=== PATIENT | female | born 1965 | race Caucasian/White ===

== ENCOUNTER 2024-10-02 16:44 | Inpatient (IN) | payer MEDICARE, OTHER, SELFPAY ==
[2024-10-02 12:52] VITALS: BP 179/106
[2024-10-02 13:29] VITALS: BMI 55.9
--- NOTE | 2024-10-02 14:20 | ED.SKININJ ---
HPI-Injury
General
Chief Complaint: Skin Problem
Source: patient and family (daughters at bedside)
Exam Limitations: none
Time Seen by Provider: 10/02/24 14:03
Nursing documentation reviewed up to this point in time: agreed with
History of Present Illness-Injury
Initial Injury comments:
59 yo female IDDM, HTN, HLD presents for swelling, redness, warmth, pain LLE, significantly worse in past 2-3 days. Pain 8/10 now. Taking Tylenol or Ibuprofen prn
Denies fever, has felt nauseous and vomited twice yesterday and once today. Denies CP, SOB.
Has not walked on the leg since the fall due to infections, complications.
Tripped 04/2023, trimalleolar fracture described, 07/2023 had surgery with hardware at [facility]. Dr. Goodwin [facility]. He last saw pt on 07/20/24 per daughter
06/2024 informed orthopedic doctor that she thought there was an infection and he did surgery to removed the hardware
Saw ortho multiple times, put on antibiotics and had MRI 2 weeks ago showing 'cellulitis' per family. Finished antibiotic with no improvement, but worsening
ID doctor went to her home 9 days ago and instructed on wound care for wound on mid instep, sole of foot
VN visited twice weekly for wound care. Last visit was yesterday.
Avulsed the toenail on left 4th toe 5 days ago, daughter cut off the hanging nail 3 days ago.
Past History
Past History
ED Past Medical History: Asthma, HTN, Hypercholesterolemia and IDDM
ED Past Surgical History: Gynecological and Orthopedic
Social History
Tobacco: Non-smoker
Alcohol: None
Drug: None
Personal:
Living: with family
Employment: Employed
Review of Systems
Review of Systems
Allergies reviewed?: Yes
All Other Systems: ROS reviewed and negative except as documented in HPI and ROS
Constitutional: Denies fever
Respiratory: Denies trouble breathing
Cardiac: Denies chest pain
ABD/GI: Reports nausea and vomiting; Denies abdominal pain, diarrhea or anorexia
Musculoskeletal: Reports edema (redness, swelling, pain LLE)
Skin: Reports other (chronic wound sole of left foot)
Neurological: Denies headache
Phy Exam
Physical Exam
Physical Exam:
GENERAL: No acute distress. A&Ox3. Morbidly obese
CONSTITUTIONAL: Afebrile.
EYES: clear, conjunctivae normal
ENMT: moist mucus membranes, Pharynx nl
RESPIRATORY: Regular respirations, nonlabored, lungs clear.
CARDIOVASCULAR: Regular rate and rhythm, no murmurs, no rubs.
GI: Soft, nontender, normal BS
MUSCULOSKELETAL: LLE from knee to tips of toes red, warm tender, significantly swollen. Well perfused. Doppler pulses easily audible left foot and ankl.
SKIN: Warm, dry, pink. Dry fissure 1 cm plantar surface mid left foot, no drainage or erythema. Surgical incisions anterior ankle and foor well healed. Entire LLE is swollen, tender to touch, red and warm.
PSYCH: Normal mood and affect. Well kept, interactive and appropriate
NEUROLOGIC: Awake, alert and oriented. No focal neurological deficits
Course
Orders/Labs/Results
Orders:
Orders
10/02/24 13:00
CR Ankle - Left Min 3 Views Urgent
Comment:
Reason For Exam: swelling, pain, prior surgery x2
CR Foot - Left Min 3 Views Urgent
Comment:
Reason For Exam: swelling, pain, open wound
10/02/24 14:05
Complete Blood Count/With Diff Urgent
Comprehensive Metabolic Panel Urgent
Lactic Acid Urgent
10/02/24 14:19
HYDROmorphone [Dilaudid] 1 mg IV NOW STA
Ondansetron Injectable [Zofran] 4 mg IV NOW STA
US Periph Venous LOWER Ext LT Urgent
Comment:
Reason For Exam: post op redness, swelling, pain
10/02/24 14:34
Piperacillin/Tazo 4.5 Gram [Zosyn] 4.5 gram in 100 ml IV NOW
10/02/24 14:36
0.9% Sodium Chloride 1000 ml [Nss] 1,000 ml IV BOLUS
10/02/24 14:39
Blood Culture Q30M
RITA Source: Blood/Venous
Specimen Description:
Blood Culture Q30M
RITA Source: Blood/Venous
Specimen Description:
10/02/24 14:47
Vancomycin [Vancocin] 2,000 mg 0.9% Sodium Chloride 500 ml [Nss] 500 ml IV NOW
10/02/24 Dinner
Cholesterol Lowering
At Your Request: Full Participation
Does patient need a safe tray?: No
Cholesterol Lowering: Sodium, 2 Gram
2200 boyd/18 CHO Diabetic
10/02/24 16:15
Admit/Transfer Patient As Directed
Co-Sign Provider:
Level of Care: Inpatient admission
Assign to:: Medical/Surgical
Physician / Group: [email or web address]
Diagnosis: Sepsis due to Non purulent recurrent cellulitis
Reason for Hospitalization: Sepsis ( HR > 90. WCC > 10, LA >2) due to LLEX cellulitis
Non purulent recurrent cellulitis of Lt. Cody
Expected length of stay greater than two midnights?: Yes
ELOS- Estimated Length of Stay in days: 6
I certify the patient meets the requirements for IP care: Yes
10/02/24 16:18
Code Status As Directed
Resuscitation Status: Full Code
10/02/24 17:43
Dextrose 50%-Water [Dextrose 50% Syringe] 12.5 grams IV [id number] PRN
Glucagon [GlucaGen] 1 mg IM PRN PRN
Insulin Aspart Corrective Mod [Novolog Flexpen-Moderate Resistance] See Protocol SC AC
10/02/24 17:43
Urinalysis Reflex To Culture Urgent
Activity As Directed
Activity Level: With Assistance
Bedside Glucose Monitoring As Directed
Frequency: AC&HS
Additional Instructions:: Change to q6h if pt on TPN, tube feeding or not eating
Intake/ Output As Directed
Frequency: Per unit guidelines
Vital Signs As Directed
Frequency: Per unit guidelines
DX Deep Vein Thrombosis Video Routine
10/02/24 18:00
Atorvastatin [Lipitor] 40 mg PO QPM
Enoxaparin Sodium [Lovenox] 40 mg SC QPM
10/02/24 19:35
Lactic Acid Q4H
Comment: repeat q4 hours x 4 or until less than 2 mmol/L
10/02/24 20:00
Duloxetine Delayed Release [Cymbalta Delayed Release] 60 mg PO BID
Furosemide [Lasix] 40 mg PO BID
Glipizide [Glucotrol] 10 mg PO BID
10/02/24 21:30
Piperacillin/Tazo 3.375 Gram [Zosyn] 3.375 gram in 50 ml IV Q6H
10/02/24 21:43
Lactic Acid Q4H
Comment: repeat q4 hours x 4 or until less than 2 mmol/L
10/02/24 22:00
Insulin Glargine Lantus [Lantus] 15 units Subcutaneous Insulin Syringe [Syringe-Insulin] 0 unit SC BID@0800,2200
Nortriptyline [Pamelor] 75 mg PO HS
Pregabalin [Lyrica] 200 mg PO HS
10/03/24 01:43
Lactic Acid Q4H
Comment: repeat q4 hours x 4 or until less than 2 mmol/L
10/03/24 05:43
Lactic Acid Q4H
Comment: repeat q4 hours x 4 or until less than 2 mmol/L
10/03/24 06:00
Complete Blood Count/No Diff IN AM
Comprehensive Metabolic Panel IN AM
Glycohemoglobin (HgbA1c) IN AM
10/03/24 08:00
Famotidine [Pepcid] 20 mg PO DAILY
Lisinopril [Zestril] 20 mg PO DAILY
Nebivolol HCl [Bystolic] 5 mg PO DAILY
Pantoprazole [Protonix] 40 mg PO DAILY
Pioglitazone HCl [Actos] 30 mg PO DAILY
Abnormal Lab Results
10/02/24
14:05
WBC 15.1 H 10^3/uL
(4.8-10.8)
Hgb 11.8 L g/dL
(12.0-16.0)
MCH 26.0 L pg
(27.0-31.0)
MCHC 31.4 L g/dL
(33.0-37.0)
RDW 16.0 H %
(11.5-14.5)
Abs Immat Gran (auto) 0.1 H 10^3/uL
(0-0.05)
Absolute Neuts (auto) 13.5 H 10^3/uL
(1.4-6.5)
Absolute Lymphs (auto) 0.9 L 10^3/uL
(1.2-3.4)
Immature Gran % 0.7 H %
(0-0.5)
Neutrophils % 89.5 H %
(42.2-75.2)
Lymphocytes % 6.0 L %
(20.5-51.1)
Chloride 94 L mmol/L
(98-107)
Carbon Dioxide 31 H mmol/L
(22-30)
BUN 21 H mg/dl
(7-17)
Glucose 288 H mg/dl
(70-99)
Lactic Acid 2.1 H mmol/L
(0.7-2.0)
Alkaline Phosphatase 132 H U/L
(38-126)
10/02/24 14:05
10/02/24 14:05
Vital Signs
Initial and Last Documented VS:
Initial Vital Signs
Temp Pulse Resp BP Pulse Ox
99.5 F 99 18 179/106 100
10/02/24 12:52 10/02/24 12:52 10/02/24 12:52 10/02/24 12:52 10/02/24 12:52
Last Documented Vital Signs
Temp Pulse Resp BP Pulse Ox
98.9 F 101 22 114/66 100
10/02/24 18:05 10/02/24 20:53 10/02/24 18:05 10/02/24 20:53 10/02/24 19:50
MDM/Problems Addressed
Differential Diagnosis Includes:
cellulitis, DVT, osteomyelitis
MDM/Problems Addressed:
59 yo female IDDM, HTN, HLD presents for swelling, redness, warmth, pain LLE, significantly worse in past 2-3 days. Pain 8/10 now. Taking Tylenol or Ibuprofen prn
Denies fever, has felt nauseous and vomited twice yesterday and once today. Denies CP, SOB.
Has not walked on the leg since the fall due to infections, complications.
Tripped 04/2023, trimalleolar fracture described, 07/2023 had surgery with hardware at [facility]. Dr. Goodwin, [facility]. He last saw pt on 07/20/24 per daughter
06/2024 informed orthopedic doctor that she thought there was an infection and he did surgery to removed the hardware
Saw ortho multiple times, put on antibiotics and had MRI 2 weeks ago showing 'cellulitis' per family. Finished antibiotic with no improvement, but worsening
ID doctor went to her home 9 days ago and instructed on wound care for wound on mid instep, sole of foot
VN visited twice weekly for wound care. Last visit was yesterday.
Avulsed the toenail on left 4th toe 5 days ago, daughter cut off the hanging nail 3 days ago.
Afebrile, NAD
3:30 p.m.
CBC: WBC 15.1
CMP: No clinically significant abnormality
Lactic 2.1
Blood cultures pending
Ultrasound left lower extremity radiology report read: No DVT, diffuse subcutaneous edema
Left foot x-ray: Radiology report read: IMPRESSION:
There are irregularities along the shaft of the proximal phalanx of the fourth metatarsal and base of the distal phalanx of the great toe which are favored to be subacute or chronic injuries.
There is no definite radiographic evidence of acute osteomyelitis.
Left ankle x-ray radiology report read: IMPRESSION:
There is extensive osseous remodeling and periosteal reaction along the distal tibia and fibula with findings of likely prior tibiotalar fusion with hardware removal.
There is no definite acute fracture. There is no definite findings of acute osteomyelitis although this would be difficult to exclude if there is clinical suspicion.
Plan: Admit: Cellulitis LLE
Hospitalist notified of admission
*Critical Care Note
Total Time (30-74mins, 75-104mins- exclusive of procedures): Not Applicable
ED Attending Note
-
Portions of this chart may have been created with voice recognition software.� Occasional wrong word or��sound alike� substitutions may have occurred due to the inherent limitations of voice recognition software.
Discharge Plan
Departure
Patient Disposition: Admit
Date of Disposition: 10/02/24
Time of Disposition: 15:41
Admit to: Med/Surg
Presentation/result/management discussed w/ accepting MD/DO: Hospitalist
Condition: Fair
Discharge Problem:
Cellulitis of left lower extremity, IDDM (insulin dependent diabetes mellitus)
Interventions
Interventions:
*Risk Screen - Suicide Last Done: 10/02/24 12:52
*General Assessment Last Done: 10/02/24 12:52
*Neglect/Abuse Screening Last Done: 10/02/24 13:29
*ED- Fall Risk Assessment Last Done: 10/02/24 17:35
*ED COVID-19 Vaccine History Last Done: 10/02/24 12:52
*Nursing Disposition Last Done: 10/02/24 17:35
ED-Skin Assessment Last Done: 10/02/24 17:35
Discharge Date and Time
Discharge Date/Time: 10/02/24 17:35
[2024-10-02 14:24] LABS: % Basophils 0.3 % (0-2); % Eosinophils 0.4 % (0-6); % Immature Granulocytes 0.7 % (0-0.5); % Monocytes 3.1 % (1.7-9.3); % Neutrophils 89.5 % (42.2-75.2); Absolute Basophils 0.1 10^3/uL (0-0.2); Absolute Eosinophils 0.1 10^3/uL (0-0.7); Absolute Immature Granulocytes 0.1 10^3/uL (0-0.05); Absolute Lymphocytes 0.9 10^3/uL (1.2-3.4); Absolute Monocytes 0.5 10^3/uL (0.1-0.6); Absolute Neutrophils 13.5 10^3/uL (1.4-6.5); Hematocrit 37.6 % (37.0-47.0); Hemoglobin 11.8 g/dL (12.0-16.0); Mean Corp Hgb Conc. 31.4 g/dL (33.0-37.0); Mean Corpuscular Volume 82.8 fL (81.0-99.0); Mean Platelet Volume 9.8 fL (7.4-10.4); Nucleated Red Blood Cells % 0 %; Platelet Count 282 10^3/uL (130-400); Red Blood Cell Count 4.54 10^6/uL (4.20-5.40); White Blood Cell Count 15.1 10^3/uL (4.8-10.8)
[2024-10-02] MEDS: DILAUDID 1 MG IV ×2 (14:27→18:13)
[2024-10-02] MEDS: ZOFRAN 4 MG IV (14:27)
[2024-10-02 14:35] LABS: Lactic Acid 2.1 mmol/L (0.7-2.0)
[2024-10-02 14:38] LABS: ALT (SGPT) 25 U/L (0-35); AST (SGOT) 28 U/L (14-36); Albumin 3.9 g/dl (3.5-5.0); Alkaline Phosphatase 132 U/L (38-126); Blood Urea Nitrogen 21 mg/dl (7-17); Calcium 9.1 mg/dl (8.4-10.2); Carbon Dioxide 31 mmol/L (22-30); Chloride 94 mmol/L (98-107); Estimated Creatinine Clearance 102 ml/min; Glucose 288 mg/dl (70-99); Potassium 4.3 mmol/L (3.5-5.1); Sodium 135 mmol/L (135-145); Total Protein 7.1 g/dl (6.3-8.2); eGFR > 60.00
[2024-10-02] MEDS: ZOSYN 100 IV (15:31)
[2024-10-02] MEDS: NSS 1000 IV (15:31)
--- NOTE | 2024-10-02 16:05 | HPS.HSE ---
Addendum entered and electronically signed by Joni Guevara MD 10/02/24 17:33:
Code status d/w patient in the presence of BORE MILL OPERATOR
Patient advise that DNR like prior admission - ordered
Original Note:
Family Physician
-
Family Physician: NOT KNOW UNKNOWN - PT DOES
Chief Complaint
-
Failed OP ABx to improve cellultis
History of Present Illness
HPI
59F HX IDDM, HTN, HLD seen at ER
- presents for swelling, redness, warmth, pain LLE, significantly worse in past 2-3 days.
- Avulsed the toenail on left 4th toe 5 days ago, daughter cut off the hanging nail 3 days ago.
- Taking Tylenol or Ibuprofen prn
- Denies fever, has felt nauseous and vomited twice yesterday and once today.
- Denies CP, SOB.
- Has not walked on the leg since the fall due to infections, complications.
- Tripped 04/2023, trimalleolar fracture described, 07/2023 had surgery with hardware at [facility].
( Dr. Goodwin, [facility]. He last saw pt on 07/20/24 per daughter)
- 06/2024 informed orthopedic doctor that she thought there was an infection and he did surgery to removed the hardware
Saw ortho multiple times, put on antibiotics and had MRI 2 weeks ago showing 'cellulitis' per family. Finished antibiotic with no improvement, but worsening
ID Dr El gerard : 9 days ago and instructed on wound care for wound on mid instep, sole of foot
Home visit : twice weekly for wound care. Last visit was yesterday.
Medical History
Past Medical History
Past Medical History: Reports Other
Additional Past Medical History:
Hypertension
DM-II with Peripheral Neuropathy
Restless Leg Syndrome
Obesity
TIA / CVA
Past Surgical History: Reports Other
Additional Past Surgical History:
Bladder Surgery (in childhood)
Right Elbow Surgery
Social History
Tobacco: Non-smoker
Alcohol: None
Drug: None
Family History
Family History: Other (Mother: HTN, DM, CAD Father: HTN, DM, CAD, Gastric Ulcers Brother: DM GM: Ovarian Cancer)
Allergies / Home Medications
Allergies reflects when Allergies were last updated in [employer].
Home Medications with original date entered in [employer]
Allergy/Medication List:
Allergies
Allergy/AdvReac Type Severity Reaction Status Date / Time
No Known Allergies Allergy Verified 04/25/23 03:02
Home Medications
dulaglutide 4.5 mg/0.5 mL subcutaneous pen injector (Trulicity) 4.5 mg SC QWEEK Diabetes 02/01/23
glipizide 10 mg tablet 10 mg PO BID Diabetes 02/01/23
lisinopril 20 mg-hydrochlorothiazide 25 mg tablet 1 tab PO DAILY Blood Pressure 02/01/23
nortriptyline 75 mg capsule 75 mg PO HS mental health 02/01/23
pioglitazone 30 mg tablet 30 mg PO DAILY Diabetes 02/01/23
atorvastatin 40 mg tablet (Lipitor) 40 mg PO HS High Cholesterol 02/02/23
cyanocobalamin (vitamin B-12) 1,000 mcg tablet 1,000 mcg PO DAILY Supplement #30 tabs 02/03/23
polyethylene glycol 3350 17 gram/dose oral powder (Miralax) 4 g PO DAILY Constipation #238 grams 02/03/23
pregabalin 150 mg capsule 150 mg PO DAILY Pain 02/03/23
pregabalin 150 mg capsule 300 mg PO HS Pain 02/03/23
Novolog U-100 Insulin aspart 04/25/23 (insulin pump)
Review of Systems
-
Constitutional: Reports No Symptoms
EENT: Reports No Symptoms
Respiratory: Reports No Symptoms
Cardiac: Reports No Symptoms
Abdomen/GI: Reports No Symptoms
: Reports No Symptoms
Musculoskeletal: Reports No Symptoms
Skin: Reports See HPI
Neurological: Reports No Symptoms
Endocrine: Reports No Symptoms
Hematologic/Lymphatic: Reports No Symptoms
Psych: Reports No Symptoms
Physical Exam
Vital Signs
Vital Signs
Temp Pulse Resp BP Pulse Ox
99.2 F 99 18 179/106 100
10/02/24 14:00 10/02/24 12:52 10/02/24 12:52 10/02/24 12:52 10/02/24 12:52
Physical Exam
General: Other (57y F in no acute distress.)
HEENT: Moist mucous membranes and Other (Thick neck.)
Respiratory: Clear; No Wheezes, Rales or Rhonchi
Cardiac: S1/S2 and Regular Rhythm; No Murmur
GI: Other (Obese, not tender, pos BS.)
Musculoskeletal: Other (LLE from knee to tips of toes red, warm tender, significantly swollen. )
Skin: Warm (Warm, dry, pink. Dry fissure 1 cm plantar surface mid left foot, no drainage or erythema. Surgical incisions anterior ankle and foor well healed. Entire LLE is swollen, tender to touch, red and warm. )
Neuro: AO x 3 and Other (Slow / sluggish [id number] - similar to prior admission.)
Psych: No Anxious or Depressed
Laboratory Results
-
10/02/24 14:05
10/02/24 14:05
Laboratory Results
Lactic Acid 2.1 mmol/L (0.7-2.0) H 10/02/24 14:05
Total Bilirubin 1.0 mg/dl (0.2-1.3) 10/02/24 14:05
AST 28 U/L (14-36) 10/02/24 14:05
ALT 25 U/L (0-35) 10/02/24 14:05
Alkaline Phosphatase 132 U/L (38-126) H 10/02/24 14:05
Data Reviewed
-
Diagnostic Radiology: Report Reviewed by me
Ultrasound: Report Reviewed by me
Lab Data: Labs Reviewed by me
Old Records: Reviewed
Impression/Plan
-
Vital Signs
Temp Pulse Resp BP Pulse Ox
99.2 F 101 20 109/65 95
10/02/24 14:00 10/02/24 16:06 10/02/24 16:06 10/02/24 16:06 10/02/24 16:06
04/26/23 10/02/24
06:06 14:05
WBC 15.1 H
Hgb 10.6 L 11.8 L
Plt Count 282
Chloride 94 L
Carbon Dioxide 31 H
BUN 21 H
Creatinine 0.9
Glucose 288 H
Lactic Acid 2.1 H
Alkaline Phosphatase 132 H
ASSESSMENT & PLAN
Sepsis ( HR > 90. WCC > 10, LA >2) due to LLEX celitis
Non purulent recurrent cellulitis of Lt. Cody
- HX Tripped 04/2023, trimalleolar fracture described
- 07/2023 had surgery [facility] hardware at [facility]. ( Dr. Goodwin, [facility]. He last saw pt on 07/20/24 per daughter)
- 06/2024 informed orthopedic doctor that she thought there was an infection and he did surgery to removed the hardware
- f/u with OP ortho multiple times, put on antibiotics and had MRI 2 weeks ago showing 'cellulitis' per family.
- Finished 7 days of PO Keflex with no improvement, but worsening
- HX hardware removal 07/2023. All done at [facility].
- Agree with IV vancomycin and Zosyn
- ID consult
Inadequate DM control due to current acute infection and not wearing pump
IDDM
Diabetic HX Peripheral Neuropathy
- she left Pump at home
- start Lantus 15U AM and HS
- c/w Pioglitazone, Glipizide
- Mod SI coverage
- Hold Trulicity for now.
- 2200 Taran diet
Benign Hypertension
- Stable.
- c/w lisinopril and Nebivolol
HX Restless Leg Syndrome
- on TOPSTITCHER LOCKSTITCH Amee and nortriptyline.
Morbid Obesity with BMI 55 due to excess calories and insulin resistance
Affects all aspects of care.
Encourage healthy diet and increased activity with goal of weight reduction.
DVT Px: LMWH
DNR ?
IP MS
[2024-10-02 16:06] VITALS: BP 109/65
[2024-10-02] MEDS: VANCOCIN 540 MG IV (16:06)
--- NOTE | 2024-10-02 16:09 | CM ---
CM met with pt and dtr/Chaz bedside
Pt resides with her other dtr and two grandsons 12 & 15 y/o in a 2SH with 2STE through back door
Full flight to 2nd floor where pt sleeps and showers
Pt is indep with ambulation with use of a SPC, has a WW for use as needed
Family available for support if needed but pt fairly indep at baseline
Has working nebulizer in home
Current with [facility] for wound care
PCP- China Pena
rx- Joan Hunt
Son/Jensen is emergency contact
Discharge Disposition- anticipate home, watch for needs
[2024-10-02 18:05] VITALS: BP 158/72
--- NOTE | 2024-10-02 18:09 | PTCARENOTE ---
received patient from ED. pt pulled over from stretcher to bed. pt unable to ambulate. weight obtained. pt AAOx3, reports pain in left leg with any touch/movement. left leg red and swollen up to knee. open blister on bottom of foot, dressing in
place. pt oriented to room and unit. daughters at bedside.
[2024-10-02] MEDS: LOVENOX 40 MG SC (18:15)
[2024-10-02] MEDS: LIPITOR 40 MG PO (18:15)
[2024-10-02 18:17] LABS: Glucose - Point of Care 213 mg/dl (70-99)
[2024-10-02 18:22] VITALS: BMI 56.7
--- NOTE | 2024-10-02 18:48 | PHA.VAN.IN ---
Assessment
- Assessment
Renal Function: Appears similar to baseline
Maximum Temperature: 99.5
Minimum Temperature: 98.9
Concomitant Antimicrobials: PIPERCILLIN/TAZOBACTAM
AUC Dosing Plan
- Dosing Variables
Dosing Weight (kg): 150
Dosing CrCl (ml/min): 101
Vd coefficient (L/kg): 0.4
- Empiric Dosing
Initial / Loading Dose: 2000mg 10/02 @1606
Maintenance Regimen: 1250mg Q12H to start at 0600 on 10/03
Estimated AUC (mcg*h/mL): 504
Estimated Peak (mcg*h/mL): 31.9
Estimated Trough (mcg/ml): 12.6
Estimated Half Life (H): 7.9
- Monitoring
No levels ordered at this time: Will consider levels in next coming few days
Pharmacokinetics Vancomycin I
- -
Patient Age: 59
Patient Sex: Female
Vancomycin Day #: 1
Indication: Skin And Soft Tissue
Requesting Provider: Dr. Guevara
Pertinent Antimicrobial Allergies:
NKDA
Height / Weight:
Height 5 ft 4 in
Actual Weight 149.685 kg
Pertinent Past Medical History: DM
- Vital Signs / Lab Results
Temp Pulse Resp BP Pulse Ox
98.9 F 100 22 158/72 93
10/02/24 18:05 10/02/24 18:05 10/02/24 18:05 10/02/24 18:05 10/02/24 18:05
Lab Results - Hematology
10/02/24
14:05
WBC 15.1 H
Lab Results - Chemistry
10/02/24
14:05
BUN 21 H
Creatinine 0.9
Estimated Creat Clear 102
Albumin 3.9
10/02/24
14:05
Lactic Acid 2.1 H
--- NOTE | 2024-10-02 19:25 | PTCARENOTE ---
noted prior documentation states history of donald auris, but patient denies history. pipelines supervisor notified- patient placed on enhanced precautions
[2024-10-02 20:40] LABS: Glucose - Point of Care 228 mg/dl (70-99)
[2024-10-02 20:52] VITALS: BP 114/66
[2024-10-02] MEDS: LASIX 40 MG PO (20:53)
[2024-10-02] MEDS: GLUCOTROL 10 MG PO (20:53)
[2024-10-02] MEDS: NOVOLOG FLEXPEN-MODERATE RESISTANCE 3 UNITS SC (20:53)
[2024-10-02] MEDS: CYMBALTA DELAYED RELEASE 60 MG PO (20:56)
[2024-10-02] MEDS: ZOSYN 50 IV (21:07)
[2024-10-02] MEDS: LYRICA 200 MG PO (22:10)
[2024-10-02] MEDS: DILAUDID 0.5 MG IV (22:11)
[2024-10-02] MEDS: PAMELOR 75 MG PO (22:11)
[2024-10-02 22:49] LABS: Glucose - Point of Care 219 mg/dl (70-99)
[2024-10-02] MEDS: LANTUS 0.15 UNITS SC (22:52)
[2024-10-02 23:30] VITALS: BP 100/60
[2024-10-03] MEDS: TYLENOL 650 MG PO (00:19)
[2024-10-03] MEDS: DILAUDID 0.5 MG IV (02:00)
[2024-10-03] MEDS: ZOSYN 50 IV ×4 (02:39→21:34)
[2024-10-03] MEDS: VANCOCIN 275 MG IV (05:36)
[2024-10-03 05:45] LABS: Urine Albumin 3+ (Neg - Trace); Urine Bilirubin Negative (Negative); Urine Character Clear (Clear); Urine Color Yellow; Urine Glucose 4+ (Negative); Urine Ketone Negative (Negative); Urine Leukocyte Negative (Negative); Urine Nitrite Negative (Negative); Urine Occult Blood 3+ (Negative); Urine Urobilinogen Negative (Neg - 1+)
[2024-10-03 05:54] LABS: Urine Amorphous Seen; Urine Bacteria Few (Negative)
[2024-10-03 06:45] LABS: Hematocrit 30.7 % (37.0-47.0); Hemoglobin 9.5 g/dL (12.0-16.0); Mean Corp Hgb Conc. 30.9 g/dL (33.0-37.0); Mean Corpuscular Hgb 25.9 pg (27.0-31.0); Mean Corpuscular Volume 83.7 fL (81.0-99.0); Mean Platelet Volume 10.5 fL (7.4-10.4); Platelet Count 248 10^3/uL (130-400); Red Blood Cell Count 3.67 10^6/uL (4.20-5.40)
[2024-10-03 07:00] VITALS: BP 96/55
[2024-10-03 07:15] LABS: ALT (SGPT) 126 U/L (0-35); AST (SGOT) 136 U/L (14-36); Alkaline Phosphatase 110 U/L (38-126); Blood Urea Nitrogen 30 mg/dl (7-17); Calcium 8.2 mg/dl (8.4-10.2); Carbon Dioxide 29 mmol/L (22-30); Chloride 97 mmol/L (98-107); Estimated Creatinine Clearance 53 ml/min; Glucose 229 mg/dl (70-99); Potassium 4.5 mmol/L (3.5-5.1); Sodium 134 mmol/L (135-145); Total Bilirubin 0.9 mg/dl (0.2-1.3); Total Protein 5.8 g/dl (6.3-8.2); eGFR 34.76
--- NOTE | 2024-10-03 08:06 | PTCARENOTE ---
Patient straight cath'd this morning at approx 0445 due to inability to urinate. She cannot recall the last time she urinated but reports that she normally has no problem at home. She had PO Lasix last evening with no urine output. Patient declined
to eat dinner and had small sips of water with medication. Patient denied feeling any bladder discomfort or abdominal pressure.
Bladder scan at 1930 was 130ml, 318ml around midnight and 1097ml at 0430. CROP NUTRITION SCIENTIST made aware via TT.
[2024-10-03 08:53] LABS: Glucose - Point of Care 212 mg/dl (70-99)
[2024-10-03 09:07] LABS: Glycohemoglobin (HgbA1c) 8.4 % (4.0-5.6)
--- NOTE | 2024-10-03 09:08 | PHA.VAN.FU ---
Vancomycin Assessment / Plan
- Assessment
Renal Function: SCR Increasing (0.9->1.7)
WBC's are: Trending Down (15.1->12.0)
In the past 24 hrs, patient has been: Febrile (101.9)
Concomitant Antimicrobials: Piperacillin/ Tazobactam
- Dosing Plan
Adjust Regimen to: Dose by level
Dosing by Level: Hold off on dosing today
Dosing Comments: Received 1250mg 10/03/24 0536
- Monitoring Plan
Random Level: 10/04/24 0600
- Follow Up
Pharmacy will continue to follow.
Vancomycin Follow UP
- -
Patient Age: 59
Patient Sex: Female
Vancomycin Day #: 2
Indication: Skin And Soft Tissue
Requesting Provider: Dr. Guevara
Pertinent Antimicrobial Allergies:
NKDA
Height / Weight:
Height 5 ft 4 in
Actual Weight 149.685 kg
Pertinent Past Medical History: DM
- Vital Signs / Lab Results
Temp Pulse Resp BP Pulse Ox
98.7 F 100 18 100/60 93
10/03/24 04:34 10/02/24 23:30 10/02/24 23:30 10/02/24 23:30 10/03/24 04:10
Lab Results - Hematology
10/02/24 10/03/24
14:05 06:25
WBC 15.1 H 12.0 H
Lab Results - Chemistry
10/02/24 10/03/24
14:05 06:25
BUN 21 H 30 H
Creatinine 0.9 1.7 H
Estimated Creat Clear 102 53
Albumin 3.9 3.0 L
10/02/24 10/02/24 10/02/24
14:05 19:35 21:43
Lactic Acid 2.1 H 1.0 Cancelled
10/03/24 10/03/24
01:43 05:43
Lactic Acid Cancelled Cancelled
Lab Results - Urine
10/03/24
05:14
Urine Nitrite (Reflex) Negative
Leukocyte Esterase Rfl Negative
Ur Squamous Epith Cells 3-5
[2024-10-03] MEDS: NOVOLOG FLEXPEN-MODERATE RESISTANCE 3 UNITS SC ×2 (09:30→12:46)
[2024-10-03] MEDS: LANTUS SC ×2 (10:30→21:32)
[2024-10-03] MEDS: LASIX PO (10:35)
[2024-10-03] MEDS: CYMBALTA DELAYED RELEASE 60 MG PO ×2 (10:39→21:32)
[2024-10-03] MEDS: ACTOS 30 MG PO (10:39)
[2024-10-03] MEDS: PEPCID 20 MG PO (10:39)
[2024-10-03] MEDS: PROTONIX 40 MG PO (10:40)
--- NOTE | 2024-10-03 10:43 | W.PN.HOSP.TC ---
Addendum entered and electronically signed by Rambo Buenorstro MD 10/03/24 21:12:
Attending Addendum-
I saw and evaluated the patient. I reviewed the resident�s note and agree with findings and plan as documented in the resident�s note. Sub: Seen with daughter present doing majority of talking and providing history. Patient falling asleep in bed
during interview. Denies pain. Was febrile overnight. Full 12 point ROS reviewed and negative except as documented Exam: Vitals reviewed in chart GEN-fatigued heart RRR lungs clear abd obese sof NT ND pos BS LE b/l venous stasis Left>right. pulses
intact LLE heel ulcer present red mildly warm blanching rash Neuro AAO x 3
Plan:
# Sepsis secondary to LLE cellulitis
- h/o left ankle fx s/p hardware removal at [facility] (? 2023)- will obtain records
- leukocytosis trending down
- recent wound culture as OP -will attempt to obtain
- Continue Vanc and Zosyn for now apparently failed OP abx
- Wound care and podiatry consult
- follow closely
# THAD
- post obstructive most likely
- check PVR's, SC for > 400mls
- repeat BMP in am
# Transaminitis
- unclear cause
- trend
# IDDM (type 2)
- w/ Peripheral Neuropathy
- Poorly controlled, HbA1c 8.4
- uses insulin pump at home
- Change Lantus to 18u HS,
- follow Accuchecks
- Mod SSI coverage, diabetic diet
- Hold Trulicity, glipizide, pioglitazone
# Benign Hypertension
- Stable monitor
- c/w Nebivilol and Lisinopril
# HX Restless Leg Syndrome
- cont lyrica and nortriptyline.
# Morbid Obesity with BMI 55 due to excess calories and insulin resistance
Affects all aspects of care.
Encourage healthy diet and increased activity with goal of weight reduction
DVT ppx: lovenox
Code status: DNR
Dispo - will likely need SNF on DC
Time spent coordinating care, review of plan of care with resident, personally reviewed records in EMR, med rec, consults, notes, labs, radiology, d/w nursing family� 55 mins
Original Note:
Today's Communication/Plan
-
Continue IV abx, podiatry consult
Assessment / Plan
Assessment / Plan
59 year old female with history of poorly controlled IDDM, HTN, HLD, mornid obesity, diabetic neuropathy, trimalleolar fracture s/p repair and revision, chronic ambulatory dysfunction who presents with LLE cellulitis.
Sepsis:
Tachycardia, tachypnea, leukocytosis, fever
Secondary to non-purulent LLE cellulitis, cannot rule out osteomyelitis yet
Chronic poorly healing fracture repair with [facility], history of IDDM, recent 7-day course of abx use with worsening symptoms (pt unsure of abx but thinks it is bactrim)
- Reports recent wound culture. Will get history from PCP and OP ortho
- CXR with no evidence of osteo. Will check EST and CRP. Consider MRI if positive
- Continue Vanc and Zosyn
- Wound care and podiatry consult
- PRN zofran for nausea. hold off IVF as tolerating PO
THAD:
Acute urinary retention
Pt reports infrequent urine. Bladder scan and straight cath with 1000ml yield
-Start wang
-Follow BMP and IandO
IDDM (type 2)
Peripheral Neuropathy
Poorly controlled, HbA1c 8.4
- Has insulin pump but she left Pump at home
- Change Lantus to 18u HS, follow Accuchecks
- Mod SSI coverage, diabetic diet
- Hold Trulicity, glipizide, pioglitazone
Benign Hypertension
- Stable.
- c/w Nebivilol and Lisinopril with holding parameters
HX Restless Leg Syndrome
- on RAD[employer] Amee and nortriptyline.
Morbid Obesity with BMI 55 due to excess calories and insulin resistance
Affects all aspects of care.
Encourage healthy diet and increased activity with goal of weight reduction
DVT ppx: lovenox
Code status: DNR
Anticipated Discharge: 24 - 48 hours
Subjective/Interval History
-
Date of Service: October 03, 2024
Febrile overnight, Tmax 101.9
Complains of nausea and poor appetite
Objective Data
-
Labs:
Laboratory Results
10/03/24
06:25
WBC 12.0 H
Hgb 9.5 L
Hct 30.7 L
Plt Count 248
Sodium 134 L
Potassium 4.5
Chloride 97 L
Carbon Dioxide 29
BUN 30 H
Creatinine 1.7 H
Glucose 229 H
Calcium 8.2 L
Total Bilirubin 0.9
AST 136 H
ALT 126 H
Alkaline Phosphatase 110
Vital Signs:
Vital Signs
Temp Pulse Resp BP Pulse Ox
99.5 F 93 19 96/55 90
10/03/24 07:00 10/03/24 07:00 10/03/24 07:00 10/03/24 07:00 10/03/24 07:00
I&O
10/02/24 10/03/24 10/04/24
06:59 06:59 06:59
Intake Total 720 / 720
Output Total 2165 / 2165
Balance -1445 / -1445
Review of Systems
-
History Source: Patient
Constitutional: Reports No Appetite; Denies Fever
Respiratory: Denies Trouble Breathing
Cardiac: Denies Chest Pain
Abdomen/GI: Reports Nausea; Denies Abdominal Pain, Vomiting, Diarrhea, Constipated or Bloody Stools
Genitourinary: Reports Other (infrequent urine)
Musculoskeletal: Reports Other (left lower extremity pain)
Skin: Reports Other (left lower extremity burning skin pain)
Physical Exam
-
General: Pain and Morbidly Obese
HEENT: Normocephalic, Atraumatic, Moist Mucous Membranes and Anicteric
Respiratory: Crackles (fine bibasilar) and Non Labored Respirations
Cardiac: Regular Rhythm, S1/S2, Murmur and Rub; Negative Calf Tenderness
GI: Soft, Nontender, Nondistended and Normal Bowel Sounds
Genito-urinary: No Costovertebral Tender
Musculoskeletal: No Clubbing, No Cyanosis and Edema, Left Lower Extrem
Skin: Ulcers (sole of left foot) and Other (splotchy erythema of left leg, warm to touch)
Neuro: Awake, Alert, Oriented, No Motor Deficits and Nonfocal/Grossly Intact
Psych: Calm
[2024-10-03] MEDS: GLUCOTROL 10 MG PO (11:21)
--- NOTE | 2024-10-03 11:33 | CM ---
condominium association manager reviewed patient's chart and met with patient and patient is current with [facility], and plan is to return to home with [facility] when stable.
Plan; Home with [facility] when stable.
Aryan AREVALO
[phone]
[2024-10-03 11:45] VITALS: BP 114/59
[2024-10-03 11:54] LABS: Glucose - Point of Care 209 mg/dl (70-99)
--- NOTE | 2024-10-03 14:40 | WOUNDNOTE ---
[facility] RN note: Patient admitted with cellulitis of L leg
See H&P for complete history. Lives with daughter has Aryan AREVALO.
PMH: 59 yo female IDDM, HTN, HLD presents for swelling, redness, warmth, pain LLE, significantly worse in past 2-3 days.
Has not walked on the leg since the fall due to infections, complications.
Tripped 04/2023, trimalleolar fracture described, 07/2023 had surgery with hardware at [facility]. Dr. Goodwin, [facility]. He last saw pt on 07/20/24 per daughter
06/2024 informed orthopedic doctor that she thought there was an infection and he did surgery to removed the hardware
Saw ortho multiple times, put on antibiotics and had MRI 2 weeks ago showing 'cellulitis' per family. Finished antibiotic with no improvement, but worsening
ID doctor went to her home 9 days ago and instructed on wound care for wound on mid instep, sole of foot
VN visited twice weekly for wound care. Last visit was yesterday.
Avulsed the toenail on left 4th toe 5 days ago, daughter cut off the hanging nail 3 days ago.
Wound Location and type/assessment: Patient admitted with: L plantar foot healing surgical ulcer, scant drainage, no odor. Residual dry blister surrounding, peeling skin. L leg with 3+ edema and mild cellulitis, painful to lift, patient able
to assist a little. L medial ankle surgical site is healed. Very dry flaky skin on L leg. Flaky scab on L heel, suspect abrasion rather than PI, patient said she wears crocks. + audible pulses with Doppler, unable to palpate. ultrasound negative for
DVT. R leg and heel intact. Patient able to turn self to side, sacrum and buttocks intact.
Appetite: Good.
Pressure redistribution devices in place: On Accumax, if patient not turning and need bariatric bed, call [phone] bed tech.
Plan: L plantar foot applied adaptic and silicone foam. Will order mineral oil for dry skin on leg and foot to start tomorrow. Sukhdeep wrap forefoot to below knee applied, patient states is comfortable.
Confirmed orders with Dr. Buenrostro and updated nurse Mariaa. Updated care plan and will follow as needed.
Note to case management of equipment requested for discharge: Resume VN
Recommend follow up with surgeon Dr. [place].
[2024-10-03 15:00] VITALS: BP 98/63
[2024-10-03 15:21] LABS: Erythrocyte Sed Rate 88 mm/hour (0-20)
[2024-10-03 16:15] LABS: C-Reactive Protein > 270.00 mg/L (0.0-10.00)
--- NOTE | 2024-10-03 16:57 | W.PN.UPDATE ---
Update Note
Progress Note Update
pt seen
consult dictated
ulcer small and stable
cont with local wound care and compression
fu as outpt
will sign off
[2024-10-03 17:39] LABS: Glucose - Point of Care 109 mg/dl (70-99)
[2024-10-03] MEDS: NOVOLOG FLEXPEN-MODERATE RESISTANCE SC (17:42)
[2024-10-03] MEDS: LASIX 40 MG PO (18:17)
[2024-10-03] MEDS: LOVENOX 40 MG SC (18:18)
[2024-10-03] MEDS: LIPITOR 40 MG PO (18:18)
[2024-10-03 21:25] LABS: Glucose - Point of Care 229 mg/dl (70-99)
[2024-10-03] MEDS: LYRICA 200 MG PO (21:32)
[2024-10-03] MEDS: PAMELOR 75 MG PO (21:32)
[2024-10-03] MEDS: LANTUS 0.18 UNITS SC (22:01)
[2024-10-03] MEDS: BACTROBAN 2% OINTMENT 1 APPLIC TOPICAL (23:33)
[2024-10-03 23:45] VITALS: BP 114/59
[2024-10-04] MEDS: VISBIOME 2 CAP PO (00:09)
[2024-10-04] MEDS: TYLENOL 650 MG PO (00:10)
[2024-10-04] MEDS: ProAIR HFA INHALER 1 PUFF INH (01:43)
[2024-10-04 02:51] LABS: Glucose - Point of Care 275 mg/dl (70-99)
[2024-10-04 03:00] VITALS: BP 114/43
[2024-10-04] MEDS: ZOSYN 50 IV ×2 (04:00→08:35)
--- NOTE | 2024-10-04 05:55 | PTCARENOTE ---
Patient stated that the last time she voided on her own was 10/03 at approx 10am. Patient reports not voiding since then. Several attempts by a couple nurses to bladder scan but unable to obtain reading. Had her sit on the toilet and commode with no
success. PULLER OVER notified via TT (10/04 013) Order for Koehler placed.
Patient briefly woke up and gave permission to place Koehler. Koehler placed at approx 0245. 100mls voided from Koehler. Patient slept through the Koehler placement. Patient was difficult to rouse a couple times but awaken a bit more. We asked if she's ok
and she nodded yes. We asked if she's a heavy sleeper and she said yes. Vitals were BP 114/43, T 98.5, HR 83, RR 20 and 95% on room air. Accucheck 275. PULLER OVER notified via TT.
[2024-10-04 07:00] VITALS: BP 95/57
[2024-10-04 08:03] LABS: Glucose - Point of Care 240 mg/dl (70-99)
[2024-10-04 08:13] LABS: Hematocrit 27.3 % (37.0-47.0); Hemoglobin 8.6 g/dL (12.0-16.0); Mean Corp Hgb Conc. 31.5 g/dL (33.0-37.0); Mean Corpuscular Hgb 26.3 pg (27.0-31.0); Mean Corpuscular Volume 83.5 fL (81.0-99.0); Platelet Count 258 10^3/uL (130-400); Red Blood Cell Count 3.27 10^6/uL (4.20-5.40)
[2024-10-04 08:21] LABS: Vancomycin Random 19.2 ug/ml
[2024-10-04 08:26] LABS: ALT (SGPT) 174 U/L (0-35); AST (SGOT) 132 U/L (14-36); Alkaline Phosphatase 175 U/L (38-126); Blood Urea Nitrogen 53 mg/dl (7-17); Calcium 7.9 mg/dl (8.4-10.2); Carbon Dioxide 25 mmol/L (22-30); Chloride 96 mmol/L (98-107); Estimated Creatinine Clearance 23 ml/min; Glucose 252 mg/dl (70-99); Potassium 4.1 mmol/L (3.5-5.1); Sodium 133 mmol/L (135-145); Total Bilirubin 0.9 mg/dl (0.2-1.3); Total Protein 5.7 g/dl (6.3-8.2); eGFR 12.83
[2024-10-04] MEDS: NOVOLOG FLEXPEN-MODERATE RESISTANCE 3 UNITS SC (08:35)
[2024-10-04] MEDS: PEPCID 20 MG PO (08:37)
[2024-10-04] MEDS: VISBIOME 1 CAP PO (08:37)
[2024-10-04] MEDS: PROTONIX 40 MG PO (08:37)
[2024-10-04] MEDS: LASIX 40 MG PO (08:38)
[2024-10-04] MEDS: HYDROPHOR 1 APPLIC TOPICAL (08:38)
[2024-10-04] MEDS: BACTROBAN 2% OINTMENT 1 APPLIC TOPICAL ×3 (08:47→21:35)
[2024-10-04] MEDS: CYMBALTA DELAYED RELEASE 60 MG PO (08:49)
--- NOTE | 2024-10-04 09:45 | PHA.VAN.FU ---
Vancomycin Assessment / Plan
- Assessment
Renal Function: SCR Increasing (1.7->3.9)
WBC's are: WNL (9)
In the past 24 hrs, patient has been: Febrile (101.9)
Concomitant Antimicrobials: Piperacillin/Tazobactam
- Assessment - Therapeutic Drug Monitoring
Random Level: 19.2 ~26hrs after 1250mg dose from 10/03/24
- Dosing Plan
Dosing by Level: Hold off on dosing today
- Monitoring Plan
Random Level: 10/05/24 0600
- Follow Up
Pharmacy will continue to follow.
Vancomycin Follow UP
- -
Patient Age: 59
Patient Sex: Female
Vancomycin Day #: 3
Indication: Skin And Soft Tissue
Requesting Provider: Dr. Guevara
Pertinent Antimicrobial Allergies:
NKDA
Height / Weight:
Height 5 ft 4 in
Actual Weight 149.685 kg
Pertinent Past Medical History: DM
- Vital Signs / Lab Results
Temp Pulse Resp BP Pulse Ox
98.5 F 83 20 95/57 95
10/04/24 03:00 10/04/24 03:00 10/04/24 03:00 10/04/24 08:38 10/04/24 03:00
Lab Results - Hematology
10/02/24 10/03/24 10/04/24
14:05 06:25 07:24
WBC 15.1 H 12.0 H 9.0
Lab Results - Chemistry
10/02/24 10/03/24 10/04/24
14:05 06:25 07:24
BUN 21 H 30 H 53 H
Creatinine 0.9 1.7 H 3.9 H
Estimated Creat Clear 102 53 23
Albumin 3.9 3.0 L 3.0 L
10/02/24 10/02/24 10/02/24
14:05 19:35 21:43
Lactic Acid 2.1 H 1.0 Cancelled
10/03/24 10/03/24
01:43 05:43
Lactic Acid Cancelled Cancelled
Microbiology Results
10/02/24 14:39 Blood Culture - Preliminary
Blood/Venous No Growth in 24 hours- Final report to follow
10/02/24 14:39 Blood Culture - Preliminary
Blood/Venous No Growth in 24 hours- Final report to follow
Therapeutic Drug Monitoring
Random Vancomycin 19.2 ug/ml 10/04/24 07:24
[2024-10-04 10:04] LABS: Iron 40 ug/dl (37-170)
[2024-10-04 10:13] LABS: Percent Saturation 14 % (20-50); Total Iron Binding Capacity 280 ug/dl (265-497)
[2024-10-04 10:14] LABS: Lactic Acid 1.5 mmol/L (0.7-2.0)
--- NOTE | 2024-10-04 11:00 | CM ---
Chart reviewed and patient plans on returning to home with [facility] when stable.
[facility]
[phone]
--- NOTE | 2024-10-04 12:11 | W.PN.HOSP.TC ---
Addendum entered and electronically signed by Rambo Buenrostro MD 10/04/24 22:36:
Attending Addendum-
I saw and evaluated the patient. I reviewed the resident�s note and agree with findings and plan as documented in the resident�s note. Sub: Febrile overnight. Patient falling asleep in bed during interview. Minimal urine output. Wang placed.
Complains of pain in LLE. 'I feel like crap' Full 12 point ROS reviewed and negative except as documented Exam: Vitals reviewed in chart GEN-fatigued heart RRR lungs clear abd obese soft TTP RUQ ND pos BS LE b/l venous stasis Left>right. pulses
intact LLE heel ulcer present red mildly warm blanching rash Neuro AAO x 3 - wang in place with minimal yellow urine
Plan:
# Sepsis secondary to LLE non purulent cellulitis
- h/o left ankle fx s/p hardware removal at [facility] (2023)- will obtain records
- apparently had recent LLE MRI at [facility]- will obtain
- leukocytosis trending down
- recent wound culture as OP -will attempt to obtain
- Continue Vanc and Zosyn for now apparently failed OP abx - will need to renally dose
- Wound care
- continues to be febrile
- c/s ID
# THAD
- oliguric
- worsening
- cont wang
- check urine studies
- hold lasix lisinopril renally dose meds
- c/s nephro
- amenable to HD if required
- repeat BMP in am
# Transaminitis
- unclear cause
- check RUQ U/S
- check acute viral hep panel
# IDDM (type 2)
- w/ Peripheral Neuropathy
- Poorly controlled, HbA1c 8.4
- uses insulin pump at home
- cont Lantus to 18u HS,
- follow Accuchecks
- Mod SSI coverage, diabetic diet
- Hold Trulicity, glipizide, pioglitazone
# Benign Hypertension
- Stable monitor
- c/w Nebivilol and hold Lisinopril
# HX Restless Leg Syndrome
- renally dose lyrica and cont nortriptyline.
# Morbid Obesity with BMI 55 due to excess calories and insulin resistance
Affects all aspects of care.
Encourage healthy diet and increased activity with goal of weight reduction
DVT ppx: lovenox
Code status: DNR
Dispo - will likely need SNF on DC
ACP
Patient consented to discuss, was alone, time spent explanation of advance directives, changes in health status, patient�s health care wishes if the patient becomes unable to make health decisions, goals of care, code status, and prognosis 'my
family would be upset if i didnt give it a shot' - 16 minutes
Time spent coordinating care, review of plan of care with resident, personally reviewed previous records in EMR, med rec, labs, radiology, d/w nursing, family total time documented is exclusive of any additional time listed that was spent in advance
care planning discussion -� 56 minutes
Original Note:
Today's Communication/Plan
-
Avoid nephrotoxic agents
Renally dose meds
Continue IV abx, ID consult
Continue wang, follow BMP and IandO, nephro consult
Assessment / Plan
Assessment / Plan
59 year old female with history of poorly controlled IDDM, HTN, HLD, mornid obesity, diabetic neuropathy, trimalleolar fracture s/p repair and revision, chronic ambulatory dysfunction who presents with LLE cellulitis.
Sepsis:
Tachycardia, tachypnea, leukocytosis, fever
Secondary to non-purulent LLE cellulitis, cannot rule out osteomyelitis yet
Chronic poorly healing fracture repair with [facility] in Apr 2024 with hardware removal in jul 2024, history of IDDM, recent 7-day course of abx use with worsening symptoms (pt unsure of abx but thinks it is bactrim)
- Leukocytosis resolved, but febrile overnight
- Reports recent wound culture. Will get history and recent cultures from PCP and OP ortho if able
- CXR with no evidence of osteo. ESR 88, CRP 270.
- Continue Vanc and Zosyn
- Appreciate wound care and podiatry
- Infectious disease consult
- PRN zofran for nausea. hold off IVF as tolerating PO
THAD:
Acute urinary retention with straight cath yield of 1000ml 10/03.
-Status wang. Now oliguric. Concern for intrarenal cause/ATN/AIN
-Nephro consult
-Renally adjust meds
-Check Urinalysis, urine micro, eos, urine cr and urine urea
-Follow BMP and IandO
IDDM (type 2):
Peripheral Neuropathy:
Poorly controlled, HbA1c 8.4
- Has insulin pump but she left Pump at home
- On lantus 18u HS, follow Accuchecks
- Mod SSI coverage, diabetic diet
- Hold Trulicity, glipizide, pioglitazone
Benign Hypertension
- Stable. Holding Lisinopril for THAD
- c/w Nebivilol with holding parameters
Chronic LE edema:
- Hold lasix 40mg BID
Anemia:
Likely anemia of chronic disease.
Hgb trending down with no reports of bleeding
-Check iron studies
HX Restless Leg Syndrome
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
Morbid Obesity with BMI 55 due to excess calories and insulin resistance
Affects all aspects of care.
Encourage healthy diet and increased activity with goal of weight reduction
DVT ppx: DC Lovenox. Switched to heparin
Code status: Full Code. Discussed code status with patient today. Patient states that she would like to have life-saving measures then if indicated including resuscitation/chest compressions, intubation, and hemodialysis.
Anticipated Discharge: > 48 hours
Subjective/Interval History
-
Date of Service: October 04, 2024
Reports nausea overnight.
Febrile overnight ti 101.9F.
Reduced urine output, wang inserted overnight
Objective Data
-
Labs:
Laboratory Results
10/04/24
07:24
WBC 9.0
Hgb 8.6 L
Hct 27.3 L
Plt Count 258
Sodium 133 L
Potassium 4.1
Chloride 96 L
Carbon Dioxide 25
BUN 53 H
Creatinine 3.9 H
Glucose 252 H
Calcium 7.9 L
Total Bilirubin 0.9
AST 132 H
ALT 174 H
Alkaline Phosphatase 175 H
Vital Signs:
Vital Signs
Temp Pulse Resp BP Pulse Ox
98.1 F 72 20 95/57 95
10/04/24 07:00 10/04/24 07:00 10/04/24 07:00 10/04/24 08:38 10/04/24 08:00
I&O
10/03/24 10/04/24 10/05/24
06:59 06:59 06:59
Intake Total 720 / 720 740 / 740
Output Total 2165 / 2165 100 / 100
Balance -1445 / -1445 640 / 640
Review of Systems
-
History Source: Patient
Constitutional: Denies Fever
EENT: Reports Other (moist mucous membranes)
Respiratory: Denies Trouble Breathing
Cardiac: Denies Chest Pain
Abdomen/GI: Reports Diarrhea (2 watery bowel movements overnight); Denies Nausea, Constipated or Bloody Stools
Genitourinary: Reports Difficulty Voiding and Other (reduced frequency of urine)
Musculoskeletal: Reports Edema (lower extremities) and Other (Left leg pain)
Skin: Reports Other
Physical Exam
-
General: Morbidly Obese and Other (appears uncomfortable)
HEENT: Normocephalic, Atraumatic and Anicteric
Respiratory: Clear to Auscultation, Non Labored Respirations and Decreased Breath Sounds (mildly decreased on LLL); Negative Wheezes, Rales, Rhonchi or Crackles
Cardiac: Regular Rhythm, S1/S2 and Other; Negative Murmur or Rub
GI: Soft, Nontender, Nondistended, Normal Bowel Sounds and Other (central obesity)
Genito-urinary: No Costovertebral Tender, Turbid Urine and Wang (minimal urine output in wang)
Musculoskeletal: No Clubbing, No Cyanosis, Edema, Right Lower Extrem and Edema, Left Lower Extrem
Skin: Ulcers (left plantar surface. Erythema and warmth of left leg. Significantly tender.)
Neuro: Awake, Alert and Oriented
Psych: Calm
[2024-10-04] MEDS: NOVOLOG FLEXPEN-MODERATE RESISTANCE 1 UNITS SC ×2 (13:06→16:57)
--- NOTE | 2024-10-04 14:22 | CON.ID ---
Consultation
-
Date/Time Consultation Requested: October 04, 2024 1216
Date/Time Consultation Performed: October 04, 2024 1420
Requesting Provider: Dr. Shiloh Najera
Performing Provider: Dr. Ava Youngblood
Reason for Consultation: Concern for osteomyelitis
Chief Complaint / Past History
Chief Complaint
Left foot swelling, redness and pain
History of Present Illness
59-year-old female with history of diabetes mellitus, peripheral neuropathy, left ankle fracture who presented to the hospital on October 02 due to recurrence of right leg/foot edema, erythema, and pain. She has history of left Tri malleolar fracture
status post ORIF at [facility] in July 2023. Patient was falling and found to have loosening of the ankle hardware. On June 2024, the ankle hardware were removed. She said that she saw the infectious disease nurse practitioner and
she had 7 days worth of antibiotic postop. Her foot and ankle improved after hardware removal. The ankle wound healed. The plantar wound was better and smaller. Approximately 3 weeks ago, she developed acute left foot pain. No trauma or new
shoes. The left foot became swollen and red extending up to her basurto. She saw her orthopedic doctor who prescribed a course of Cipro with improvement. 2 weeks ago she had MRI of the left leg below the knee without contrast-no abscess, no
osteomyelitis, positive soft tissue swelling consistent with cellulitis. Last week, her right leg became swollen, red, hot, and painful again. She then stubbed her left fourth toe and the nail partially came off which the daughter removed the
hanging toenail. She had chills. She came to the ER October 02. White count of 15.1. Maximum temperature one 101.9. She was started on vancomycin and Zosyn. X-ray of the ankle and foot generalized soft tissue swelling. Blood cultures x 2
negative to date. During hospital stay, she developed minimal urine output. She is currently in THAD. Patient does not think her leg is any better since being in the hospital. No known history of MRSA in the past.
Past History
Additional Past Medical History:
Diabetes mellitus
Peripheral neuropathy
Hypertension
TIA/CVA
Class III obesity BMI 57
Restless leg syndrome
Hx of left trimalleolar fracture status post ORIF July 2023 with subsequent hardware removal June 2024
Right elbow surgery
Childhood bladder surgery
Allergy History:
No Known Allergies Allergy (Verified 10/02/24 12:59)
Medications Reviewed: Yes
Current Antibiotics:
Vancomycin
Zosyn
Social History
Tobacco: Non-Smoker
Alcohol: None
Drug: None
Living: Other (1 dog )
Employment: Not Employed
Family History
Family History: Not Pertinent
Review of Systems
Review of Systems
General: Fever, Chills and Change in Appetite
HEENT: Negative Sinus Problems, Headache or Pharyngitis
Cardiovascular: Negative Chest Pain or Dyspnea
Respiratory: Negative Dyspnea, Cough or Sputum Production
Gasteroenterology: Negative Nausea, Vomiting or Diarrhea (Diarrhea last night, now resolved. )
Genital / Urological: Negative Dysuria or Flank Pain
Neurological: Negative Dizziness
All systems: All other systems were reviewed and were negative
Vital Signs
Temp Pulse Resp BP Pulse Ox
98.1 F 72 20 95/57 95
10/04/24 07:00 10/04/24 07:00 10/04/24 07:00 10/04/24 08:38 10/04/24 08:00
Selected Entries
10/03/24
23:45
Temp 101.9 F H
Physical Exam
Physical Exam
Constitutional: No Acute Distress and Non-toxic
Eyes: No Conjunctival Hemorrhage and Sclera Anicteric
Cardiovascular: Regular Rate and S1/S2
Pulmonary: Clear
Gastrointestinal: Soft, Non Tender, Non Distended and Normal Bowel Sounds
Genito-Urinary: Koehler; Negative CVA Tenderness
Extremities: Edema (LLE 3+ ) and Erythema (Patchy erythema from foot to knee, mild warmth, skin dry)
Wound: Other (left plantar mid arch: linear fissure, almost closed, no drainage, no surrounding erythema)
Neurological: AO x 3
Lab / Diagnostic Study Results
10/04/24 07:24
10/04/24 07:24
Abs Immat Gran (auto) 0.1 10^3/uL (0-0.05) H 10/02/24 14:05
Absolute Neuts (auto) 13.5 10^3/uL (1.4-6.5) H 10/02/24 14:05
Absolute Lymphs (auto) 0.9 10^3/uL (1.2-3.4) L 10/02/24 14:05
Absolute Monos (auto) 0.5 10^3/uL (0.1-0.6) 10/02/24 14:05
Absolute Basos (auto) 0.1 10^3/uL (0-0.2) 10/02/24 14:05
Immature Gran % 0.7 % (0-0.5) H 10/02/24 14:05
Neutrophils % 89.5 % (42.2-75.2) H 10/02/24 14:05
Lymphocytes % 6.0 % (20.5-51.1) L 10/02/24 14:05
Monocytes % 3.1 % (1.7-9.3) 10/02/24 14:05
Eosinophils % 0.4 % (0-6) 10/02/24 14:05
Basophils % 0.3 % (0-2) 10/02/24 14:05
ESR 88 mm/hour (0-20) H 10/03/24 06:25
Lactic Acid 1.5 mmol/L (0.7-2.0) 10/04/24 09:52
C-Reactive Protein > 270.00 mg/L (0.0-10.00) H 10/03/24 06:25
Ur Squamous Epith Cells 3-5 /LPF (Few) 10/03/24 05:14
Microbiology Results
Micro:
10/02/24 14:39 Blood Culture - Preliminary
Blood/Venous No Growth in 24 hours- Final report to follow
10/02/24 14:39 Blood Culture - Preliminary
Blood/Venous No Growth in 24 hours- Final report to follow
10/02/24 Left FOOT XRAY: There are irregularities along the shaft of the proximal phalanx of the fourth metatarsal and base of the distal phalanx of the great toe which are favored to be subacute or chronic injuries. There is no definite radiographic
evidence of acute osteomyelitis.
10/02/24 Left ankle xray: There is extensive osseous remodeling and periosteal reaction along the distal tibia and fibula with findings of likely prior tibiotalar fusion with hardware removal. There is no definite acute fracture. There is no
definite findings of acute osteomyelitis although this would be difficult to exclude if there is clinical suspicion.
Assessment / Plan
# Acute non-purulent RLE cellulitis
# Fever
# Leukocytosis resolved
# THAD
# DM- uncontrolled
# hx left ankle ORIF, hardware removed 06/2024 due to loosening
-Underlying osteo is unlikely as plantar wound superficial without probe to bone.
- Obtain recent MRI report from [facility]
- DC Vancomycin and Zosyn especially in setting of THAD
- Deescalate to cefazolin 1g IV q12, renally adjusted.
- Moisturize leg. skin crackes can serve as portal for bacterial entry.
- Elevate leg.
-ANNA compression.
- Follow temps.
- Tight glucose control
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
Diabetes mellitus
Peripheral neuropathy
Hypertension
TIA/CVA
Class III obesity BMI 57
Restless leg syndrome
Hx of left trimalleolar fracture status post ORIF July 2023 with subsequent hardware removal June 2024
Right elbow surgery
Childhood bladder surgery
[2024-10-04 15:00] VITALS: BP 123/51
--- NOTE | 2024-10-04 15:07 | W.CON.NEPH ---
Consultation
-
Date/Time Consultation Requested: October 04, 2024 at 12 PM
Date/Time Consultation Performed: October 04, 2024 at 3 PM
Requesting Provider: Dr. Guevara
Performing Provider: Dr. Gloria
Reason for Consultation: Acute kidney injury
Medical History
-
Chief Complaint: Acute kidney injury
History of Present Illness:
59 yo female IDDM, HTN, HLD presents for swelling, redness, warmth, pain LLE, significantly worse in past 2-3 days. Pain / now. Taking Tylenol or Ibuprofen prn
Tripped 04/2023, trimalleolar fracture described, 07/2023 had surgery with hardware at [facility]. Dr. Goodwin, [facility]. Status post hardware removal June 2024
Saw ortho multiple times, put on antibiotics and had MRI 2 weeks ago with cellulitis. Finished antibiotic with no improvement, but worsening
Avulsed the toenail on left 4th toe 5 days ago, daughter cut off the hanging nail 3 days ago.
Currently on antibiotics for left lower extremity cellulitis. She was febrile overnight she is low blood pressures and developed acute kidney injury status post Koehler catheter placed.
He was getting Lasix that has been held today
Patient developed acute kidney injury with creatinine 0.9 up to 3.9 in 48 hours
Past Medical History
Hypertension, diabetes, obesity, hyperlipidemia, diabetic neuropathy
Social History
Tobacco: Non-Smoker
Alcohol: None
Family History
Family History: Not Pertinent
Allergies / Home Medications
Allergy/AdvReac Type Severity Reaction Status Date / Time
No Known Allergies Allergy Verified 10/02/24 12:59
�Medication �Instructions �Recorded �Confirmed �Type
glipizide 10 mg tablet 10 mg PO BID Diabetes 02/01/23 10/02/24 History
nortriptyline 75 mg capsule 75 mg PO mental health 02/01/23 10/02/24 History
pioglitazone 30 mg tablet 30 mg PO DAILY Diabetes 02/01/23 10/02/24 History
atorvastatin 40 mg tablet (Lipitor) 40 mg PO QPM High Cholesterol 02/02/23 10/02/24 History
duloxetine 60 mg capsule,delayed 60 mg PO BID 10/02/24 10/02/24 History
release
famotidine 20 mg tablet 20 mg PO DAILY 10/02/24 10/02/24 History
furosemide 40 mg tablet 40 mg PO BID 10/02/24 10/02/24 History
insulin lispro 100 unit/mL 1 sliding scale dose SC DIRECTED 10/02/24 10/02/24 History
subcutaneous solution
lisinopril 20 mg tablet 20 mg PO DAILY 10/02/24 10/02/24 History
nebivolol 5 mg tablet 5 mg PO DAILY 10/02/24 10/02/24 History
omeprazole 40 mg capsule,delayed 40 mg PO DAILY 10/02/24 10/02/24 History
release
pregabalin 200 mg capsule 200 mg PO HS 10/02/24 10/02/24 History
Review of Systems
-
No chest pain no shortness of breath
All other systems: Negative unless noted
Physical Exam
Vital Signs
Vital Signs
Temp Pulse Resp BP Pulse Ox
98.1 F 72 20 95/57 95
10/04/24 07:00 10/04/24 07:00 10/04/24 07:00 10/04/24 08:38 10/04/24 08:00
Lab Results
WBC 9.0 10^3/uL (4.8-10.8) 10/04/24 07:24
RBC 3.27 10^6/uL (4.20-5.40) L 10/04/24 07:24
Hgb 8.6 g/dL (12.0-16.0) L 10/04/24 07:24
Hct 27.3 % (37.0-47.0) L 10/04/24 07:24
Plt Count 258 10^3/uL (130-400) 10/04/24 07:24
Sodium 133 mmol/L (135-145) L 10/04/24 07:24
Potassium 4.1 mmol/L (3.5-5.1) 10/04/24 07:24
Chloride 96 mmol/L (98-107) L 10/04/24 07:24
Carbon Dioxide 25 mmol/L (22-30) 10/04/24 07:24
BUN 53 mg/dl (7-17) H 10/04/24 07:24
Creatinine 3.9 mg/dL (0.6-1.0) H 10/04/24 07:24
eGFR 12.83 10/04/24 07:24
Glucose 252 mg/dl (70-99) H 10/04/24 07:24
Calcium 7.9 mg/dl (8.4-10.2) L 10/04/24 07:24
Albumin 3.0 g/dl (3.5-5.0) L 10/04/24 07:24
Physical Exam
General no acute distress
HEENT no cephalic atraumatic extraocular muscle intact no scleral icterus no JVD neck supple
lungs clear to auscultation bilateral
heart regular S1-S2 positive
abdomen soft nontender positive bowel sounds
extremities bilateral lower extremity edema
Neurologically nonfocal alert and oriented x 3
Psych normal affect no bizarre behavior
Data Reviewed
-
Labs: Labs Reviewed by me, Discussed with Physician and Discussed with Patient
Assessment/Plan
-
59 yo female IDDM, HTN, HLD presents for swelling, redness, warmth, pain LLE, significantly worse in past 2-3 days. Pain /10 now. Taking Tylenol or Ibuprofen prn
Denies fever, has felt nauseous and vomited twice yesterday and once today. Denies CP, SOB.
Has not walked on the leg since the fall due to infections, complications.
Tripped 04/2023, trimalleolar fracture described, 07/2023 had surgery with hardware at [facility]. Dr. Goodiwn, [facility]. He last saw pt on 07/20/24 per daughter
Status post hardware removal
Currently being treated for sepsis cellulitis
Acute kidney injury 0.9-3.9 in 48 hours
Impression.
Acute kidney injury likely secondary to hemodynamics and sepsis and fever with hypotension.
Cellulitis questionable osteo
Diabetes
Obesity
Plan.
Oliguric with Koehler catheter.
Continue to hold Lasix, lisinopril.
Urinalysis from 10/03 7-10 red blood cells, no white blood cells, 4+ glucose, 3+ albumin
Start IV fluids.
Quantify protein creatinine ratio.
Hemoglobin A1c 8.4
Renal dose all medications
Serologies
Total Time Spent with Patient (in minutes): 32
[2024-10-04 16:44] LABS: Glucose - Point of Care 167 mg/dl (70-99)
[2024-10-04] MEDS: NSS 1000 IV (16:57)
[2024-10-04] MEDS: LIPITOR 40 MG PO (16:58)
[2024-10-04] MEDS: ANCEF 5 IV (16:58)
[2024-10-04] MEDS: HEPARIN 5000 UNITS SC (19:36)
[2024-10-04] MEDS: CYMBALTA DELAYED RELEASE 30 MG PO (19:36)
[2024-10-04] MEDS: LAC HYDRIN, AM LACTIN LOTION 1 APPLIC TOPICAL (19:36)
[2024-10-04] MEDS: ZOFRAN 4 MG IV (19:58)
[2024-10-04 21:33] LABS: Urine Albumin 3+ (Neg - Trace); Urine Bilirubin Negative (Negative); Urine Character Cloudy (Clear); Urine Color Yellow; Urine Glucose Negative (Negative); Urine Ketone Negative (Negative); Urine Leukocyte 3+ (Negative); Urine Nitrite Negative (Negative); Urine Occult Blood 4+ (Negative); Urine Specific Gravity 1.015 (<1.030); Urine Urobilinogen Negative (Neg - 1+)
[2024-10-04] MEDS: LYRICA 75 MG PO (21:35)
[2024-10-04] MEDS: PAMELOR 75 MG PO (21:37)
[2024-10-04 21:41] LABS: Glucose - Point of Care 145 mg/dl (70-99)
[2024-10-04] MEDS: LANTUS 0.18 UNITS SC (21:41)
[2024-10-04 21:46] LABS: Urine Red Blood Cell 40-50 /HPF (0-2); Urine Squamous Cell 26-30 /LPF (Few); Urine White Cell 26-30 /HPF (0-5)
[2024-10-04 21:47] LABS: Urine Amorphous Seen; Urine Bacteria Many (Negative)
[2024-10-04 21:49] LABS: Urine Protein 182 mg/dl
[2024-10-04 22:33] LABS: Body Fluid for Eosinophils No Eosinophils seen
--- NOTE | 2024-10-04 23:00 | PTCARENOTE ---
Assessment done and charted. AAOX3 period of drowsiness, forgetful at times. Pt urine had sediments and cloudy. Sample send to lab. Shallow breathing, RA. Pt was given orange juice as her glucose was in the lower side. Pt appears comfortable in bed.
Call pop within reach.
[2024-10-04 23:45] VITALS: BP 120/70
[2024-10-05] MEDS: NSS 1000 IV ×4 (01:49→18:11)
[2024-10-05] MEDS: ANCEF 5 IV ×2 (05:36→17:47)
[2024-10-05 05:50] VITALS: BMI 58.0
[2024-10-05 06:41] LABS: Glucose - Point of Care 106 mg/dl (70-99)
--- NOTE | 2024-10-05 06:58 | W.PN.HOSP.TC ---
Addendum entered and electronically signed by Rambo Buenrostro MD 10/05/24 22:21:
Attending Addendum-
I saw and evaluated the patient. I reviewed the resident�s note and agree with findings and plan as documented in the resident�s note. Sub: Afebrile overnight. More alert today. Oliguric. Denies pain in LLE. 'my kidneys are done!' Full 12 point ROS
reviewed and negative except as documented Exam: Vitals reviewed in chart GEN-fatigued heart RRR lungs decreased BS @ bases abd obese soft TTP RUQ ND pos BS LE b/l venous stasis Left>right. pulses intact LLE heel ulcer present red mildly warm
blanching rash Neuro AAO x 3 - wang in place with 300mls clear yellow urine
Plan:
# Sepsis secondary to LLE non purulent cellulitis
- h/o left ankle fx s/p hardware removal at [facility] (06/2024)- obtain records
- apparently had recent LLE MRI at [facility]- obtain
- leukocytosis resolved
- recent wound culture as OP -obtain
- Vanc and Zosyn-> ancef # 2
- Wound care
- ID input appreciated
# THAD
- oliguric
- likely ATN- sepsis hypotension
- worsening further cr
- cont wang
- check urine studies- prot/cr @ 2g
- hold lasix lisinopril renally dose meds
- nephro input appreciated
- cont IVF
- amenable to HD if required
- repeat BMP in am
# HFpEF
- echo 01/2023- ef 60-65%
- daily weights strict I and O
- hold lasix
- cont IVF- monitor closely
# Transaminitis
- trending down with IVF
- check RUQ U/S
- acute viral hep panel -neg
# Hyperkalemia
- from THAD
- cont to trend
# Metabolic Acidosis
- from THAD
- cont to trend
# IDDM (type 2)
- w/ Peripheral Neuropathy
- Poorly controlled, HbA1c 8.4
- uses insulin pump at home
- cont Lantus to 18u HS
- add meal time insulin
- follow AccuCheck closely
- cont Mod SSI coverage, diabetic diet
- Hold Trulicity, glipizide, pioglitazone
# Benign Hypertension
- Stable monitor
- c/w Nebivilol and hold Lisinopril
# HX Restless Leg Syndrome
- renally dose lyrica and cont nortriptyline.
# Morbid Obesity with BMI 55 due to excess calories and insulin resistance
Affects all aspects of care.
Encourage healthy diet and increased activity with goal of weight reduction
DVT ppx: lovenox
Code status: DNR
Dispo - will likely need SNF on DC
Time spent coordinating care, review of plan of care with resident, personally reviewed records in EMR, med rec, consults, notes, labs, radiology, d/w nursing nephro � 54mins
Original Note:
Today's Communication/Plan
-
Renal and abd US
continue cefazolin
Continue wang
Monitor Iand O
Renally dose meds
Assessment / Plan
Assessment / Plan
59 year old female with history of poorly controlled IDDM, HTN, HLD, mornid obesity, diabetic neuropathy, trimalleolar fracture s/p repair and revision, chronic ambulatory dysfunction who presents with sepsis secondary to LLE cellulitis.
Sepsis:
Tachycardia, tachypnea, leukocytosis, fever
Secondary to non-purulent LLE cellulitis
Hx of fracture and repair with [facility] in Apr 2024 with hardware removal in jul 2024, history of IDDM, recent 7-day course of abx use with worsening symptoms (pt unsure of abx but thinks it is bactrim)
- Leukocytosis resolved, afebrile in past 24hr
- Reports recent wound culture. Requested records from [facility]
- CXR with no evidence of osteo. ESR 88, CRP 270.
- Vanc and zosyn narrowed to Cefazolin
- Appreciate wound care, podiatry and infectious dosease input
- PRN zofran for nausea. Loose stool, likely from abx resolved.
THAD:
Worsening. Wang inserted for initial retention. Remains oliguric. Pt agreeable to dialysis if indicated
- Continue Wang.
- Appreciate nephro input, on IVF
-Holding lisinopril and lasix. Renally dosing meds
-Urinalysis equivocal for infection, will await culture
-Protein/cr 2.0 negative for eosinophils
-Await immunology tests
-For renal US today
-Follow BMP and IandO
Transaminitis:
Unclear cause AST/ALT downtrending but Alk phos uptrend. Denies RUQ pain, haynes's sign negative on PE
-For abd US today
-Await acute viral hep panel
IDDM (type 2):
Peripheral Neuropathy:
Poorly controlled, HbA1c 8.4
- Has insulin pump but she left Pump at home
- Continue lantus 18u HS, follow Accuchecks
- Mod SSI coverage, diabetic diet
- Hold Trulicity, glipizide, pioglitazone
Benign Hypertension
- Stable. Holding Lisinopril for THAD
- c/w Nebivilol renally dosed with holding parameters
Chronic LE edema:
- Hold lasix 40mg BID for THAD
Anemia:
Likely chronic disease and iron deficiency
Wound:
-Left plantar midarch, present on arrival
-Wound care
HX Restless Leg Syndrome
- on CART DRIVER Lyrica (renal dosing) and nortriptyline.
Morbid Obesity with BMI 55 due to excess calories and insulin resistance
Affects all aspects of care.
Encourage healthy diet and increased activity with goal of weight reduction
DVT ppx: heparin
Code status: Full Code. Discussed code status with patient today. Patient states that she would like to have life-saving measures then if indicated including resuscitation/chest compressions, intubation, and hemodialysis.
Anticipated Discharge: > 48 hours
Subjective/Interval History
-
Date of Service: October 05, 2024
No acute events overnight
Objective Data
-
Labs:
Laboratory Results
10/05/24
06:00
WBC Pending
Hgb Pending
Hct Pending
Plt Count Pending
Sodium Pending
Potassium Pending
Chloride Pending
Carbon Dioxide Pending
BUN Pending
Creatinine Pending
Glucose Pending
Calcium Pending
Total Bilirubin Pending
AST Pending
ALT Pending
Alkaline Phosphatase Pending
Vital Signs:
Vital Signs
Temp Pulse Resp BP Pulse Ox
99.4 F 81 20 120/70 93
10/04/24 23:45 10/04/24 23:45 10/04/24 23:45 10/04/24 23:45 10/04/24 23:45
I&O
10/03/24 10/04/24 10/05/24
06:59 06:59 06:59
Intake Total 720 / 720 740 / 740 2700 / 2700
Output Total 2165 / 2165 100 / 100 300 / 300
Balance -1445 / -1445 640 / 640 2400 / 2400
Review of Systems
-
History Source: Patient
Constitutional: Reports No Appetite
Respiratory: Denies Trouble Breathing
Cardiac: Denies Chest Pain
Abdomen/GI: Reports Nausea; Denies Abdominal Pain, Diarrhea, Constipated or Bloody Stools
Musculoskeletal: Reports Other (L leg pain)
Physical Exam
-
General: No Apparent Distress and Comfortable
HEENT: Normocephalic, Atraumatic, Moist Mucous Membranes and Anicteric
Respiratory: Clear to Auscultation and Non Labored Respirations; Negative Wheezes, Rales, Rhonchi or Crackles
Cardiac: Regular Rhythm and S1/S2; Negative Murmur or Rub
GI: Soft, Nontender, Nondistended and Normal Bowel Sounds
Genito-urinary: Clear Urine and Wang
Musculoskeletal: No Clubbing, No Cyanosis, Edema, Right Lower Extrem (1+ pitting) and Edema, Left Lower Extrem
Skin: Warm and Dry
Neuro: Awake, Alert and Oriented
Psych: Calm
[2024-10-05] MEDS: NOVOLOG FLEXPEN-MODERATE RESISTANCE SC (07:28)
[2024-10-05 07:45] VITALS: BP 126/70
[2024-10-05 07:47] LABS: Glucose - Point of Care 198 mg/dl (70-99)
[2024-10-05 08:54] LABS: Hematocrit 28.7 % (37.0-47.0); Hemoglobin 8.9 g/dL (12.0-16.0); Mean Corpuscular Hgb 25.2 pg (27.0-31.0); Mean Corpuscular Volume 81.3 fL (81.0-99.0); Mean Platelet Volume 11.1 fL (7.4-10.4); Platelet Count 296 10^3/uL (130-400); Red Blood Cell Count 3.53 10^6/uL (4.20-5.40); Red Cell Dist. Width 15.9 % (11.5-14.5); White Blood Cell Count 8.7 10^3/uL (4.8-10.8)
[2024-10-05 08:56] LABS: ALT (SGPT) 147 U/L (0-35); AST (SGOT) 90 U/L (14-36); Alkaline Phosphatase 330 U/L (38-126); Blood Urea Nitrogen 65 mg/dl (7-17); Calcium 7.6 mg/dl (8.4-10.2); Carbon Dioxide 18 mmol/L (22-30); Chloride 101 mmol/L (98-107); Estimated Creatinine Clearance 18 ml/min; Glucose 103 mg/dl (70-99); Potassium 5.2 mmol/L (3.5-5.1); Sodium 132 mmol/L (135-145); Total Protein 6.1 g/dl (6.3-8.2)
[2024-10-05] MEDS: BYSTOLIC 2.5 MG PO (09:02)
[2024-10-05] MEDS: CYMBALTA DELAYED RELEASE 30 MG PO ×2 (09:02→21:24)
[2024-10-05] MEDS: HYDROPHOR 1 APPLIC TOPICAL (09:03)
[2024-10-05] MEDS: VISBIOME 1 CAP PO (09:03)
[2024-10-05] MEDS: PROTONIX 40 MG PO (09:03)
[2024-10-05] MEDS: DESENEX/MITRAZOL/ZEASORB 1 APPLIC TOPICAL ×2 (09:04→21:28)
[2024-10-05] MEDS: BACTROBAN 2% OINTMENT 1 APPLIC TOPICAL ×3 (09:05→21:40)
[2024-10-05] MEDS: LAC HYDRIN, AM LACTIN LOTION 1 APPLIC TOPICAL ×2 (09:05→21:28)
[2024-10-05] MEDS: HEPARIN 5000 UNITS SC ×2 (09:06→21:23)
--- NOTE | 2024-10-05 10:14 | CM ---
Chart reviewed and workup in progress, employment case manager will follow for any needs that may develop.
Plan; To follow with patient progress and assist with discharge planning.
--- NOTE | 2024-10-05 11:57 | W.PN.NEPH.PH ---
Today's Communication / Plan
-
Continue IV fluids
Maintain Koehler catheter
Assessment/Plan
-
59 yo female IDDM, HTN, HLD presents for swelling, redness, warmth, pain LLE, significantly worse in past 2-3 days. Pain 8/10 now. Taking Tylenol or Ibuprofen prn
Tripped 04/2023, trimalleolar fracture described, 07/2023 had surgery with hardware at [facility]. Dr. Goodwin, [facility]. He last saw pt on 07/20/24 per daughter
Status post hardware removal
Currently being treated for sepsis cellulitis
Acute kidney injury 0.9-3.9 in 48 hours
Impression.
Acute kidney injury likely secondary to hemodynamics and sepsis and fever with hypotension.
Cellulitis questionable osteo
Diabetes
Obesity
Plan.
Oliguric with Koehler catheter.
Continue to hold Lasix, lisinopril.
Urinalysis from 10/03 7-10 red blood cells, no white blood cells, 4+ glucose, 3+ albumin
Quantify protein creatinine ratio= protein creatinine ratio 2 g
Repeat urinalysis 40-50 red blood cells 26-30 white blood cells positive leuk esterases many bacteria.
Hemoglobin A1c 8.4
Renal dose all medications
Serologies ordered and pending
Urine cultures pending
Continue IV fluids. Urine output seems to be improving.
Creatinine is now increased to 5.2 with mild metabolic acidosis.
Discussed the possibility of dialysis. No acute need at this time
I do not feel there is indication for pulse steroids despite hematuria will await urine cultures
Total Time Spent with Patient (in minutes): 32
-
-
Date of Service: October 05, 2024
CC / HPI / ROS
-
Chief Complaint:
Lower extremity cellulitis
History of Present Illness:
Acute kidney injury status post fever and hypotension on antibiotics creatinine 0.9 on admission increasing currently 5.1
Review of Systems:
Currently nonoliguric
No chest pain or shortness of breath
Koehler catheter
Labs
-
Labs:
WBC 8.7 10^3/uL (4.8-10.8) 10/05/24 07:44
RBC 3.53 10^6/uL (4.20-5.40) L 10/05/24 07:44
Hgb 8.9 g/dL (12.0-16.0) L 10/05/24 07:44
Hct 28.7 % (37.0-47.0) L 10/05/24 07:44
Plt Count 296 10^3/uL (130-400) 10/05/24 07:44
Sodium 132 mmol/L (135-145) L 10/05/24 07:44
Potassium 5.2 mmol/L (3.5-5.1) H D 10/05/24 07:44
Chloride 101 mmol/L (98-107) 10/05/24 07:44
Carbon Dioxide 18 mmol/L (22-30) L 10/05/24 07:44
BUN 65 mg/dl (7-17) H 10/05/24 07:44
Creatinine 5.1 mg/dL (0.6-1.0) H* 10/05/24 07:44
eGFR 9.30 10/05/24 07:44
Glucose 103 mg/dl (70-99) H 10/05/24 07:44
Calcium 7.6 mg/dl (8.4-10.2) L 10/05/24 07:44
Albumin 3.0 g/dl (3.5-5.0) L 10/05/24 07:44
Physical Exam
-
Vital Signs:
Vital Signs
Temp Pulse Resp BP Pulse Ox
98.9 F 80 18 126/70 93
10/05/24 07:45 10/05/24 07:45 10/05/24 07:45 10/05/24 09:02 10/05/24 07:45
Respiratory:: Bilateral: CTA
Lung Excursion:: Normal
Abdomen:: Soft
Bowel Sounds:: Normal
Extremity Edema:: +1: Bilateral:
Koehler Catheter: Yes
[2024-10-05 13:01] LABS: Glucose - Point of Care 252 mg/dl (70-99)
[2024-10-05] MEDS: NOVOLOG FLEXPEN-MODERATE RESISTANCE 5 UNITS SC (13:15)
--- NOTE | 2024-10-05 13:37 | W.PN.ID1 ---
Date of Service
Date of Service: October 05, 2024
Today's Communication
Continue cefazolin.
Assessment / Plan
# Acute non-purulent RLE cellulitis
# Fever -resolved
# Leukocytosis resolved
# THAD
# DM- uncontrolled
# hx left ankle ORIF, hardware removed 06/2024 due to loosening
-Underlying osteo is unlikely as plantar wound superficial without probe to bone.
- Awaiting recent outside MRI report from [facility], reportedly no abscess/osteo.
- Continue cefazolin 1g IV q12 (d4 abx), renally adjusted.
- Continue moisturize leg. skin cracks can serve as portal for bacterial entry.
- Elevate leg.
-ANNA compression.
- Tight glucose control
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
Diabetes mellitus
Peripheral neuropathy
Hypertension
TIA/CVA
Class III obesity BMI 57
Restless leg syndrome
Hx of left trimalleolar fracture status post ORIF July 2023 with subsequent hardware removal June 2024
Right elbow surgery
Childhood bladder surgery
Chief Complaint
-: Cellulitis
Subjective / Review of Systems
Leg pain some improvement
Vital Signs / Physical Exam
Vital Signs
Vital Signs
Temp Pulse Resp BP Pulse Ox
98.9 F 80 18 126/70 93
10/05/24 07:45 10/05/24 07:45 10/05/24 07:45 10/05/24 09:02 10/05/24 07:45
Physical Exam
Constitutional: No Acute Distress and Comfortable
Eyes: Sclera Anicteric
Cardiovascular: Regular Rate and S1/S2
Gastrointestinal: Soft, Non Tender, Non Distended and Normal Bowel Sounds
Extremities: Edema (LLE ) and Erythema (LLE patchy erythema foot to above knee, minimal warmth)
Neurological: AO x 3
Objective Data
Lab Data
Lab Results
10/05/24 07:44
10/05/24 07:44
ESR 88 mm/hour (0-20) H 10/03/24 06:25
Estimated Creat Clear 18 ml/min 10/05/24 07:44
Lactic Acid 1.5 mmol/L (0.7-2.0) 10/04/24 09:52
Total Bilirubin 1.0 mg/dl (0.2-1.3) 10/05/24 07:44
AST 90 U/L (14-36) H 10/05/24 07:44
ALT 147 U/L (0-35) H 10/05/24 07:44
Alkaline Phosphatase 330 U/L (38-126) H 10/05/24 07:44
C-Reactive Protein > 270.00 mg/L (0.0-10.00) H 10/03/24 06:25
Most recent labs reviewed.
Micro Results:
10/04/24 21:15 Urine Culture - Pending
Urine
10/02/24 14:39 Blood Culture - Preliminary
Blood/Venous No Growth in 48 hours- Final report to follow
10/02/24 14:39 Blood Culture - Preliminary
Blood/Venous No Growth in 48 hours- Final report to follow
10/02/24 Left FOOT XRAY: There are irregularities along the shaft of the proximal phalanx of the fourth metatarsal and base of the distal phalanx of the great toe which are favored to be subacute or chronic injuries. There is no definite radiographic
evidence of acute osteomyelitis.
10/02/24 Left ankle xray: There is extensive osseous remodeling and periosteal reaction along the distal tibia and fibula with findings of likely prior tibiotalar fusion with hardware removal. There is no definite acute fracture. There is no
definite findings of acute osteomyelitis although this would be difficult to exclude if there is clinical suspicion.
Care Review
Plan reviewed with: Physician (Dr. Garcias)
[2024-10-05 15:46] VITALS: BP 148/105
[2024-10-05] MEDS: DILAUDID 0.5 MG IV ×2 (16:08→21:26)
[2024-10-05 17:02] LABS: Glucose - Point of Care 184 mg/dl (70-99)
[2024-10-05] MEDS: LIPITOR 40 MG PO (17:47)
[2024-10-05] MEDS: NOVOLOG FLEXPEN-MODERATE RESISTANCE 1 UNITS SC (17:48)
[2024-10-05 17:55] LABS: Hepatitis B Surface Antigen Negative (Negative)
[2024-10-05 18:13] LABS: Hepatitis C Antibody Negative (Negative)
[2024-10-05] MEDS: PAMELOR 75 MG PO (21:23)
[2024-10-05] MEDS: MUCINEX 600 MG PO (21:23)
[2024-10-05] MEDS: LANTUS 0.18 UNITS SC (21:24)
[2024-10-05] MEDS: LYRICA 75 MG PO (21:24)
[2024-10-05 21:32] LABS: Glucose - Point of Care 237 mg/dl (70-99)
[2024-10-05 21:53] LABS: Hepatitis A IgM Antibody Negative (Negative); Hepatitis B Core Ab, IgM Negative (Negative)
[2024-10-05 23:20] VITALS: BP 104/64
[2024-10-06] MEDS: ANCEF 5 IV ×3 (00:50→17:59)
--- NOTE | 2024-10-06 04:40 | PTCARENOTE ---
Per orders, patient to by NPO at midnight for abdominal ultrasound, today.
[2024-10-06 05:31] LABS: Complement C3 139 mg/dl (88-165)
[2024-10-06 06:00] VITALS: BMI 58.6
--- NOTE | 2024-10-06 06:38 | PTCARENOTE ---
AAO x 4. VSS. Patient complains of 8/10 LLE pain, PRN Dilaudid administered for pain management. NPO at midnight for anticipated abdominal ultrasound. IV fluids discontinued. Patient continues to increase in weight--11 lb total weight gain in 48
hours. Providers are aware. OOB x 1 assist to chair. Koehler care completed, draining clear, yellow urine. All patient needs met. Call pop and personal belongings within reach.
[2024-10-06 07:00] VITALS: BP 110/55
--- NOTE | 2024-10-06 07:30 | PTCARENOTE ---
Patient with own insulin pump and meter attached to abdomen. Currently no order for patient to use own insulin pump, and patient confirms that her insulin pump is in place but not on, is not being used and is not delivering insulin at this time.
[2024-10-06 07:49] LABS: Glucose - Point of Care 148 mg/dl (70-99)
[2024-10-06 07:58] LABS: Hematocrit 28.1 % (37.0-47.0); Hemoglobin 9.2 g/dL (12.0-16.0); Mean Corp Hgb Conc. 32.7 g/dL (33.0-37.0); Mean Corpuscular Hgb 26.8 pg (27.0-31.0); Mean Corpuscular Volume 81.9 fL (81.0-99.0); Mean Platelet Volume 10.2 fL (7.4-10.4); Platelet Count 294 10^3/uL (130-400); Red Blood Cell Count 3.43 10^6/uL (4.20-5.40); Red Cell Dist. Width 15.9 % (11.5-14.5); White Blood Cell Count 9.1 10^3/uL (4.8-10.8)
[2024-10-06 08:43] LABS: ALT (SGPT) 77 U/L (0-35); AST (SGOT) 47 U/L (14-36); Albumin 3.1 g/dl (3.5-5.0); Alkaline Phosphatase 401 U/L (38-126); Blood Urea Nitrogen 69 mg/dl (7-17); Calcium 7.4 mg/dl (8.4-10.2); Carbon Dioxide 19 mmol/L (22-30); Chloride 98 mmol/L (98-107); Estimated Creatinine Clearance 17 ml/min; Glucose 155 mg/dl (70-99); Potassium 4.7 mmol/L (3.5-5.1); Sodium 133 mmol/L (135-145); Total Bilirubin 0.6 mg/dl (0.2-1.3); eGFR 8.31
--- NOTE | 2024-10-06 10:30 | W.PN.NEPH.PH ---
Today's Communication / Plan
-
IV fluids
Assessment/Plan
-
59 yo female IDDM, HTN, HLD presents for swelling, redness, warmth, pain LLE, significantly worse in past 2-3 days. Pain /10 now. Taking Tylenol or Ibuprofen prn
Tripped 04/2023, trimalleolar fracture described, 07/2023 had surgery with hardware at [facility]. Dr. Goodwin, [facility]. He last saw pt on 07/20/24 per daughter
Status post hardware removal
Currently being treated for sepsis cellulitis
Acute kidney injury 0.9-3.9 in 48 hours
Impression.
Acute kidney injury likely secondary to hemodynamics and sepsis and fever with hypotension.
Cellulitis questionable osteo
Diabetes
Obesity
Plan.
Oliguric with Koehler catheter.
Continue to hold Lasix, lisinopril.
Urinalysis from 10/03 7-10 red blood cells, no white blood cells, 4+ glucose, 3+ albumin
Quantify protein creatinine ratio= protein creatinine ratio 2 g
Repeat urinalysis 40-50 red blood cells 26-30 white blood cells positive leuk esterases many bacteria.
Hemoglobin A1c 8.4
Renal dose all medications
Serologies ordered and pending
Urine cultures pending
Creatinine is now increased to 5.6with mild metabolic acidosis.
Discussed the possibility of dialysis. No acute need at this time
I do not feel there is indication for pulse steroids despite hematuria will await urine cultures
Urine output has picked of significant. Suspect she will start to plateau.
Continue IV fluids
-
-
Date of Service: October 06, 2024
CC / HPI / ROS
-
Chief Complaint:
Lower extremity cellulitis
History of Present Illness:
Acute kidney injury status post fever and hypotension on antibiotics creatinine 0.9 on admission increasing currently 5.1
Review of Systems:
Currently nonoliguric
No chest pain or shortness of breath
Koehler catheter
Labs
-
Labs:
WBC 9.1 10^3/uL (4.8-10.8) 10/06/24 07:25
RBC 3.43 10^6/uL (4.20-5.40) L 10/06/24 07:25
Hgb 9.2 g/dL (12.0-16.0) L 10/06/24 07:25
Hct 28.1 % (37.0-47.0) L 10/06/24 07:25
Plt Count 294 10^3/uL (130-400) 10/06/24 07:25
Sodium 133 mmol/L (135-145) L 10/06/24 07:25
Potassium 4.7 mmol/L (3.5-5.1) 10/06/24 07:25
Chloride 98 mmol/L (98-107) 10/06/24 07:25
Carbon Dioxide 19 mmol/L (22-30) L 10/06/24 07:25
BUN 69 mg/dl (7-17) H 10/06/24 07:25
Creatinine 5.6 mg/dL (0.6-1.0) H* 10/06/24 07:25
eGFR 8.31 10/06/24 07:25
Glucose 155 mg/dl (70-99) H 10/06/24 07:25
Calcium 7.4 mg/dl (8.4-10.2) L 10/06/24 07:25
Albumin 3.1 g/dl (3.5-5.0) L 10/06/24 07:25
Physical Exam
-
Vital Signs:
Vital Signs
Temp Pulse Resp BP Pulse Ox
98.2 F 76 20 110/55 94
10/06/24 07:00 10/06/24 07:00 10/06/24 07:00 10/06/24 07:10/06/24 07:00
Respiratory:: Bilateral: CTA
Lung Excursion:: Normal
Abdomen:: Soft
Bowel Sounds:: Normal
Extremity Edema:: +1: Bilateral:
Koehler Catheter: Yes
[2024-10-06] MEDS: NOVOLOG FLEXPEN-MODERATE RESISTANCE SC ×2 (10:47→18:01)
[2024-10-06] MEDS: FLUSH (NSS) 1 FLUSH IV ×2 (10:50→10:58)
[2024-10-06] MEDS: PROTONIX 40 MG PO (10:55)
[2024-10-06] MEDS: PEPCID 20 MG PO (10:55)
[2024-10-06] MEDS: VISBIOME 1 CAP PO (10:58)
[2024-10-06] MEDS: CYMBALTA DELAYED RELEASE 30 MG PO ×2 (10:58→20:45)
[2024-10-06] MEDS: HEPARIN 5000 UNITS SC (10:59)
[2024-10-06] MEDS: MUCINEX 600 MG PO ×2 (10:59→20:46)
[2024-10-06] MEDS: BACTROBAN 2% OINTMENT 1 APPLIC TOPICAL ×3 (11:01→20:46)
[2024-10-06] MEDS: HYDROPHOR 1 APPLIC TOPICAL (11:02)
[2024-10-06] MEDS: LAC HYDRIN, AM LACTIN LOTION 1 APPLIC TOPICAL ×2 (11:10→21:19)
[2024-10-06] MEDS: DESENEX/MITRAZOL/ZEASORB 1 APPLIC TOPICAL ×2 (11:11→21:19)
[2024-10-06] MEDS: BYSTOLIC 2.5 MG PO (11:12)
--- NOTE | 2024-10-06 11:12 | CM ---
Chart reviewed and patient to return to home with [facility] visiting nurses at discharge.
Plan; Home with Aryan AREVALO.
Aryan AREVALO
[phone]
[2024-10-06] MEDS: NOVOLOG FLEXPEN 5 UNITS SC ×3 (11:22→18:01)
[2024-10-06 11:33] LABS: Glucose - Point of Care 244 mg/dl (70-99)
--- NOTE | 2024-10-06 11:47 | W.PN.ID1 ---
Date of Service
Date of Service: October 06, 2024
Today's Communication
Continue cefazolin.
Assessment / Plan
# Acute non-purulent RLE cellulitis: improving
# hx left ankle ORIF, hardware removed 06/2024 due to loosening
# Fever -resolved
# Leukocytosis resolved
-Underlying osteo is unlikely as plantar wound superficial without probe to bone.
- Continue cefazolin 1g IV q8 (d5 abx), renally adjusted.
- Continue moisturize leg, ANNA compression, leg elevation.
# THAD: worse.
-Complements nl
- Anti-ASO, Anti-Dnase, ANNA, PR3, MPO pending
# DM- uncontrolled
- Recommend tight glucose control
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
Diabetes mellitus
Peripheral neuropathy
Hypertension
TIA/CVA
Class III obesity BMI 57
Restless leg syndrome
Hx of left trimalleolar fracture status post ORIF July 2023 with subsequent hardware removal June 2024
Right elbow surgery
Childhood bladder surgery
Chief Complaint
-: Cellulitis
Subjective / Review of Systems
Retaining fluid.
Vital Signs / Physical Exam
Vital Signs
Vital Signs
Temp Pulse Resp BP Pulse Ox
98.2 F 83 20 129/75 94
10/06/24 07:00 10/06/24 11:12 10/06/24 07:00 10/06/24 11:12 10/06/24 07:00
Physical Exam
Constitutional: No Acute Distress and Comfortable
Eyes: Sclera Anicteric
Cardiovascular: Regular Rate and S1/S2
Gastrointestinal: Soft, Non Tender, Non Distended and Normal Bowel Sounds
Genito-Urinary: Koehler and Clear Urine
Extremities: Edema (BLE) and Erythema (LLE erythema receding, decreasing)
Neurological: AO x 3
Objective Data
Lab Data
Lab Results
10/06/24 07:25
10/06/24 07:25
ESR 88 mm/hour (0-20) H 10/03/24 06:25
Estimated Creat Clear 17 ml/min 10/06/24 07:25
Lactic Acid 1.5 mmol/L (0.7-2.0) 10/04/24 09:52
Total Bilirubin 0.6 mg/dl (0.2-1.3) 10/06/24 07:25
AST 47 U/L (14-36) H 10/06/24 07:25
ALT 77 U/L (0-35) H 10/06/24 07:25
Alkaline Phosphatase 401 U/L (38-126) H 10/06/24 07:25
C-Reactive Protein > 270.00 mg/L (0.0-10.00) H 10/03/24 06:25
Most recent labs reviewed.
Micro Results:
10/02/24 14:39 Blood Culture - Preliminary
Blood/Venous No Growth in 72 hours- Final report to follow
10/02/24 14:39 Blood Culture - Preliminary
Blood/Venous No Growth in 72 hours- Final report to follow
10/04/24 21:15 Urine Culture - Pending
Urine
10/02/24 Left FOOT XRAY: There are irregularities along the shaft of the proximal phalanx of the fourth metatarsal and base of the distal phalanx of the great toe which are favored to be subacute or chronic injuries. There is no definite radiographic
evidence of acute osteomyelitis.
10/02/24 Left ankle xray: There is extensive osseous remodeling and periosteal reaction along the distal tibia and fibula with findings of likely prior tibiotalar fusion with hardware removal. There is no definite acute fracture. There is no
definite findings of acute osteomyelitis although this would be difficult to exclude if there is clinical suspicion.
--- NOTE | 2024-10-06 11:54 | W.PN.HOSP.TC ---
Addendum entered and electronically signed by Rambo Buenrostro MD 10/06/24 21:57:
Attending Addendum-
I saw and evaluated the patient. I reviewed the resident�s note and agree with findings and plan as documented in the resident�s note. Sub: Afebrile overnight. More energetic today. making good urine! mild pain in LLE. Full 12 point ROS reviewed
and negative except as documented Exam: Vitals reviewed in chart GEN-fatigued heart RRR lungs decreased BS @ bases abd obese soft mildly TTP RUQ ND pos BS LE b/l venous stasis Left>right. pulses intact LLE heel ulcer present red mildly warm
blanching rash Neuro AAO x 3 - wang in place with clear yellow urine
Plan:
# Sepsis secondary to LLE non purulent cellulitis
- h/o left ankle fx s/p hardware removal at [facility] (06/2024)- obtain records
- apparently had recent LLE MRI at [facility]- obtain
- leukocytosis resolved
- recent wound culture as OP -obtain
- Vanc and Zosyn DC'd --> ancef # 3
- Wound care
- ID input appreciated
# THAD
- now nonoliguric
- bladder US- WNL no hydro
- POS ANTI ASO - cont ancef
- likely ATN vs strep GN vs vanco associated nephrotoxicity
- DC'd vanco
- worsening further cr- likely plateaued
- cont wang
- hold lasix lisinopril- renally dose meds
- nephro input appreciated
- DC IVF
- amenable to HD if required- no acute need at this moment
- repeat BMP in am
# HFpEF
- echo 01/2023- ef 60-65%
- daily weights strict I and O
- hold lasix for now
- weights increasing will likely restart lasix soon
- cont IVF- monitor closely
# Transaminitis
- trending down
- possible passed stone?
- RUQ U/S 10/06-The wall of the gallbladder is thickened and edematous suggesting cholecystitis although no gallstones are identified and there is no biliary distention.
- check HIDA in am (no CCK)
- NPO pMN
- c/s surgery
- acute viral hep panel -neg
# Hyperkalemia
- resolved
- from THAD
- cont to trend
# Metabolic Acidosis
- from THAD
- cont to trend
# IDDM (type 2)
- w/ Peripheral Neuropathy
- better controlled
- HbA1c 8.4
- uses insulin pump at home
- cont Lantus 18u HS (1/2 dose if NPO)
- cont new meal time insulin
- follow AccuCheck closely
- cont Mod SSI coverage, diabetic diet
- Hold Trulicity, glipizide, pioglitazone
# Benign Hypertension
- Stable monitor
- c/w Nebivilol and hold Lisinopril
# HX Restless Leg Syndrome
- renally dose lyrica and cont nortriptyline.
# Morbid Obesity with BMI 55 due to excess calories and insulin resistance
Affects all aspects of care.
Encourage healthy diet and increased activity with goal of weight reduction
DVT ppx: lovenox
Code status: DNR
Dispo - will likely need SNF on DC
Time spent coordinating care, review of plan of care with resident, personally reviewed records in EMR, med rec, consults, notes, labs, radiology, d/w nursing nephro surgery rads � 55 mins
Original Note:
Today's Communication/Plan
-
Continue to hold lasix, follow I and O,
Surgery consult for cholecystitis, NPO, hold heparin
Continue abx
Assessment / Plan
Assessment / Plan
59 year old female with history of poorly controlled IDDM, HTN, HLD, mornid obesity, diabetic neuropathy, trimalleolar fracture s/p repair and revision, chronic ambulatory dysfunction who presents with sepsis secondary to LLE cellulitis.
Sepsis:
Tachycardia, tachypnea, leukocytosis, fever
Secondary to non-purulent LLE cellulitis
Hx of fracture and repair with [facility] in Apr 2024 with hardware removal in jul 2024, history of IDDM, recent 7-day course of abx use with worsening symptoms (pt unsure of abx but thinks it is bactrim)
- Leukocytosis resolved, afebrile in past 24hr
- Reports recent wound culture. Requested records from [facility]
- CXR with no evidence of osteo. ESR 88, CRP 270.
- Continue cefazolin, abx day 5
- Appreciate wound care, podiatry and infectious disease input
THAD:
Urine output now significantly improved. Cr elevated further to 5.6 today
Likely overall picture is improving
Abd US: No signs of hydronephrosis, mass or calculi are seen in either kidney
- Continue Wang.
- Appreciate nephro input,
-Holding lisinopril and lasix. Renally dosing meds
-Urine cx no growth, Protein/cr 2.0, urine negative for eosinophils
-Compliment normal. Anti-ASO, Anti-Dnase, ANNA, PR3, MPO pending
-renal US pending
-Follow BMP and IandO
Electrolyte abnormality:
Hyponatremia and hyperkalemia.
Secondary to THAD, improving.
-Follow BMP
Transaminitis:
AST/ALT downtrending but Alk phos uptrend. Denies RUQ pain, haynes's sign negative on PE
-Abdominal ultrasound with gallbladder is thickened and edematous suggesting cholecystitis although no gallstones are identified and there is no biliary distention.
-Acute viral hep panel negative
-NPO, surgery consult, hold heparin
IDDM (type 2):
Peripheral Neuropathy:
Poorly controlled, HbA1c 8.4
- Has insulin pump but she left Pump at home
- Continue lantus 18u HS, novolog 5u AC. follow Accuchecks
- Mod SSI coverage, diabetic diet
- Hold Trulicity, glipizide, pioglitazone
Benign Hypertension
- Stable. Holding Lisinopril for THAD
- c/w Nebivolol renally dosed with holding parameters
Chronic LE edema:
- Hold lasix 40mg BID for THAD
Anemia:
Likely chronic disease and iron deficiency
Wound:
-Left plantar midarch, present on arrival
-Wound care
HX Restless Leg Syndrome
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
Morbid Obesity with BMI 55 due to excess calories and insulin resistance
Affects all aspects of care.
Encourage healthy diet and increased activity with goal of weight reduction
DVT ppx: heparin
Code status: Full Code. Discussed code status with patient today. Patient states that she would like to have life-saving measures then if indicated including resuscitation/chest compressions, intubation, and hemodialysis.
Anticipated Discharge: 24 - 48 hours
Subjective/Interval History
-
Date of Service: October 06, 2024
Reports some improvement in left leg pain. No acute overnight events
Objective Data
-
Labs:
Laboratory Results
10/06/24
07:25
WBC 9.1
Hgb 9.2 L
Hct 28.1 L
Plt Count 294
Sodium 133 L
Potassium 4.7
Chloride 98
Carbon Dioxide 19 L
BUN 69 H
Creatinine 5.6 H*
Glucose 155 H
Calcium 7.4 L
Total Bilirubin 0.6
AST 47 H
ALT 77 H
Alkaline Phosphatase 401 H
Vital Signs:
Vital Signs
Temp Pulse Resp BP Pulse Ox
98.2 F 83 20 129/75 94
10/06/24 07:00 10/06/24 11:12 10/06/24 07:00 10/06/24 11:12 10/06/24 07:00
I&O
10/05/24 10/06/24 10/07/24
06:59 06:59 06:59
Intake Total 2700 / 2700 720 / 720
Output Total 300 / 300 1650 / 1650
Balance 2400 / 2400 -930 / -930
Review of Systems
-
History Source: Patient
Constitutional: Reports Fatigue; Denies No Appetite
Respiratory: Denies Trouble Breathing or Wheezing
Cardiac: Denies Chest Pain or Palpitations
Abdomen/GI: Denies Abdominal Pain, Nausea, Vomiting, Diarrhea, Constipated or Bloody Stools
Musculoskeletal: Reports Other (Lower back pain)
Skin: Reports Other (Pain in left leg)
Physical Exam
-
General: No Apparent Distress and Comfortable; Negative Respiratory Distress
HEENT: Normocephalic, Atraumatic, Moist Mucous Membranes and Anicteric
Respiratory: Clear to Auscultation and Non Labored Respirations; Negative Wheezes, Rales, Rhonchi or Crackles
Cardiac: Regular Rhythm and S1/S2; Negative Murmur, Rub or Calf Tenderness
GI: Soft, Nontender, Nondistended and Normal Bowel Sounds
Genito-urinary: No Costovertebral Tender, Turbid Urine (mildly) and Wang
Musculoskeletal: No Clubbing and No Cyanosis
Skin: Warm, Dry and Other
Neuro: Awake, Alert and Oriented
Psych: Calm
[2024-10-06 12:02] LABS: ASO Quantitative 800 IU/ml (<200); Anti Streptolysin Positive (Negative)
[2024-10-06] MEDS: NOVOLOG FLEXPEN-MODERATE RESISTANCE 3 UNITS SC (14:21)
[2024-10-06] MEDS: LIDOCAINE 4% PATCH 1 PATCH TOPICAL (14:32)
[2024-10-06 15:00] VITALS: BP 136/73
[2024-10-06 16:41] LABS: Glucose - Point of Care 131 mg/dl (70-99)
--- NOTE | 2024-10-06 16:59 | CON.GS ---
Consultation
-
Reason for Consultation: Elevated LFTs, abnormal imaging of the gallbladder
Medical History
-
Chief Complaint: Patient offers no complaints
History of Present Illness:
59-year-old female initially admitted 10/02/2024 by hospitalist service secondary to left lower extremity pain, swelling and redness which was been progressive. Transaminitis and elevated alkaline phosphatase were noted by the hospitalist service
prompting an ultrasound of the abdomen today identifying gallbladder wall edema and thickening but no stones prompting surgical consultation.
Patient denies abdominal pain. She states that she had anorexia and nausea initially on admission but she was attributing this to her acute illness. She has not felt any abdominal bloating distention or fullness. No previous history suggestive of
biliary colic. She is requesting dinner this evening. She offers no additional specific concerns or questions.
Past Medical History
Past Medical History: Other (Admission with sepsis secondary to left lower extremity cellulitis, THAD, type 2 diabetes with peripheral neuropathy, hypertension, chronic lower extremity edema, chronic iron deficiency anemia, restless leg, morbid
obesity with BMI 55)
Past Surgical History: Gynecological (Laparoscopic tubal) and Other
Family History
Family History: Reviewed & Noncontributory
Allergies / Home Medications
Allergy/AdvReac Type Severity Reaction Status Date / Time
No Known Allergies Allergy Verified 10/02/24 12:59
�Medication �Instructions �Recorded �Confirmed �Type
glipizide 10 mg tablet 10 mg PO BID Diabetes 02/01/23 10/02/24 History
nortriptyline 75 mg capsule 75 mg PO [facility] 02/01/23 10/02/24 History
pioglitazone 30 mg tablet 30 mg PO DAILY Diabetes 02/01/23 10/02/24 History
atorvastatin 40 mg tablet (Lipitor) 40 mg PO QPM High Cholesterol 02/02/23 10/02/24 History
duloxetine 60 mg capsule,delayed 60 mg PO BID 10/02/24 10/02/24 History
release
famotidine 20 mg tablet 20 mg PO DAILY 10/02/24 10/02/24 History
furosemide 40 mg tablet 40 mg PO BID 10/02/24 10/02/24 History
insulin lispro 100 unit/mL 1 sliding scale dose SC DIRECTED 10/02/24 10/02/24 History
subcutaneous solution
lisinopril 20 mg tablet 20 mg PO DAILY 10/02/24 10/02/24 History
nebivolol 5 mg tablet 5 mg PO DAILY 10/02/24 10/02/24 History
omeprazole 40 mg capsule,delayed 40 mg PO DAILY 10/02/24 10/02/24 History
release
pregabalin 200 mg capsule 200 mg PO HS 10/02/24 10/02/24 History
Review of Systems
-
A 10 point review of systems was completed, and was negative except as per HPI.
Physical Exam
Vital Signs
Temp Pulse Resp BP Pulse Ox
98.4 F 77 20 136/73 98
10/06/24 15:00 10/06/24 15:00 10/06/24 15:00 10/06/24 15:00 10/06/24 15:00
10/05/24 10/06/24 10/07/24
06:59 06:59 06:59
Actual Weight 153.133 kg 154.703 kg
Body Mass Index (BMI) 58.6
Lab Results
10/06/24 07:25
10/06/24 07:25
WBC 9.1 10^3/uL (4.8-10.8) 10/06/24 07:25
Hgb 9.2 g/dL (12.0-16.0) L 10/06/24 07:25
Hct 28.1 % (37.0-47.0) L 10/06/24 07:25
Plt Count 294 10^3/uL (130-400) 10/06/24 07:25
Abs Immat Gran (auto) 0.1 10^3/uL (0-0.05) H 10/02/24 14:05
Neutrophils % 89.5 % (42.2-75.2) H 10/02/24 14:05
Physical Exam
General: Well Developed, Well Nourished, No Apparent Distress and Comfortable
HEENT: Moist Mucous Membranes
Respiratory: Non Labored Respirations
GI: Soft, Non Tender (Difficult to assess tenderness in the setting of obesity with BMI of 58. There is no rebound rigidity or guarding.), Non Distended and Obese
Neuro: AO x 3
Psych: Calm
Assessment / Plan
-
59-year-old female initially admitted with sepsis, THAD and left lower extremity cellulitis. Abnormal imaging of the gallbladder with pericholecystic edema wall thickening but no stones. Elevated AST ALT and alkaline phosphatase with normal
bilirubin.
There are no strong clinical signs of acalculous cholecystitis however in the setting of patient's obesity with a BMI of 58 abdominal examination is not necessarily reliable alone. Ultrasound imaging was likely a bit challenging.
In this setting discussed with patient indications for consideration of a HIDA scan to evaluate for patency of the cystic duct/biliary tree.
If HIDA scan normal then can successfully rule out any need for intervention on the gallbladder
Okay to continue with dietary intake through this evening
N.p.o. tomorrow for HIDA scan
Further surgical recommendations pending imaging results.
[2024-10-06] MEDS: FLUSH (NSS) 2 FLUSH IV (18:00)
[2024-10-06] MEDS: LIPITOR 40 MG PO (18:02)
[2024-10-06] MEDS: TYLENOL 650 MG PO (18:17)
[2024-10-06] MEDS: LYRICA 75 MG PO (20:46)
[2024-10-06] MEDS: PAMELOR 75 MG PO (20:46)
[2024-10-06] MEDS: LANTUS 0.18 UNITS SC (20:46)
[2024-10-06] MEDS: DILAUDID 0.5 MG IV (21:18)
[2024-10-06 23:01] LABS: Glucose - Point of Care 132 mg/dl (70-99)
[2024-10-06 23:30] VITALS: BP 146/74
[2024-10-07 00:18] LABS: Myeloperoxidase Antibody 0 AU/mL (0-19); Serine Protease-3, IgG 0 AU/mL (0-19)
[2024-10-07] MEDS: IMODIUM 2 MG PO ×2 (00:27→20:38)
[2024-10-07] MEDS: ANCEF 5 IV ×3 (01:13→18:45)
[2024-10-07 02:07] LABS: ANA, IgG Reflex to HEp-2 None Detected (None Detected)
--- NOTE | 2024-10-07 03:43 | PTCARENOTE ---
patient NPO at midnight for HIDA scan
[2024-10-07 05:23] VITALS: BMI 59.0
[2024-10-07 06:24] LABS: Glucose - Point of Care 154 mg/dl (70-99)
[2024-10-07 07:00] VITALS: BP 141/67
[2024-10-07 07:17] LABS: Hematocrit 31.4 % (37.0-47.0); Hemoglobin 10.1 g/dL (12.0-16.0); Mean Corp Hgb Conc. 32.2 g/dL (33.0-37.0); Mean Corpuscular Hgb 26.2 pg (27.0-31.0); Mean Corpuscular Volume 81.6 fL (81.0-99.0); Mean Platelet Volume 10.1 fL (7.4-10.4); Platelet Count 336 10^3/uL (130-400); Red Blood Cell Count 3.85 10^6/uL (4.20-5.40); White Blood Cell Count 8.1 10^3/uL (4.8-10.8)
[2024-10-07 07:38] LABS: ALT (SGPT) 28 U/L (0-35); AST (SGOT) 40 U/L (14-36); Alkaline Phosphatase 402 U/L (38-126); Blood Urea Nitrogen 73 mg/dl (7-17); Calcium 7.9 mg/dl (8.4-10.2); Carbon Dioxide 21 mmol/L (22-30); Chloride 100 mmol/L (98-107); Estimated Creatinine Clearance 16 ml/min; GGTP 142 U/L (12-43); Glucose 150 mg/dl (70-99); Magnesium 2.4 mg/dl (1.6-2.3); Sodium 135 mmol/L (135-145); Total Bilirubin 0.7 mg/dl (0.2-1.3); eGFR 7.81
[2024-10-07] MEDS: LAC HYDRIN, AM LACTIN LOTION 1 APPLIC TOPICAL ×2 (08:00→20:39)
[2024-10-07] MEDS: BACTROBAN 2% OINTMENT 1 APPLIC TOPICAL ×3 (08:00→21:00)
--- NOTE | 2024-10-07 08:53 | W.PN.HOSP.TC ---
Addendum entered and electronically signed by Rambo Buenrostro MD 10/07/24 19:34:
Attending Addendum-
I saw and evaluated the patient. I reviewed the resident�s note and agree with findings and plan as documented in the resident�s note. Sub: Feels weak and complains of pain in LLE and worsening swelling. denies abd pain fevers chills. Full 12
point ROS reviewed and negative except as documented Exam: Vitals reviewed in chart GEN-NAD, heart RRR, lungs decreased BS @ bases, abd obese soft mildly TTP RUQ ND pos BS, LE b/l +2 pitting edema Left>right. pulses intact, LLE heel ulcer present
red mildly warm Neuro AAO x 3 - wang in place with clear yellow urine
Plan:
# Sepsis secondary to LLE non purulent cellulitis
- h/o left ankle fx s/p hardware removal at [facility] (06/2024)
- leukocytosis resolved
- Vanc and Zosyn --> ancef # 4
- Wound care
- ID input appreciated
# THAD
- oliguric -> polyuric
- bladder US- WNL no hydro
- pos ANTI ASO with neg ds DNA
- likely septic ATN vs vanco associated nephrotoxicity
- worsening further cr- hopefully plateaued
- cont wang
- hold lasix lisinopril- renally dose meds
- nephro input appreciated
- amenable to HD if required- no acute need at this moment
- repeat BMP in am
# HFpEF
- echo 01/2023- ef 60-65%
- daily weights strict I and O
- hold lasix for now
- cont IVF- monitor closely
# Transaminitis
- trending down
- possible passed stone?
- RUQ U/S- 10/06-The wall of the gallbladder is thickened and edematous suggesting cholecystitis although no gallstones are identified and there is no biliary distention.
- HIDA-4/18-normal
- advance diet
- acute viral hep panel -neg
# Hyperkalemia
- resolved
- from THAD
- cont to trend
# Left heel ulcer
- POA
- wound care
# Metabolic Acidosis
- from THAD
- cont to trend
# IDDM (type 2)
- w/ Peripheral Neuropathy
- better controlled
- HbA1c 8.4
- uses insulin pump at home
- cont Lantus 20u HS (1/2 dose if NPO)
- cont new meal time insulin
- follow AccuCheck closely
- cont Mod SSI coverage, diabetic diet
- Hold Trulicity, glipizide, pioglitazone
# Benign Hypertension
- Stable monitor
- c/w Nebivilol and hold Lisinopril
# HX Restless Leg Syndrome
- renally dose lyrica and cont nortriptyline.
# Morbid Obesity with BMI 55 due to excess calories and insulin resistance
Affects all aspects of care.
Encourage healthy diet and increased activity with goal of weight reduction
DVT ppx: lovenox
Code status: DNR
Dispo - will likely need SNF on DC
Time spent coordinating care, review of plan of care with resident, personally reviewed records in EMR, med rec, consults, notes, labs, radiology, d/w nursing nephro and daughter � 53 mins
Original Note:
Today's Communication/Plan
-
For HIDA
NPO
Surgical eval for cholecystitis
Continue IV abx
Assessment / Plan
Assessment / Plan
59 year old female with history of poorly controlled IDDM, HTN, HLD, mornid obesity, diabetic neuropathy, trimalleolar fracture s/p repair and revision, chronic ambulatory dysfunction who presents with sepsis secondary to LLE cellulitis.
Sepsis:
Tachycardia, tachypnea, leukocytosis, fever
Secondary to non-purulent LLE cellulitis
Hx of fracture and repair with [facility] in Apr 2024 with hardware removal in jul 2024, history of IDDM, recent 7-day course of abx use with worsening symptoms (pt unsure of abx but thinks it is bactrim)
- Leukocytosis resolved, afebrile in past 24hr
- Reports recent wound culture. Requested records from [facility]
- CXR with no evidence of osteo.
- Continue cefazolin, abx day 6
- Appreciate wound care, podiatry and infectious disease input
THAD:
Urine output improving. But Cr elevated further to 5.9 today, weight gain noted
Abd US: No signs of hydronephrosis, mass or calculi are seen in either kidney
- Continue Wang.
- Appreciate nephro input,
- Holding lisinopril and lasix. Adjust per nephro.
- Renally dosing meds
-Urine cx no growth, Protein/cr 2.0, urine negative for eosinophils
-Compliment normal. ASO positive, anti DNase B pending. other autoimmune panel negative
-Follow BMP and IandO
Transaminitis:
AST/ALT downtrending but Alk phos uptrend. Ggt elevated. Denies RUQ pain, RUQ tenderness on PE today
-Abdominal ultrasound galbladder thickened and edematous suggesting cholecystitis although no gallstones are identified and there is no biliary distention.
-Acute viral hep panel negative
-NPO. For HIDA today. hold heparin
Electrolyte abnormality:
Hyponatremia and hyperkalemia. Resolved
Mild anion metabolic acidosis
Secondary to THAD. improving
-Follow BMP
IDDM (type 2):
Peripheral Neuropathy:
Poorly controlled, HbA1c 8.4
- Has insulin pump but she left Pump at home
- Lantus 20u HS, novolog 6u AC: Lantus halved, gail AC novolog held while NPO.
- Mod SSI coverage, diabetic diet when not NPO, follow accuchecks
- Hold Trulicity, glipizide, pioglitazone
Benign Hypertension
- Stable. Holding Lisinopril for THAD
- c/w Nebivolol renally dosed with holding parameters
Chronic LE edema:
- Hold lasix 40mg BID for THAD. Restart/adjust by nephro
Anemia:
Likely chronic disease
-Hgb stable
Wound:
-Left plantar midarch, present on arrival
-Wound care
HX Restless Leg Syndrome
- on YARN WEIGHT AND STRENGTH TESTER Lyrica (renal dosing) and nortriptyline.
Morbid Obesity with BMI 55 due to excess calories and insulin resistance
Affects all aspects of care.
Encourage healthy diet and increased activity with goal of weight reduction
DVT ppx: heparin on hold
Code status: Full Code.
Anticipated Discharge: > 48 hours
Subjective/Interval History
-
Date of Service: October 07, 2024
Reports watery bowel movements overnight.
Patient feels worse today due to swelling in lower extremities this morning L>R
Objective Data
-
Labs:
Laboratory Results
10/07/24
06:42
WBC 8.1
Hgb 10.1 L
Hct 31.4 L
Plt Count 336
Sodium 135
Potassium 5.0
Chloride 100
Carbon Dioxide 21 L
BUN 73 H
Creatinine 5.9 H*
Glucose 150 H
Calcium 7.9 L
Total Bilirubin 0.7
AST 40 H
ALT 28
Alkaline Phosphatase 402 H
Vital Signs:
Vital Signs
Temp Pulse Resp BP Pulse Ox
98.5 F 70 20 146/74 96
10/06/24 23:30 10/06/24 23:30 10/06/24 23:30 10/06/24 23:30 10/06/24 23:30
I&O
10/06/24 10/07/24 10/08/24
06:59 06:59 06:59
Intake Total 720 / 720 360 / 360
Output Total 1650 / 1650 3100 / 3100
Balance -930 / -930 -2740 / -2740
Review of Systems
-
History Source: Patient
Constitutional: Reports Other (general discomfort); Denies Fever
Respiratory: Denies Trouble Breathing
Cardiac: Denies Chest Pain
Abdomen/GI: Reports Diarrhea; Denies Abdominal Pain, Nausea, Vomiting, Constipated or Bloody Stools
Musculoskeletal: Reports Edema (worsened lower extremity edema L>R)
Skin: Reports Other (Redness of left toes)
Physical Exam
-
General: Morbidly Obese and Other (Appears uncomfortable); Negative Respiratory Distress
HEENT: Normocephalic, Atraumatic and Moist Mucous Membranes
Respiratory: Crackles (minor bilateral LL crackles) and Non Labored Respirations; Negative Wheezes, Rales or Rhonchi
Cardiac: Regular Rhythm and S1/S2; Negative Murmur or Rub
GI: Soft, Nondistended and Tender (RUQ)
Genito-urinary: No Costovertebral Tender, Clear Urine and Wang; Negative Bloody Urine
Musculoskeletal: No Clubbing, No Cyanosis, Edema, Right Lower Extrem and Edema, Left Lower Extrem
Skin: Warm, Dry and Other (Left leg and foot with dressing and Sukhdeep wrap intact. Erythema noted in left toes, Mild erythema of skin of left leg. No calor)
Neuro: Awake, Alert and Oriented
Psych: Calm
--- NOTE | 2024-10-07 10:15 | CM ---
Chart reviewed and patient's plan is to home with [facility] when stable.
Aryan AREVALO
[phone]
--- NOTE | 2024-10-07 12:58 | W.PN.ID1 ---
Date of Service
Date of Service: October 07, 2024
Today's Communication
Continue cefazolin.
Assessment / Plan
# Acute non-purulent RLE cellulitis: improving
# hx left ankle ORIF, hardware removed 06/2024 due to loosening
# Fever -resolved
# Leukocytosis resolved
-Underlying osteo is unlikely as plantar wound superficial without probe to bone.
- Recent outside MRI wo contrast: reportedly no osteo, no abscess. Still awaiting requested record. Pt will try to obtain from portal.
- Continue cefazolin 1g IV q8 (d6 abx), renally adjusted.
- Continue moisturize leg, ANNA compression, leg elevation.
# THAD: worse.
-Complements, ANNA, PR3, MPO negative
- Anti-ASO Ab titer 800 ? post-strep glomerulonephritis
- Anti-Dnase Ab pending
- Nephrology following
# Elevated AST/ALT
- HIDA normal
# DM- uncontrolled
- Recommend tight glucose control
# Conditions MANAGER LIFE
Diabetes mellitus
Peripheral neuropathy
Hypertension
TIA/CVA
Class III obesity BMI 57
Restless leg syndrome
Hx of left trimalleolar fracture status post ORIF July 2023 with subsequent hardware removal June 2024
Right elbow surgery
Childhood bladder surgery
Chief Complaint
-: Cellulitis
Subjective / Review of Systems
No abd pain.
Left leg pain today.
Vital Signs / Physical Exam
Vital Signs
Vital Signs
Temp Pulse Resp BP Pulse Ox
97.8 F 70 18 141/67 100
10/07/24 07:00 10/07/24 07:00 10/07/24 07:00 10/07/24 07:00 10/07/24 07:00
Physical Exam
Constitutional: No Acute Distress and Comfortable
Eyes: Sclera Anicteric
Cardiovascular: Regular Rate and S1/S2
Pulmonary: Clear
Gastrointestinal: Soft, Non Tender, Non Distended and Normal Bowel Sounds
Genito-Urinary: Negative CVA Tenderness
Extremities: Edema (LLE>RLW) and Erythema (LLE erythema foot to knee now mild; + dependent erythema left foot which improves with leg elevation. )
Neurological: AO x 3
Objective Data
Lab Data
Lab Results
10/07/24 06:42
10/07/24 06:42
ESR 88 mm/hour (0-20) H 10/03/24 06:25
Estimated Creat Clear 16 ml/min 10/07/24 06:42
Lactic Acid 1.5 mmol/L (0.7-2.0) 10/04/24 09:52
Total Bilirubin 0.7 mg/dl (0.2-1.3) 10/07/24 06:42
GGT 142 U/L (12-43) H 10/07/24 06:42
AST 40 U/L (14-36) H 10/07/24 06:42
ALT 28 U/L (0-35) 10/07/24 06:42
Alkaline Phosphatase 402 U/L (38-126) H 10/07/24 06:42
C-Reactive Protein > 270.00 mg/L (0.0-10.00) H 10/03/24 06:25
Most recent labs reviewed.
Micro Results:
10/02/24 14:39 Blood Culture - Preliminary
Blood/Venous No Growth in 4 days- Final report to follow
10/02/24 14:39 Blood Culture - Preliminary
Blood/Venous No Growth in 4 days- Final report to follow
10/04/24 21:15 Urine Culture - Final
Urine NO GROWTH
10/02/24 Left FOOT XRAY: There are irregularities along the shaft of the proximal phalanx of the fourth metatarsal and base of the distal phalanx of the great toe which are favored to be subacute or chronic injuries. There is no definite radiographic
evidence of acute osteomyelitis.
10/02/24 Left ankle xray: There is extensive osseous remodeling and periosteal reaction along the distal tibia and fibula with findings of likely prior tibiotalar fusion with hardware removal. There is no definite acute fracture. There is no
definite findings of acute osteomyelitis although this would be difficult to exclude if there is clinical suspicion.
10/07/24 HIDA: Normal HIDA scan, without evidence of acute cholecystitis or complete common bile duct obstruction.
[2024-10-07] MEDS: FLUSH (NSS) 1 FLUSH IV ×2 (13:15→13:45)
[2024-10-07] MEDS: VISBIOME 1 CAP PO (13:18)
[2024-10-07] MEDS: CYMBALTA DELAYED RELEASE 30 MG PO ×2 (13:19→20:37)
[2024-10-07] MEDS: MUCINEX 600 MG PO ×2 (13:19→20:37)
[2024-10-07] MEDS: PROTONIX 40 MG PO (13:19)
[2024-10-07] MEDS: LIDOCAINE 4% PATCH 1 PATCH TOPICAL (13:20)
[2024-10-07] MEDS: NOVOLOG FLEXPEN-MODERATE RESISTANCE SC ×2 (13:21→13:48)
[2024-10-07] MEDS: HYDROPHOR 1 APPLIC TOPICAL (13:30)
[2024-10-07] MEDS: DESENEX/MITRAZOL/ZEASORB 1 APPLIC TOPICAL ×2 (13:31→20:39)
[2024-10-07] MEDS: BYSTOLIC 2.5 MG PO (13:31)
[2024-10-07] MEDS: DILAUDID 0.5 MG IV ×2 (13:45→20:41)
[2024-10-07] MEDS: NOVOLOG FLEXPEN-MODERATE RESISTANCE 1 UNITS SC ×2 (13:46→18:54)
[2024-10-07 13:47] LABS: Glucose - Point of Care 198 mg/dl (70-99)
[2024-10-07] MEDS: NOVOLOG FLEXPEN SC (13:47)
[2024-10-07 15:00] VITALS: BP 138/63
[2024-10-07 15:37] LABS: DNase-B Antibody <86 U/mL (<=259)
--- NOTE | 2024-10-07 15:55 | W.PN.NEPH.PH ---
Today's Communication / Plan
-
follow labs
check Fena-if low resume IVF
Assessment/Plan
-
59 yo female IDDM, HTN, HLD presents for swelling, redness, warmth, pain LLE, significantly worse in past 2-3 days. Pain 8/10 now. Taking Tylenol or Ibuprofen prn
Tripped 04/2023, trimalleolar fracture described, 07/2023 had surgery with hardware at [facility]. Dr. Goodwin, [facility]. He last saw pt on 07/20/24 per daughter
Status post hardware removal
Currently being treated for sepsis cellulitis
Acute kidney injury 0.9-3.9 in 48 hours
Impression.
Acute kidney injury likely secondary to hemodynamics and sepsis and fever with hypotension.
Cellulitis questionable osteo
Diabetes
Obesity
Plan.
THAD-cr on admit 0.9, progressive increase cr to 5.9 now -may have reached peak
UOP improving and polyuric now with wang , no hydro on US
UA mild micro hematuria, U PCR 2gm/gm of cr, serologies neg, ASO is high in setting of cellulitis,anti Dnase neg
ICGN is in differential but complements are normal hence likely septic ATN
wt is up, stable on RA
cont to hold Lasix, lisinopril.
no emergent need of PIPE CONNECTOR, however if renal function worsens may need HD in few days
Renal dose all medications
HIDA neg today
d/w pt in detail
-
-
Date of Service: October 07, 2024
CC / HPI / ROS
-
Chief Complaint:
Lower extremity cellulitis
History of Present Illness:
Acute kidney injury status post fever and hypotension on antibiotics creatinine 0.9 on admission increasing currently 5.9
close to polyuric with wang
Bp stable now
wt is up
Review of Systems:
No chest pain or shortness of breath
Wang catheter
Labs
-
Labs:
WBC 8.1 10^3/uL (4.8-10.8) 10/07/24 06:42
RBC 3.85 10^6/uL (4.20-5.40) L 10/07/24 06:42
Hgb 10.1 g/dL (12.0-16.0) L 10/07/24 06:42
Hct 31.4 % (37.0-47.0) L 10/07/24 06:42
Plt Count 336 10^3/uL (130-400) 10/07/24 06:42
Sodium 135 mmol/L (135-145) 10/07/24 06:42
Potassium 5.0 mmol/L (3.5-5.1) 10/07/24 06:42
Chloride 100 mmol/L (98-107) 10/07/24 06:42
Carbon Dioxide 21 mmol/L (22-30) L 10/07/24 06:42
BUN 73 mg/dl (7-17) H 10/07/24 06:42
Creatinine 5.9 mg/dL (0.6-1.0) H* 10/07/24 06:42
eGFR 7.81 10/07/24 06:42
Glucose 150 mg/dl (70-99) H 10/07/24 06:42
Calcium 7.9 mg/dl (8.4-10.2) L 10/07/24 06:42
Albumin 3.0 g/dl (3.5-5.0) L 10/07/24 06:42
Physical Exam
-
Vital Signs:
Vital Signs
Temp Pulse Resp BP Pulse Ox
97.8 F 79 18 131/71 100
10/07/24 07:00 10/07/24 13:31 10/07/24 07:00 10/07/24 13:31 10/07/24 07:00
Cardiovascular:: Regular rate and rhythm
Respiratory:: Bilateral: CTA
Lung Excursion:: Normal
Abdomen:: Nontender and Soft
Bowel Sounds:: Normal
Extremity Edema:: +1: Right: and +3: Left:
Wang Catheter: Yes
--- NOTE | 2024-10-07 16:52 | W.PN.SURGUPD ---
Surgical Update
Surgical Update
59 yo female admitted with left lower extremity cellulitis. Elevated AST ALT and alkaline phosphatase with normal bilirubin. With US done to further evaluate with pericholecystic edema, wall thickening but no stones. No RUQ pain.
HIDA done in follow up today which was normal with patent cystic duct.
Discussed results with patient at bedside. Diet has been advanced and she had pizza for dinner without abd pain/discomfort.
No indication for surgery at this time. Surgery service to follow peripherally, please call with questions/concerns.
[2024-10-07] MEDS: LIPITOR 40 MG PO ×2 (18:46→20:38)
[2024-10-07 18:53] LABS: Glucose - Point of Care 189 mg/dl (70-99)
[2024-10-07 19:16] LABS: Urine Sodium 41 mmol/L (30-90)
--- NOTE | 2024-10-07 20:05 | PTCARENOTE ---
Patient with loose, liquid stools x 2. Provider notified, Imodium ordered. Stool sample collected--results pending. Prior to loose bowel movements, patient had ingested 2 slices of pizza. This RN did educate patient on the importance of adhering to
a low fat diet, especially with an inflamed gallbladder. Per patient, she recalls ingesting fatty foods, the night prior, and having loose stools then. Patient verbalized understanding in regard to consuming a low fat diet. Koehler care provided, by
this RN, post bowel movement; in addition, LLE wound care completed by this RN.
[2024-10-07] MEDS: PAMELOR 75 MG PO (20:37)
[2024-10-07] MEDS: PEPCID 20 MG PO (20:38)
[2024-10-07] MEDS: LYRICA 75 MG PO (20:38)
[2024-10-07] MEDS: HEPARIN 5000 UNITS SC (20:38)
[2024-10-07] MEDS: LANTUS 0.2 UNITS SC (20:38)
[2024-10-07 22:38] LABS: Glucose - Point of Care 385 mg/dl (70-99)
[2024-10-07 23:24] VITALS: BP 138/69
[2024-10-08] MEDS: ANCEF 5 IV ×3 (00:30→17:43)
[2024-10-08 06:00] VITALS: BMI 57.7
[2024-10-08 07:17] LABS: Hematocrit 28.6 % (37.0-47.0); Hemoglobin 9.1 g/dL (12.0-16.0); Mean Corp Hgb Conc. 31.8 g/dL (33.0-37.0); Mean Corpuscular Hgb 26.1 pg (27.0-31.0); Mean Corpuscular Volume 82.2 fL (81.0-99.0); Mean Platelet Volume 9.7 fL (7.4-10.4); Platelet Count 338 10^3/uL (130-400); Red Blood Cell Count 3.48 10^6/uL (4.20-5.40); Red Cell Dist. Width 16.2 % (11.5-14.5); White Blood Cell Count 7.6 10^3/uL (4.8-10.8)
[2024-10-08 07:45] LABS: ALT (SGPT) 11 U/L (0-35); AST (SGOT) 21 U/L (14-36); Albumin 2.7 g/dl (3.5-5.0); Alkaline Phosphatase 333 U/L (38-126); Blood Urea Nitrogen 71 mg/dl (7-17); Calcium 7.8 mg/dl (8.4-10.2); Carbon Dioxide 22 mmol/L (22-30); Chloride 103 mmol/L (98-107); Estimated Creatinine Clearance 16 ml/min; Glucose 267 mg/dl (70-99); Potassium 5.1 mmol/L (3.5-5.1); Sodium 137 mmol/L (135-145); Total Bilirubin 0.4 mg/dl (0.2-1.3); Total Protein 5.6 g/dl (6.3-8.2); eGFR 8.14
[2024-10-08 07:50] VITALS: BP 139/76
[2024-10-08 08:03] LABS: Glucose - Point of Care 254 mg/dl (70-99)
[2024-10-08] MEDS: NOVOLOG FLEXPEN 6 UNITS SC (09:42)
[2024-10-08] MEDS: NOVOLOG FLEXPEN-MODERATE RESISTANCE 5 UNITS SC (09:42)
[2024-10-08] MEDS: HEPARIN 5000 UNITS SC ×2 (09:44→20:14)
[2024-10-08] MEDS: DESENEX/MITRAZOL/ZEASORB 1 APPLIC TOPICAL ×2 (09:45→20:19)
[2024-10-08] MEDS: LIDOCAINE 4% PATCH TOPICAL ×2 (09:46→10:01)
[2024-10-08] MEDS: VISBIOME 1 CAP PO (09:48)
[2024-10-08] MEDS: CYMBALTA DELAYED RELEASE 30 MG PO ×2 (09:48→20:14)
[2024-10-08] MEDS: PROTONIX 40 MG PO (09:48)
[2024-10-08] MEDS: MUCINEX 600 MG PO ×2 (09:48→20:13)
[2024-10-08] MEDS: BYSTOLIC 2.5 MG PO (09:48)
[2024-10-08 12:06] LABS: Glucose - Point of Care 151 mg/dl (70-99)
[2024-10-08] MEDS: NOVOLOG FLEXPEN SC ×2 (12:32→20:11)
[2024-10-08] MEDS: BACTROBAN 2% OINTMENT 1 APPLIC TOPICAL ×3 (12:34→22:01)
[2024-10-08] MEDS: HYDROPHOR 1 APPLIC TOPICAL (12:34)
[2024-10-08] MEDS: LAC HYDRIN, AM LACTIN LOTION 1 APPLIC TOPICAL ×2 (12:35→20:23)
[2024-10-08] MEDS: NOVOLOG FLEXPEN-MODERATE RESISTANCE 1 UNITS SC ×2 (12:35→20:20)
--- NOTE | 2024-10-08 15:37 | W.PN.HOSP.TC ---
Today's Communication/Plan
-
see plan above
Assessment / Plan
Assessment / Plan
59 year old female with history of poorly controlled IDDM, HTN, HLD, mornid obesity, diabetic neuropathy, trimalleolar fracture s/p repair and revision, chronic ambulatory dysfunction who presents with sepsis secondary to LLE cellulitis.
Sepsis:
Tachycardia, tachypnea, leukocytosis, fever
Secondary to non-purulent LLE cellulitis
Hx of fracture and repair with [facility] in Apr 2024 with hardware removal in jul 2024, history of IDDM, recent 7-day course of abx use with worsening symptoms (pt unsure of abx but thinks it is bactrim)
- Leukocytosis resolved,afebrile now
- Reports recent wound culture. Requested records from [facility]
- CXR with no evidence of osteo.
- Continue cefazolin, abx day 7
- Appreciate wound care, podiatry and infectious disease input
THAD:
Urine output much improving. Cr down to 5.7 today
Abd US: No signs of hydronephrosis, mass or calculi are seen in either kidney
- Continue Koehler.
- Appreciate nephro input,
- Holding lisinopril and lasix. Adjust per nephro.
- Renally dosing meds
-Urine cx no growth, Protein/cr 2.0, urine negative for eosinophils
- Compliment normal. ASO positive, anti DNase B pending. other autoimmune panel negative
- Follow BMP and IandO
Transaminitis:
AST/ALT downtrending but Alk phos uptrend. Ggt elevated. Denies RUQ pain, RUQ tenderness on PE today
-Abdominal ultrasound galbladder thickened and edematous suggesting cholecystitis although no gallstones are identified and there is no biliary distention.
-Acute viral hep panel negative
- HIDA neg . Gen surgery started on diet
- No abdo pain
Electrolyte abnormality:
Hyponatremia and hyperkalemia. Resolved
Mild anion metabolic acidosis
Secondary to THAD. improving
-Follow BMP
IDDM (type 2):
Peripheral Neuropathy:
Poorly controlled, HbA1c 8.4
- Has insulin pump but she left Pump at home
- cw Lantus 20u HS, novolog 6u AC
- Mod SSI coverage, diabetic diet , follow accuchecks
- Hold Trulicity, glipizide, pioglitazone
Benign Hypertension
- Stable. Holding Lisinopril for THAD
- c/w Nebivolol renally dosed with holding parameters
Chronic LE edema:
- Hold lasix 40mg BID for THAD. Restart/adjust by nephro
Anemia:
Likely chronic disease
-Hgb stable
Wound:
-Left plantar midarch, present on arrival
-Wound care
HX Restless Leg Syndrome
- on STAIN WIPER Lyrica (renal dosing) and nortriptyline.
Morbid Obesity with BMI 55 due to excess calories and insulin resistance
Affects all aspects of care.
Encourage healthy diet and increased activity with goal of weight reduction
DVT ppx: heparin on hold
Code status: Full Code.
Anticipated Discharge: > 48 hours
Subjective/Interval History
-
Date of Service: October 08, 2024
Not much pain from the left leg
Loose stools last night ? 5 but none today since she got imodium.
No N/V
No fever or chills
Objective Data
-
Labs:
Laboratory Results
10/08/24
06:49
WBC 7.6
Hgb 9.1 L
Hct 28.6 L
Plt Count 338
Sodium 137
Potassium 5.1
Chloride 103
Carbon Dioxide 22
BUN 71 H
Creatinine 5.7 H*
Glucose 267 H
Calcium 7.8 L
Total Bilirubin 0.4
AST 21
ALT 11
Alkaline Phosphatase 333 H
Vital Signs:
Vital Signs
Temp Pulse Resp BP Pulse Ox
98.2 F 76 16 139/76 94
10/08/24 07:50 10/08/24 07:50 10/08/24 07:50 10/08/24 07:50 10/08/24 07:50
I&O
10/07/24 10/08/24 10/09/24
06:59 06:59 06:59
Intake Total 360 / 360 1680 / 1680
Output Total 3100 / 3100 3200 / 3200
Balance -2740 / -2740 -1520 / -1520
Review of Systems
-
Respiratory: Denies Trouble Breathing
Cardiac: Denies Chest Pain
Abdomen/GI: Denies Abdominal Pain
Neuro: Denies Dizzy
Physical Exam
-
General: No Apparent Distress
HEENT: Moist Mucous Membranes
Respiratory: Clear to Auscultation
Cardiac: Regular Rhythm and S1/S2
GI: Soft and Nontender
Musculoskeletal: Other (left leg in dressing)
Neuro: AO x 3
Psych: Calm
Data Reviewed
-
Labs: Labs Reviewed by me
[2024-10-08 15:40] VITALS: BP 154/78
[2024-10-08 16:11] LABS: Glucose - Point of Care 188 mg/dl (70-99)
--- NOTE | 2024-10-08 16:49 | W.PN.NEPH.PH ---
Today's Communication / Plan
-
follow lab s
prn IVF for post ATN diuresis
Assessment/Plan
-
59 yo female IDDM, HTN, HLD presents for swelling, redness, warmth, pain LLE, significantly worse in past 2-3 days. Pain 8/10 now. Taking Tylenol or Ibuprofen prn
Tripped 04/2023, trimalleolar fracture described, 07/2023 had surgery with hardware at [facility]. Dr. Godowin, [facility]. He last saw pt on 07/20/24 per daughter
Status post hardware removal
Currently being treated for sepsis cellulitis
Acute kidney injury 0.9-3.9 in 48 hours
Impression.
Acute kidney injury likely secondary to hemodynamics and sepsis and fever with hypotension.
Cellulitis questionable osteo
Diabetes
Obesity
Plan.
THAD-cr on admit 0.9, progressive increase peak cr at 5.9 now slightly improving to 5.7
polyuric now with wang-possible post ATN diuresis , no hydro on US
UA mild micro hematuria, U PCR 2gm/gm of cr, serologies neg, ASO is high in setting of cellulitis,anti Dnase neg
ICGN is in differential but complements are normal hence likely septic ATN
wt is decreasing, stable on RA
cont to hold Lasix, lisinopril.
no emergent need of COMMERCIAL DIRECTOR, expect to escape
Renal dose all medications
d/w pt in detail
-
-
Date of Service: October 08, 2024
CC / HPI / ROS
-
Chief Complaint:
Lower extremity cellulitis
History of Present Illness:
Acute kidney injury status post fever and hypotension on antibiotics creatinine 0.9 on admission increasing currently 5.7
close to polyuric with wang
Bp stable now
wt is down
Review of Systems:
No chest pain or shortness of breath
Wang catheter
Labs
-
Labs:
WBC 7.6 10^3/uL (4.8-10.8) 10/08/24 06:49
RBC 3.48 10^6/uL (4.20-5.40) L 10/08/24 06:49
Hgb 9.1 g/dL (12.0-16.0) L 10/08/24 06:49
Hct 28.6 % (37.0-47.0) L 10/08/24 06:49
Plt Count 338 10^3/uL (130-400) 10/08/24 06:49
Sodium 137 mmol/L (135-145) 10/08/24 06:49
Potassium 5.1 mmol/L (3.5-5.1) 10/08/24 06:49
Chloride 103 mmol/L (98-107) 10/08/24 06:49
Carbon Dioxide 22 mmol/L (22-30) 10/08/24 06:49
BUN 71 mg/dl (7-17) H 10/08/24 06:49
Creatinine 5.7 mg/dL (0.6-1.0) H* 10/08/24 06:49
eGFR 8.14 10/08/24 06:49
Glucose 267 mg/dl (70-99) H 10/08/24 06:49
Calcium 7.8 mg/dl (8.4-10.2) L 10/08/24 06:49
Albumin 2.7 g/dl (3.5-5.0) L 10/08/24 06:49
Physical Exam
-
Vital Signs:
Vital Signs
Temp Pulse Resp BP Pulse Ox
98.2 F 76 16 139/76 94
10/08/24 07:50 10/08/24 07:50 10/08/24 07:50 10/08/24 07:50 10/08/24 07:50
Cardiovascular:: Regular rate and rhythm
Respiratory:: Bilateral: CTA
Lung Excursion:: Normal
Abdomen:: Nontender and Soft
Bowel Sounds:: Normal
Extremity Edema:: +1: Right: and +2: Left:
Wang Catheter: Yes
[2024-10-08] MEDS: DILAUDID 0.5 MG IV (20:37)
[2024-10-08] MEDS: PAMELOR 75 MG PO (22:00)
[2024-10-08] MEDS: LYRICA 75 MG PO (22:01)
[2024-10-08] MEDS: LANTUS 0.2 UNITS SC (22:02)
[2024-10-08 22:07] LABS: Glucose - Point of Care 172 mg/dl (70-99)
[2024-10-08 23:30] VITALS: BP 117/71
[2024-10-09] MEDS: ANCEF 5 IV ×3 (01:32→17:27)
[2024-10-09 05:19] LABS: Hematocrit 29.5 % (37.0-47.0); Hemoglobin 9.4 g/dL (12.0-16.0); Mean Corp Hgb Conc. 31.9 g/dL (33.0-37.0); Mean Corpuscular Hgb 26.1 pg (27.0-31.0); Mean Corpuscular Volume 81.9 fL (81.0-99.0); Mean Platelet Volume 9.8 fL (7.4-10.4); Platelet Count 393 10^3/uL (130-400); Red Cell Dist. Width 16.1 % (11.5-14.5); White Blood Cell Count 7.3 10^3/uL (4.8-10.8)
[2024-10-09 05:54] LABS: Blood Urea Nitrogen 68 mg/dl (7-17); Calcium 8.2 mg/dl (8.4-10.2); Carbon Dioxide 21 mmol/L (22-30); Chloride 107 mmol/L (98-107); Estimated Creatinine Clearance 17 ml/min; Glucose 178 mg/dl (70-99); Potassium 5.3 mmol/L (3.5-5.1); Sodium 140 mmol/L (135-145); eGFR 8.88
[2024-10-09 06:00] VITALS: BMI 57.3
[2024-10-09 07:26] LABS: Glucose - Point of Care 212 mg/dl (70-99)
[2024-10-09 07:40] VITALS: BP 143/71
[2024-10-09] MEDS: CYMBALTA DELAYED RELEASE 30 MG PO ×2 (09:45→21:00)
[2024-10-09] MEDS: MUCINEX 600 MG PO ×2 (09:45→21:00)
[2024-10-09] MEDS: PROTONIX 40 MG PO (09:45)
[2024-10-09] MEDS: DESENEX/MITRAZOL/ZEASORB 1 APPLIC TOPICAL ×2 (09:46→21:48)
[2024-10-09] MEDS: HEPARIN 5000 UNITS SC ×2 (09:46→21:00)
[2024-10-09] MEDS: BYSTOLIC 2.5 MG PO (09:46)
[2024-10-09] MEDS: HYDROPHOR 1 APPLIC TOPICAL (09:47)
[2024-10-09] MEDS: LIDOCAINE 4% PATCH TOPICAL (09:47)
[2024-10-09] MEDS: LAC HYDRIN, AM LACTIN LOTION 1 APPLIC TOPICAL ×2 (09:47→21:48)
[2024-10-09] MEDS: VISBIOME 1 CAP PO (09:47)
[2024-10-09] MEDS: BACTROBAN 2% OINTMENT 1 APPLIC TOPICAL ×2 (09:47→21:47)
[2024-10-09] MEDS: NOVOLOG FLEXPEN SC ×2 (11:20→15:39)
[2024-10-09] MEDS: NOVOLOG FLEXPEN-MODERATE RESISTANCE SC (11:20)
[2024-10-09 13:00] LABS: Glucose - Point of Care 267 mg/dl (70-99)
--- NOTE | 2024-10-09 14:38 | W.PN.HOSP.TC ---
Today's Communication/Plan
-
Follow Cr
CW IV abx
Assessment / Plan
Assessment / Plan
59 year old female with history of poorly controlled IDDM, HTN, HLD, mornid obesity, diabetic neuropathy, trimalleolar fracture s/p repair and revision, chronic ambulatory dysfunction who presents with sepsis secondary to LLE cellulitis.
Sepsis:
Tachycardia, tachypnea, leukocytosis, fever
Secondary to non-purulent LLE cellulitis
Hx of fracture and repair with [facility] in Apr 2024 with hardware removal in jul 2024, history of IDDM, recent 7-day course of abx use with worsening symptoms (pt unsure of abx but thinks it is bactrim)
- Leukocytosis resolved,afebrile now
- Reports recent wound culture. Requested records from [facility]
- CXR with no evidence of osteo.
- Continue cefazolin, abx day 8
- Appreciate wound care, podiatry and infectious disease input
THAD:
Urine output much improving. Cr down to 5.3 today
Abd US: No signs of hydronephrosis, mass or calculi are seen in either kidney
- Continue Koehler.
- Appreciate nephro input,
- Holding lisinopril and lasix. Adjust per nephro.
- Renally dosing meds
-Urine cx no growth, Protein/cr 2.0, urine negative for eosinophils
- Compliment normal. ASO positive, anti DNase B pending. other autoimmune panel negative
- Follow BMP and IandO
Transaminitis:
AST/ALT downtrending but Alk phos uptrend. Ggt elevated. Denies RUQ pain, RUQ tenderness on PE today
-Abdominal ultrasound galbladder thickened and edematous suggesting cholecystitis although no gallstones are identified and there is no biliary distention.
-Acute viral hep panel negative
- HIDA neg . Gen surgery started on diet -tolerating
- No abdo pain
Electrolyte abnormality:
Hyponatremia and hyperkalemia. Resolved
Mild anion metabolic acidosis
Secondary to THAD. improving
-Follow BMP
IDDM (type 2):
Peripheral Neuropathy:
Poorly controlled, HbA1c 8.4
- Has insulin pump but she left Pump at home
- cw Lantus 20u HS, novolog 6u AC
- Mod SSI coverage, diabetic diet , follow accuchecks
- Hold Trulicity, glipizide, pioglitazone
Benign Hypertension
- Stable. Holding Lisinopril for THAD
- c/w Nebivolol renally dosed with holding parameters
Chronic LE edema:
- Hold lasix 40mg BID for THAD. Restart/adjust by nephro
Anemia:
Likely chronic disease
-Hgb stable
Wound:
-Left plantar midarch, present on arrival
-Wound care
HX Restless Leg Syndrome
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
Morbid Obesity with BMI 55 due to excess calories and insulin resistance
Affects all aspects of care.
Encourage healthy diet and increased activity with goal of weight reduction
DVT ppx: heparin on hold
Code status: Full Code.
Anticipated Discharge: > 48 hours
Subjective/Interval History
-
Date of Service: October 09, 2024
Voicing no specific complaints.
Improved left foot pain .
No fevers.
No N/V or abdo pain
Objective Data
-
Labs:
Laboratory Results
10/09/24
04:53
WBC 7.3
Hgb 9.4 L
Hct 29.5 L
Plt Count 393
Sodium 140
Potassium 5.3 H
Chloride 107
Carbon Dioxide 21 L
BUN 68 H
Creatinine 5.3 H*
Glucose 178 H
Calcium 8.2 L
Vital Signs:
Vital Signs
Temp Pulse Resp BP Pulse Ox
98.2 F 74 14 143/71 93
10/09/24 07:40 10/09/24 07:40 10/09/24 07:40 10/09/24 07:40 10/09/24 07:40
I&O
10/08/24 10/09/24 10/10/24
06:59 06:59 06:59
Intake Total 1680 / 1680 120 / 120
Output Total 3200 / 3200 3525 / 3525
Balance -1520 / -1520 -3405 / -3405
Review of Systems
-
Respiratory: Denies Trouble Breathing
Cardiac: Denies Chest Pain
Neuro: Denies Dizzy
Physical Exam
-
General: No Apparent Distress
Respiratory: Non Labored Respirations; Negative Accessory Resp Muscle Use
Cardiac: Regular Rhythm and S1/S2
GI: Soft
Musculoskeletal: Edema, Left Lower Extrem (in dressing) and Other
Neuro: AO x 3
Data Reviewed
-
Labs: Labs Reviewed by me
[2024-10-09] MEDS: NOVOLOG FLEXPEN-MODERATE RESISTANCE 5 UNITS SC (15:35)
[2024-10-09 15:40] VITALS: BP 166/90
--- NOTE | 2024-10-09 16:23 | W.PN.NEPH.PH ---
Today's Communication / Plan
-
follow labs
Assessment/Plan
-
59 yo female IDDM, HTN, HLD presents for swelling, redness, warmth, pain LLE, significantly worse in past 2-3 days. Pain 01/29 now. Taking Tylenol or Ibuprofen prn
Tripped 04/2023, trimalleolar fracture described, 07/2023 had surgery with hardware at [facility]. Dr. Goodwin, [facility]. He last saw pt on 07/20/24 per daughter
Status post hardware removal
Currently being treated for sepsis cellulitis
Acute kidney injury 0.9-3.9 in 48 hours
Impression.
Acute kidney injury likely secondary to hemodynamics and sepsis and fever with hypotension.
Cellulitis questionable osteo
Diabetes
Obesity
Plan.
THAD-cr on admit 0.9, progressive increase peak cr at 5.9 now slightly improving to 5.3
possible post ATN diuresis , no hydro on US
UA mild micro hematuria, U PCR 2gm/gm of cr, serologies neg, ASO is high in setting of cellulitis,anti Dnase neg
ICGN is in differential but complements are normal hence likely septic ATN
wt is decreasing, stable on RA
cont to hold Lasix, lisinopril.
no emergent need of DRIVER STARTING GATE, expect to escape
Renal dose all medications
d/w pt in detail
-
-
Date of Service: October 09, 2024
CC / HPI / ROS
-
Chief Complaint:
Lower extremity cellulitis
History of Present Illness:
Acute kidney injury status post fever and hypotension on antibiotics creatinine 0.9 on admission increasing currently 5.3
close to polyuric with wang
Bp stable
wt is down
Review of Systems:
No chest pain or shortness of breath
Wang catheter
Labs
-
Labs:
WBC 7.3 10^3/uL (4.8-10.8) 10/09/24 04:53
RBC 3.60 10^6/uL (4.20-5.40) L 10/09/24 04:53
Hgb 9.4 g/dL (12.0-16.0) L 10/09/24 04:53
Hct 29.5 % (37.0-47.0) L 10/09/24 04:53
Plt Count 393 10^3/uL (130-400) 10/09/24 04:53
Sodium 140 mmol/L (135-145) 10/09/24 04:53
Potassium 5.3 mmol/L (3.5-5.1) H 10/09/24 04:53
Chloride 107 mmol/L (98-107) 10/09/24 04:53
Carbon Dioxide 21 mmol/L (22-30) L 10/09/24 04:53
BUN 68 mg/dl (7-17) H 10/09/24 04:53
Creatinine 5.3 mg/dL (0.6-1.0) H* 10/09/24 04:53
eGFR 8.88 10/09/24 04:53
Glucose 178 mg/dl (70-99) H 10/09/24 04:53
Calcium 8.2 mg/dl (8.4-10.2) L 10/09/24 04:53
Albumin 2.7 g/dl (3.5-5.0) L 10/08/24 06:49
Physical Exam
-
Vital Signs:
Vital Signs
Temp Pulse Resp BP Pulse Ox
98 F 84 16 166/90 97
10/09/24 15:40 10/09/24 15:40 10/09/24 15:40 10/09/24 15:40 10/09/24 15:40
Cardiovascular:: Regular rate and rhythm
Respiratory:: Bilateral: CTA
Lung Excursion:: Normal
Abdomen:: Nontender and Soft
Bowel Sounds:: Normal
Extremity Edema:: +1: Right: and +2: Left:
Wang Catheter: Yes
[2024-10-09 17:14] LABS: Glucose - Point of Care 382 mg/dl (70-99)
[2024-10-09] MEDS: NOVOLOG FLEXPEN 6 UNITS SC (17:25)
[2024-10-09] MEDS: NOVOLOG FLEXPEN-MODERATE RESISTANCE 9 UNITS SC (17:26)
[2024-10-09] MEDS: BACTROBAN 2% OINTMENT TOPICAL (17:27)
[2024-10-09] MEDS: DILAUDID 0.5 MG IV (17:27)
[2024-10-09] MEDS: LIPITOR 40 MG PO (17:27)
[2024-10-09 21:01] LABS: Glucose - Point of Care 248 mg/dl (70-99)
[2024-10-09] MEDS: LYRICA 75 MG PO (21:43)
[2024-10-09] MEDS: LANTUS 0.2 UNITS SC (21:43)
[2024-10-09] MEDS: PAMELOR 75 MG PO (21:43)
[2024-10-09 23:30] VITALS: BP 155/70
[2024-10-10] MEDS: ANCEF 5 IV ×2 (01:06→09:53)
[2024-10-10 06:00] VITALS: BMI 57.5
--- NOTE | 2024-10-10 06:07 | PTCARENOTE ---
Patient's wang DCed at 0600 per order. This nurse explained to patient that she would be due to void by 1200. Will f/u with AM nurse. Patient is resting comfortably at this time. Plan of care continues.
[2024-10-10 07:50] LABS: Glucose - Point of Care 176 mg/dl (70-99)
[2024-10-10 07:51] VITALS: BP 185/93
[2024-10-10] MEDS: NOVOLOG FLEXPEN-MODERATE RESISTANCE 1 UNITS SC (07:55)
[2024-10-10] MEDS: NOVOLOG FLEXPEN 6 UNITS SC ×2 (07:56→11:56)
[2024-10-10] MEDS: CYMBALTA DELAYED RELEASE 30 MG PO ×2 (07:56→21:00)
[2024-10-10] MEDS: VISBIOME 1 CAP PO (07:57)
[2024-10-10] MEDS: BYSTOLIC 2.5 MG PO (07:57)
[2024-10-10] MEDS: PROTONIX 40 MG PO (07:57)
[2024-10-10] MEDS: MUCINEX 600 MG PO ×2 (07:57→21:00)
[2024-10-10] MEDS: PEPCID 20 MG PO (07:57)
[2024-10-10] MEDS: BACTROBAN 2% OINTMENT 1 APPLIC TOPICAL (07:58)
[2024-10-10] MEDS: DESENEX/MITRAZOL/ZEASORB 1 APPLIC TOPICAL ×2 (07:59→21:03)
[2024-10-10] MEDS: HEPARIN 5000 UNITS SC ×2 (07:59→21:00)
[2024-10-10] MEDS: LAC HYDRIN, AM LACTIN LOTION 1 APPLIC TOPICAL ×2 (08:00→21:03)
[2024-10-10] MEDS: HYDROPHOR 1 APPLIC TOPICAL (08:00)
[2024-10-10] MEDS: LIDOCAINE 4% PATCH TOPICAL (08:02)
[2024-10-10 09:38] LABS: Blood Urea Nitrogen 57 mg/dl (7-17); Calcium 8.7 mg/dl (8.4-10.2); Carbon Dioxide 25 mmol/L (22-30); Chloride 102 mmol/L (98-107); Estimated Creatinine Clearance 20 ml/min; Glucose 178 mg/dl (70-99); Potassium 5.4 mmol/L (3.5-5.1); Sodium 137 mmol/L (135-145); eGFR 10.81
--- NOTE | 2024-10-10 11:11 | W.PN.ID1 ---
Date of Service
Date of Service: October 10, 2024
Today's Communication
-Transition cefazolin (d9 abx) to cephalexin 500mg po q8h.
Assessment / Plan
# Acute non-purulent RLE cellulitis: resolving
# hx left ankle ORIF, hardware removed 06/2024 due to loosening
# Fever -resolved
# Leukocytosis resolved
-Underlying osteo is unlikely as plantar wound superficial without probe to bone.
- Recent outside MRI wo contrast: reportedly no osteo, no abscess.
- Transition cefazolin (d9 abx) to cephalexin 500mg po q8h.
- Continue moisturize leg, ANNA compression, leg elevation.
# THAD: improving
-Complements, ANNA, PR3, MPO negative
- Anti-ASO Ab titer 800, but Anti-Dnase Ab negative
- Nephrology following
# Elevated AST/ALT
- HIDA normal
# DM- uncontrolled
- Recommend tight glucose control
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
Diabetes mellitus
Peripheral neuropathy
Hypertension
TIA/CVA
Class III obesity BMI 57
Restless leg syndrome
Hx of left trimalleolar fracture status post ORIF July 2023 with subsequent hardware removal June 2024
Right elbow surgery
Childhood bladder surgery
Chief Complaint
-: Cellulitis
Subjective / Review of Systems
Voiding OK.
Vital Signs / Physical Exam
Vital Signs
Vital Signs
Temp Pulse Resp BP Pulse Ox
98.9 F 80 18 185/93 97
10/10/24 07:51 10/10/24 07:51 10/10/24 07:51 10/10/24 07:51 10/10/24 07:51
Physical Exam
Constitutional: No Acute Distress
Eyes: Sclera Anicteric
Cardiovascular: Regular Rate and S1/S2
Pulmonary: Clear
Gastrointestinal: Soft, Non Tender, Non Distended and Normal Bowel Sounds
Genito-Urinary: Negative CVA Tenderness
Extremities: Edema (LLE>RLW) and Erythema (LLE erythema foot to knee eythema, now mild)
Neurological: AO x 3
Objective Data
Lab Data
Lab Results
10/09/24 04:53
10/10/24 08:17
ESR 88 mm/hour (0-20) H 10/03/24 06:25
Estimated Creat Clear 20 ml/min 10/10/24 08:17
Lactic Acid 1.5 mmol/L (0.7-2.0) 10/04/24 09:52
Total Bilirubin 0.4 mg/dl (0.2-1.3) 10/08/24 06:49
GGT 142 U/L (12-43) H 10/07/24 06:42
AST 21 U/L (14-36) 10/08/24 06:49
ALT 11 U/L (0-35) 10/08/24 06:49
Alkaline Phosphatase 333 U/L (38-126) H 10/08/24 06:49
C-Reactive Protein > 270.00 mg/L (0.0-10.00) H 10/03/24 06:25
Most recent labs reviewed.
Micro Results:
10/02/24 14:39 Blood Culture - Final
Blood/Venous No Growth - Final Report
10/02/24 14:39 Blood Culture - Final
Blood/Venous No Growth - Final Report
10/04/24 21:15 Urine Culture - Final
Urine NO GROWTH
10/02/24 Left FOOT XRAY: There are irregularities along the shaft of the proximal phalanx of the fourth metatarsal and base of the distal phalanx of the great toe which are favored to be subacute or chronic injuries. There is no definite radiographic
evidence of acute osteomyelitis.
10/02/24 Left ankle xray: There is extensive osseous remodeling and periosteal reaction along the distal tibia and fibula with findings of likely prior tibiotalar fusion with hardware removal. There is no definite acute fracture. There is no
definite findings of acute osteomyelitis although this would be difficult to exclude if there is clinical suspicion.
10/07/24 HIDA: Normal HIDA scan, without evidence of acute cholecystitis or complete common bile duct obstruction.
[2024-10-10 11:19] LABS: Glucose - Point of Care 213 mg/dl (70-99)
[2024-10-10] MEDS: NOVOLOG FLEXPEN-MODERATE RESISTANCE 3 UNITS SC ×2 (11:55→17:12)
[2024-10-10 12:10] VITALS: BP 181/100; PULSE 80; O2SAT 97
[2024-10-10] MEDS: KEFLEX 500 MG PO ×2 (13:35→21:00)
[2024-10-10] MEDS: PROCARDIA XL (EXTENDED RELEASE) 30 MG PO ×2 (13:46→21:00)
--- NOTE | 2024-10-10 13:53 | W.PN.HOSP.TC ---
Addendum entered and electronically signed by Manish Meyer MD 10/11/24 15:48:
I seen and examined on 10/10
Read, reviewed, and agree. See same day progress note for additional details. Time spent reviewing records in EMR, med rec, consults, notes, d/w consultants, nursing, family, and CM mins
Original Note:
Today's Communication/Plan
-
Continue p.o. antibiotics
follow Iand O, weights, bmp.
Assessment / Plan
Assessment / Plan
59 year old female with history of poorly controlled IDDM, HTN, HLD, mornid obesity, diabetic neuropathy, trimalleolar fracture s/p repair and revision, chronic ambulatory dysfunction who presents with sepsis secondary to LLE cellulitis.
Sepsis:
Tachycardia, tachypnea, leukocytosis, fever
Secondary to non-purulent LLE cellulitis
Hx of fracture and repair with [facility] in Apr 2024 with hardware removal in jul 2024, history of IDDM, recent 7-day course of abx use with worsening symptoms (pt unsure of abx but thinks it is bactrim)
- Leukocytosis resolved,afebrile
- CXR with no evidence of osteo.
- Cefazolin switched to cephalexin today, abx day
- Appreciate wound care, podiatry and infectious disease input.
- PT/OT
THAD:
Secondary to sepsis/hypotensive state
Improving. Cr down to 4.5 today
Abd US: No signs of hydronephrosis, mass or calculi are seen in either kidney
Urine cx no growth, Protein/cr 2.0, urine negative for eosinophils. Compliment normal. ASO positive, anti DNase B pending. other autoimmune panel negative
- wang removed this morning, normal spontaneous voiding
- Appreciate nephro input
- Holding lisinopril and lasix. Adjust per nephro.
- Renally dosing meds
- Follow BMP and IandO
Transaminitis:
AST/ALT downtrending but Alk phos uptrend. Ggt elevated.
-Abdominal ultrasound galbladder thickened and edematous suggesting cholecystitis although no gallstones are identified and there is no biliary distention.
-Acute viral hep panel negative
-HIDA neg. Tolerating diet. No further workup for cholecystitis
Electrolyte abnormality:
Hyponatremia and hyperkalemia. Resolved
Mild anion metabolic acidosis
Secondary to THAD. Resolved
-Follow BMP
IDDM (type 2):
Peripheral Neuropathy:
Poorly controlled, HbA1c 8.4
- Has insulin pump but she left Pump at home
- cw Lantus 20u HS, novolog 6u AC
- Mod SSI coverage, diabetic diet, follow accuchecks
- Appreciate diabetes nurse practitioner
- Hold Trulicity, glipizide, pioglitazone
- Strongly recommend Endocrinology outpatient follow-up
Benign Hypertension
- Stable. Holding Lisinopril for THAD
- c/w Nebivolol renally dosed with holding parameters
- Elevated today. Add nifedipine 30 mg twice daily
Chronic LE edema:
- Hold lasix 40mg BID for THAD. Restart/adjust by nephro
Anemia:
Likely chronic disease
-Hgb stable
Wound:
-Left plantar midarch, present on arrival
-Wound care
HX Restless Leg Syndrome
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
Morbid Obesity with BMI 55 due to excess calories and insulin resistance
Affects all aspects of care.
Spoke to patient and encouraged healthy diet and increased activity with goal of weight reduction. Strongly recommend PCP follow-up and consideration for dietitian.
DVT ppx: heparin
Code status: Full Code.
Anticipated Discharge: Within 24 hours
Subjective/Interval History
-
Date of Service: October 10, 2024
No acute overnight events. Rodo removed this a.m.
Objective Data
-
Labs:
Laboratory Results
10/10/24
08:17
Sodium 137
Potassium 5.4 H
Chloride 102
Carbon Dioxide 25
BUN 57 H
Creatinine 4.5 H*
Glucose 178 H
Calcium 8.7
Vital Signs:
Vital Signs
Temp Pulse Resp BP Pulse Ox
98.9 F 80 18 185/93 97
10/10/24 07:51 10/10/24 07:51 10/10/24 07:51 10/10/24 07:51 10/10/24 07:51
I&O
10/09/24 10/10/24 10/11/24
06:59 06:59 06:59
Intake Total 120 / 120 1200 / 1200
Output Total 3525 / 3525 3650 / 3650
Balance -3405 / -3405 -2450 / -2450
Review of Systems
-
History Source: Patient
Respiratory: Denies Trouble Breathing
Cardiac: Denies Chest Pain
Abdomen/GI: Denies Abdominal Pain, Nausea, Vomiting, Diarrhea or Constipated
Genitourinary: Denies Dysuria or Difficulty Voiding
Musculoskeletal: Reports Edema (Bilateral LE)
Skin: Reports Other (Pain, redness left leg)
Physical Exam
-
General: Well Developed, Well Nourished, Comfortable and Morbidly Obese
HEENT: Normocephalic, Atraumatic, Moist Mucous Membranes and Anicteric
Respiratory: Clear to Auscultation and Non Labored Respirations; Negative Wheezes, Rales, Rhonchi or Crackles
Cardiac: Regular Rhythm and S1/S2; Negative Murmur, Rub or Calf Tenderness
GI: Soft, Nontender, Nondistended and Normal Bowel Sounds
Genito-urinary: Negative Wang
Musculoskeletal: No Clubbing, No Cyanosis, Edema, Right Lower Extrem and Edema, Left Lower Extrem
Skin: Warm and Dry
Neuro: Awake, Alert and Oriented
Psych: Calm
--- NOTE | 2024-10-10 14:00 | PN.DE.MGMTRT ---
Insulin Management
- -
10/10/2024: Diabetes Management Consult
59 year old female who was admitted on 10/02 with sepsis secondary to LLE cellulitis.
PMH: HTN, HLD, morbid obesity, Diabetic Neuropathy, Uncontrolled IDDM, trimalleolar fracture s/p repair and revision, chronic ambulatory dysfunction.
Pt awake, alert, oriented, sitting up in chair, offers no complaints.
States she uses insulin pump- Omnipod with Humalog and Dexcom CGM at but was asked to take it off on admission and that she would be managed with insulin injections. She states that her 24hr daily insulin requirement was 66 units via pump. Current
A1C is 8.4%, Cr 4.5, eGFR 10.81
Current diabetes regimen includes: Lantus 20 units and AC NovoLog 6 units.
Glucose has remained elevated, 10/09 premeal range was, 212 to 382, requiring 1-9 units of additional corrective insulin, FBG 178 V this AM.
Will increase AC NovoLog to 9 units and Lantus to 24 units @ HS. CONT TO HOLD all oral agents due to THAD with a Cr of 4.2
Instructed pt to have family bring in a New Pod, insulin and all supplies and we will assist her to switch back to her insulin pump.
Will cont to follow.
Diabetes History
- -
Type of Diabetes: 2 requiring insulin
Pre-Admission Diabetes Regimen
10/10/24
08:17
Creatinine 4.5 H*
Lab Results
Hemoglobin A1c 8.4 % (4.0-5.6) H 10/03/24 06:25
Insulin Pump Settings
IP Diabetes Regimen
10/09/24 10/09/24 10/10/24
17:12 21:00 07:48
Glucose
POC Glucose 382 H 248 H 176 H
10/10/24 10/10/24
08:17 11:18
Glucose 178 H
POC Glucose 213 H
Patient Education
--- NOTE | 2024-10-10 15:01 | W.PN.NEPH.PH ---
Today's Communication / Plan
-
lowk diet and lokelma
Assessment/Plan
-
59 yo female IDDM, HTN, HLD presents for swelling, redness, warmth, pain LLE, significantly worse in past 2-3 days. Pain /10 now. Taking Tylenol or Ibuprofen prn
Tripped 04/2023, trimalleolar fracture described, 07/2023 had surgery with hardware at [facility]. Dr. Goodwin, [facility]. He last saw pt on 07/20/24 per daughter
Status post hardware removal
Currently being treated for sepsis cellulitis
Acute kidney injury 0.9-3.9 in 48 hours
Impression.
Acute kidney injury likely secondary to hemodynamics and sepsis and fever with hypotension.
Cellulitis questionable osteo
Diabetes
Obesity
Plan.
THAD-cr on admit 0.9, progressive increase peak cr at 5.9 now slightly improving to 4.5
possible post ATN diuresis , no hydro on US
UA mild micro hematuria, U PCR 2gm/gm of cr, serologies neg, ASO is high in setting of cellulitis,anti Dnase neg
ICGN is in differential but complements are normal hence likely septic ATN
wt no change
cont to hold Lasix, lisinopril.
mild hyperkalemia-dose Lokelma
Renal dose all medications
d/w pt in detail
-
-
Date of Service: October 10, 2024
CC / HPI / ROS
-
Chief Complaint:
Lower extremity cellulitis
History of Present Illness:
Acute kidney injury status post fever and hypotension on antibiotics creatinine 0.9 on admission increasing currently 4.5
close to polyuric with wang
Bp stable
wt no change
Review of Systems:
No chest pain or shortness of breath
Wang catheter
Labs
-
Labs:
WBC 7.3 10^3/uL (4.8-10.8) 10/09/24 04:53
RBC 3.60 10^6/uL (4.20-5.40) L 10/09/24 04:53
Hgb 9.4 g/dL (12.0-16.0) L 10/09/24 04:53
Hct 29.5 % (37.0-47.0) L 10/09/24 04:53
Plt Count 393 10^3/uL (130-400) 10/09/24 04:53
Sodium 137 mmol/L (135-145) 10/10/24 08:17
Potassium 5.4 mmol/L (3.5-5.1) H 10/10/24 08:17
Chloride 102 mmol/L (98-107) 10/10/24 08:17
Carbon Dioxide 25 mmol/L (22-30) 10/10/24 08:17
BUN 57 mg/dl (7-17) H 10/10/24 08:17
Creatinine 4.5 mg/dL (0.6-1.0) H* 10/10/24 08:17
eGFR 10.81 10/10/24 08:17
Glucose 178 mg/dl (70-99) H 10/10/24 08:17
Calcium 8.7 mg/dl (8.4-10.2) 10/10/24 08:17
Albumin 2.7 g/dl (3.5-5.0) L 10/08/24 06:49
Physical Exam
-
Vital Signs:
Vital Signs
Temp Pulse Resp BP Pulse Ox
98.9 F 80 18 185/93 97
10/10/24 07:51 10/10/24 07:51 10/10/24 07:51 10/10/24 07:51 10/10/24 07:51
Cardiovascular:: Regular rate and rhythm
Respiratory:: Bilateral: CTA
Lung Excursion:: Normal
Abdomen:: Nontender and Soft
Bowel Sounds:: Normal
Extremity Edema:: +1: Right: and +2: Left:
Wang Catheter: Yes
[2024-10-10 15:12] VITALS: BP 176/98
[2024-10-10] MEDS: LOKELMA 5 GRAM PO (15:23)
[2024-10-10 15:53] LABS: Glucose - Point of Care 245 mg/dl (70-99)
[2024-10-10] MEDS: BACTROBAN 2% OINTMENT TOPICAL ×2 (16:09→21:04)
[2024-10-10] MEDS: LIPITOR 40 MG PO (17:12)
[2024-10-10] MEDS: NOVOLOG FLEXPEN 9 UNITS SC (17:12)
[2024-10-10] MEDS: ZOFRAN 4 MG IV (17:17)
[2024-10-10] MEDS: APRESOLINE 5 MG IV (18:33)
[2024-10-10] MEDS: PAMELOR 75 MG PO (21:00)
[2024-10-10] MEDS: LYRICA 75 MG PO (21:00)
[2024-10-10 21:15] LABS: Glucose - Point of Care 184 mg/dl (70-99)
[2024-10-10] MEDS: LANTUS 0.24 UNITS SC (21:16)
[2024-10-10 23:23] VITALS: BP 134/64
[2024-10-11] MEDS: KEFLEX 500 MG PO ×3 (06:03→21:40)
[2024-10-11 07:36] VITALS: BP 113/62
[2024-10-11 07:47] LABS: Glucose - Point of Care 122 mg/dl (70-99)
[2024-10-11 08:05] LABS: Hematocrit 28.6 % (37.0-47.0); Hemoglobin 9.1 g/dL (12.0-16.0); Mean Corp Hgb Conc. 31.8 g/dL (33.0-37.0); Mean Corpuscular Volume 81.7 fL (81.0-99.0); Mean Platelet Volume 9.3 fL (7.4-10.4); Platelet Count 383 10^3/uL (130-400); Red Cell Dist. Width 16.1 % (11.5-14.5); White Blood Cell Count 9.7 10^3/uL (4.8-10.8)
--- NOTE | 2024-10-11 08:05 | PN.DE.MGMTRT ---
Insulin Management
- -
10/11/2024: Diabetes Management Consult Follow up
59 year old female who was admitted on 10/02 with sepsis secondary to LLE cellulitis.
PMH: HTN, HLD, morbid obesity, Diabetic Neuropathy, Uncontrolled IDDM, trimalleolar fracture s/p repair and revision, chronic ambulatory dysfunction. Prior to admission was using the OmniPod insulin pump with DexCom G6 CGM with Humalog insulin.
Patient states she requires up to 66 units of insulin per day. Current A1C is 8.4%, Cr 4.5, eGFR 10.81
Pt awake, alert, oriented, sitting up in chair, offers no complaints.
10/10 Glucose range 176 to 245, insulin increased to Lantus 24 units and AC NovoLog 9 units with moderate corrective.
10/11 Family brought POD and supplies last evening. Patient applied POD and resumed her basal insulin last evening.She also received 24 units lantus @ HS. Fasting glucose 122. Patient also took 10 unit bolus this AM for breakfast. Discussed with
patient that because she had the lantus last evening would need to start a temporary basal @ .55 until 5pm. She will remain in manual mode until 5pm. She will bolus for each meal and at 5PM resume her basal rate at 1.1 units per hour. At 5pm whe
will also change her pump to Automatic mode. She verbalized understanding.
Pump settings as follows:
Basal rate 1.1 24 hours
I:CHO ratio 1: 6
Sensitivity 1:34
Active insulin 4 hours.
Discussed with nurse, and students nursing home physician. Pump worksheet to be explained to patient and placed at bedside.
Will cont to follow
Diabetes History
- -
Type of Diabetes: 2 requiring insulin
Pre-Admission Diabetes Regimen
10/10/24
08:17
Creatinine 4.5 H*
Lab Results
Hemoglobin A1c 8.4 % (4.0-5.6) H 10/03/24 06:25
Insulin Pump Settings
IP Diabetes Regimen
10/10/24 10/10/24 10/10/24
08:17 11:18 15:52
Glucose 178 H
POC Glucose 213 H 245 H
10/10/24 10/11/24
21:15 07:46
Glucose
POC Glucose 184 H 122 H
Patient Education
[2024-10-11] MEDS: NOVOLOG FLEXPEN-MODERATE RESISTANCE SC (08:47)
[2024-10-11 08:48] LABS: Blood Urea Nitrogen 57 mg/dl (7-17); Calcium 8.6 mg/dl (8.4-10.2); Carbon Dioxide 24 mmol/L (22-30); Chloride 105 mmol/L (98-107); Estimated Creatinine Clearance 25 ml/min; Glucose 118 mg/dl (70-99); Potassium 5.7 mmol/L (3.5-5.1); Sodium 139 mmol/L (135-145); eGFR 13.67
[2024-10-11] MEDS: PROTONIX 40 MG PO (08:48)
[2024-10-11] MEDS: BYSTOLIC 2.5 MG PO (08:49)
[2024-10-11] MEDS: VISBIOME 1 CAP PO (08:49)
[2024-10-11] MEDS: CYMBALTA DELAYED RELEASE 30 MG PO ×2 (08:49→21:41)
[2024-10-11] MEDS: PROCARDIA XL (EXTENDED RELEASE) 30 MG PO ×2 (08:50→21:41)
[2024-10-11] MEDS: MUCINEX 600 MG PO ×2 (08:51→21:41)
[2024-10-11] MEDS: HEPARIN 5000 UNITS SC ×2 (08:51→21:42)
[2024-10-11] MEDS: DESENEX/MITRAZOL/ZEASORB 1 APPLIC TOPICAL ×2 (08:52→21:43)
[2024-10-11] MEDS: LAC HYDRIN, AM LACTIN LOTION 1 APPLIC TOPICAL ×2 (08:53→21:44)
[2024-10-11] MEDS: HYDROPHOR 1 APPLIC TOPICAL (08:53)
[2024-10-11] MEDS: BACTROBAN 2% OINTMENT 1 APPLIC TOPICAL (08:54)
[2024-10-11] MEDS: LIDOCAINE 4% PATCH TOPICAL (08:54)
[2024-10-11] MEDS: NOVOLOG FLEXPEN SC (09:13)
[2024-10-11] MEDS: LOKELMA 10 GRAM PO ×3 (09:32→17:28)
[2024-10-11] MEDS: PT'S OWN INSULIN PUMP - HumaLOG SC ×3 (10:01→21:53)
--- NOTE | 2024-10-11 10:56 | CM ---
CM reviewed chart, patient seen in chair, reports no needs to CM at this time. Plan remains home with [facility] when stable. CM will continue to follow for all discharge planning needs.
Plan; home with [facility]
[2024-10-11 11:24] LABS: Glucose - Point of Care 198 mg/dl (70-99)
--- NOTE | 2024-10-11 12:22 | W.PN.HOSP.TC ---
Addendum entered and electronically signed by Manish Meyer MD 10/11/24 15:49:
Start Lokelma 3 times daily
Renal function improving
Continue antibiotics per infectious disease recommendations
Original Note:
Today's Communication/Plan
-
Lokelma, monitor Iand O, repeat BMP,
Assessment / Plan
Assessment / Plan
59 year old female with history of poorly controlled IDDM, HTN, HLD, mornid obesity, diabetic neuropathy, trimalleolar fracture s/p repair and revision, chronic ambulatory dysfunction who presents with sepsis secondary to LLE cellulitis.
Sepsis:
Tachycardia, tachypnea, leukocytosis, fever
Secondary to non-purulent LLE cellulitis
Hx of fracture and repair with [facility] in Apr 2024 with hardware removal in jul 2024, history of IDDM, recent 7-day course of abx use with worsening symptoms (pt unsure of abx but thinks it is bactrim)
- Leukocytosis resolved,afebrile
- CXR with no evidence of osteo.
- Continue cephalexin. Total Abx day 10
- Appreciate wound care, podiatry and infectious disease input.
- PT/OT. Will need home PT
- Encourage leg elevation, shahida wraps
- Strongly recommend ortho outpatient follow up.
THAD:
Secondary to sepsis/hypotensive state
Improving. Cr down to 4.5 today
Abd US: No signs of hydronephrosis, mass or calculi are seen in either kidney
Urine cx no growth, Protein/cr 2.0, urine negative for eosinophils. Compliment normal. ASO positive, anti DNase B negative.
- spontaneous voiding s/p wang removal
- Appreciate nephro input
- Holding lisinopril and lasix. Adjust per nephro.
- Renally dosing meds
- Follow BMP and IandO
Transaminitis:
AST/ALT downtrending but Alk phos uptrend. Ggt elevated.
-Abdominal ultrasound galbladder thickened and edematous suggesting cholecystitis although no gallstones are identified and there is no biliary distention.
-Acute viral hep panel negative
-HIDA neg. Tolerating diet. No further workup for cholecystitis
Electrolyte abnormality:
Secondary to THAD. Resolved
- Hyponatremia resolved.
- Hyperkalemia 5.7 today s/p lokelma once yesterday. TID lokelma today. EKG stable. Repeat BMP later this pm
- Mild anion metabolic acidosis, resolved
- Telemetry
IDDM (type 2):
Peripheral Neuropathy:
Poorly controlled, HbA1c 8.4
- Has insulin pump but she left Pump at home
- cw Lantus 20u HS, novolog 6u AC
- Mod SSI coverage, diabetic diet, follow accuchecks
- Appreciate diabetes nurse practitioner
- Hold Trulicity, glipizide, pioglitazone
- Strongly recommend Endocrinology outpatient follow-up
Benign Hypertension
- Stable. Holding Lisinopril for THAD
- c/w Nebivolol renally dosed with holding parameters
- Good response to Nifedipine 30mg BID, continue
Chronic LE edema:
- Hold lasix 40mg BID for THAD. Restart/adjust by nephro
Anemia:
Likely chronic disease
-Hgb stable
Wound:
-Left plantar midarch, present on arrival
-Anterior left leg, not present on arrival, serous discharge, secondary to LE edema
-Wound care
HX Restless Leg Syndrome
- on PRODUCTION CONTROL SPECIALIST Lyrica (renal dosing) and nortriptyline.
Morbid Obesity with BMI 55 due to excess calories and insulin resistance
Affects all aspects of care.
Spoke to patient and encouraged healthy diet and increased activity with goal of weight reduction. Strongly recommend PCP follow-up and consideration for dietitian.
DVT ppx: heparin
Code status: Full Code.
Anticipated Discharge: 24 - 48 hours
Subjective/Interval History
-
Date of Service: October 11, 2024
Reports ongoing LLE pain, otherwise feels well.
Objective Data
-
Labs:
Laboratory Results
10/11/24
07:23
WBC 9.7
Hgb 9.1 L
Hct 28.6 L
Plt Count 383
Sodium 139
Potassium 5.7 H
Chloride 105
Carbon Dioxide 24
BUN 57 H
Creatinine 3.7 H
Glucose 118 H
Calcium 8.6
Vital Signs:
Vital Signs
Temp Pulse Resp BP Pulse Ox
98.3 F 77 20 113/62 99
10/11/24 07:36 10/11/24 08:49 10/11/24 07:36 10/11/24 08:49 10/11/24 07:36
I&O
10/10/24 10/11/24 10/12/24
06:59 06:59 06:59
Intake Total 1200 / 1200 1680 / 1680
Output Total 3650 / 3650
Balance -2450 / -2450 1680 / 1680
Review of Systems
-
History Source: Patient
Constitutional: Denies No Appetite
Respiratory: Denies Cough or Trouble Breathing
Cardiac: Denies Chest Pain
Abdomen/GI: Denies Abdominal Pain, Nausea, Vomiting, Diarrhea or Constipated
Genitourinary: Denies Dysuria or Difficulty Voiding
Musculoskeletal: Reports Other (Left foot pain)
Skin: Reports Other (Left leg pain, redness, swelling )
Physical Exam
-
General: Well Developed, Well Nourished and No Apparent Distress
HEENT: Normocephalic, Atraumatic, Moist Mucous Membranes and Anicteric
Respiratory: Clear to Auscultation and Non Labored Respirations; Negative Wheezes, Rales, Rhonchi or Crackles
Cardiac: Regular Rhythm and S1/S2; Negative Murmur or Rub
GI: Soft, Nontender and Nondistended
Genito-urinary: No Costovertebral Tender
Musculoskeletal: No Clubbing, No Cyanosis, Edema, Left Upper Extrem and Edema, Right Lower Extrem
Skin: Warm, Dry and Other (mild erythema of left foot)
Neuro: Awake, Alert and Oriented
Psych: Calm
--- NOTE | 2024-10-11 12:59 | W.PN.ID1 ---
Date of Service
Date of Service: October 11, 2024
Today's Communication
Continue cephalexin 500mg po q8h through 10/16.
Assessment / Plan
# Acute non-purulent RLE cellulitis: resolving
# hx left ankle ORIF, hardware removed 06/2024 due to loosening
# Fever -resolved
# Leukocytosis resolved
-Underlying osteo is unlikely as plantar wound superficial without probe to bone.
- Recent outside MRI wo contrast: reportedly no osteo, no abscess.
- s/p cefazolin x 8d
- Continue cephalexin 500mg po q8h through 10/16.
- Continue moisturize leg, ANNA compression, leg elevation.
# THAD: improving
-Complements, ANNA, PR3, MPO negative
- Anti-ASO Ab titer 800, but Anti-Dnase Ab negative
- Nephrology following
# Elevated AST/ALT
- HIDA normal
# DM- uncontrolled
- Recommend tight glucose control
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
Diabetes mellitus
Peripheral neuropathy
Hypertension
TIA/CVA
Class III obesity BMI 57
Restless leg syndrome
Hx of left trimalleolar fracture status post ORIF July 2023 with subsequent hardware removal June 2024
Right elbow surgery
Childhood bladder surgery
Chief Complaint
-: Cellulitis
Subjective / Review of Systems
No new issues today.
Vital Signs / Physical Exam
Vital Signs
Vital Signs
Temp Pulse Resp BP Pulse Ox
98.3 F 77 20 113/62 99
10/11/24 07:36 10/11/24 08:49 10/11/24 07:36 10/11/24 08:49 10/11/24 07:36
Physical Exam
Constitutional: No Acute Distress
Eyes: Sclera Anicteric
Cardiovascular: Regular Rate and S1/S2
Pulmonary: Clear
Gastrointestinal: Soft, Non Tender, Non Distended and Normal Bowel Sounds
Genito-Urinary: Negative CVA Tenderness
Extremities: Edema (LLE>RLE decreasing) and Erythema (LLE erythema foot to knee erythema, now mild, receding)
Neurological: AO x 3
Objective Data
Lab Data
Lab Results
10/11/24 07:23
ESR 88 mm/hour (0-20) H 10/03/24 06:25
Estimated Creat Clear 25 ml/min 10/11/24 07:23
Lactic Acid 1.5 mmol/L (0.7-2.0) 10/04/24 09:52
Total Bilirubin 0.4 mg/dl (0.2-1.3) 10/08/24 06:49
GGT 142 U/L (12-43) H 10/07/24 06:42
AST 21 U/L (14-36) 10/08/24 06:49
ALT 11 U/L (0-35) 10/08/24 06:49
Alkaline Phosphatase 333 U/L (38-126) H 10/08/24 06:49
C-Reactive Protein > 270.00 mg/L (0.0-10.00) H 10/03/24 06:25
Most recent labs reviewed.
Micro Results:
10/02/24 14:39 Blood Culture - Final
Blood/Venous No Growth - Final Report
10/02/24 14:39 Blood Culture - Final
Blood/Venous No Growth - Final Report
10/04/24 21:15 Urine Culture - Final
Urine NO GROWTH
10/02/24 Left FOOT XRAY: There are irregularities along the shaft of the proximal phalanx of the fourth metatarsal and base of the distal phalanx of the great toe which are favored to be subacute or chronic injuries. There is no definite radiographic
evidence of acute osteomyelitis.
10/02/24 Left ankle xray: There is extensive osseous remodeling and periosteal reaction along the distal tibia and fibula with findings of likely prior tibiotalar fusion with hardware removal. There is no definite acute fracture. There is no
definite findings of acute osteomyelitis although this would be difficult to exclude if there is clinical suspicion.
10/07/24 HIDA: Normal HIDA scan, without evidence of acute cholecystitis or complete common bile duct obstruction.
[2024-10-11 13:05] VITALS: BP 133/66
[2024-10-11] MEDS: BACTROBAN 2% OINTMENT TOPICAL ×2 (15:26→21:45)
[2024-10-11 15:57] VITALS: BP 119/64
[2024-10-11 16:08] LABS: Glucose - Point of Care 245 mg/dl (70-99)
[2024-10-11] MEDS: PT'S OWN INSULIN PUMP - HumaLOG 7.15 UNIT SC (16:11)
--- NOTE | 2024-10-11 16:53 | W.PN.NEPH.PH ---
Today's Communication / Plan
-
Follow BMP
Lokelma for hyperkalemia
Assessment/Plan
-
59 yo female IDDM, HTN, HLD presents for swelling, redness, warmth, pain LLE, significantly worse in past 2-3 days. Pain 8/10 now. Taking Tylenol or Ibuprofen prn
Tripped 04/2023, trimalleolar fracture described, 07/2023 had surgery with hardware at [facility]. Dr. Goodwin, [facility]. He last saw pt on 07/20/24 per daughter
Status post hardware removal
Currently being treated for sepsis cellulitis
Acute kidney injury 0.9-3.9 in 48 hours
Impression.
Acute kidney injury likely secondary to hemodynamics and sepsis and fever with hypotension.
Cellulitis questionable osteo
Diabetes
Obesity
Plan.
THAD-cr on admit 0.9, progressive increase peak cr at 5.9 now slightly improving to 3.7
possible post ATN diuresis , no hydro on US,uop not recorded
UA mild micro hematuria, U PCR 2gm/gm of cr, serologies neg, ASO is high in setting of cellulitis,anti Dnase neg
ICGN is in differential but complements are normal hence likely septic ATN
continue to hold Lasix, lisinopril. bp stable: on procardia and betablocker
Hyperkalemia persist-dosed Lokelma but as per usual very little immediate efficacy: will utilize kayexolate if K approaches 6
Renal dose all medications
d/w pt in detail
-
-
Date of Service: October 11, 2024
CC / HPI / ROS
-
Chief Complaint:
Lower extremity cellulitis
History of Present Illness:
Acute kidney injury status post fever and hypotension on antibiotics creatinine 0.9 on admission increasing currently 3.7
Bp stable
wt no change
Hyperkalemia persist
Review of Systems:
No chest pain or shortness of breath
Urine output not even record
Labs
-
Labs:
WBC 9.7 10^3/uL (4.8-10.8) 10/11/24 07:23
RBC 3.50 10^6/uL (4.20-5.40) L 10/11/24 07:23
Hgb 9.1 g/dL (12.0-16.0) L 10/11/24 07:23
Hct 28.6 % (37.0-47.0) L 10/11/24 07:23
Plt Count 383 10^3/uL (130-400) 10/11/24 07:23
eGFR 13.67 10/11/24 07:23
Albumin 2.7 g/dl (3.5-5.0) L 10/08/24 06:49
Physical Exam
-
Vital Signs:
Vital Signs
Temp Pulse Resp BP Pulse Ox
98.0 F 72 16 119/64 97
10/11/24 15:57 10/11/24 15:57 10/11/24 15:57 10/11/24 15:57 10/11/24 15:57
Cardiovascular:: Regular rate and rhythm
Respiratory:: Bilateral: CTA
Lung Excursion:: Normal
Abdomen:: Nontender and Soft
Bowel Sounds:: Normal
Extremity Edema:: +1: Right: and +2: Left:
Koehler Catheter: Yes
[2024-10-11] MEDS: LIPITOR 40 MG PO (17:28)
[2024-10-11 17:44] LABS: Blood Urea Nitrogen 56 mg/dl (7-17); Calcium 8.9 mg/dl (8.4-10.2); Carbon Dioxide 23 mmol/L (22-30); Estimated Creatinine Clearance 25 ml/min; Glucose 177 mg/dl (70-99); eGFR 14.13
[2024-10-11 18:02] LABS: Chloride 104 mmol/L (98-107); Potassium 5.2 mmol/L (3.5-5.1); Sodium 139 mmol/L (135-145)
[2024-10-11] MEDS: LYRICA 75 MG PO (21:41)
[2024-10-11] MEDS: PAMELOR 75 MG PO (21:41)
[2024-10-11 21:50] LABS: Glucose - Point of Care 174 mg/dl (70-99)
[2024-10-11 23:55] VITALS: BP 131/70
[2024-10-12] VITALS (7 sets, daily range): BP systolic 121–176; BP diastolic 56–83; PULSE 81; BMI 57.1
[2024-10-12] MEDS: LOKELMA 10 GRAM PO ×3 (05:33→17:38)
[2024-10-12] MEDS: KEFLEX 500 MG PO ×3 (05:33→21:22)
--- NOTE | 2024-10-12 07:24 | W.PN.HOSP.TC ---
Addendum entered and electronically signed by Manish Meyer MD 10/12/24 16:13:
Nonpurulent left lower extremity cellulitis. Continue cephalexin until 10/16
Hyperkalemia improving on Lokelma. Will discharge home with Lokelma as this was cleared by nephrology as they have stated reasonable for discharge. Repeat BMP in 1 to 3 days. Prescription has been provided to follow-up with PCP. Recommend low
potassium diet. Recommend continuation of Lokelma.
Original Note:
Today's Communication/Plan
-
c/w abx
trend bmp
IOs
c/w Lokelma
Assessment / Plan
Assessment / Plan
59 year old female with history of poorly controlled IDDM, HTN, HLD, mornid obesity, diabetic neuropathy, trimalleolar fracture s/p repair and revision, chronic ambulatory dysfunction who presents with sepsis secondary to LLE cellulitis.
#Sepsis
#Non-purulent LLE cellulitis
Hx of fracture and repair with [facility] in Apr 2024 with hardware removal in jul 2024, history of IDDM, recent 7-day course of abx use with worsening symptoms (pt unsure of abx but thinks it is bactrim)
- Tachycardia, tachypnea, leukocytosis, fever
- Leukocytosis resolved,afebrile
- CXR with no evidence of osteo.
- Continue cephalexin. Total Abx day 10
- Appreciate wound care, podiatry and infectious disease input.
- PT/OT. Will need home PT
- Encourage leg elevation, shahida wraps
- Strongly recommend ortho outpatient follow up.
- c/w Cephalexin 500mg q8 through 10/16
#ATN, likely econdary to sepsis/hypotensive state
- Abd US: No signs of hydronephrosis, mass or calculi are seen in either kidney
- Urine cx no growth, Protein/cr 2.0, urine negative for eosinophils. Compliment normal. ASO positive, anti DNase B negative.
- spontaneous voiding s/p wang removal
- Holding lisinopril and lasix. Adjust per nephro. Renally dosing meds
- Follow BMP and I&O
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
#Transaminitis
-Abd US -- gallbladder thickened and edematous suggesting cholecystitis, although no gallstones are identified and there is no biliary distention.
- Acute viral hep panel negative
- HIDA neg. Tolerating diet. No further workup for cholecystitis
- AST/ALT/ALP downtrending
#Hyponatremia (resolved)
#Hyperkalemia
#Anion Gap Metabolic Acidosis (resolved)
- All likely secondary to THAD
- Hyperkalemia 5.7, s/p Lokelma once yesterday. TID Lokelma today. EKG stable. c/w Telemetry
- K today 5.3
#IDDM (type 2):
#Peripheral Neuropathy:
#Poorly controlled, HbA1c 8.4
- Has insulin pump but she left Pump at home
- cw Lantus 20u HS, novolog 6u AC
- Mod SSI coverage, diabetic diet, follow accuchecks
- Appreciate diabetes nurse practitioner
- Hold Trulicity, glipizide, pioglitazone
- Strongly recommend Endocrinology outpatient follow-up
#Benign Hypertension
- Stable. Holding Lisinopril for THAD
- c/w Nebivolol renally dosed with holding parameters
- Good response to Nifedipine 30mg BID, continue
#Chronic LE edema:
- Hold lasix 40mg BID for THAD. Restart/adjust by nephro
#Anemia:
Likely chronic disease
-Hgb stable
#Wound:
-Left plantar midarch, present on arrival
-Anterior left leg, not present on arrival, serous discharge, secondary to LE edema
-Wound care
#HX Restless Leg Syndrome
- on SENIOR TALENT ACQUISITION SPECIALIST Lyrica (renal dosing) and nortriptyline.
#Morbid Obesity with BMI 55 due to excess calories and insulin resistance
Affects all aspects of care.
Spoke to patient and encouraged healthy diet and increased activity with goal of weight reduction. Strongly recommend PCP follow-up and consideration for dietitian.
DVT ppx: heparin
Code status: Full Code.
Anticipated Discharge: 24 - 48 hours
Subjective/Interval History
-
Date of Service: October 12, 2024
Feeling well, no acute complaints. She is making urine.
Objective Data
-
Labs:
Laboratory Results
10/12/24
06:00
WBC Pending
Hgb Pending
Hct Pending
Plt Count Pending
Sodium Pending
Potassium Pending
Chloride Pending
Carbon Dioxide Pending
BUN Pending
Creatinine Pending
Glucose Pending
Calcium Pending
Total Bilirubin Pending
AST Pending
ALT Pending
Alkaline Phosphatase Pending
Vital Signs:
Vital Signs
Temp Pulse Resp BP Pulse Ox
98.3 F 85 18 121/56 94
10/12/24 03:18 10/12/24 03:18 10/12/24 03:18 10/12/24 03:18 10/12/24 03:18
I&O
10/11/24 10/12/24 10/13/24
06:59 06:59 06:59
Intake Total 1680 / 1680 960 / 960
Output Total 1050 / 1050
Balance 1680 / 1680 -90 / -90
Review of Systems
-
History Source: Patient
Constitutional: Reports No Symptoms
EENT: Reports No Symptoms Reported
Respiratory: Reports No Symptoms
Cardiac: Reports No Symptoms
Abdomen/GI: Reports No Symptoms
Genitourinary: Reports No Symptoms
Musculoskeletal: Reports No Symptoms
Skin: Reports Other (pain, redness, swelling LLE)
Neuro: Reports No Symptoms
Endocrine: Reports No Symptoms
Physical Exam
-
General: Well Developed, Well Nourished, No Apparent Distress, Comfortable, Conversant and Obese
HEENT: Normocephalic, Atraumatic, Moist Mucous Membranes, Anicteric, [place] Conjunctivae, PERRLA and Nose Appears Normal
Respiratory: Clear to Auscultation; Negative Wheezes, Rales or Rhonchi
Cardiac: Regular Rhythm and S1/S2; Negative Murmur or Rub
GI: Soft, Nontender, Nondistended and Normal Bowel Sounds
Genito-urinary: No Costovertebral Tender
Musculoskeletal: No Clubbing, No Cyanosis and Edema, Left Lower Extrem (Tenderness, erythema in the LLE, improved from prior)
Skin: Warm, Dry and IV Access / Catheter Site
Neuro: Awake, Alert and Oriented
[2024-10-12 07:31] LABS: Glucose - Point of Care 178 mg/dl (70-99)
--- NOTE | 2024-10-12 07:34 | PN.DE.MGMTRT ---
Insulin Management
- -
10/12/2024: Diabetes Management Consult Follow up
59 year old female who was admitted on 10/02 with sepsis secondary to LLE cellulitis.
PMH: HTN, HLD, morbid obesity, Diabetic Neuropathy, Uncontrolled IDDM, trimalleolar fracture s/p repair and revision, chronic ambulatory dysfunction. Prior to admission was using the OmniPod insulin pump with DexCom G6 CGM with Humalog insulin.
Patient states she requires up to 66 units of insulin per day. Current A1C is 8.4%, Cr 4.5, eGFR 10.81
Pt awake, alert, oriented, sitting up in chair, offers no complaints. Patient states she has had diabetes 30+ years and sees Pamela Diego at [facility] for the past 2 years. She states she does not count carbs. She was told by her endo to enter 50
grams of carb for each meal and whatever the blood sugar is. Offered to go over CHO counting with patient, she states not necessary I just do what the endo doctor said.
10/11 Family brought POD and supplies last evening. Patient applied POD and resumed her basal insulin last evening.She also received 24 units lantus @ HS. Fasting glucose 122. Patient also took 10 unit bolus this AM for breakfast. Discussed with
patient that because she had the lantus last evening would need to start a temporary basal @ .55 until 5pm. She will remain in manual mode until 5pm. She will bolus for each meal and at 5PM resume her basal rate at 1.1 units per hour. At 5pm she
will also change her pump to Automatic mode. She verbalized understanding. Patient took no insulin for lunch, glucose 198, pre dinner glucose 245, took 7.15 units of insulin.
10/12 HS glucose 174, Fasting this AM 178. Pump in auto mode. Discussed patient glucose of 198 pre lunch by fingerstick but patient CGM read 138. Patient did not take insulin to correct. Pre dinner glucose 245. Explained to patient the
difference betwee fingerstick and sensor result and that while in the hospital it is best she utilize the fingerstick result for corrections.
Pump settings as follows:
Basal rate 1.1 24 hours
I:CHO ratio 1: 6
Sensitivity 1:34
Active insulin 4 hours.
Discussed with nurse. Pump worksheet to be explained to patient and placed at bedside.
Will cont to follow
Diabetes History
- -
Type of Diabetes: 2 requiring insulin
Pre-Admission Diabetes Regimen
10/11/24 10/11/24
07:23 17:12
Creatinine 3.7 H 3.6 H
Lab Results
Hemoglobin A1c 8.4 % (4.0-5.6) H 10/03/24 06:25
Insulin Pump Settings
IP Diabetes Regimen
10/11/24 10/11/24 10/11/24
07:23 07:46 11:22
Glucose 118 H
POC Glucose 122 H 198 H
10/11/24 10/11/24 10/11/24
16:06 17:12 21:45
Glucose 177 H
POC Glucose 245 H 174 H
10/12/24
07:30
Glucose
POC Glucose 178 H
Patient Education
[2024-10-12 08:27] LABS: % Basophils 0.7 % (0-2); % Eosinophils 2.1 % (0-6); % Immature Granulocytes 3.3 % (0-0.5); % Lymphocytes 12.6 % (20.5-51.1); % Monocytes 5.6 % (1.7-9.3); % Neutrophils 75.7 % (42.2-75.2); Absolute Basophils 0.1 10^3/uL (0-0.2); Absolute Eosinophils 0.2 10^3/uL (0-0.7); Absolute Immature Granulocytes 0.3 10^3/uL (0-0.05); Absolute Lymphocytes 1.1 10^3/uL (1.2-3.4); Absolute Monocytes 0.5 10^3/uL (0.1-0.6); Absolute Neutrophils 6.8 10^3/uL (1.4-6.5); Hematocrit 29.1 % (37.0-47.0); Hemoglobin 9.4 g/dL (12.0-16.0); Mean Corp Hgb Conc. 32.3 g/dL (33.0-37.0); Mean Corpuscular Hgb 25.8 pg (27.0-31.0); Mean Corpuscular Volume 79.9 fL (81.0-99.0); Nucleated Red Blood Cells % 0 %; Red Blood Cell Count 3.64 10^6/uL (4.20-5.40); Red Cell Dist. Width 16.1 % (11.5-14.5); White Blood Cell Count 8.9 10^3/uL (4.8-10.8)
[2024-10-12] MEDS: BYSTOLIC 2.5 MG PO (08:46)
[2024-10-12] MEDS: CYMBALTA DELAYED RELEASE 30 MG PO ×2 (08:46→19:43)
[2024-10-12] MEDS: PROCARDIA XL (EXTENDED RELEASE) 30 MG PO ×2 (08:47→19:45)
[2024-10-12] MEDS: PROTONIX 40 MG PO (08:47)
[2024-10-12] MEDS: VISBIOME 1 CAP PO (08:47)
[2024-10-12] MEDS: PEPCID 20 MG PO (08:47)
[2024-10-12] MEDS: DESENEX/MITRAZOL/ZEASORB 1 APPLIC TOPICAL ×2 (08:48→19:48)
[2024-10-12] MEDS: BACTROBAN 2% OINTMENT 1 APPLIC TOPICAL (08:48)
[2024-10-12] MEDS: HEPARIN 5000 UNITS SC ×2 (08:48→19:43)
[2024-10-12] MEDS: HYDROPHOR 1 APPLIC TOPICAL (08:49)
[2024-10-12] MEDS: LAC HYDRIN, AM LACTIN LOTION 1 APPLIC TOPICAL ×2 (08:49→19:49)
[2024-10-12] MEDS: MUCINEX 600 MG PO ×2 (08:50→19:46)
[2024-10-12] MEDS: LIDOCAINE 4% PATCH TOPICAL (08:50)
[2024-10-12] MEDS: PT'S OWN INSULIN PUMP - HumaLOG 8.3 UNIT SC ×2 (09:03→18:09)
[2024-10-12 11:00] LABS: Glucose - Point of Care 155 mg/dl (70-99)
[2024-10-12 11:05] LABS: ALT (SGPT) < 10 U/L (0-35); AST (SGOT) 17 U/L (14-36); Albumin 2.9 g/dl (3.5-5.0); Alkaline Phosphatase 191 U/L (38-126); Blood Urea Nitrogen 54 mg/dl (7-17); Calcium 8.8 mg/dl (8.4-10.2); Carbon Dioxide 28 mmol/L (22-30); Chloride 104 mmol/L (98-107); Estimated Creatinine Clearance 27 ml/min; Glucose 133 mg/dl (70-99); Potassium 5.3 mmol/L (3.5-5.1); Sodium 142 mmol/L (135-145); Total Bilirubin 0.4 mg/dl (0.2-1.3); eGFR 15.13
--- NOTE | 2024-10-12 11:33 | CM ---
Chart reviewed and patient's plan is to return to home when stable, patinet has been set up with [facility].
[facility]
[phone]

Plan; Home with [facility] care.
--- NOTE | 2024-10-12 13:24 | W.PN.ID1 ---
Date of Service
Date of Service: October 12, 2024
Today's Communication
- Continue cephalexin 500mg po q8h through 10/16.
- ID will sign off.
Assessment / Plan
# Acute non-purulent RLE cellulitis: resolving
# hx left ankle ORIF, hardware removed 06/2024 due to loosening
# Fever -resolved
# Leukocytosis resolved
-Underlying osteo is unlikely as plantar wound superficial without probe to bone.
- Recent outside MRI wo contrast: reportedly no osteo, no abscess.
- s/p cefazolin x 8d
- Continue cephalexin 500mg po q8h through 10/16.
- Continue moisturize leg, ANNA compression, leg elevation.
# THAD: improving
-Complements, ANNA, PR3, MPO negative
- Anti-ASO Ab titer 800, but Anti-Dnase Ab negative
- Nephrology following
# Elevated AST/ALT, resolving
- HIDA normal
# DM- uncontrolled
- Recommend tight glucose control
ID will sign off.
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
Diabetes mellitus
Peripheral neuropathy
Hypertension
TIA/CVA
Class III obesity BMI 57
Restless leg syndrome
Hx of left trimalleolar fracture status post ORIF July 2023 with subsequent hardware removal June 2024
Right elbow surgery
Childhood bladder surgery
Chief Complaint
-: Cellulitis
Subjective / Review of Systems
No complaints.
Vital Signs / Physical Exam
Vital Signs
Vital Signs
Temp Pulse Resp BP Pulse Ox
98.1 F 84 18 153/77 98
10/12/24 11:06 10/12/24 11:06 10/12/24 11:06 10/12/24 11:06 10/12/24 11:06
Physical Exam
Constitutional: No Acute Distress
Eyes: Sclera Anicteric
Cardiovascular: Regular Rate and S1/S2
Pulmonary: Clear
Gastrointestinal: Soft, Non Tender, Non Distended and Normal Bowel Sounds
Genito-Urinary: Negative CVA Tenderness
Extremities: Edema (LLE>RLE decreasing) and Erythema (LLE erythema foot to knee erythema, mild, receding)
Neurological: AO x 3
Objective Data
Lab Data
Lab Results
10/12/24 07:47
10/12/24 09:46
ESR 88 mm/hour (0-20) H 10/03/24 06:25
Estimated Creat Clear 27 ml/min 10/12/24 09:46
Lactic Acid 1.5 mmol/L (0.7-2.0) 10/04/24 09:52
Total Bilirubin 0.4 mg/dl (0.2-1.3) 10/12/24 09:46
GGT 142 U/L (12-43) H 10/07/24 06:42
AST 17 U/L (14-36) 10/12/24 09:46
ALT < 10 U/L (0-35) 10/12/24 09:46
Alkaline Phosphatase 191 U/L (38-126) H 10/12/24 09:46
C-Reactive Protein > 270.00 mg/L (0.0-10.00) H 10/03/24 06:25
Most recent labs reviewed.
Micro Results:
10/02/24 14:39 Blood Culture - Final
Blood/Venous No Growth - Final Report
10/02/24 14:39 Blood Culture - Final
Blood/Venous No Growth - Final Report
10/04/24 21:15 Urine Culture - Final
Urine NO GROWTH
10/02/24 Left FOOT XRAY: There are irregularities along the shaft of the proximal phalanx of the fourth metatarsal and base of the distal phalanx of the great toe which are favored to be subacute or chronic injuries. There is no definite radiographic
evidence of acute osteomyelitis.
10/02/24 Left ankle xray: There is extensive osseous remodeling and periosteal reaction along the distal tibia and fibula with findings of likely prior tibiotalar fusion with hardware removal. There is no definite acute fracture. There is no
definite findings of acute osteomyelitis although this would be difficult to exclude if there is clinical suspicion.
10/07/24 HIDA: Normal HIDA scan, without evidence of acute cholecystitis or complete common bile duct obstruction.
[2024-10-12] MEDS: LOKELMA PO (14:07)
[2024-10-12] MEDS: PT'S OWN INSULIN PUMP - HumaLOG SC ×2 (14:42→21:35)
--- NOTE | 2024-10-12 15:31 | W.PN.NEPH.PH ---
Today's Communication / Plan
-
Continue Lokelma
Reasonable for discharge from renal standpoint with follow-up outpatient
Assessment/Plan
-
59 yo female IDDM, HTN, HLD presents for swelling, redness, warmth, pain LLE, significantly worse in past 2-3 days. Pain 8/10 now. Taking Tylenol or Ibuprofen prn
Tripped 04/2023, trimalleolar fracture described, 07/2023 had surgery with hardware at [facility]. Dr. Goodwin, [facility]. He last saw pt on 07/20/24 per daughter
Status post hardware removal
Currently being treated for sepsis cellulitis
Acute kidney injury 0.9-3.9 in 48 hours
Impression.
Acute kidney injury likely secondary to hemodynamics and sepsis and fever with hypotension.
Cellulitis questionable osteo
Diabetes
Obesity
Plan.
THAD-cr on admit 0.9, progressive increase peak cr at 5.9 now slightly improving to 3.7>3.4
possible post ATN diuresis , no hydro on US,uop not recorded
UA mild micro hematuria, U PCR 2gm/gm of cr, serologies neg, ASO is high in setting of cellulitis,anti Dnase neg
ICGN is in differential but complements are normal hence likely septic ATN
continue to hold Lasix, lisinopril. bp stable: on procardia and betablocker
Hyperkalemia persist-dosed Lokelma but as per usual very little immediate efficacy: will utilize kayexolate if K approaches 6
Renal dose all medications
Renal function remained stable with some improvement
It is reasonable to discharge from a renal standpoint with close follow-up
d/w pt in detail
-
-
Date of Service: October 12, 2024
CC / HPI / ROS
-
Chief Complaint:
Lower extremity cellulitis
History of Present Illness:
Acute kidney injury status post fever and hypotension on antibiotics creatinine 0.9 on admission increasing currently 3.7
Bp stable
wt no change
Hyperkalemia persist
Review of Systems:
No chest pain or shortness of breath
Urine output not even record
Labs
-
Labs:
WBC 8.9 10^3/uL (4.8-10.8) 10/12/24 07:47
RBC 3.64 10^6/uL (4.20-5.40) L 10/12/24 07:47
Hgb 9.4 g/dL (12.0-16.0) L 10/12/24 07:47
Hct 29.1 % (37.0-47.0) L 10/12/24 07:47
Plt Count 10^3/uL (130-400) 10/12/24 07:47
Sodium 142 mmol/L (135-145) 10/12/24 09:46
Potassium 5.3 mmol/L (3.5-5.1) H 10/12/24 09:46
Chloride 104 mmol/L (98-107) 10/12/24 09:46
Carbon Dioxide 28 mmol/L (22-30) 10/12/24 09:46
BUN 54 mg/dl (7-17) H 10/12/24 09:46
Creatinine 3.4 mg/dL (0.6-1.0) H 10/12/24 09:46
eGFR 15.13 10/12/24 09:46
Glucose 133 mg/dl (70-99) H 10/12/24 09:46
Calcium 8.8 mg/dl (8.4-10.2) 10/12/24 09:46
Albumin 2.9 g/dl (3.5-5.0) L 10/12/24 09:46
Physical Exam
-
Vital Signs:
Vital Signs
Temp Pulse Resp BP Pulse Ox
98.3 F 77 18 132/58 99
10/12/24 14:58 10/12/24 14:58 10/12/24 14:58 10/12/24 14:58 10/12/24 14:58
Cardiovascular:: Regular rate and rhythm
Respiratory:: Bilateral: CTA
Lung Excursion:: Normal
Abdomen:: Nontender and Soft
Bowel Sounds:: Normal
Extremity Edema:: +1: Right: and +2: Left:
Koehler Catheter: Yes
[2024-10-12 16:44] LABS: Glucose - Point of Care 188 mg/dl (70-99)
[2024-10-12] MEDS: BACTROBAN 2% OINTMENT TOPICAL (17:06)
[2024-10-12] MEDS: LIPITOR 40 MG PO (17:38)
[2024-10-12] MEDS: FLUSH (NSS) 1 FLUSH IV (19:46)
[2024-10-12] MEDS: LYRICA 75 MG PO (21:22)
[2024-10-12] MEDS: PAMELOR 75 MG PO (21:22)
[2024-10-12 21:24] LABS: Glucose - Point of Care 137 mg/dl (70-99)
[2024-10-13] MEDS: BACTROBAN 2% OINTMENT TOPICAL ×2 (00:23→09:37)
--- NOTE | 2024-10-13 00:49 | PTCARENOTE ---
At initial shift patient tele monitor off. Staff in to replace. Patient states 'I'm through being nice. I'm not wearing this.' Reviewed dx and elevated K and need to monitor heart rhythm. Patient speaking over this technical report writer during Education.
Patient wanted to shower. Wound care and tele monitoring reinforced. Bathing clothes and other cleansing methods offered. TT to DE, covering floor, to request order for shower. Order declined with need for monitoring emphasized. Reviewed
with patient. She continued to refuse Tele monitoring. She stated that her daughter had helped her wash up for bed. 'I'm still not putting that thing on.' DE, covering house informed.
--- NOTE | 2024-10-13 03:24 | DOWNTIME ---
There was a [employer] Downtime on 10/13/2024 from 0200 to 10/14/2023 at 0318 . Downtime documentation of patient's care, including medication administrations, has been reconciled in the electronic record per guidelines. Refer to the
patient's paper chart under the miscellaneous tab to see printed paper medication records and downtime forms.
[2024-10-13 05:00] VITALS: BP 155/82
[2024-10-13] MEDS: KEFLEX 500 MG PO (05:36)
[2024-10-13 05:39] VITALS: BMI 57.3
[2024-10-13 07:22] VITALS: BP 146/78
--- NOTE | 2024-10-13 07:24 | PN.DE.MGMTRT ---
Insulin Management
- -
10/13/2024: Diabetes Management Consult Follow up
59 year old female who was admitted on 10/02 with sepsis secondary to LLE cellulitis.
PMH: HTN, HLD, morbid obesity, Diabetic Neuropathy, Uncontrolled IDDM, trimalleolar fracture s/p repair and revision, chronic ambulatory dysfunction. Prior to admission was using the OmniPod insulin pump with DexCom G6 CGM with Humalog insulin.
Patient states she requires up to 66 units of insulin per day. Current A1C is 8.4%, Cr 4.5, eGFR 10.81
Pt awake, alert, oriented, sitting up in chair, offers no complaints. Patient states she has had diabetes 30+ years and sees Pamela Diego, endocrinology, at [facility] for the past 2 years. She states she does not count carbs. She was told by her endo
to enter 50 grams of carb for each meal and whatever the blood sugar is. Offered to go over CHO counting with patient, she states not necessary I just do what the endo doctor said.
10/13 Fasting this AM 171. Will make no changes to pump settings. Patient for discharge today.
10/12 HS glucose 137. Pump in auto mode. Pre dinner glucose 188, 8.3 units taken for meal. HS glucose 137.
Pump settings as follows:
Basal rate 1.1 24 hours
I:CHO ratio 1: 6
Sensitivity 1:34
Active insulin 4 hours.
Discussed with nurse. Pump worksheet to be explained to patient and placed at bedside.
Diabetes History
- -
Type of Diabetes: 2 requiring insulin
Pre-Admission Diabetes Regimen
10/12/24 10/12/24
07:47 09:46
Creatinine Cancelled 3.4 H
Lab Results
Hemoglobin A1c 8.4 % (4.0-5.6) H 10/03/24 06:25
Insulin Pump Settings
IP Diabetes Regimen
10/12/24 10/12/24 10/12/24
07:30 07:47 09:46
Glucose Cancelled 133 H
POC Glucose 178 H
10/12/24 10/12/24 10/12/24
10:59 16:43 21:22
Glucose
POC Glucose 155 H 188 H 137 H
Patient Education
[2024-10-13 08:01] LABS: Glucose - Point of Care 171 mg/dl (70-99)
--- NOTE | 2024-10-13 08:52 | W.PN.HOSP.TC ---
Today's Communication/Plan
-
c/w abx on discharge through to 10/16
pending labs may d/c on lokelma
follow up with PCP for repeat cmp
follow up with endo op
Assessment / Plan
Assessment / Plan
59 year old female with history of poorly controlled IDDM, HTN, HLD, mornid obesity, diabetic neuropathy, trimalleolar fracture s/p repair and revision, chronic ambulatory dysfunction who presents with sepsis secondary to LLE cellulitis.
#Sepsis
#Non-purulent LLE cellulitis
Hx of fracture and repair with [facility] in Apr 2024 with hardware removal in jul 2024, history of IDDM, recent 7-day course of abx use with worsening symptoms (pt unsure of abx but thinks it is bactrim)
- Tachycardia, tachypnea, leukocytosis, fever
- Leukocytosis resolved,afebrile
- CXR with no evidence of osteo.
- Continue cephalexin. Total Abx day 10
- Appreciate wound care, podiatry and infectious disease input.
- PT/OT. Will need home PT
- Encourage leg elevation, shahida wraps
- Strongly recommend ortho outpatient follow up.
- c/w Cephalexin 500mg q8 through 10/16
#ATN, likely econdary to sepsis/hypotensive state
- Abd US: No signs of hydronephrosis, mass or calculi are seen in either kidney
- Urine cx no growth, Protein/cr 2.0, urine negative for eosinophils. Compliment normal. ASO positive, anti DNase B negative.
- spontaneous voiding s/p wang removal
- Holding lisinopril and lasix. Adjust per nephro. Renally dosing meds
- Follow BMP and I&O
- Pending creatinine and potassium. If stable or improving, will d/c w/ Lokelma and repeat CMP with OP doc. Explained to patient; she understands.
#Transaminitis
-Abd US -- gallbladder thickened and edematous suggesting cholecystitis, although no gallstones are identified and there is no biliary distention.
- Acute viral hep panel negative
- HIDA neg. Tolerating diet. No further workup for cholecystitis
- AST/ALT/ALP downtrending
#Hyponatremia (resolved)
#Hyperkalemia
#Anion Gap Metabolic Acidosis (resolved)
- All likely secondary to THAD
- Hyperkalemia 5.7, s/p Lokelma once yesterday. TID Lokelma today. EKG stable. c/w Telemetry
#IDDM (type 2):
#Peripheral Neuropathy:
#Poorly controlled, HbA1c 8.4
- Has insulin pump but she left Pump at home
- cw Lantus 20u HS, novolog 6u AC
- Mod SSI coverage, diabetic diet, follow accuchecks
- Appreciate diabetes nurse practitioner
- Hold Trulicity, glipizide, pioglitazone
- Strongly recommend Endocrinology outpatient follow-up for initiation of Ozempic; she is aware and understands
#Benign Hypertension
- Stable. Holding Lisinopril for THAD
- c/w Nebivolol renally dosed with holding parameters
- Good response to Nifedipine 30mg BID, continue as OP
#Chronic LE edema
- Hold lasix 40mg BID for THAD. Restart/adjust by nephro
#Anemia
Likely chronic disease
-Hgb stable
#Wound
-Left plantar midarch, present on arrival
-Anterior left leg, not present on arrival, serous discharge, secondary to LE edema
-Wound care
#HX Restless Leg Syndrome
- on CLINICAL LEADER Lyrica (renal dosing) and nortriptyline.
#Morbid Obesity with BMI 55 due to excess calories and insulin resistance
Affects all aspects of care.
Spoke to patient and encouraged healthy diet and increased activity with goal of weight reduction. Strongly recommend PCP follow-up and consideration for dietitian.
DVT ppx: heparin
Code status: Full Code.
Anticipated Discharge: Within 24 hours
Subjective/Interval History
-
Date of Service: October 13, 2024
Feeling well, no acute overnight events. No urinary symptoms.
Objective Data
-
Labs:
Laboratory Results
10/13/24
08:03
WBC Pending
Hgb Pending
Hct Pending
Plt Count Pending
Sodium Pending
Potassium Pending
Chloride Pending
Carbon Dioxide Pending
BUN Pending
Creatinine Pending
Glucose Pending
Calcium Pending
Total Bilirubin Pending
AST Pending
ALT Pending
Alkaline Phosphatase Pending
Vital Signs:
Vital Signs
Temp Pulse Resp BP Pulse Ox
98.4 F 89 20 146/78 93
10/13/24 07:22 10/13/24 07:22 10/13/24 07:22 10/13/24 07:22 10/13/24 07:22
I&O
10/12/24 10/13/24 10/14/24
06:59 06:59 06:59
Intake Total 960 / 960 2039
Output Total 1050 / 1050
Balance -90 / -90 2039
Review of Systems
-
History Source: Patient
Constitutional: Reports No Symptoms
EENT: Reports No Symptoms Reported
Respiratory: Reports No Symptoms
Cardiac: Reports No Symptoms
Abdomen/GI: Reports No Symptoms
Genitourinary: Reports No Symptoms
Musculoskeletal: Reports No Symptoms
Skin: Reports Other (swelling pain in the LLE, improving from prior)
Neuro: Reports No Symptoms
Physical Exam
-
General: Well Developed, Well Nourished, No Apparent Distress, Comfortable, Conversant and Morbidly Obese
HEENT: Normocephalic, Atraumatic, Moist Mucous Membranes, Anicteric, [place] Conjunctivae, Nose Appears Normal and Ears Appear Normal
Respiratory: Clear to Auscultation; Negative Wheezes, Rales or Rhonchi
Cardiac: Regular Rhythm and S1/S2; Negative Murmur or Rub
GI: Soft, Nontender, Nondistended and Normal Bowel Sounds
Genito-urinary: No Costovertebral Tender
Musculoskeletal: No Clubbing, No Cyanosis and No Edema
Skin: Warm, Dry and Other (LLE erythema and swelling. Mildly tender to palpation. Overall improved from prior. )
Neuro: Awake, Alert and Oriented
Psych: Calm
[2024-10-13 09:08] LABS: % Basophils 0.6 % (0-2); % Eosinophils 1.8 % (0-6); % Immature Granulocytes 2.2 % (0-0.5); % Lymphocytes 13.6 % (20.5-51.1); % Monocytes 5.8 % (1.7-9.3); Absolute Basophils 0.1 10^3/uL (0-0.2); Absolute Eosinophils 0.2 10^3/uL (0-0.7); Absolute Immature Granulocytes 0.2 10^3/uL (0-0.05); Absolute Lymphocytes 1.2 10^3/uL (1.2-3.4); Absolute Monocytes 0.5 10^3/uL (0.1-0.6); Absolute Neutrophils 6.7 10^3/uL (1.4-6.5); Hematocrit 29.6 % (37.0-47.0); Hemoglobin 9.3 g/dL (12.0-16.0); Mean Corp Hgb Conc. 31.4 g/dL (33.0-37.0); Mean Corpuscular Hgb 26.1 pg (27.0-31.0); Mean Corpuscular Volume 83.1 fL (81.0-99.0); Mean Platelet Volume 9.2 fL (7.4-10.4); Nucleated Red Blood Cells % 0 %; Platelet Count 363 10^3/uL (130-400); Red Blood Cell Count 3.56 10^6/uL (4.20-5.40); Red Cell Dist. Width 16.1 % (11.5-14.5); White Blood Cell Count 8.8 10^3/uL (4.8-10.8)
[2024-10-13] MEDS: PT'S OWN INSULIN PUMP - HumaLOG SC ×2 (09:22→12:44)
[2024-10-13] MEDS: BYSTOLIC 2.5 MG PO (09:24)
[2024-10-13] MEDS: PROCARDIA XL (EXTENDED RELEASE) 30 MG PO (09:24)
[2024-10-13] MEDS: MUCINEX 600 MG PO (09:24)
[2024-10-13] MEDS: CYMBALTA DELAYED RELEASE 30 MG PO (09:24)
[2024-10-13] MEDS: HEPARIN 5000 UNITS SC (09:25)
[2024-10-13] MEDS: PROTONIX 40 MG PO (09:25)
[2024-10-13] MEDS: VISBIOME 1 CAP PO (09:28)
[2024-10-13] MEDS: HYDROPHOR TOPICAL (09:37)
[2024-10-13] MEDS: LAC HYDRIN, AM LACTIN LOTION TOPICAL (09:37)
[2024-10-13] MEDS: DESENEX/MITRAZOL/ZEASORB TOPICAL (09:37)
[2024-10-13] MEDS: LIDOCAINE 4% PATCH TOPICAL (09:38)
[2024-10-13 10:26] LABS: ALT (SGPT) 12 U/L (0-35); AST (SGOT) 21 U/L (14-36); Albumin 3.2 g/dl (3.5-5.0); Alkaline Phosphatase 200 U/L (38-126); Blood Urea Nitrogen 56 mg/dl (7-17); Calcium 8.5 mg/dl (8.4-10.2); Carbon Dioxide 22 mmol/L (22-30); Chloride 107 mmol/L (98-107); Estimated Creatinine Clearance 32 ml/min; Glucose 177 mg/dl (70-99); Potassium 5.4 mmol/L (3.5-5.1); Sodium 142 mmol/L (135-145); Total Bilirubin 0.5 mg/dl (0.2-1.3); Total Protein 6.4 g/dl (6.3-8.2); eGFR 18.31
[2024-10-13 11:30] VITALS: BP 155/90
--- NOTE | 2024-10-13 12:17 | CM ---
CM reviewed chart, patient seen bedside, for discharge today. Patient reports her daughter will provide transportation home. IMM reviewed, signed, placed in chart. Update to [facility] for discharge. CM will continue to follow for all discharge
planning needs.
Plan; Home with [facility].
--- NOTE | 2024-10-13 16:34 | W.DCSUMMARY ---
Documented by User: Shiloh Melendez MD, Resident 10/13/24 18:05
Discharge Summary
Discharge Data
Date of Admission: 10/02/24
Date of Discharge: 10/13/24
-
Pending Results: No
Hospital Course
Discharging Physician : Andre Macias MD., Manish Meyer MD.
Disposition : Home with visiting nurse
Principal Discharge diagnosis : Sepsis, nonpurulent left lower extremity cellulitis, acute kidney injury, transaminitis, hyponatremia, hyperkalemia, anion gap metabolic acidosis, insulin-dependent diabetes mellitus,
Chronic Discharge diagnosis : Morbid obesity, restless leg syndrome, left plantar mid arch wound, anemia of chronic disease, chronic bilateral lower extremity edema, benign hypertension, insulin-dependent diabetes mellitus, left ankle trimaleolar
fracture s/p ORIF and hardware removal.
Hospital Course :
59-year-old female with above past medical history who presented with sepsis secondary to left lower extremity cellulitis. During the course of her stay, she also developed elevated transaminases and alk phos with concern for cholelithiasis, and an
acute kidney injury.
Sepsis secondary to non-purulent LLE cellulitis
- Treated with Zosyn/vancomycin which was narrowed down to cefazolin. Converted to p.o. cephalexin 500 mg every 8 hours, to be continued outpatient through 10/16/2024
- Leukocytosis resolved, patient remained afebrile, and symptoms markedly improved
- Leg elevation, Sukhdeep wraps, and wound care encouraged outpatient. Follow-up with podiatry. Will benefit from home physical therapy.
Acute kidney injury:
likely secondary to sepsis/hypotensive state
-Home lisinopril and Lasix were held. Home medications were then renally adjusted including duloxetine and pregabalin
-Creatinine peaked at 5.9, improved to 2.9 upon discharge
-Hyponatremia resolved with improvement of THAD.
-Hyperkalemia persisted. Treated with Lokelma. Patient to continue Lokelma once daily upon discharge
-Anion Gap Metabolic Acidosis, resolved with improved kidney function
-Close follow-up with PCP/nephrology recommended. Repeat BMP within 1 week
Transaminitis:
Abd US with suspicion for cholecystitis. Acute viral hep panel negative. General surgery evaluation. HIDA negative. Patient continued to tolerate diet
AST/ALT/ALP improved through discharge.
IDDM (type 2):
Peripheral Neuropathy:
-Poorly controlled, HbA1c 8.4.
- Home oral antiglycemic's were held while admitted. At first, blood glucose was controlled with basal-bolus insulin with insulin sliding scale as patient left insulin pump at home. Insulin pump restarted when pump was brought in.
- Oral antiglycemic continued upon discharge.
- Close follow-up with endocrinology strongly recommended.
Benign Hypertension:
- Poorly controlled. Nifedipine was started. Lisinopril was held for THAD.
- Good control with nifedipine 30 mg twice daily and Nebivolol 5 mg daily.
- Recommend PCP follow-up
Chronic LE edema:
- Home Lasix held for THAD. Restart/adjust by nephro/PCP
Morbid obesity:
- Affects all aspects of care. Patient counseled on weight management, exercise and lifestyle measures.
- Follow-up with PCP recommended, encouraged to seek dietitian care as needed
Recommend follow-up with orthopedic surgery for chronic ankle/foot pain with chronic ambulatory dysfunction from history of left trimalleolar fracture s/p ORIF with hardware removal. Other chronic medications continued as appropriate. Wound care
maintained throughout stay. Patient was deemed stable for discharge to home with visiting nurse.
Important imaging findings :
Abdomen ultrasound 10/06/2024:
The wall of the gallbladder is thickened measuring 5 mm, and appears edematous. There are no gallstones. No sonographic Phillips's sign was elicited with examination. The common duct is normal, measuring 4 mm.
The liver is normal in size, measuring 12.5 cm cm on the right, with a smooth capsular contour. There is a coarse echotexture with poor through transmission of sound. There is no focal hepatic lesion or intrahepatic biliary dilation. The pancreas is
normal in size and echogenicity and shows no focal mass or calcification. The spleen is normal in size and shows no focal abnormality. No signs of hydronephrosis, mass or calculi are seen in either kidney. The right kidney measured 13.9 cm cm in
greatest length; the left kidney measured 13.9 cm cm in greatest length. No free fluid is seen in the abdomen. Visualization of the aorta and IVC is limited.
HIDA scan 10/07/2024:
Normal HIDA scan, without evidence of acute cholecystitis or complete common bile duct obstruction
Bladder ultrasound 10/06/24:
Limited evaluation of the bladder is unremarkable
Peripheral vascular ultrasound 10/02/2024:
No sonographic evidence for LEFT lower extremity deep venous thrombosis to the level of the popliteal vein. The distal lower extremity veins are not well visualized.
Diffuse subcutaneous edema.
Foot x-ray 10/02/2024:
There are irregularities along the shaft of the proximal phalanx of the fourth metatarsal and base of the distal phalanx of the great toe which are favored to be subacute or chronic injuries.
There is no definite radiographic evidence of acute osteomyelitis.
Ankle x-ray 10/02/2024:
There is extensive osseous remodeling and periosteal reaction along the distal tibia and fibula with findings of likely prior tibiotalar fusion with hardware removal.
There is no definite acute fracture. There is no definite findings of acute osteomyelitis although this would be difficult to exclude if there is clinical suspicion
Consult services:
- Infectious disease
- Nephrology
- General Surgery
-Diabetes management by nurse practitioner
Discharge Plan
-
Patient Disposition: Home with Home Care
Discharge Diagnosis/Procedures: Sepsis, left lower extremity cellulitis, acute kidney injury, transaminitis, insulin-dependent diabetes mellitus
Condition: Good
Diet: Low Sodium and Diabetic, Carb Controlled
Additional Diets: Low Potassium Diet
Activity: As tolerated
Driving Restrictions: As prior to admission
Bathing Restrictions: None
Others Tests: Repeat BMP in one week, results to be sent to PCP
Other Services: VN and PT
Activity Restrictions/Additional Instructions:
Wound Care Instructions
L plantar foot: clean with soap and water, dry dressing change q day and prn drainage.
Sukhdeep wrap knee high daily, can remove at bedtime when in bed
When sitting elevate legs
Offloading of L foot per surgeon
Follow up with surgeon Dr. [place]
Instructions: Cellulitis (Skin Infection), Adult (DC), Low-potassium diet
Referrals:
Miguel Vizcarra MD [Active] - in two to three weeks (For new retail account specialist )
Stanely Brar DPM [Specified Professional Personl] - in two weeks
UNKNOWN - PT DOES,NOT KNOW [Family Provider] - in less than 1 week
Ching Bello MD [Active] - in two to three weeks
Additional Discharge Medication Instructions: Outpatient podiatry follow up as soon as you can.
Your diabetes is not well controlled. Current HbA1c is 8.4. continue using your insulin pump correctly at home. You should follow up with your utility operator yarn as soon as possible to make appropriate changes to your medications.
You need to do a blood test called Basic Metabolic Panel in one week from discharge to check for renal function.
Duloxetine and pregabalin medications have been REDUCED due to kidney function. We have provided new prescriptions with reduced doses so they are safe. Follow up with PCP after repeat blood test to increase meds as kidney function improves.
Furosemide has been HELD due to kidney function. Please follow up with your PCP to restart treatment after kidney function improves.
Prescriptions:
New
duloxetine 30 mg Capsule,Delayed Release(Dr/Ec)
30 mg PO BID 30 Days Qty: 60 0RF
nifedipine 30 mg Tablet Extended Release
30 mg PO BID 30 Days Qty: 60 4RF
pregabalin 75 mg Capsule
75 mg PO HS 30 Days Qty: 30 0RF
cephalexin 500 mg capsule
500 mg PO Q8H Qty: 12 0RF
Rx Instructions:
take 1 cap every 8 hours
Lokelma 10 gram powder in packet
10 g PO DAILY Qty: 11 0RF
pregabalin 75 mg capsule
75 mg PO DAILY Qty: 30 0RF
Continued
glipizide 10 mg Tablet
10 mg PO BID
nortriptyline 75 mg Capsule
75 mg PO HS
pioglitazone 30 mg Tablet
30 mg PO DAILY
atorvastatin [Lipitor] 40 mg Tablet
40 mg PO QPM
omeprazole 40 mg Capsule,Delayed Release(Dr/Ec)
40 mg PO DAILY
famotidine 20 mg Tablet
20 mg PO DAILY
insulin lispro 100 unit/mL Solution
1 sliding scale dose SC DIRECTED
Patient Comments:
10/02/24: Patient normally uses her own insulin pump, but does not have it on at this time
nebivolol 5 mg Tablet
5 mg PO DAILY
Held
furosemide 40 mg Tablet
40 mg PO BID
Hold Instructions: Until seen by PCP and renal function improved
duloxetine 60 mg capsule,delayed release(DR/EC)
60 mg PO BID
Hold Instructions: Until seen by PCP with improved renal function
pregabalin 200 mg Capsule
200 mg PO HS
Hold Instructions: Hold until seen by PCP and renal function improved
Discontinued
lisinopril 20 mg Tablet
20 mg PO DAILY
Discharge Orders:
Discharge Patient (As Directed); Ordered 10/13/24
Ordered By: Andre Macias
Discharge Date and Time
Discharge Date/Time: 10/13/24 12:51
Print Language: ANGUILLAN

Documented by User: Andre Maicas MD, Resident 10/13/24 18:05
Discharge Summary
Discharge Data
Date of Admission: 10/02/24
Date of Discharge: 10/13/24
Discharge Plan
-
Patient Disposition: Home with Home Care
Discharge Diagnosis/Procedures: Sepsis, left lower extremity cellulitis, acute kidney injury, transaminitis, insulin-dependent diabetes mellitus
Condition: Good
Diet: Low Sodium and Diabetic, Carb Controlled
Additional Diets: Low Potassium Diet
Activity: As tolerated
Driving Restrictions: As prior to admission
Bathing Restrictions: None
Others Tests: Repeat BMP in one week, results to be sent to PCP
Other Services: VN and PT
Activity Restrictions/Additional Instructions:
Wound Care Instructions
L plantar foot: clean with soap and water, dry dressing change q day and prn drainage.
Sukhdeep wrap knee high daily, can remove at bedtime when in bed
When sitting elevate legs
Offloading of L foot per surgeon
Follow up with surgeon Dr. [place]
Instructions: Cellulitis (Skin Infection), Adult (DC), Low-potassium diet
Referrals:
Miguel Vizcarra MD [Active] - in two to three weeks (For new retail account specialist )
Stanley Brar DPM [Specified Professional Personl] - in two weeks
UNKNOWN - PT DOES,NOT KNOW [Family Provider] - in less than 1 week
Ching Bello MD [Active] - in two to three weeks
Additional Discharge Medication Instructions: Outpatient podiatry follow up as soon as you can.
Your diabetes is not well controlled. Current HbA1c is 8.4. continue using your insulin pump correctly at home. You should follow up with your utility operator yarn as soon as possible to make appropriate changes to your medications.
You need to do a blood test called Basic Metabolic Panel in one week from discharge to check for renal function.
Duloxetine and pregabalin medications have been REDUCED due to kidney function. We have provided new prescriptions with reduced doses so they are safe. Follow up with PCP after repeat blood test to increase meds as kidney function improves.
Furosemide has been HELD due to kidney function. Please follow up with your PCP to restart treatment after kidney function improves.
Prescriptions:
New
duloxetine 30 mg Capsule,Delayed Release(Dr/Ec)
30 mg PO BID 30 Days Qty: 60 0RF
nifedipine 30 mg Tablet Extended Release
30 mg PO BID 30 Days Qty: 60 4RF
pregabalin 75 mg Capsule
75 mg PO HS 30 Days Qty: 30 0RF
cephalexin 500 mg capsule
500 mg PO Q8H Qty: 12 0RF
Rx Instructions:
take 1 cap every 8 hours
Lokelma 10 gram powder in packet
10 g PO DAILY Qty: 11 0RF
pregabalin 75 mg capsule
75 mg PO DAILY Qty: 30 0RF
Continued
glipizide 10 mg Tablet
10 mg PO BID
nortriptyline 75 mg Capsule
75 mg PO HS
pioglitazone 30 mg Tablet
30 mg PO DAILY
atorvastatin [Lipitor] 40 mg Tablet
40 mg PO QPM
omeprazole 40 mg Capsule,Delayed Release(Dr/Ec)
40 mg PO DAILY
famotidine 20 mg Tablet
20 mg PO DAILY
insulin lispro 100 unit/mL Solution
1 sliding scale dose SC DIRECTED
Patient Comments:
10/02/24: Patient normally uses her own insulin pump, but does not have it on at this time
nebivolol 5 mg Tablet
5 mg PO DAILY
Held
furosemide 40 mg Tablet
40 mg PO BID
Hold Instructions: Until seen by PCP and renal function improved
duloxetine 60 mg capsule,delayed release(DR/EC)
60 mg PO BID
Hold Instructions: Until seen by PCP with improved renal function
pregabalin 200 mg Capsule
200 mg PO HS
Hold Instructions: Hold until seen by PCP and renal function improved
Discontinued
lisinopril 20 mg Tablet
20 mg PO DAILY
Discharge Orders:
Discharge Patient (As Directed); Ordered 10/13/24
Ordered By: Andre Macias
Discharge Date and Time
Discharge Date/Time: 10/13/24 12:51
Print Language: ANGUILLAN
--- NOTE | 2024-10-13 18:05 | W.DCSUMMARY ---
Discharge Summary
Discharge Data
Date of Admission: 10/02/24
Date of Discharge: 10/13/24
Total time spent discharging patient (in min): >30m
-
Pending Results: No
Hospital Course
Discharging Physician : Andre Macias MD., Manish Meyer MD.
Disposition : Home with visiting nurse
Principal Discharge diagnosis : Sepsis, nonpurulent left lower extremity cellulitis, acute kidney injury, transaminitis, hyponatremia, hyperkalemia, anion gap metabolic acidosis, insulin-dependent diabetes mellitus,
Chronic Discharge diagnosis : Morbid obesity, restless leg syndrome, left plantar mid arch wound, anemia of chronic disease, chronic bilateral lower extremity edema, benign hypertension, insulin-dependent diabetes mellitus, left ankle trimaleolar
fracture s/p ORIF and hardware removal.
Hospital Course :
59-year-old female with above past medical history who presented with sepsis secondary to left lower extremity cellulitis. During the course of her stay, she also developed elevated transaminases and alk phos with concern for cholelithiasis, and an
acute kidney injury.
Sepsis secondary to non-purulent LLE cellulitis
- Treated with Zosyn/vancomycin which was narrowed down to cefazolin. Converted to p.o. cephalexin 500 mg every 8 hours, to be continued outpatient through 10/16/2024
- Leukocytosis resolved, patient remained afebrile, and symptoms markedly improved
- Leg elevation, Sukhdeep wraps, and wound care encouraged outpatient. Follow-up with podiatry. Will benefit from home physical therapy.
Acute kidney injury:
likely secondary to sepsis/hypotensive state
-Home lisinopril and Lasix were held. Home medications were then renally adjusted including duloxetine and pregabalin
-Creatinine peaked at 5.9, improved to 2.9 upon discharge
-Hyponatremia resolved with improvement of THAD.
-Hyperkalemia persisted. Treated with Lokelma. Patient to continue Lokelma once daily upon discharge
-Anion Gap Metabolic Acidosis, resolved with improved kidney function
-Close follow-up with PCP/nephrology recommended. Repeat BMP within 1 week
Transaminitis:
Abd US with suspicion for cholecystitis. Acute viral hep panel negative. General surgery evaluation. HIDA negative. Patient continued to tolerate diet
AST/ALT/ALP improved through discharge.
IDDM (type 2):
Peripheral Neuropathy:
-Poorly controlled, HbA1c 8.4.
- Home oral antiglycemic's were held while admitted. At first, blood glucose was controlled with basal-bolus insulin with insulin sliding scale as patient left insulin pump at home. Insulin pump restarted when pump was brought in.
- Oral antiglycemic continued upon discharge.
- Close follow-up with endocrinology strongly recommended.
Benign Hypertension:
- Poorly controlled. Nifedipine was started. Lisinopril was held for THAD.
- Good control with nifedipine 30 mg twice daily and Nebivolol 5 mg daily.
- Recommend PCP follow-up
Chronic LE edema:
- Home Lasix held for THAD. Restart/adjust by nephro/PCP
Morbid obesity:
- Affects all aspects of care. Patient counseled on weight management, exercise and lifestyle measures.
- Follow-up with PCP recommended, encouraged to seek dietitian care as needed
Recommend follow-up with orthopedic surgery for chronic ankle/foot pain with chronic ambulatory dysfunction from history of left trimalleolar fracture s/p ORIF with hardware removal. Other chronic medications continued as appropriate. Wound care
maintained throughout stay. Patient was deemed stable for discharge to home with visiting nurse.
Important imaging findings :
Abdomen ultrasound 10/06/2024:
The wall of the gallbladder is thickened measuring 5 mm, and appears edematous. There are no gallstones. No sonographic Phillips's sign was elicited with examination. The common duct is normal, measuring 4 mm.
The liver is normal in size, measuring 12.5 cm cm on the right, with a smooth capsular contour. There is a coarse echotexture with poor through transmission of sound. There is no focal hepatic lesion or intrahepatic biliary dilation. The pancreas is
normal in size and echogenicity and shows no focal mass or calcification. The spleen is normal in size and shows no focal abnormality. No signs of hydronephrosis, mass or calculi are seen in either kidney. The right kidney measured 13.9 cm cm in
greatest length; the left kidney measured 13.9 cm cm in greatest length. No free fluid is seen in the abdomen. Visualization of the aorta and IVC is limited.
HIDA scan 10/07/2024:
Normal HIDA scan, without evidence of acute cholecystitis or complete common bile duct obstruction
Bladder ultrasound 10/06/24:
Limited evaluation of the bladder is unremarkable
Peripheral vascular ultrasound 10/02/2024:
No sonographic evidence for LEFT lower extremity deep venous thrombosis to the level of the popliteal vein. The distal lower extremity veins are not well visualized.
Diffuse subcutaneous edema.
Foot x-ray 10/02/2024:
There are irregularities along the shaft of the proximal phalanx of the fourth metatarsal and base of the distal phalanx of the great toe which are favored to be subacute or chronic injuries.
There is no definite radiographic evidence of acute osteomyelitis.
Ankle x-ray 10/02/2024:
There is extensive osseous remodeling and periosteal reaction along the distal tibia and fibula with findings of likely prior tibiotalar fusion with hardware removal.
There is no definite acute fracture. There is no definite findings of acute osteomyelitis although this would be difficult to exclude if there is clinical suspicion
Consult services:
- Infectious disease
- Nephrology
- General Surgery
-Diabetes management by nurse practitioner
Discharge Plan
-
Patient Disposition: Home with Home Care
Discharge Diagnosis/Procedures: Sepsis, left lower extremity cellulitis, acute kidney injury, transaminitis, insulin-dependent diabetes mellitus
Condition: Good
Diet: Low Sodium and Diabetic, Carb Controlled
Additional Diets: Low Potassium Diet
Activity: As tolerated
Driving Restrictions: As prior to admission
Bathing Restrictions: None
Others Tests: Repeat BMP in one week, results to be sent to PCP
Other Services: VN and PT
Activity Restrictions/Additional Instructions:
Wound Care Instructions
L plantar foot: clean with soap and water, dry dressing change q day and prn drainage.
Sukhdeep wrap knee high daily, can remove at bedtime when in bed
When sitting elevate legs
Offloading of L foot per surgeon
Follow up with surgeon Dr. [place]
Instructions: Cellulitis (Skin Infection), Adult (DC), Low-potassium diet
Referrals:
Miguel Vizcarra MD [Active] - in two to three weeks (For new endoscopy support specialist )
Stanley Brar DPM [Specified Professional Personl] - in two weeks
UNKNOWN - PT DOES,NOT KNOW [Family Provider] - in less than 1 week
Ching Bello MD [Active] - in two to three weeks
Additional Discharge Medication Instructions: Outpatient podiatry follow up as soon as you can.
Your diabetes is not well controlled. Current HbA1c is 8.4. continue using your insulin pump correctly at home. You should follow up with your floor worker well service as soon as possible to make appropriate changes to your medications.
You need to do a blood test called Basic Metabolic Panel in one week from discharge to check for renal function.
Duloxetine and pregabalin medications have been REDUCED due to kidney function. We have provided new prescriptions with reduced doses so they are safe. Follow up with PCP after repeat blood test to increase meds as kidney function improves.
Furosemide has been HELD due to kidney function. Please follow up with your PCP to restart treatment after kidney function improves.
Prescriptions:
New
duloxetine 30 mg Capsule,Delayed Release(Dr/Ec)
30 mg PO BID 30 Days Qty: 60 0RF
nifedipine 30 mg Tablet Extended Release
30 mg PO BID 30 Days Qty: 60 4RF
pregabalin 75 mg Capsule
75 mg PO HS 30 Days Qty: 30 0RF
cephalexin 500 mg capsule
500 mg PO Q8H Qty: 12 0RF
Rx Instructions:
take 1 cap every 8 hours
Lokelma 10 gram powder in packet
10 g PO DAILY Qty: 11 0RF
pregabalin 75 mg capsule
75 mg PO DAILY Qty: 30 0RF
Continued
glipizide 10 mg Tablet
10 mg PO BID
nortriptyline 75 mg Capsule
75 mg PO HS
pioglitazone 30 mg Tablet
30 mg PO DAILY
atorvastatin [Lipitor] 40 mg Tablet
40 mg PO QPM
omeprazole 40 mg Capsule,Delayed Release(Dr/Ec)
40 mg PO DAILY
famotidine 20 mg Tablet
20 mg PO DAILY
insulin lispro 100 unit/mL Solution
1 sliding scale dose SC DIRECTED
Patient Comments:
10/02/24: Patient normally uses her own insulin pump, but does not have it on at this time
nebivolol 5 mg Tablet
5 mg PO DAILY
Held
furosemide 40 mg Tablet
40 mg PO BID
Hold Instructions: Until seen by PCP and renal function improved
duloxetine 60 mg capsule,delayed release(DR/EC)
60 mg PO BID
Hold Instructions: Until seen by PCP with improved renal function
pregabalin 200 mg Capsule
200 mg PO HS
Hold Instructions: Hold until seen by PCP and renal function improved
Discontinued
lisinopril 20 mg Tablet
20 mg PO DAILY
Discharge Orders:
Discharge Patient (As Directed); Ordered 10/13/24
Ordered By: Andre Macias
Discharge Date and Time
Discharge Date/Time: 10/13/24 12:51
Print Language: ESTONIAN
== END 2024-10-13 12:51 | disposition home health service (06) | DRG 871 ==
LOC: 4 WEST ACU 16:44
PROVIDERS: Emergency Medicine; Family Medicine; Internal Medicine; Student in an Organized Health Care Education/Training Program; ADMITTING PHYSICIAN Internal Medicine; ATTENDING PHYSICIAN Hospitalist; CONSULT PHYSICIAN Internal Medicine Infectious Disease; CONSULT PHYSICIAN Internal Medicine Nephrology; CONSULT PHYSICIAN Podiatrist Foot Surgery; CONSULT PHYSICIAN Surgery; EMERGENCY PHYSICIAN Emergency Medicine
DX: A41.9 Sepsis, unspecified organism (principal); N17.0 Acute kidney failure with tubular necrosis; L03.116 Cellulitis of left lower limb; E87.1 Hypo-osmolality and hyponatremia; E87.20 Acidosis, unspecified; Z68.43 Body mass index [BMI] 50.0-59.9, adult; I50.32 Chronic diastolic (congestive) heart failure; E87.5 Hyperkalemia; E11.42 Type 2 diabetes mellitus with diabetic polyneuropathy; E66.01 Morbid (severe) obesity due to excess calories; G25.81 Restless legs syndrome; I11.0 Hypertensive heart disease with heart failure; Z82.49 Family history of ischemic heart disease and other diseases of the circulatory system; Z79.4 Long term (current) use of insulin; Z66 Do not resuscitate; Z86.73 Personal history of transient ischemic attack (TIA), and cerebral infarction without residual deficits; L97.529 Non-pressure chronic ulcer of other part of left foot with unspecified severity; E11.621 Type 2 diabetes mellitus with foot ulcer; D63.8 Anemia in other chronic diseases classified elsewhere; E78.00 Pure hypercholesterolemia, unspecified; E88.819 Insulin resistance, unspecified; J45.909 Unspecified asthma, uncomplicated; Z79.84 Long term (current) use of oral hypoglycemic drugs; Z79.899 Other long term (current) drug therapy; Z83.3 Family history of diabetes mellitus; K81.9 Cholecystitis, unspecified
CPT/HCPCS: 73610; 73630; 76700; 76857; 78226; 80048; 80053; 80202; 81003; 81015; 81099; 82570; 82728; 82962; 82977; 83036; 83516; 83540; 83550; 83605; 83735; 84156; 84300; 85025; 85027; 85652; 86038; 86060; 86063; 86140; 86160; 86215; 86705; 86709; 86803; 87040; 87045; 87046; 87086; 87340; 87427; 93005; 93971; 94640; 96361; 96374; 96375; 97116; 97167; 97530; 99285; A9537

== ENCOUNTER 2024-10-20 00:04 | Inpatient (IN) | payer MEDICARE, OTHER, SELFPAY ==
[2024-10-19 19:25] VITALS: BP 174/108
[2024-10-19 20:22] VITALS: BMI 55.5
[2024-10-19 21:24] LABS: Lactic Acid 2.1 mmol/L (0.7-2.0)
[2024-10-19 21:26] LABS: ALT (SGPT) 29 U/L (0-35); AST (SGOT) 26 U/L (14-36); Albumin 3.6 g/dl (3.5-5.0); Alkaline Phosphatase 310 U/L (38-126); Blood Urea Nitrogen 15 mg/dl (7-17); Calcium 8.4 mg/dl (8.4-10.2); Carbon Dioxide 33 mmol/L (22-30); Chloride 102 mmol/L (98-107); Estimated Creatinine Clearance 91 ml/min; Glucose 263 mg/dl (70-99); Potassium 3.4 mmol/L (3.5-5.1); Sodium 146 mmol/L (135-145); Total Bilirubin 0.7 mg/dl (0.2-1.3); Total Protein 7.3 g/dl (6.3-8.2); eGFR > 60.00
--- NOTE | 2024-10-19 22:10 | ED.GENMED ---
History of Present Illness
General
Chief Complaint: Skin Problem
Time Seen by Provider: 10/19/24 20:05
History of Present Illness
History of Present Illness:
59-year-old female with history of diabetes, morbid obesity, hyperlipidemia, history of cellulitis presenting to the emergency department for worsening lower extremity swelling and redness. Patient reports recent complicated hospital admission.
Patient was admitted from 10/02 to 10/13 for sepsis due to cellulitis of left lower extremity. Patient had acute kidney injury during this admission, was treated with vancomycin, Zosyn, which was narrowed to cefazolin. Patient had ultimately been
discharged on cephalexin. Patient reports when she got home, she became ill with a gastrointestinal bug, and was unable to tolerate her antibiotics, so she has not been taking them. In the past few days, noticed increasing redness to her lower
extremity with swelling. She also reports a wound on the basurto that has been leaking yellow drainage. Denies abdominal pain, chest pain, difficulty breathing, fever. Patient had a virtual doctor's appointment today, advised to come to the hospital
for IV antibiotics. Denies additional medical complaint
Past History
Past History
ED Past Medical History: Asthma, HTN, Hypercholesterolemia and IDDM
ED Past Surgical History: Gynecological and Orthopedic
Social History
Tobacco: Non-smoker
Alcohol: None
Drug: None
Personal:
Living: with family
Employment: Employed
Phy Exam
Physical Exam
Physical Exam:
General: Well-appearing, no clinical signs of dehydration, morbidly obese
HEENT: protecting airway
Neck: appears supple
CV: Normal heart rate, regular rhythm
Resp: No accessory muscle use, no increased work of breathing
Abd: No distention
Extremities: No deformities, 3+ pitting edema to the left lower extremity with circumferential erythema. Small wound to the medial basurto with active purulent drainage. Distal sensation and pulses intact. Additional wound on the plantar aspect of
the foot which appears to be healing.
Neuro: alert, no focal neurologic deficit
: deferred
Rectal: deferred
Psych: Normal affect
Skin: Intact
Course
Orders/Labs/Results
Orders:
Orders
10/19/24 19:31
EKG [Electrocardiogram (*1)] Stat
Reason for Study: Chest Pain
EKG- Treatment ONCE
10/19/24 20:54
Comprehensive Metabolic Panel Urgent
Lactic Acid Urgent
10/19/24 21:14
Complete Blood Count/With Diff Routine
10/19/24 22:04
Blood Culture Urgent
RITA Source: Blood/Venous
Specimen Description:
Abnormal Lab Results
10/19/24
20:54
Sodium 146 H mmol/L
(135-145)
Potassium 3.4 L mmol/L
(3.5-5.1)
Carbon Dioxide 33 H mmol/L
(22-30)
Glucose 263 H mg/dl
(70-99)
Lactic Acid 2.1 H mmol/L
(0.7-2.0)
Alkaline Phosphatase 310 H U/L
(38-126)
10/19/24 20:54
Vital Signs
Initial and Last Documented VS:
Initial Vital Signs
Temp Pulse Resp BP Pulse Ox
98.6 F 98 20 174/108 100
10/19/24 19:25 10/19/24 19:25 10/19/24 19:25 10/19/24 19:25 10/19/24 19:25
Last Documented Vital Signs
Temp Pulse Resp BP Pulse Ox
98.6 F 98 20 174/108 100
10/19/24 19:25 10/19/24 19:25 10/19/24 19:25 10/19/24 19:25 10/19/24 19:25
MDM/Problems Addressed
MDM/Problems Addressed:
59-year-old female with history of diabetes, morbid obesity, hyperlipidemia, history of cellulitis presenting for worsening swelling and redness to the left lower extremity status post recent hospital admission for cellulitis. Vital signs on
arrival significant for high blood pressure.
On exam patient is resting comfortably, no acute distress, nontoxic. However does have evidence of cellulitis and wound to the anterior basurto. Patient with recent complicated hospital admission from sepsis suspected from cellulitis. Patient has
been noncompliant with her outpatient antibiotics because she reports that she was recently ill, however has improved. She presently is nontoxic, however concern regarding reemergence of her cellulitis. Plan for laboratory analysis and readmission
for IV antibiotics.
22:25 - Labs show elevated lactic acid, however blood pressure remained stable and kidney function within normal limits, improved from recent admission. Without any concern for severe sepsis or septic shock. Issue with CBC, hemolyzed x 2. Will
send another sample. Will also send blood cultures and start broad-spectrum antibiotics
*EKG
Interpreted by ED Provider?: Yes
EKG Intrepretation Date: 10/19/24
EKG Intrepretation Time: 22:19
Interpretation: normal
Comparison EKG: no changes (10/11/24)
Heart Rate: 103
Rate: tachycardiac
Rhythm: sinus
Petroleum: normal axis
Interval: normal interval
QRS Pattern: normal QRS
Ischemia: no ischemia
*Critical Care Note
Total Time (30-74mins, 75-104mins- exclusive of procedures): Not Applicable
ED Attending Note
-
Portions of this chart may have been created with voice recognition software.� Occasional wrong word or��sound alike� substitutions may have occurred due to the inherent limitations of voice recognition software.
Discharge Plan
Departure
Prescriptions:
No Action
glipizide 10 mg Tablet
10 mg PO BID
nortriptyline 75 mg Capsule
75 mg PO HS
pioglitazone 30 mg Tablet
30 mg PO DAILY
atorvastatin [Lipitor] 40 mg Tablet
40 mg PO QPM
furosemide 40 mg Tablet
40 mg PO BID
omeprazole 40 mg Capsule,Delayed Release(Dr/Ec)
40 mg PO DAILY
famotidine 20 mg Tablet
20 mg PO DAILY
insulin lispro 100 unit/mL Solution
1 sliding scale dose SC DIRECTED
Patient Comments:
10/02/24: Patient normally uses her own insulin pump, but does not have it on at this time
duloxetine 60 mg capsule,delayed release(DR/EC)
60 mg PO BID
pregabalin 200 mg Capsule
200 mg PO HS
nebivolol 5 mg Tablet
5 mg PO DAILY
duloxetine 30 mg Capsule,Delayed Release(Dr/Ec)
30 mg PO BID 30 Days Qty: 60 0RF
nifedipine 30 mg Tablet Extended Release
30 mg PO BID 30 Days Qty: 60 4RF
pregabalin 75 mg Capsule
75 mg PO HS 30 Days Qty: 30 0RF
cephalexin 500 mg capsule
500 mg PO Q8H Qty: 12 0RF
Rx Instructions:
take 1 cap every 8 hours
Lokelma 10 gram powder in packet
10 g PO DAILY Qty: 11 0RF
pregabalin 75 mg capsule
75 mg PO DAILY Qty: 30 0RF
Referrals:
UNKNOWN - PT DOES,NOT KNOW [Family Provider] -
Interventions
Interventions:
*Risk Screen - Suicide Last Done: 10/19/24 19:25
*General Assessment Last Done: 10/19/24 20:22
*Neglect/Abuse Screening Last Done: 10/19/24 19:25
*ED- Fall Risk Assessment Last Done: 10/19/24 20:22
*ED COVID-19 Vaccine History Last Done: 10/19/24 20:22
Discharge Date and Time
Print Language: SERBIAN
[2024-10-19 22:12] VITALS: BP 171/84
--- NOTE | 2024-10-19 22:42 | W.PN.UPDATE ---
Update Note
Progress Note Update
This is an addendum to H&P written by CASSIUS Sharma
I saw and examined the patient.
The SPRINKLER HELPER's note was reviewed and I agree with the note.
Comment:
Ms. Giselle Sevilla is a 59 yo woman with hx obesity, DM, HLD, recent admission 10/02-10/13/24 for LLE cellulitis (s/p Vanc/Zosyn narrowed to Cefazolin and discharged on Keflex) presents to the ER with return of redness and swelling LLE. Patient states
she did not take Keflex at home 2/2 GI illness.
Triage VS: T 98.6, P 98, RR 20, BP 174/108, SpO2 100%
On exam patient is awake, alert, in no distress. LLE with significant swelling, anterior wound with small amount of pustular drainage
LABS: Na 146, K+ 3.4, Cr 1.0, Glucose 263, Lactate 2.1, T. Bili 0.7, AST 26, ALT 29, Alk Phos 310
MAR: Vanc/Cefepime
Recurrent LLE Cellulitis
-admit to med/surg
-continue IV Vanc/Cefepime
-F/U cultures, including swab of draining wound
-ID consult
-LLE elevation
-LE US
Lymphedema/LE swelling - resume Lasix
ARF last admission now resolved
-stop Lokelma
IDDM
-EXECUTIVE COACH insulin pump
Essential HTN
-EXECUTIVE COACH Nifedipine, Nebivolol, Lisinopril
Obesity
Hx left trimalleolar fracture s/p ORIF 08/15 with subsequent hardware removal 07/16
Restless leg syndrome
Remainder of plan per PA note
[2024-10-19 23:05] LABS: % Basophils 1.1 % (0-2); % Immature Granulocytes 0.8 % (0-0.5); % Lymphocytes 23.2 % (20.5-51.1); % Neutrophils 64.9 % (42.2-75.2); Absolute Basophils 0.1 10^3/uL (0-0.2); Absolute Eosinophils 0.1 10^3/uL (0-0.7); Absolute Immature Granulocytes 0.1 10^3/uL (0-0.05); Absolute Lymphocytes 1.5 10^3/uL (1.2-3.4); Absolute Monocytes 0.5 10^3/uL (0.1-0.6); Absolute Neutrophils 4.3 10^3/uL (1.4-6.5); Hemoglobin 10.3 g/dL (12.0-16.0); Mean Corp Hgb Conc. 31.2 g/dL (33.0-37.0); Mean Corpuscular Hgb 25.8 pg (27.0-31.0); Mean Corpuscular Volume 82.7 fL (81.0-99.0); Mean Platelet Volume 8.9 fL (7.4-10.4); Nucleated Red Blood Cells % 0.3 %; Platelet Count 354 10^3/uL (130-400); Red Blood Cell Count 3.99 10^6/uL (4.20-5.40); Red Cell Dist. Width 15.9 % (11.5-14.5); White Blood Cell Count 6.7 10^3/uL (4.8-10.8)
--- NOTE | 2024-10-19 23:13 | HPS.HSE ---
Family Physician
-
Family Physician: NOT KNOW UNKNOWN - PT DOES
Chief Complaint
-
LLE Cellulitis
History of Present Illness
Patient is a 59 y/o female past medical history of chronic lower extremity, morbid obesity, hypertension, diabetes and recent hospitalization for left lower extremity cellulitis and acute kidney injury who presents with worsen redness of left lower
extremity. Patient reports she was discharged on October 13, but states she was unable to tolerate her oral antibiotics due to vomiting. She reports over the past few days her left lower leg has started looking worse again and yesterday started
draining yellow material. Patient reports increased lower extremely edema as her diuretics have been hold following her episode of acute kidney injury. She denies recorded fevers.
Medical History
Past Medical History
Past Medical History: Reports Other
Additional Past Medical History:
Essential Hypertension
Diabetes Mellitus, Type II
Diabetic Neuropathy
Chronic Lower Extremity Edema
Restless Leg Syndrome
Morbid Obesity due to Excess Calories
Past Surgical History: Reports Other
Additional Past Surgical History:
Bladder Surgery
Right Elbow Surgey
Left Ankle ORIF with Subsequent Hardware Removal
Social History
Tobacco: Non-smoker
Alcohol: None
Drug: None
Family History
Family History: Other (Mother: HTN, DM, CAD Father: HTN, DM, CAD, Gastric Ulcers Brother: DM GM: Ovarian Cancer)
Allergies / Home Medications
Allergies reflects when Allergies were last updated in [employer].
Home Medications with original date entered in [employer]
Allergy/Medication List:
Allergies
Allergy/AdvReac Type Severity Reaction Status Date / Time
No Known Allergies Allergy Verified 10/19/24 19:25
Home Medications
glipizide 10 mg tablet 10 mg PO BID Diabetes 02/01/23
nortriptyline 75 mg capsule 75 mg PO mental health 02/01/23
pioglitazone 30 mg tablet 30 mg PO DAILY Diabetes 02/01/23
atorvastatin 40 mg tablet (Lipitor) 40 mg PO QPM High Cholesterol 02/02/23
duloxetine 60 mg capsule,delayed release 60 mg PO BID 10/02/24
famotidine 20 mg tablet 20 mg PO DAILY 10/02/24
furosemide 40 mg tablet 40 mg PO BID 10/02/24
insulin lispro 100 unit/mL subcutaneous solution 1 sliding scale dose SC DIRECTED 10/02/24
nebivolol 5 mg tablet 5 mg PO DAILY 10/02/24
omeprazole 40 mg capsule,delayed release 40 mg PO DAILY 10/02/24
nifedipine 30 mg tablet,extended release 30 mg PO BID hypertension 30 days #60 tabs 10/13/24
pregabalin 75 mg capsule 75 mg PO DAILY #30 caps 10/13/24
sodium zirconium cyclosilicate 10 gram oral powder packet (Lokelma) 10 g PO DAILY Hyperkalemia #11 ea 10/13/24
lisinopril 20 mg tablet 20 mg PO DAILY 10/19/24
ondansetron 4 mg disintegrating tablet 4 mg PO Q8H PRN nausea 10/19/24
Review of Systems
-
A 12 point ROS was completed and negative except as noted: Yes
Constitutional: Denies Fever
Respiratory: Denies Cough or Trouble Breathing
Cardiac: Denies Chest Pain or Palpitations
Skin: Reports See HPI
Physical Exam
Vital Signs
Vital Signs
Temp Pulse Resp BP Pulse Ox
98.0 F 96 18 171/84 97
10/19/24 22:12 10/19/24 22:12 10/19/24 22:12 10/19/24 22:12 10/19/24 22:12
Physical Exam
General: Comfortable, Conversant and Morbidly Obese
HEENT: Anicteric and Moist mucous membranes
Respiratory: Clear and Non Labored Respirations
Cardiac: S1/S2 and Regular Rhythm
GI: Soft and Other (Protuberant)
Rectal: Deferred by Provider
Musculoskeletal: Other (+3 pitting edema bilateral lower extremities, left greater than right)
Skin: Warm, Dry and Other (Mild erythema left lower extremity with slightlyincreased warmth to touch; Left basurto with small open area draining dark yellow slightly purulent material)
Neuro: Awake, Alert, Oriented and Nonfocal/grossly intact
Psych: Calm
Laboratory Results
-
10/19/24 22:59
10/19/24 20:54
Laboratory Results
Lactic Acid 2.1 mmol/L (0.7-2.0) H 10/19/24 20:54
Total Bilirubin 0.7 mg/dl (0.2-1.3) 10/19/24 20:54
AST 26 U/L (14-36) 10/19/24 20:54
ALT 29 U/L (0-35) 10/19/24 20:54
Alkaline Phosphatase 310 U/L (38-126) H 10/19/24 20:54
Data Reviewed
-
Lab Data: Labs Reviewed by me
Old Records: Reviewed
Impression/Plan
-
Recurrent Left Lower Extremity Cellulitis, now with open area left basurto with purulent drainage
-Consult Infectious Disease
-Check wound culture given purulent nature of drainage
-Continue vancomycin and cefepime
-Check peripheral vascular ultrasound
Recent Acute Kidney Injury with Hyperkalemia
-Creatinine and potassium level have normalized
-Resume furosemide
-Stop Lokelma
-Continue to follow levels
Essential Hypertension
-Continue lisinopril, nebivolol and nifedipine
Diabetes Mellitus, Type II
-Continue patient's own insulin pump
-Hold glipizide and pioglitazone
-Monitor sugars
Diabetic Neuropathy
-Continue duloxetine, pregabalin and nortriptyline
Hyperlipidemia
-Continue atorvastatin
Chronic Lower Extremity Edema
-Continue Lasix
Morbid Obesity due to Excess Calories
-Affects all aspects of care
DVT proph: Lovenox
Code Status: DNR confirmed with patient at time of admission
[2024-10-19] MEDS: NSS 1000 IV (23:17)
[2024-10-19] MEDS: MAXIPIME 2000 MG IV (23:18)
[2024-10-19] MEDS: VANCOCIN 540 MG IV (23:32)
[2024-10-19] MEDS: KCL 40 MEQ PO (23:32)
[2024-10-19] MEDS: LYRICA 200 MG PO (23:47)
[2024-10-20] VITALS (7 sets, daily range): BP systolic 110–187; BP diastolic 75–100; BMI 55.3
[2024-10-20] MEDS: STERILE WATER FOR INJECTION 10 ML IV (04:58)
[2024-10-20] MEDS: MAXIPIME 1000 MG IV (04:59)
[2024-10-20] MEDS: NOVOLOG FLEXPEN-MODERATE RESISTANCE SC ×3 (07:50→16:16)
[2024-10-20] MEDS: BYSTOLIC 5 MG PO (08:15)
[2024-10-20] MEDS: CYMBALTA DELAYED RELEASE 60 MG PO ×2 (08:18→21:32)
[2024-10-20] MEDS: LYRICA 200 MG PO ×3 (08:18→21:34)
--- NOTE | 2024-10-20 08:18 | EDRN ---
Pt reports that she does not want to have insulin administered from the hospital. Pt reports that her daughter will be bringing in the insulin to fill her insulin pump this morning. SEE LABS for accucheck.
[2024-10-20] MEDS: PEPCID 20 MG PO (08:19)
[2024-10-20] MEDS: PROCARDIA XL (EXTENDED RELEASE) 30 MG PO ×2 (08:19→21:33)
[2024-10-20] MEDS: ZESTRIL 20 MG PO (08:20)
[2024-10-20] MEDS: LASIX 40 MG PO ×2 (08:20→21:32)
[2024-10-20 08:24] LABS: Glucose - Point of Care 237 mg/dl (70-99)
[2024-10-20] MEDS: PROTONIX 40 MG PO (08:24)
--- NOTE | 2024-10-20 08:26 | W.PN.UPDATE ---
Update Note
Progress Note Update
I saw and evaluated the patient. I reviewed the resident�s note and agree with findings and plan as documented in the resident�s note.
No new complaints.
Gen: NAD, AAOx3.
Eyes: EOMI, PERRLA, no scleral icterus.
Neck: supple.
CV: RRR, +S1/S2, no m/r/g.
Resp: CTAB, no rales, wheezes, or rhonchi.
Abd: +BS, soft, NT, ND
Skin: B/L LE 4+ lymphedema. LLE cellulitis with wound with serous drainage
Neuro: CN 2-12 intact, non-focal.
Psych: Normal mood and affect.
B/L LE U/S: No findings to confirm deep venous thrombosis of the lower extremities bilaterally.
Recurrent LLE Cellulitis
-continue IV Vanco
-follow BCxs/WCx
-c/s ID
-LLE elevation and compression
Other problems:
B/L LE swelling due to lymphedema: cont Lasix
DM2: cont insulin pump
Essential HTN: cont Nifedipine, Nebivolol, Lisinopril
Morbid obesity due to excess calories
h/o L trimalleolar fracture s/p ORIF 08/15 with subsequent hardware removal 07/16
Restless leg syndrome
DNR/Lovenox
--- NOTE | 2024-10-20 08:31 | W.PN.HOSP.TC ---
Today's Communication/Plan
-
- Follow WBC and temperature curve
- Continue vancomycin for now
- Follow blood and wound cultures
Assessment / Plan
Assessment / Plan
#Recurrent Left Lower Extremity Cellulitis, now with open area left basurto with purulent drainage
-Infectious Disease was consulted
-Wound culture and blood culture pending
-Continue IV vancomycin
-Peripheral vascular ultrasound: No findings to confirm deep venous thrombosis of the lower extremities bilaterally
- LLE elevation and compression
#Chronic bilateral lower Extremity Edema
-Resume furosemide for bilateral lower extremity edema while watching creatinine levels and BMP
#Recent Acute Kidney Injury with Hyperkalemia
-Cr 1.0 WNL
-Follow Creatinine and potassium and sodium
-Stop Lokelma due Low K level at 3.4
#Essential Hypertension
-Continue lisinopril, nebivolol and nifedipine
#Diabetes Mellitus, Type II
-Continue patient's own insulin pump
-Hold glipizide and pioglitazone
-ISS
Diabetic Neuropathy
-Continue duloxetine, pregabalin and nortriptyline
Hyperlipidemia
-Continue atorvastatin
Morbid Obesity due to Excess Calories
-Affects all aspects of care
DVT proph: Lovenox
Code Status: DNR confirmed with patient at time of admission
Anticipated Discharge: 24 - 48 hours
Subjective/Interval History
-
Date of Service: October 20, 2024
Patient reports she does not take her Keflex after her discharge due to GI issues. She reports she had pus coming from her wound on Thursday. Her last visit with her surgeon was on July 2024.
Objective Data
-
Labs:
Laboratory Results
10/19/24 10/19/24 10/19/24
20:54 22:08 22:59
WBC Cancelled Cancelled 6.7
Hgb Cancelled Cancelled 10.3 L
Hct Cancelled Cancelled 33.0 L
Plt Count Cancelled Cancelled 354
Sodium 146 H
Potassium 3.4 L
Chloride 102
Carbon Dioxide 33 H
BUN 15
Creatinine 1.0
Glucose 263 H
Calcium 8.4
Total Bilirubin 0.7
AST 26
ALT 29
Alkaline Phosphatase 310 H
Vital Signs:
Vital Signs
Temp Pulse Resp BP Pulse Ox
98.7 F 98 18 151/100 95
10/20/24 02:27 10/20/24 08:20 10/20/24 02:27 10/20/24 08:20 10/20/24 02:27
Review of Systems
-
History Source: Patient
EENT: Reports No Symptoms Reported
Respiratory: Reports No Symptoms
Cardiac: Reports No Symptoms
Abdomen/GI: Reports No Symptoms
Genitourinary: Reports No Symptoms
Musculoskeletal: Reports Joint Pain, Joint Swelling, Edema and Muscle Weakness (Left foot)
Skin: Reports Other (See HPI)
Neuro: Reports No Symptoms
Physical Exam
-
General: Well Developed, Well Nourished and Morbidly Obese
HEENT: Normocephalic and Atraumatic
Respiratory: Clear to Auscultation
Cardiac: Regular Rhythm and S1/S2
GI: Soft, Nontender and Nondistended
Musculoskeletal: Other (Bilateral lower leg edema. Left lower extremity with cellulitis and a wound with serous drainage)
Skin: Warm
Neuro: Awake, Alert, Oriented, AO x 3 and Other
Psych: Calm
--- NOTE | 2024-10-20 08:55 | PHA.VAN.IN ---
Assessment
- Assessment
Renal Function: Appears similar to baseline
Concomitant Antimicrobials: cefepime
AUC Dosing Plan
- Dosing Variables
Dosing Weight (kg): 149
Dosing CrCl (ml/min): 91
Vd coefficient (L/kg): 0.4
- Empiric Dosing
Initial / Loading Dose: 2000mg - 10/19 23:32 PLUS 1g Q8 x2 doses (1400 & 2200)
Maintenance Regimen: Vanc 1250mg Q12H starting 10/21 06
Estimated AUC (mcg*h/mL): 556
Estimated Peak (mcg*h/mL): 34
Estimated Trough (mcg/ml): 14.7
Estimated Half Life (H): 8.7
Given weight / BMI, patient likely will be slower to reach steady state
Will give divided load to help achieve therapeutic levels quicker with 1g Q8H x2 doses then start maintenance dosing
- Monitoring
No levels ordered at this time: consider levels in next few days
Pharmacokinetics Vancomycin I
- -
Patient Age: 59
Patient Sex: Female
Vancomycin Day #: 1
Indication: Skin And Soft Tissue
Requesting Provider: Junito Sharma
Pertinent Antimicrobial Allergies:
NKDA
Height / Weight:
Height 5 ft 4.5 in
Actual Weight 149 kg
Pertinent Past Medical History: BMI ~55, DM II
- Vital Signs / Lab Results
Temp Pulse Resp BP Pulse Ox
98.7 F 98 18 151/100 95
10/20/24 02:27 10/20/24 08:20 10/20/24 02:27 10/20/24 08:20 10/20/24 02:27
Lab Results - Hematology
10/19/24 10/19/24 10/19/24
20:54 22:08 22:59
WBC Cancelled Cancelled 6.7
Lab Results - Chemistry
10/19/24
20:54
BUN 15
Creatinine 1.0
Estimated Creat Clear 91
Albumin 3.6
10/19/24
20:54
Lactic Acid 2.1 H
[2024-10-20] MEDS: PT'S OWN INSULIN PUMP - HumaLOG 1 UNIT SC (10:07)
--- NOTE | 2024-10-20 11:21 | CON.ID ---
Consultation
-
Date/Time Consultation Requested: October 20, 2024 0018
Date/Time Consultation Performed: October 20, 2024 0830
Requesting Provider: Christiane Sharma PA-C
Performing Provider: Dr. Ava Youngblood
Reason for Consultation: Left lower leg cellulitis
Chief Complaint / Past History
Chief Complaint
Recurrence of left leg swelling and redness
History of Present Illness
59-year-old female BMI 57, history of diabetes mellitus, peripheral neuropathy, left ankle fracture ORIF , hardware removed 06/2024 who presented to the hospital 10/20 due to recurrence of worsening left leg redness and new drainage. She is
well-known to me from recent hospitalization October 02 to October 13 admitted with recurrent left lower extremity cellulitis which responded well to cefazolin and SUKHDEEP compression. During hospital stay she developed THAD and anasarca. Eventually renal
function improved. On October 13 she was discharged home on cephalexin 500 mg tid through October 16. However the day after discharge, she developed nausea and vomiting through the weekend and unable to tolerate p.o. intake including the cephalexin.
She did not take the abx after n/v resolved. In addition, she normally takes furosemide which was discontinued during hospital stay and was not resumed after discharge. Her leg then became more swollen. The erythema recurred. There was some
yellow drainage from the leg wound. No fevers or chills this time. She came to the ED last night. She was started on vancomycin and cefepime.
Past History
Additional Past Medical History:
Diabetes mellitus
Peripheral neuropathy
Hypertension
TIA/CVA
Class III obesity BMI 57
Restless leg syndrome
Hx of left trimalleolar fracture status post ORIF July 2023 with subsequent hardware removal June 2024
Right elbow surgery
Childhood bladder surgery
Allergy History:
No Known Allergies Allergy (Verified 10/19/24 19:25)
Medications Reviewed: Yes
Current Antibiotics:
Vancomycin
Cefepime
Social History
Tobacco: Non-Smoker
Alcohol: None
Drug: None
Living: Other (1 dog )
Employment: Not Employed
Family History
Family History: Not Pertinent
Review of Systems
Review of Systems
General: Negative Fever or Chills
HEENT: Negative Sinus Problems or Headache
Respiratory: Negative Dyspnea or Cough
Gasteroenterology: Negative Nausea, Vomiting or Diarrhea
Genital / Urological: Negative Dysuria or Flank Pain
Endocrine: Negative Weakness
Neurological: Negative Dizziness
All systems: All other systems were reviewed and were negative
Vital Signs
Temp Pulse Resp BP Pulse Ox
98.7 F 98 18 151/100 92
10/20/24 02:27 10/20/24 08:20 10/20/24 08:18 10/20/24 08:20 10/20/24 08:18
Physical Exam
Physical Exam
Constitutional: No Acute Distress, Comfortable and Obese
Eyes: No Conjunctival Hemorrhage and Sclera Anicteric
Cardiovascular: Regular Rate and S1/S2
Pulmonary: Clear
Gastrointestinal: Soft, Non Tender, Non Distended and Normal Bowel Sounds
Genito-Urinary: Negative CVA Tenderness
Extremities: Edema (LLE>RLE) and Other (LLE: anterior basurto + erythema, small wound located over previous proximal incision site with serous drainage. Previous erythema on foot, calf to thigh resolved. Plantar wound with scab, peeling dry skin)
Skin: Dry (left foot - dry peeling skin)
Neurological: AO x 3
Lab / Diagnostic Study Results
10/19/24 22:59
10/19/24 20:54
Abs Immat Gran (auto) 0.1 10^3/uL (0-0.05) H 10/19/24 22:59
Absolute Neuts (auto) 4.3 10^3/uL (1.4-6.5) 10/19/24 22:59
Absolute Lymphs (auto) 1.5 10^3/uL (1.2-3.4) 10/19/24 22:59
Absolute Monos (auto) 0.5 10^3/uL (0.1-0.6) 10/19/24 22:59
Absolute Basos (auto) 0.1 10^3/uL (0-0.2) 10/19/24 22:59
Immature Gran % 0.8 % (0-0.5) H 10/19/24 22:59
Neutrophils % 64.9 % (42.2-75.2) 10/19/24 22:59
Lymphocytes % 23.2 % (20.5-51.1) 10/19/24 22:59
Monocytes % 8.0 % (1.7-9.3) 10/19/24 22:59
Eosinophils % 2.0 % (0-6) 10/19/24 22:59
Basophils % 1.1 % (0-2) 10/19/24 22:59
Lactic Acid 2.1 mmol/L (0.7-2.0) H 10/19/24 20:54
Microbiology Results
Micro:
10/19/24 23:43 Wound Culture - Pending
Leg - Left Gram Stain - Preliminary
10/19/24 22:37 Blood Culture - Pending
Blood/Venous
10/19/24 22:08 Blood Culture - Pending
Blood/Venous
10/20/24 Peripheral vasc US: no DVT
Assessment / Plan
# Possible relapse of LLE cellulitis
# lymphedema
# hx left ankle ORIF 07/2023, hardware removed 06/2024 due to loosening (at [facility])
- Pt did not complete cephalexin after discharge
- Lymphedema exacerbation with serous drainage.
- Continue Vancomycin for now.
- DC cefepime.
- Sukhdeep-wrap compression.
- Elevate leg above heart level.
# DM- uncontrolled
- Recommend tight glucose control
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
Diabetes mellitus
Peripheral neuropathy
Hypertension
TIA/CVA
Class III obesity BMI 57
Restless leg syndrome
Hx of left trimalleolar fracture status post ORIF July 2023 with subsequent hardware removal June 2024
Right elbow surgery
Childhood bladder surgery
[2024-10-20] MEDS: PT'S OWN INSULIN PUMP - HumaLOG SC ×3 (11:52→23:46)
[2024-10-20] MEDS: STERILE WATER FOR INJECTION IV ×2 (12:06→16:34)
[2024-10-20] MEDS: LAC HYDRIN, AM LACTIN LOTION TOPICAL (13:56)
[2024-10-20] MEDS: VANCOCIN 200 IV ×2 (14:09→23:11)
--- NOTE | 2024-10-20 14:47 | PTCARENOTE ---
10/20/2024 DIABETES EDUCATION
I met with Giselle to review diabetes management.
Giselle wears an Omnipod insulin pump, states when admitted she ran out of [employer] and her children brought to her while inpatient. She is currently wearing the pump, uses Dexcom CGM.
Has been using an insulin pump and CGM for a few years, states her last HbA1c was 7.2% and was informed that her last A1c of 8.4% is related to her cellulitis in LLE.
She is familiar with using an insulin pen, since she used in the past. I educated on proper insulin injection technique, timing, and storage; she provided a successful repeat demonstration, in the past was not priming the pen prior to injection.
Written material provided on DSME outpatient class and insulin pump support group.
Discussed with RN who there is not change to using her Omnipod insulin pump at this time.
--- NOTE | 2024-10-20 16:00 | PTCARENOTE ---
Pt transported from ED to around 1500. She was able to walk from stretcher to bed without help. Vital signs within normal limits. No pain reported. Pt assessed. Wound care completed. All needs met at this time. Plan of care ongoing.
[2024-10-20 16:51] LABS: Glucose - Point of Care 137 mg/dl (70-99)
[2024-10-20] MEDS: LIPITOR 40 MG PO (18:07)
[2024-10-20 21:16] LABS: Glucose - Point of Care 124 mg/dl (70-99)
[2024-10-20] MEDS: PAMELOR 75 MG PO (21:34)
[2024-10-20] MEDS: LOVENOX 60 MG SC (21:36)
[2024-10-20] MEDS: LAC HYDRIN, AM LACTIN LOTION 1 APPLIC TOPICAL (23:27)
[2024-10-21] MEDS: PT'S OWN INSULIN PUMP - HumaLOG 9.6 UNIT SC (00:45)
[2024-10-21 03:44] LABS: Glucose - Point of Care 56 mg/dl (70-99)
[2024-10-21 04:00] LABS: Glucose - Point of Care 69 mg/dl (70-99)
[2024-10-21 04:18] LABS: Glucose - Point of Care 72 mg/dl (70-99)
[2024-10-21] MEDS: VANCOCIN 275 MG IV ×2 (05:35→18:01)
[2024-10-21 06:00] VITALS: BMI 55.6
[2024-10-21 06:11] LABS: % Basophils 1.3 % (0-2); % Eosinophils 3.9 % (0-6); % Immature Granulocytes 0.6 % (0-0.5); % Monocytes 7.2 % (1.7-9.3); Absolute Basophils 0.1 10^3/uL (0-0.2); Absolute Eosinophils 0.2 10^3/uL (0-0.7); Absolute Lymphocytes 1.5 10^3/uL (1.2-3.4); Absolute Monocytes 0.4 10^3/uL (0.1-0.6); Absolute Neutrophils 3.2 10^3/uL (1.4-6.5); Hematocrit 33.4 % (37.0-47.0); Mean Corp Hgb Conc. 29.9 g/dL (33.0-37.0); Mean Corpuscular Hgb 25.8 pg (27.0-31.0); Mean Corpuscular Volume 86.3 fL (81.0-99.0); Mean Platelet Volume 9.3 fL (7.4-10.4); Nucleated Red Blood Cells % 0 %; Platelet Count 333 10^3/uL (130-400); Red Blood Cell Count 3.87 10^6/uL (4.20-5.40); Red Cell Dist. Width 16.3 % (11.5-14.5); White Blood Cell Count 5.4 10^3/uL (4.8-10.8)
[2024-10-21 06:21] LABS: Glucose - Point of Care 207 mg/dl (70-99)
[2024-10-21 06:43] LABS: ALT (SGPT) 21 U/L (0-35); AST (SGOT) 19 U/L (14-36); Albumin 3.3 g/dl (3.5-5.0); Alkaline Phosphatase 209 U/L (38-126); Blood Urea Nitrogen 18 mg/dl (7-17); Calcium 8.3 mg/dl (8.4-10.2); Carbon Dioxide 34 mmol/L (22-30); Chloride 100 mmol/L (98-107); Estimated Creatinine Clearance 82 ml/min; Glucose 121 mg/dl (70-99); Magnesium 1.6 mg/dl (1.6-2.3); Potassium 3.6 mmol/L (3.5-5.1); Sodium 144 mmol/L (135-145); Total Bilirubin 0.5 mg/dl (0.2-1.3); Total Protein 6.8 g/dl (6.3-8.2); eGFR 58.61
--- NOTE | 2024-10-21 07:35 | W.PN.HOSP.TC ---
Today's Communication/Plan
-
-Follow blood/wound culture result
-Continue IV vancomycin
-Follow CBC and temperature curve
Assessment / Plan
Assessment / Plan
#Recurrent Left Lower Extremity Cellulitis
-Infectious Disease on board
-No leukocytosis, no fever spike
-Wound culture and blood culture pending
-Continue IV vancomycin
-Peripheral vascular ultrasound: No findings to confirm deep venous thrombosis of the lower extremities bilaterally
-LLE elevation and Sukhdeep-wrap compression
-Elevate leg above heart level
#Chronic bilateral lower Extremity Edema
-Resume furosemide for bilateral lower extremity edema while watching creatinine levels and BMP
#Recent Acute Kidney Injury with Hyperkalemia
-Cr 1.1
-Follow Creatinine and potassium and sodium
-Stop Lokelma due Low K level at 3.4 at admission
-K 3.6 WNL on 10/21
#Essential Hypertension
-Continue lisinopril, nebivolol and nifedipine
#Diabetes Mellitus, Type II
-Continue patient's own insulin pump
-Hold glipizide and pioglitazone
-ISS
#Diabetic Neuropathy
-Continue duloxetine, pregabalin and nortriptyline
#Hyperlipidemia
-Continue atorvastatin
#Hx of left trimalleolar fracture status post ORIF July 2023 with subsequent hardware removal June 2024
#Right elbow surgery
#Morbid Obesity due to Excess Calories
-Affects all aspects of care
DVT proph: Lovenox
Code Status: DNR confirmed with patient at time of admission
Anticipated Discharge: 24 - 48 hours
Subjective/Interval History
-
Date of Service: October 21, 2024
The patient denies any fever or chills. Discussed keeping her legs elevated to help decrease the edema.
Objective Data
-
Labs:
Laboratory Results
10/21/24
05:50
WBC 5.4
Hgb 10.0 L
Hct 33.4 L
Plt Count 333
Sodium 144
Potassium 3.6
Chloride 100
Carbon Dioxide 34 H
BUN 18 H
Creatinine 1.1 H
Glucose 121 H
Calcium 8.3 L
Total Bilirubin 0.5
AST 19
ALT 21
Alkaline Phosphatase 209 H
Vital Signs:
Vital Signs
Temp Pulse Resp BP Pulse Ox
98.2 F 71 16 141/75 96
10/20/24 23:00 10/20/24 23:00 10/20/24 23:00 10/20/24 23:00 10/20/24 23:00
I&O
10/20/24 10/21/24 10/22/24
06:59 06:59 06:59
Intake Total 960 / 960
Balance 960 / 960
Review of Systems
-
History Source: Patient
EENT: Reports No Symptoms Reported
Respiratory: Reports No Symptoms
Cardiac: Reports No Symptoms
Abdomen/GI: Reports No Symptoms
Genitourinary: Reports No Symptoms
Musculoskeletal: Reports Edema
Skin: Reports Other (See HPI )
Neuro: Reports No Symptoms
Physical Exam
-
General: Well Developed, Well Nourished and Morbidly Obese
HEENT: Normocephalic and Atraumatic
Respiratory: Clear to Auscultation
Cardiac: Regular Rhythm and S1/S2
GI: Soft, Nontender and Nondistended
Musculoskeletal: No Clubbing, No Cyanosis and Other (Bilateral lower leg edema. Left lower extremity with cellulitis and a wound-seen wrapped )
Skin: Warm
Neuro: Awake, Alert, Oriented and AO x 3
[2024-10-21 08:00] VITALS: BP 132/68
[2024-10-21 09:02] LABS: Glucose - Point of Care 216 mg/dl (70-99)
--- NOTE | 2024-10-21 09:19 | PHA.VAN.FU ---
Vancomycin Assessment / Plan
- Assessment
Renal Function: SCR Increasing (slightly increased)
WBC's are: WNL
In the past 24 hrs, patient has been: Afebrile
- Dosing Plan
Adjust Regimen to: dosing by level after 1800 dose of 1250mg tonight
SCR increased by 0.1 - may be normal fluctuation but will adjust to dosing by level after 1800 dose tonight to assess prior to further dosing
- Monitoring Plan
Random Level: 10/22 06
- Follow Up
Pharmacy will continue to follow.
Vancomycin Follow UP
- -
Patient Age: 59
Patient Sex: Female
Vancomycin Day #: 2
Indication: Skin And Soft Tissue
Requesting Provider: Junito Sharma / Dr. Youngblood
Pertinent Antimicrobial Allergies:
NKDA
Height / Weight:
Height 5 ft 4 in
Actual Weight 146.737 kg
Pertinent Past Medical History: BMI ~55, DM II
- Vital Signs / Lab Results
Temp Pulse Resp BP Pulse Ox
97.3 F 76 18 132/68 96
10/21/24 08:00 10/21/24 08:00 10/21/24 08:00 10/21/24 08:00 10/21/24 08:00
Lab Results - Hematology
10/19/24 10/19/24 10/19/24
20:54 22:08 22:59
WBC Cancelled Cancelled 6.7
10/21/24
05:50
WBC 5.4
Lab Results - Chemistry
10/19/24 10/21/24
20:54 05:50
BUN 15 18 H
Creatinine 1.0 1.1 H
Estimated Creat Clear 91 82
Albumin 3.6 3.3 L
10/19/24
20:54
Lactic Acid 2.1 H
Microbiology Results
10/19/24 22:37 Blood Culture - Preliminary
Blood/Venous No Growth in 24 hours- Final report to follow
10/19/24 22:08 Blood Culture - Preliminary
Blood/Venous No Growth in 24 hours- Final report to follow
10/19/24 23:43 Gram Stain - Preliminary
Leg - Left
[2024-10-21] MEDS: NOVOLOG FLEXPEN-MODERATE RESISTANCE SC ×3 (09:28→17:44)
[2024-10-21] MEDS: PT'S OWN INSULIN PUMP - HumaLOG 8.95 UNIT SC (09:29)
[2024-10-21] MEDS: BYSTOLIC 5 MG PO (09:31)
[2024-10-21] MEDS: PROCARDIA XL (EXTENDED RELEASE) 30 MG PO ×2 (09:32→21:31)
[2024-10-21] MEDS: LASIX 40 MG PO ×2 (09:32→21:30)
[2024-10-21] MEDS: ZESTRIL 20 MG PO (09:32)
[2024-10-21] MEDS: CYMBALTA DELAYED RELEASE 60 MG PO ×2 (09:32→21:29)
[2024-10-21] MEDS: PEPCID 20 MG PO (09:32)
[2024-10-21] MEDS: PROTONIX 40 MG PO (09:33)
[2024-10-21] MEDS: LYRICA 200 MG PO ×3 (09:33→21:31)
[2024-10-21] MEDS: LOVENOX 60 MG SC ×2 (09:33→21:31)
[2024-10-21] MEDS: LAC HYDRIN, AM LACTIN LOTION 1 APPLIC TOPICAL ×2 (09:36→21:29)
--- NOTE | 2024-10-21 10:37 | W.PN.UPDATE ---
Addendum entered and electronically signed by Jac Dacosta MD 10/21/24 13:41:
Recurrent LLE cellulitis is related to/associated with Type 2 diabetes
Original Note:
Update Note
Progress Note Update
I saw and evaluated the patient. I reviewed the resident�s note and agree with findings and plan as documented in the resident�s note.
No new complaints.
Gen: NAD, AAOx3.
Eyes: EOMI, PERRLA, no scleral icterus.
Neck: supple.
CV: remains RRR, +S1/S2, no m/r/g.
Resp: remains CTAB, no rales, wheezes, or rhonchi.
Abd: +BS, soft, NT, ND
Skin: LLE with ANNA wrap
Neuro: CN 2-12 intact, non-focal.
Psych: Normal mood and affect.
10/19/24 22:37 Blood/Venous Blood Culture - Preliminary
No Growth in 24 hours- Final report to follow
10/19/24 22:08 Blood/Venous Blood Culture - Preliminary
No Growth in 24 hours- Final report to follow
10/19/24 23:43 Leg - Left Gram Stain - Preliminary
B/L LE U/S: No findings to confirm deep venous thrombosis of the lower extremities bilaterally.
Recurrent LLE Cellulitis
-continue IV Vanco as per ID
-follow BCxs/WCx
-LLE elevation and compression
Other problems:
B/L LE swelling due to lymphedema: cont Lasix
DM2: cont insulin pump
Essential HTN: cont Nifedipine, Nebivolol, Lisinopril
Morbid obesity due to excess calories
h/o L trimalleolar fracture s/p ORIF 08/15 with subsequent hardware removal 07/16
Restless leg syndrome
DNR/Lovenox
[2024-10-21 12:22] LABS: Glucose - Point of Care 116 mg/dl (70-99)
--- NOTE | 2024-10-21 12:51 | PN.CDI ---
CDI
- -
CDI:
Physician Documentation Request
Admit Date: 10/20/24 00:04
Dear Doctor Demetri,
Patient admitted with left lower extremity cellulitis.
10/21 PN, 'Recurrent Left Lower Extremity Cellulitis....Diabetes Mellitus, Type II-Continue patient's own insulin pump.'
10/19 glucose 263
10/21 glucose 121
Please clarify the likely relationship between these conditions:
Yes, recurrent LLE cellulitis is related to/associated with Type 2 diabetes
No, recurrent LLE cellulitis is not related to/associated with Type 2 diabetes but it is due to ___. (Please specify)
Unable to determine
Use of terms such as suspected, likely, concern for, or probable (associated with a specific diagnosis that is being evaluated, monitored, or treated as if it exists) are acceptable and can be coded in the inpatient setting, when documented at the
time of discharge.
Thank you,
Kalie HOPPER,RN,CCDS
CDI Specialist
Available via [place] text
Please use your independent medical judgment in providing your response.
--- NOTE | 2024-10-21 14:18 | CM ---
Addendum entered by Lenora Gilman 10/21/24 14:38:
Plan: Home with [facility] care

Original Note:
CM met with pt to complete IA.
Pt resides with her daughter and two teenage grandsons in a 2SH with 2STE through back door.
Full flight of stairs to 2nd floor where pt sleeps and showers
Pt is (I) ambulation with [facility]PC, also has a WW.
Family available for support if needed but pt reports being (I) at baseline
Current with [facility] for wound care; Referral in [facility] for resumption of care.
PCP- China Pena
Pharm - Joan Hunt
Plan; Home with [facility]
[2024-10-21 16:00] VITALS: BP 147/82
[2024-10-21 17:29] LABS: Glucose - Point of Care 105 mg/dl (70-99)
[2024-10-21] MEDS: PT'S OWN INSULIN PUMP - HumaLOG SC ×2 (17:44→17:45)
[2024-10-21] MEDS: LIPITOR 40 MG PO (17:47)
--- NOTE | 2024-10-21 18:44 | W.PN.ID1 ---
Date of Service
Date of Service: October 21, 2024
Today's Communication
suspect fisutula development over prior surgical site
MRI with IV contrast
continue vancomycin, note that cefepime was stopped yesterday
Assessment / Plan
# Possible osteomyelitis
# Possible relapse of LLE cellulitis
# lymphedema
# hx left ankle ORIF 07/2023, hardware removed 06/2024 due to loosening (at [facility])
- possible fistula over surgical site
- MRI with IV contrast; Xray with extensive remodeling
- Continue Vancomycin for now
- cefepime was d/c'd 10/20
- Sukhdeep-wrap compression.
- Elevate leg above heart level.
# DM- uncontrolled
- Recommend tight glucose control
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
Diabetes mellitus
Peripheral neuropathy
Hypertension
TIA/CVA
Class III obesity BMI 57
Restless leg syndrome
Hx of left trimalleolar fracture status post ORIF July 2023 with subsequent hardware removal June 2024
Right elbow surgery
Childhood bladder surgery
Chief Complaint
-: Cellulitis
Subjective / Review of Systems
afebrile
bp stable
possible fistula over the previous surgical site
complains of pain in the lower extremity
Vital Signs / Physical Exam
Vital Signs
Vital Signs
Temp Pulse Resp BP Pulse Ox
98.2 F 68 16 147/82 96
10/21/24 16:00 10/21/24 16:00 10/21/24 16:00 10/21/24 16:00 10/21/24 16:00
Physical Exam
Constitutional: No Acute Distress
Cardiovascular: Regular Rate and S1/S2; Negative Murmur or Rub
Pulmonary: Clear and Symmetric; Negative Wheezes or Rales
Gastrointestinal: Soft, Non Tender, Non Distended and Normal Bowel Sounds
Skin: Warm and Dry; Negative Rash or Jaundice
Wound: Other (fistula with serous drainage)
Objective Data
Lab Data
Lab Results
10/21/24 05:50
10/21/24 05:50
Estimated Creat Clear 82 ml/min 10/21/24 05:50
Lactic Acid 2.1 mmol/L (0.7-2.0) H 10/19/24 20:54
Total Bilirubin 0.5 mg/dl (0.2-1.3) 10/21/24 05:50
AST 19 U/L (14-36) 10/21/24 05:50
ALT 21 U/L (0-35) 10/21/24 05:50
Alkaline Phosphatase 209 U/L (38-126) H 10/21/24 05:50
Most recent labs reviewed.
Micro Results:
10/19/24 23:43 Wound Culture - Preliminary
Leg - Left No growth
Gram Stain - Preliminary
10/19/24 22:37 Blood Culture - Preliminary
Blood/Venous No Growth in 24 hours- Final report to follow
10/19/24 22:08 Blood Culture - Preliminary
Blood/Venous No Growth in 24 hours- Final report to follow
10/20/24 Peripheral vasc US: no DVT
[2024-10-21 21:25] LABS: Glucose - Point of Care 129 mg/dl (70-99)
[2024-10-21] MEDS: PAMELOR 75 MG PO (21:31)
[2024-10-21] MEDS: PT'S OWN INSULIN PUMP - HumaLOG 8.5 UNIT SC (21:36)
[2024-10-21 23:00] VITALS: BP 115/64
[2024-10-22 06:00] VITALS: BMI 56.3
[2024-10-22 06:32] LABS: Hematocrit 29.8 % (37.0-47.0); Hemoglobin 9.3 g/dL (12.0-16.0); Mean Corp Hgb Conc. 31.2 g/dL (33.0-37.0); Mean Corpuscular Hgb 26.5 pg (27.0-31.0); Mean Corpuscular Volume 84.9 fL (81.0-99.0); Mean Platelet Volume 9.8 fL (7.4-10.4); Platelet Count 308 10^3/uL (130-400); Red Blood Cell Count 3.51 10^6/uL (4.20-5.40); Red Cell Dist. Width 16.6 % (11.5-14.5); White Blood Cell Count 6.5 10^3/uL (4.8-10.8)
[2024-10-22 07:00] VITALS: BP 115/71
[2024-10-22 07:12] LABS: ALT (SGPT) 18 U/L (0-35); AST (SGOT) 18 U/L (14-36); Albumin 3.3 g/dl (3.5-5.0); Alkaline Phosphatase 216 U/L (38-126); Blood Urea Nitrogen 27 mg/dl (7-17); Carbon Dioxide 32 mmol/L (22-30); Chloride 101 mmol/L (98-107); Estimated Creatinine Clearance 50 ml/min; Glucose 224 mg/dl (70-99); Potassium 3.8 mmol/L (3.5-5.1); Sodium 142 mmol/L (135-145); Total Bilirubin 0.5 mg/dl (0.2-1.3); Total Protein 6.3 g/dl (6.3-8.2); eGFR 32.46
[2024-10-22 07:17] LABS: Vancomycin Random 31.8 ug/ml
[2024-10-22] MEDS: PROTONIX 40 MG PO (08:02)
[2024-10-22] MEDS: BYSTOLIC 5 MG PO (08:02)
[2024-10-22] MEDS: LOVENOX 60 MG SC ×2 (08:02→19:44)
[2024-10-22] MEDS: LYRICA 200 MG PO ×3 (08:02→21:39)
[2024-10-22] MEDS: CYMBALTA DELAYED RELEASE 60 MG PO ×2 (08:02→19:43)
[2024-10-22] MEDS: PROCARDIA XL (EXTENDED RELEASE) PO (08:02)
[2024-10-22] MEDS: ZESTRIL 20 MG PO (08:02)
[2024-10-22] MEDS: PEPCID 20 MG PO (08:02)
[2024-10-22] MEDS: LASIX 40 MG PO (08:03)
--- NOTE | 2024-10-22 08:04 | W.PN.HOSP.TC ---
Today's Communication/Plan
-
see bold
Assessment / Plan
Assessment / Plan
Gen: NAD, AAOx3.
Eyes: EOMI, PERRLA, no scleral icterus.
Neck: supple.
CV: continues to remain RRR, +S1/S2, no m/r/g.
Resp: continues to remain CTAB, no rales, wheezes, or rhonchi.
Abd: +BS, soft, NT, ND
Skin: remains LLE with ANNA wrap
Neuro: CN 2-12 intact, non-focal.
Psych: Normal mood and affect.
10/19/24 22:37 Blood/Venous Blood Culture - Preliminary
No Growth in 48 hours- Final report to follow
10/19/24 22:08 Blood/Venous Blood Culture - Preliminary
No Growth in 48 hours- Final report to follow
10/19/24 23:43 Leg - Left Wound Culture - Preliminary
No growth
10/19/24 23:43 Leg - Left Gram Stain - Preliminary
Recurrent LLE Cellulitis:
-recurrent LLE cellulitis is related to/associated with DM2
-continue IV Vanco as per ID
-follow BCxs/WCx
-LLE elevation and compression
THAD:
-likely prerenal
-stop lasix
-gentle IVFs
-Considering the lability in the pt's renal fxn, will c/s renal
Other problems:
B/L LE swelling due to lymphedema: stop Lasix as above
DM2: cont insulin pump
Essential HTN: cont Nifedipine, Nebivolol, Lisinopril
Morbid obesity due to excess calories
h/o L trimalleolar fracture s/p ORIF 08/15 with subsequent hardware removal 07/16
Restless leg syndrome
DNR/Lovenox
Anticipated Discharge: 24 - 48 hours
Subjective/Interval History
-
Date of Service: October 22, 2024
No new complaints.
Objective Data
-
Labs:
Laboratory Results
10/22/24
05:55
WBC 6.5
Hgb 9.3 L
Hct 29.8 L
Plt Count 308
Sodium 142
Potassium 3.8
Chloride 101
Carbon Dioxide 32 H
BUN 27 H
Creatinine 1.8 H
Glucose 224 H
Calcium 8.0 L
Total Bilirubin 0.5
AST 18
ALT 18
Alkaline Phosphatase 216 H
Vital Signs:
Vital Signs
Temp Pulse Resp BP Pulse Ox
98.0 F 78 14 115/64 95
10/21/24 23:00 10/21/24 23:00 10/21/24 23:00 10/21/24 23:00 10/21/24 23:00
I&O
10/21/24 10/22/24 10/23/24
06:59 06:59 06:59
Intake Total 960 / 960 840 / 840
Balance 960 / 960 840 / 840
[2024-10-22] MEDS: NOVOLOG FLEXPEN-MODERATE RESISTANCE SC ×3 (08:09→17:14)
--- NOTE | 2024-10-22 08:13 | PHA.VAN.FU ---
Vancomycin Assessment / Plan
- Assessment
Renal Function: SCR Increasing (1.0->1.1->1.8)
WBC's are: WNL
In the past 24 hrs, patient has been: Afebrile
MRI with IV contrast
- Assessment - Therapeutic Drug Monitoring
Random Level: 31.8 - Last vanc dose was 1250 mg 10/21 180
pt received 1 gm q8h x 2; then 1250 mg q12h x 2
- Dosing Plan
Continue: dose by random level
Dosing by Level: Hold off on dosing today
- Monitoring Plan
Random Level: repeat random level AM 10/23/24
- Follow Up
Pharmacy will continue to follow.
Vancomycin Follow UP
- -
Patient Age: 59
Patient Sex: Female
Vancomycin Day #: 3
Indication: Skin And Soft Tissue
Requesting Provider: Junito Sharma / Dr. Youngblood
Pertinent Antimicrobial Allergies:
NKDA
Height / Weight:
Height 5 ft 4 in
Actual Weight 148.552 kg
Pertinent Past Medical History: BMI ~55, DM II
- Vital Signs / Lab Results
Temp Pulse Resp BP Pulse Ox
98.6 F 77 16 115/71 94
10/22/24 07:00 10/22/24 07:00 10/22/24 07:00 10/22/24 07:00 10/22/24 07:00
Lab Results - Hematology
10/19/24 10/19/24 10/19/24
20:54 22:08 22:59
WBC Cancelled Cancelled 6.7
10/21/24 10/22/24
05:50 05:55
WBC 5.4 6.5
Lab Results - Chemistry
10/19/24 10/21/24 10/22/24
20:54 05:50 05:55
BUN 15 18 H 27 H
Creatinine 1.0 1.1 H 1.8 H
Estimated Creat Clear 91 82 50
Albumin 3.6 3.3 L 3.3 L
10/19/24
20:54
Lactic Acid 2.1 H
Microbiology Results
10/19/24 22:37 Blood Culture - Preliminary
Blood/Venous No Growth in 48 hours- Final report to follow
10/19/24 22:08 Blood Culture - Preliminary
Blood/Venous No Growth in 48 hours- Final report to follow
10/19/24 23:43 Wound Culture - Preliminary
Leg - Left No growth
Gram Stain - Preliminary
Therapeutic Drug Monitoring
Random Vancomycin 31.8 ug/ml 10/22/24 05:55
[2024-10-22] MEDS: LAC HYDRIN, AM LACTIN LOTION 1 APPLIC TOPICAL ×2 (08:17→19:44)
[2024-10-22 08:24] LABS: Glucose - Point of Care 237 mg/dl (70-99)
[2024-10-22] MEDS: NSS 1000 IV (08:39)
[2024-10-22] MEDS: PT'S OWN INSULIN PUMP - HumaLOG SC ×3 (10:13→21:56)
--- NOTE | 2024-10-22 10:20 | W.PN.ID1 ---
Date of Service
Date of Service: October 22, 2024
Today's Communication
Continue abx; see below
Assessment / Plan
# Possible osteomyelitis
# Possible relapse of LLE cellulitis
# lymphedema
# hx left ankle ORIF 07/2023, hardware removed 06/2024 due to loosening (at [facility])
- possible fistula over surgical site
- await MRI with IV contrast; Xray with extensive remodeling
# THAD
- discontinue Vancomycin
- begin cefazolin
- Continue Sukhdeep-wrap compression.
- Elevate leg above heart level at least 1 hour out of 6.
# DM- uncontrolled
- Recommend tight glucose control
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
Diabetes mellitus
Peripheral neuropathy
Hypertension
TIA/CVA
Class III obesity BMI 57
Restless leg syndrome
Hx of left trimalleolar fracture status post ORIF July 2023 with subsequent hardware removal June 2024
Right elbow surgery
Childhood bladder surgery
Chief Complaint
-: Cellulitis
Subjective / Review of Systems
Patient seen and examined. Reports some improvement in lower extremity erythema. Tissues still feel tender.
Review of Systems: No Fever and No Chills
Vital Signs / Physical Exam
Vital Signs
Vital Signs
Temp Pulse Resp BP Pulse Ox
98.6 F 77 16 115/71 94
10/22/24 07:00 10/22/24 08:02 10/22/24 07:00 10/22/24 08:02 10/22/24 08:00
Physical Exam
Constitutional: No Acute Distress
Cardiovascular: Regular Rate
Pulmonary: Clear and Non Labored
Gastrointestinal: Soft, Non Tender, Non Distended and Normal Bowel Sounds
Skin: Warm and Dry; Negative Rash or Jaundice
Wound: Other (Left anterior tibial wound with serous drainage.)
Neurological: Awake and Alert
Psychological: Calm
Objective Data
Lab Data
Lab Results
10/22/24 05:55
10/22/24 05:55
Estimated Creat Clear 50 ml/min 10/22/24 05:55
Lactic Acid 2.1 mmol/L (0.7-2.0) H 10/19/24 20:54
Total Bilirubin 0.5 mg/dl (0.2-1.3) 10/22/24 05:55
AST 18 U/L (14-36) 10/22/24 05:55
ALT 18 U/L (0-35) 10/22/24 05:55
Alkaline Phosphatase 216 U/L (38-126) H 10/22/24 05:55
Most recent labs reviewed.
Micro Results:
10/19/24 22:37 Blood Culture - Preliminary
Blood/Venous No Growth in 48 hours- Final report to follow
10/19/24 22:08 Blood Culture - Preliminary
Blood/Venous No Growth in 48 hours- Final report to follow
10/19/24 23:43 Wound Culture - Preliminary
Leg - Left No growth
Gram Stain - Preliminary
10/20/24 Peripheral vasc US: no DVT
[2024-10-22 11:41] LABS: Glucose - Point of Care 172 mg/dl (70-99)
[2024-10-22] MEDS: ANCEF 10 IV ×2 (12:00→19:44)
--- NOTE | 2024-10-22 13:38 | W.CON.NEPH ---
Consultation
-
Date/Time Consultation Requested: October 22, 2024 at 7 AM
Date/Time Consultation Performed: October 22, 2024 at 1 PM
Requesting Provider: Dr. Dacosta
Performing Provider: Dr. Gloria
Reason for Consultation: Acute kidney injury
Medical History
-
Chief Complaint: Acute kidney injury
History of Present Illness:
59 y/o female past medical history of chronic lower extremity, morbid obesity, hypertension, diabetes and recent hospitalization for left lower extremity cellulitis and acute kidney injury who presents with worsen redness of left lower extremity.
Patient reports she was discharged on October 13, but states she was unable to tolerate her oral antibiotics due to vomiting
The patient was recently admitted for similar presentation with lower extremity cellulitis that she developed acute kidney injury multifactorial and was discharged with a creatinine of 2.9.
She presented to the hospital with a creatinine of 1 and has gone up to 1.7 in 48 hours.
Renal consult for acute kidney injury
Past Medical History
Hypertension, diabetes, obesity, hyperlipidemia, diabetic neuropathy
Social History
Tobacco: Non-Smoker
Alcohol: None
Family History
Family History: Not Pertinent
Allergies / Home Medications
Allergy/AdvReac Type Severity Reaction Status Date / Time
No Known Allergies Allergy Verified 10/19/24 19:25
�Medication �Instructions �Recorded �Confirmed �Type
glipizide 10 mg tablet 10 mg PO BID Diabetes 02/01/23 10/20/24 History
nortriptyline 75 mg capsule 75 mg PO HS depression/sleep 02/01/23 10/20/24 History
pioglitazone 30 mg tablet 30 mg PO DAILY Diabetes 02/01/23 10/20/24 History
atorvastatin 40 mg tablet (Lipitor) 40 mg PO QPM High Cholesterol 02/02/23 10/20/24 History
famotidine 20 mg tablet 20 mg PO DAILY Gastrointestinal 10/02/24 10/20/24 History
Issue
nebivolol 5 mg tablet 5 mg PO DAILY Blood Pressure 10/02/24 10/20/24 History
omeprazole 40 mg capsule,delayed 40 mg PO DAILY Gastrointestinal 10/02/24 10/20/24 History
release Issue
nifedipine 30 mg tablet,extended 30 mg PO BID hypertension 30 days 10/13/24 10/20/24 Rx
release #60 tabs
sodium zirconium cyclosilicate 10 10 g PO DAILY Hyperkalemia #11 ea 10/13/24 10/20/24 Rx
gram oral powder packet (Lokelma)
lisinopril 20 mg tablet 20 mg PO DAILY Blood Pressure 10/19/24 10/20/24 History
ondansetron 4 mg disintegrating 4 mg PO Q8HPRN PRN nausea 10/19/24 10/20/24 History
tablet
pregabalin 200 mg capsule 200 mg PO TID Pain 10/19/24 10/20/24 History
Patient Own Insulin Pump 1 unit SC .INSULIN LISPRO Diabetes 10/20/24 10/20/24 History
dapagliflozin propanediol 10 mg 10 mg PO DAILY Diabetes 10/20/24 10/20/24 History
tablet (Farxiga)
duloxetine 60 mg capsule,delayed 60 mg PO BID 10/20/24 10/20/24 History
release (Cymbalta) depression/anxiety/pain
furosemide 40 mg tablet (Lasix) 40 mg PO BID Fluid 10/20/24 10/20/24 History
Retention/Swelling
semaglutide 0.25 mg or 0.5 mg (2 0.5 mg SC SA Diabetes 10/20/24 10/20/24 History
mg/3 mL) subcutaneous pen injector
(Ozempic)
Review of Systems
-
Lower extremity edema and erythema
All other systems: Negative unless noted
Physical Exam
Vital Signs
Vital Signs
Temp Pulse Resp BP Pulse Ox
98.6 F 77 16 115/71 94
10/22/24 07:00 10/22/24 08:02 10/22/24 07:00 10/22/24 08:02 10/22/24 08:00
Lab Results
WBC 6.5 10^3/uL (4.8-10.8) 10/22/24 05:55
RBC 3.51 10^6/uL (4.20-5.40) L 10/22/24 05:55
Hgb 9.3 g/dL (12.0-16.0) L 10/22/24 05:55
Hct 29.8 % (37.0-47.0) L 10/22/24 05:55
Plt Count 308 10^3/uL (130-400) 10/22/24 05:55
Sodium 142 mmol/L (135-145) 10/22/24 05:55
Potassium 3.8 mmol/L (3.5-5.1) 10/22/24 05:55
Chloride 101 mmol/L (98-107) 10/22/24 05:55
Carbon Dioxide 32 mmol/L (22-30) H 10/22/24 05:55
BUN 27 mg/dl (7-17) H 10/22/24 05:55
Creatinine 1.8 mg/dL (0.6-1.0) H 10/22/24 05:55
eGFR 32.46 10/22/24 05:55
Glucose 224 mg/dl (70-99) H 10/22/24 05:55
Calcium 8.0 mg/dl (8.4-10.2) L 10/22/24 05:55
Albumin 3.3 g/dl (3.5-5.0) L 10/22/24 05:55
Physical Exam
General no acute distress
HEENT no cephalic atraumatic extraocular muscle intact no scleral icterus no JVD neck supple
lungs clear to auscultation bilateral
heart regular S1-S2 positive
abdomen soft nontender positive bowel sounds
extremities bilateral lower extremity edema
Neurologically nonfocal alert and oriented x 3
Psych normal affect no bizarre behavior
Data Reviewed
-
Ultrasound: Image Personally Visualized and interpreted
Labs: Labs Reviewed by me and Discussed with Patient
Assessment/Plan
-
59 y/o female past medical history of chronic lower extremity, morbid obesity, hypertension, diabetes and recent hospitalization for left lower extremity cellulitis and acute kidney injury who presents with worsen redness of left lower extremity.
Patient reports she was discharged on October 13, but states she was unable to tolerate her oral antibiotics due to vomiting
The patient was recently admitted for similar presentation with lower extremity cellulitis that she developed acute kidney injury multifactorial and was discharged with a creatinine of 2.9.
She presented to the hospital with a creatinine of 1 and has gone up to 1.7 in 48 hours.
Renal consult for acute kidney injury
Impression.
Acute kidney injury appears to be secondary to Lasix which should be given twice a day for lower extremity edema for the last 48 hours while on lisinopril and soft blood pressures.
Cellulitis/osteo = continue antibiotics
Chronic lymphedema
Diabetes
Obesity
Plan.
Hold diuretics
Discontinue lisinopril
Continue antibiotics renally dosed
Maintenance IV fluids running
Bladder scan as indicated if renal function continues to worsen
ordered urine indices
[2024-10-22 15:00] VITALS: BP 156/82
[2024-10-22 15:50] LABS: Urine Albumin 2+ (Neg - Trace); Urine Bilirubin Negative (Negative); Urine Character Slightly Cloudy (Clear); Urine Color Yellow; Urine Glucose Negative (Negative); Urine Ketone Negative (Negative); Urine Leukocyte 1+ (Negative); Urine Nitrite Negative (Negative); Urine Occult Blood Negative (Negative); Urine Urobilinogen Negative (Neg - 1+)
[2024-10-22 16:21] LABS: Urine Sodium 37 mmol/L (30-90)
[2024-10-22 16:28] LABS: Urine Bacteria Few (Negative); Urine Red Blood Cell 0-2 /HPF (0-2); Urine Squamous Cell >30 /LPF (Few)
[2024-10-22] MEDS: PT'S OWN INSULIN PUMP - HumaLOG 6.65 UNIT SC (17:13)
[2024-10-22] MEDS: LIPITOR 40 MG PO (17:14)
[2024-10-22 17:18] LABS: Glucose - Point of Care 204 mg/dl (70-99)
[2024-10-22] MEDS: PROCARDIA XL (EXTENDED RELEASE) 30 MG PO (19:43)
[2024-10-22] MEDS: PAMELOR 75 MG PO (21:38)
[2024-10-22 21:54] LABS: Glucose - Point of Care 178 mg/dl (70-99)
[2024-10-22 23:00] VITALS: BP 123/83
[2024-10-23] MEDS: NSS 1000 IV ×2 (03:22→19:54)
[2024-10-23] MEDS: ANCEF 10 IV ×3 (03:23→19:50)
[2024-10-23 06:00] VITALS: BMI 56.8
[2024-10-23 07:00] VITALS: BP 122/54
[2024-10-23] MEDS: NOVOLOG FLEXPEN-MODERATE RESISTANCE SC ×3 (07:47→16:35)
[2024-10-23] MEDS: CYMBALTA DELAYED RELEASE 60 MG PO ×2 (07:53→19:50)
[2024-10-23] MEDS: PEPCID 20 MG PO (07:53)
[2024-10-23] MEDS: PROTONIX 40 MG PO (07:53)
[2024-10-23] MEDS: LYRICA 200 MG PO ×3 (07:53→22:32)
[2024-10-23] MEDS: LOVENOX 60 MG SC ×2 (07:54→19:50)
[2024-10-23] MEDS: LAC HYDRIN, AM LACTIN LOTION 1 APPLIC TOPICAL ×2 (07:54→22:34)
[2024-10-23] MEDS: BYSTOLIC 5 MG PO (07:55)
[2024-10-23] MEDS: PROCARDIA XL (EXTENDED RELEASE) 30 MG PO ×2 (07:55→22:33)
[2024-10-23 08:03] LABS: Glucose - Point of Care 154 mg/dl (70-99)
[2024-10-23] MEDS: PT'S OWN INSULIN PUMP - HumaLOG SC ×4 (08:10→22:33)
[2024-10-23 08:46] LABS: Blood Urea Nitrogen 39 mg/dl (7-17); Calcium 8.3 mg/dl (8.4-10.2); Carbon Dioxide 30 mmol/L (22-30); Chloride 103 mmol/L (98-107); Estimated Creatinine Clearance 28 ml/min; Glucose 152 mg/dl (70-99); Potassium 3.9 mmol/L (3.5-5.1); Sodium 143 mmol/L (135-145); eGFR 15.68
[2024-10-23] MEDS: PT'S OWN INSULIN PUMP - HumaLOG 9.75 UNIT SC (08:48)
--- NOTE | 2024-10-23 09:30 | W.PN.HOSP.TC ---
Today's Communication/Plan
-
see plan
Assessment / Plan
Assessment / Plan
Gen: NAD, AAOx3.
Eyes: EOMI, PERRLA, no scleral icterus.
Neck: supple.
CV: RRR, +S1/S2, no m/r/g.
Resp: CTAB, no rales, wheezes, or rhonchi.
Abd: remains +BS, soft, NT, ND
Skin: continues to remain LLE with ANNA wrap
Neuro: CN 2-12 intact, non-focal.
Psych: Normal mood and affect.
10/19/24 22:37 Blood/Venous Blood Culture - Preliminary
No Growth in 72 hours- Final report to follow
10/19/24 22:08 Blood/Venous Blood Culture - Preliminary
No Growth in 72 hours- Final report to follow
10/19/24 23:43 Leg - Left Wound Culture - Final
No growth
10/19/24 23:43 Leg - Left Gram Stain - Final
Recurrent LLE Cellulitis:
-recurrent LLE cellulitis is related to/associated with DM2
-continue IV Ancef as per ID
-follow BCxs/WCx
-LLE elevation and compression
-MRI LLE pending
THAD:
-likely prerenal as well as due to ACEi and possibly Vanco
-Lasix and ACEi have been stopped
-cont IVFs
-bladder scan
-renal following, will d/w renal
Other problems:
B/L LE swelling due to lymphedema: stop Lasix as above
DM2: cont insulin pump
Essential HTN: cont Nifedipine, Nebivolol
Morbid obesity due to excess calories
h/o L trimalleolar fracture s/p ORIF 08/15 with subsequent hardware removal 07/16
Restless leg syndrome
DNR/Lovenox
Anticipated Discharge: 24 - 48 hours
Subjective/Interval History
-
Date of Service: October 23, 2024
No new complaints.
Objective Data
-
Labs:
Laboratory Results
10/23/24
08:25
Sodium 143
Potassium 3.9
Chloride 103
Carbon Dioxide 30
BUN 39 H
Creatinine 3.3 H
Glucose 152 H
Calcium 8.3 L
Vital Signs:
Vital Signs
Temp Pulse Resp BP Pulse Ox
98.7 F 79 20 122/54 92
10/23/24 07:00 10/23/24 07:00 10/23/24 07:00 10/23/24 07:00 10/23/24 08:00
I&O
10/22/24 10/23/24 10/24/24
06:59 06:59 06:59
Intake Total 840 / 840 4580 / 4580
Balance 840 / 840 4580 / 4580
[2024-10-23 12:09] LABS: Glucose - Point of Care 218 mg/dl (70-99)
--- NOTE | 2024-10-23 13:20 | PTCARENOTE ---
Patient ordered bladder scan, this RN bladder scanned her for 931 before patient voided. RN encouraged patient to void in the bathroom, which resulted of 450ml of urine. Patient bladder scanned again for 480. MD Dacosta made aware that patient was
clear she did not want to be Straight cathed and did not want an indwelling catheter either.
--- NOTE | 2024-10-23 13:31 | W.PN.NEPH.PH ---
Today's Communication / Plan
-
Bladder scan and potential Koehler catheter
Assessment/Plan
-
59 y/o female past medical history of chronic lower extremity, morbid obesity, hypertension, diabetes and recent hospitalization for left lower extremity cellulitis and acute kidney injury who presents with worsen redness of left lower extremity.
Patient reports she was discharged on October 13, but states she was unable to tolerate her oral antibiotics due to vomiting
The patient was recently admitted for similar presentation with lower extremity cellulitis that she developed acute kidney injury multifactorial and was discharged with a creatinine of 2.9.
She presented to the hospital with a creatinine of 1 and has gone up to 1.7 in 48 hours.
Renal consult for acute kidney injury
Impression.
Acute kidney injury appears to be secondary to Lasix which should be given twice a day for lower extremity edema for the last 48 hours while on lisinopril and soft blood pressures.
Cellulitis/osteo = continue antibiotics
Chronic lymphedema
Diabetes
Obesity
Plan.
Hold diuretics
Discontinue lisinopril
Continue antibiotics renally dosed
Maintenance IV fluids running
Bladder scan greater than 900
Asked her to void and if continues to have residual will need a Koehler catheter as her creatinine continues to climb currently at 3
-
-
Date of Service: October 23, 2024
CC / HPI / ROS
-
Chief Complaint:
Lower extremity swelling
History of Present Illness:
Presents with lower extremity swelling recurrent cellulitis possible osteo and acute kidney injury
Review of Systems:
No chest pain or shortness of breath
Labs
-
Labs:
WBC 6.5 10^3/uL (4.8-10.8) 10/22/24 05:55
RBC 3.51 10^6/uL (4.20-5.40) L 10/22/24 05:55
Hgb 9.3 g/dL (12.0-16.0) L 10/22/24 05:55
Hct 29.8 % (37.0-47.0) L 10/22/24 05:55
Plt Count 308 10^3/uL (130-400) 10/22/24 05:55
Sodium 143 mmol/L (135-145) 10/23/24 08:25
Potassium 3.9 mmol/L (3.5-5.1) 10/23/24 08:25
Chloride 103 mmol/L (98-107) 10/23/24 08:25
Carbon Dioxide 30 mmol/L (22-30) 10/23/24 08:25
BUN 39 mg/dl (7-17) H 10/23/24 08:25
Creatinine 3.3 mg/dL (0.6-1.0) H 10/23/24 08:25
eGFR 15.68 10/23/24 08:25
Glucose 152 mg/dl (70-99) H 10/23/24 08:25
Calcium 8.3 mg/dl (8.4-10.2) L 10/23/24 08:25
Albumin 3.3 g/dl (3.5-5.0) L 10/22/24 05:55
Physical Exam
-
Vital Signs:
Vital Signs
Temp Pulse Resp BP Pulse Ox
98.7 F 79 20 122/54 92
10/23/24 07:00 10/23/24 07:00 10/23/24 07:00 10/23/24 07:00 10/23/24 08:00
Cardiovascular:: Regular rate and rhythm
Respiratory:: Bilateral: CTA
Lung Excursion:: Normal
Abdomen:: Nontender and Soft
Bowel Sounds:: Normal
Extremity Edema:: +2: Right: and +3: Left:
Koehler Catheter: No
[2024-10-23 15:00] VITALS: BP 140/75
[2024-10-23 16:46] LABS: Glucose - Point of Care 128 mg/dl (70-99)
[2024-10-23] MEDS: LIPITOR 40 MG PO (17:11)
[2024-10-23 21:37] LABS: Glucose - Point of Care 168 mg/dl (70-99)
--- NOTE | 2024-10-23 22:27 | W.PN.UPDATE ---
Update Note
Progress Note Update
Asked to evaluate patient for period of lethargy. Per RN, she had to sternal rub patient to get response. On my evaluation, patient awoke to verbal stimuli, oriented x 3, alert. Patient states that this happens to her where she gets periods of being
very sleepy and is hard to wake up but then these periods resolve. Checked to make sure patient has not taken any additional mediations, patient states her home medications were sent home, daughters at bedside confirmed. RN to continue to monitor
overnight and advise if any further events.
[2024-10-23] MEDS: PAMELOR 75 MG PO (22:32)
[2024-10-23 23:10] VITALS: BP 143/73
--- NOTE | 2024-10-23 23:33 | PTCARENOTE ---
At start of shift, patient conversant, eating dinner tray, took medicine without issue. Pt. urinated 250 mL. At around 21:30, this RN entered room to administer HS medications. Patient lethargic, not arousing to verbal stimuli. Pt. sternal rubbed by
this RN to attempt to arouse. Patient woke up but would immediately close her eyes and go back to sleep. Patients daughters at bedside and informed this RN that patient does this at home sometimes and that she calls them her 'groggy days.' Patients
daughters also report that her overall mentation has been worse for the last month or so. DE Mosley notified and came to room to assess patient. Patient more awake and alert while ETHNOARCHAEOLOGY PROFESSOR in room to assess. Patient able to answer all
questions appropriately and able to safely take medications. VSS. BG 168. Pt. reports feeling 'fine, just a groggy day.' Plan of care ongoing. Will continue to monitor.
[2024-10-24] MEDS: ANCEF 10 IV ×3 (03:49→20:23)
[2024-10-24 06:00] VITALS: BMI 57.4
[2024-10-24 07:43] VITALS: BP 122/72
[2024-10-24] MEDS: CYMBALTA DELAYED RELEASE 60 MG PO ×2 (07:49→20:23)
[2024-10-24] MEDS: PEPCID 20 MG PO (07:49)
[2024-10-24] MEDS: LOVENOX 60 MG SC ×2 (07:49→20:24)
[2024-10-24] MEDS: LYRICA 200 MG PO ×3 (07:49→21:42)
[2024-10-24] MEDS: PROCARDIA XL (EXTENDED RELEASE) 30 MG PO ×2 (07:49→20:24)
[2024-10-24] MEDS: PROTONIX 40 MG PO (07:49)
[2024-10-24] MEDS: BYSTOLIC 5 MG PO (07:49)
[2024-10-24] MEDS: NOVOLOG FLEXPEN-MODERATE RESISTANCE SC ×3 (07:49→16:27)
[2024-10-24] MEDS: LAC HYDRIN, AM LACTIN LOTION 1 APPLIC TOPICAL ×2 (07:52→20:29)
[2024-10-24 07:55] LABS: Glucose - Point of Care 234 mg/dl (70-99)
[2024-10-24] MEDS: PT'S OWN INSULIN PUMP - HumaLOG 8.55 UNIT SC (07:57)
--- NOTE | 2024-10-24 08:17 | W.PN.HOSP.TC ---
Today's Communication/Plan
-
see bold
Assessment / Plan
Assessment / Plan
Gen: NAD, AAOx3.
Eyes: EOMI, PERRLA, no scleral icterus.
Neck: supple.
CV: Remains RRR, +S1/S2, no m/r/g.
Resp: CTAB, no rales, wheezes, or rhonchi.
Abd: Continues to remain +BS, soft, NT, ND
Skin: LLE with ANNA wrap
Neuro: CN 2-12 intact, non-focal.
Psych: Normal mood and affect.
10/19/24 22:37 Blood/Venous Blood Culture - Preliminary
No Growth in 4 days- Final report to follow
10/19/24 22:08 Blood/Venous Blood Culture - Preliminary
No Growth in 4 days- Final report to follow
10/19/24 23:43 Leg - Left Wound Culture - Final
No growth
10/19/24 23:43 Leg - Left Gram Stain - Final
Recurrent LLE Cellulitis:
-recurrent LLE cellulitis is related to/associated with DM2
-continue IV Ancef as per ID
-follow BCxs/WCx
-LLE elevation and compression
-MRI LLE pending (ordered 10/22/24)
THAD:
-likely due to ACEi and Vanco as well as post-renal
-Lasix/ACEi/Vanco have been stopped
-cont IVFs
-10/23/24 bladder scan for 931cc pre-void, 480cc post-void. Pt refused straight cath and/or wang.
-Cr worsening. I explained to the pt that her renal function could continue to worsen if she does not allow us to straight cath and/or place wang.
-renal following
Other problems:
B/L LE swelling due to lymphedema: Lasix stopped as above
DM2: cont insulin pump
Essential HTN: cont Nifedipine, Nebivolol
Morbid obesity due to excess calories
h/o L trimalleolar fracture s/p ORIF 08/15 with subsequent hardware removal 07/16
Restless leg syndrome
DNR/Lovenox
Anticipated Discharge: 24 - 48 hours
Subjective/Interval History
-
Date of Service: October 24, 2024
No new complaints.
Objective Data
-
Vital Signs:
Vital Signs
Temp Pulse Resp BP Pulse Ox
98.1 F 71 16 122/72 95
10/24/24 07:43 10/24/24 07:43 10/24/24 07:43 10/24/24 07:43 10/24/24 07:43
I&O
10/23/24 10/24/24 10/25/24
06:59 06:59 06:59
Intake Total 4580 / 4580 1380 / 1860 480 / 480
Output Total 600 / 1550 950 / 950
Balance 4580 / 4580 780 / 310 -470 / -470
[2024-10-24 08:58] LABS: Blood Urea Nitrogen 44 mg/dl (7-17); Calcium 8.1 mg/dl (8.4-10.2); Carbon Dioxide 30 mmol/L (22-30); Chloride 103 mmol/L (98-107); Estimated Creatinine Clearance 23 ml/min; Glucose 184 mg/dl (70-99); Potassium 4.3 mmol/L (3.5-5.1); Sodium 144 mmol/L (135-145); eGFR 12.83
[2024-10-24 11:27] LABS: Glucose - Point of Care 175 mg/dl (70-99)
--- NOTE | 2024-10-24 12:14 | W.PN.NEPH.PH ---
Today's Communication / Plan
-
follow BMP
Assessment/Plan
-
59 y/o female past medical history of chronic lower extremity, morbid obesity, hypertension, diabetes and recent hospitalization for left lower extremity cellulitis and acute kidney injury who presents with worsen redness of left lower extremity.
Patient reports she was discharged on October 13, but states she was unable to tolerate her oral antibiotics due to vomiting
The patient was recently admitted for similar presentation with lower extremity cellulitis that she developed acute kidney injury multifactorial and was discharged with a creatinine of 2.9.
She presented to the hospital with a creatinine of 1 and has gone up to 1.7 in 48 hours.
Renal consult for acute kidney injury
Impression.
Acute kidney injury appears to be secondary to Lasix which should be given twice a day for lower extremity edema for the last 48 hours while on lisinopril and soft blood pressures.
Cellulitis/osteo = continue antibiotics
Chronic lymphedema
Diabetes
Obesity
Plan.
Hold diuretics
hold lisinopril
Continue antibiotics renally dosed
flomax
d/w pt felipe, she says she will talk to her daughter. We discussed possible need for dialysis if her renal function continues to worsen
no emergent HD needs currently
-
-
Date of Service: October 24, 2024
CC / HPI / ROS
-
Chief Complaint:
Lower extremity swelling
History of Present Illness:
THAD/Cr worse to 3.9
on abx for cellulitis
BP stable
refusing Koehler
Review of Systems:
No chest pain or shortness of breath
Labs
-
Labs:
WBC 6.5 10^3/uL (4.8-10.8) 10/22/24 05:55
RBC 3.51 10^6/uL (4.20-5.40) L 10/22/24 05:55
Hgb 9.3 g/dL (12.0-16.0) L 10/22/24 05:55
Hct 29.8 % (37.0-47.0) L 10/22/24 05:55
Plt Count 308 10^3/uL (130-400) 10/22/24 05:55
Sodium 144 mmol/L (135-145) 10/24/24 08:29
Potassium 4.3 mmol/L (3.5-5.1) 10/24/24 08:29
Chloride 103 mmol/L (98-107) 10/24/24 08:29
Carbon Dioxide 30 mmol/L (22-30) 10/24/24 08:29
BUN 44 mg/dl (7-17) H 10/24/24 08:29
Creatinine 3.9 mg/dL (0.6-1.0) H 10/24/24 08:29
eGFR 12.83 10/24/24 08:29
Glucose 184 mg/dl (70-99) H 10/24/24 08:29
Calcium 8.1 mg/dl (8.4-10.2) L 10/24/24 08:29
Albumin 3.3 g/dl (3.5-5.0) L 10/22/24 05:55
Physical Exam
-
Vital Signs:
Vital Signs
Temp Pulse Resp BP Pulse Ox
98.1 F 71 16 122/72 95
10/24/24 07:43 10/24/24 07:43 10/24/24 07:43 10/24/24 07:43 10/24/24 08:15
Cardiovascular:: Regular rate and rhythm
Respiratory:: Bilateral: Coarse
Lung Excursion:: Normal
Abdomen:: Nontender and Soft
Bowel Sounds:: Normal
Extremity Edema:: +3: Bilateral:
[2024-10-24] MEDS: PT'S OWN INSULIN PUMP - HumaLOG SC ×3 (12:42→22:26)
[2024-10-24] MEDS: NSS 1000 IV (12:56)
[2024-10-24] MEDS: FLOMAX 0.4 MG PO (12:58)
[2024-10-24 15:34] VITALS: BP 131/72
[2024-10-24 16:25] LABS: Glucose - Point of Care 179 mg/dl (70-99)
--- NOTE | 2024-10-24 16:36 | PTCARENOTE ---
patient ordered indwelling wang catheter in AM. Nurse informed patient of this order and patient refused indwelling catheter. Patient education was given.Patient still refused and MD Dacosta notified. Will continue to bladder scan patient
[2024-10-24] MEDS: LIPITOR 40 MG PO (17:24)
[2024-10-24 21:40] LABS: Glucose - Point of Care 206 mg/dl (70-99)
[2024-10-24] MEDS: PAMELOR 75 MG PO (21:43)
[2024-10-24 23:53] VITALS: BP 132/73
[2024-10-25] MEDS: ANCEF 10 IV ×3 (04:42→21:46)
[2024-10-25 06:00] VITALS: BMI 57.7
[2024-10-25 07:30] VITALS: BP 114/63
[2024-10-25 08:12] LABS: Glucose - Point of Care 204 mg/dl (70-99)
[2024-10-25] MEDS: CYMBALTA DELAYED RELEASE 60 MG PO ×2 (08:40→20:10)
[2024-10-25] MEDS: PROTONIX 40 MG PO (08:40)
[2024-10-25] MEDS: BYSTOLIC 5 MG PO (08:40)
[2024-10-25] MEDS: FLOMAX 0.4 MG PO (08:41)
[2024-10-25] MEDS: LOVENOX 60 MG SC (08:41)
[2024-10-25] MEDS: PEPCID 20 MG PO (08:41)
[2024-10-25] MEDS: PROCARDIA XL (EXTENDED RELEASE) PO (08:41)
[2024-10-25] MEDS: LYRICA 200 MG PO ×3 (08:41→21:45)
[2024-10-25] MEDS: LAC HYDRIN, AM LACTIN LOTION 1 APPLIC TOPICAL ×2 (08:42→20:17)
[2024-10-25] MEDS: NSS 1000 IV (08:43)
--- NOTE | 2024-10-25 08:58 | W.PN.HOSP.TC ---
Today's Communication/Plan
-
Koehler Catheter
Stop Lovenox
change to SQ heparin
Assessment / Plan
Assessment / Plan
Physical exam:
Gen: NAD, obese.
Eyes: EOMI, PERRLA, no scleral icterus.
Neck: supple.
CV: Remains RRR, +S1/S2, no m/r/g.
Resp: CTAB, no rales, wheezes, or rhonchi.
Abd: Continues to remain +BS, soft, NT, ND
Skin: LLE with ANNA wrap
Neuro: AAOX3, she follows commands, non-focal.
Psych: Normal mood and affect.
A/P :
Recurrent LLE Cellulitis:
-recurrent LLE cellulitis is related to/associated with DM2
-continue IV Ancef as per ID
-follow BCxs/WCx
-LLE elevation and compression
--Peripheral vascular ultrasound: No findings to confirm deep venous thrombosis of the lower extremities bilaterally
-MRI LLE pending (ordered 10/22/24)
THAD:
-likely due to combination of urinary retention, ANNA.
-Lasix/ACEi/Vanco have been stopped
-c/w IVF
- Started on Flomax
- d/w pharmacist, renally adjusted medications.
-Cr worsening. She refused Koehler but agreed today
# DM2: cont insulin pump
# Essential HTN: cont Nifedipine, Nebivolol
# Morbid obesity due to excess calories
# h/o L trimalleolar fracture s/p ORIF 08/15 with subsequent hardware removal 07/16
# Restless leg syndrome
DNR/Lovenox
Total time spent to see the patient, examine the patient, review data and lab result, discuss treatment plan with patient, nursing staff around 55 minutes
Anticipated Discharge: > 48 hours
Subjective/Interval History
-
Date of Service: October 25, 2024
No chest pain
No sob
Objective Data
-
Labs:
Laboratory Results
10/25/24
08:15
Sodium Pending
Potassium Pending
Chloride Pending
Carbon Dioxide Pending
BUN Pending
Creatinine Pending
Glucose Pending
Calcium Pending
Vital Signs:
Vital Signs
Temp Pulse Resp BP Pulse Ox
98.1 F 76 18 114/63 94
10/25/24 07:30 10/25/24 08:41 10/25/24 07:30 10/25/24 08:41 10/24/24 23:53
I&O
10/24/24 10/25/24 10/26/24
06:59 06:59 06:59
Intake Total 1380 / 1860 480 / 480
Output Total 600 / 1550 950 / 950
Balance 780 / 310 -470 / -470
[2024-10-25 09:16] LABS: Blood Urea Nitrogen 43 mg/dl (7-17); Carbon Dioxide 29 mmol/L (22-30); Chloride 102 mmol/L (98-107); Estimated Creatinine Clearance 22 ml/min; Glucose 200 mg/dl (70-99); Potassium 4.8 mmol/L (3.5-5.1); Sodium 141 mmol/L (135-145); eGFR 12.09
[2024-10-25] MEDS: PT'S OWN INSULIN PUMP - HumaLOG SC ×4 (10:11→23:05)
[2024-10-25] MEDS: NOVOLOG FLEXPEN-MODERATE RESISTANCE 3 UNITS SC ×3 (10:30→17:30)
--- NOTE | 2024-10-25 11:43 | W.PN.NEPH.PH ---
Today's Communication / Plan
-
follow BMP
Assessment/Plan
-
59 y/o female past medical history of chronic lower extremity, morbid obesity, hypertension, diabetes and recent hospitalization for left lower extremity cellulitis and acute kidney injury who presents with worsen redness of left lower extremity.
Patient reports she was discharged on October 13, but states she was unable to tolerate her oral antibiotics due to vomiting
The patient was recently admitted for similar presentation with lower extremity cellulitis that she developed acute kidney injury multifactorial and was discharged with a creatinine of 2.9.
She presented to the hospital with a creatinine of 1 and has gone up to 1.7 in 48 hours.
Renal consult for acute kidney injury
Impression.
Acute kidney injury appears to be secondary to Lasix which should be given twice a day for lower extremity edema for the last 48 hours while on lisinopril and soft blood pressures.
Cellulitis/osteo = continue antibiotics
Chronic lymphedema
Diabetes
Obesity
Plan.
Hold diuretics
hold lisinopril
Continue antibiotics renally dosed
flomax
maintain wang at least 48 hours, then determine voiding trial
-
-
Date of Service: October 25, 2024
CC / HPI / ROS
-
Chief Complaint:
Lower extremity swelling
History of Present Illness:
THAD/Cr worse to 4.1
on abx for cellulitis
BP stable
accepted Wang yesterday
Review of Systems:
No chest pain or shortness of breath
Labs
-
Labs:
WBC 6.5 10^3/uL (4.8-10.8) 10/22/24 05:55
RBC 3.51 10^6/uL (4.20-5.40) L 10/22/24 05:55
Hgb 9.3 g/dL (12.0-16.0) L 10/22/24 05:55
Hct 29.8 % (37.0-47.0) L 10/22/24 05:55
Plt Count 308 10^3/uL (130-400) 10/22/24 05:55
Sodium 141 mmol/L (135-145) 10/25/24 08:15
Potassium 4.8 mmol/L (3.5-5.1) 10/25/24 08:15
Chloride 102 mmol/L (98-107) 10/25/24 08:15
Carbon Dioxide 29 mmol/L (22-30) 10/25/24 08:15
BUN 43 mg/dl (7-17) H 10/25/24 08:15
Creatinine 4.1 mg/dL (0.6-1.0) H* 10/25/24 08:15
eGFR 12.09 10/25/24 08:15
Glucose 200 mg/dl (70-99) H 10/25/24 08:15
Calcium 8.0 mg/dl (8.4-10.2) L 10/25/24 08:15
Albumin 3.3 g/dl (3.5-5.0) L 10/22/24 05:55
Physical Exam
-
Vital Signs:
Vital Signs
Temp Pulse Resp BP Pulse Ox
98.1 F 76 18 114/63 94
10/25/24 07:30 10/25/24 08:41 10/25/24 07:30 10/25/24 08:41 10/24/24 23:53
Cardiovascular:: Regular rate and rhythm
Respiratory:: Bilateral: Coarse
Lung Excursion:: Normal
Abdomen:: Nontender and Soft
Bowel Sounds:: Normal
Extremity Edema:: None: Bilateral:
[2024-10-25 11:58] LABS: Glucose - Point of Care 200 mg/dl (70-99)
[2024-10-25 16:00] VITALS: BP 155/89
--- NOTE | 2024-10-25 16:49 | W.PN.ID1 ---
Date of Service
Date of Service: October 25, 2024
Today's Communication
continue cefazolin
follow renal function
Assessment / Plan
# Possible osteomyelitis
# Possible relapse of LLE cellulitis
# lymphedema
# hx left ankle ORIF 07/2023, hardware removed 06/2024 due to loosening (at [facility])
- possible fistula over surgical site
- MRI showed severe cellulitis, possible tenosynovitis, and enhancing granulation tissue, osseous fragmentation of the calcaneous
- obtain records from [facility]
# TAHD
- c/w cefazolin
- Continue Sukhdeep-wrap compression.
- Elevate leg above heart level at least 1 hour out of 6.
# DM- uncontrolled
- Recommend tight glucose control
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
Diabetes mellitus
Peripheral neuropathy
Hypertension
TIA/CVA
Class III obesity BMI 57
Restless leg syndrome
Hx of left trimalleolar fracture status post ORIF July 2023 with subsequent hardware removal June 2024
Right elbow surgery
Childhood bladder surgery
Chief Complaint
-: Cellulitis
Subjective / Review of Systems
afebrile
bp stable
note further progression of THAD
resolving cellulitis, ongoing drainage from the fistula
Vital Signs / Physical Exam
Vital Signs
Vital Signs
Temp Pulse Resp BP Pulse Ox
98.0 F 71 18 155/89 97
10/25/24 16:00 10/25/24 16:00 10/25/24 16:00 10/25/24 16:00 10/25/24 16:00
Physical Exam
Constitutional: No Acute Distress
Cardiovascular: Regular Rate and S1/S2; Negative Murmur or Rub
Pulmonary: Clear and Symmetric; Negative Wheezes or Rales
Gastrointestinal: Soft, Non Tender, Non Distended and Normal Bowel Sounds
Skin: Warm and Dry; Negative Rash or Jaundice
Objective Data
Lab Data
Lab Results
10/22/24 05:55
10/25/24 08:15
Estimated Creat Clear 22 ml/min 10/25/24 08:15
Lactic Acid 2.1 mmol/L (0.7-2.0) H 10/19/24 20:54
Total Bilirubin 0.5 mg/dl (0.2-1.3) 10/22/24 05:55
AST 18 U/L (14-36) 10/22/24 05:55
ALT 18 U/L (0-35) 10/22/24 05:55
Alkaline Phosphatase 216 U/L (38-126) H 10/22/24 05:55
Most recent labs reviewed.
Micro Results:
10/19/24 22:37 Blood Culture - Final
Blood/Venous No Growth - Final Report
10/19/24 22:08 Blood Culture - Final
Blood/Venous No Growth - Final Report
10/19/24 23:43 Wound Culture - Final
Leg - Left No growth
Gram Stain - Final
10/20/24 Peripheral vasc US: no DVT
[2024-10-25 17:11] LABS: Glucose - Point of Care 247 mg/dl (70-99)
[2024-10-25] MEDS: LIPITOR 40 MG PO (17:32)
[2024-10-25] MEDS: PROCARDIA XL (EXTENDED RELEASE) 30 MG PO (20:10)
[2024-10-25] MEDS: HEPARIN 5000 UNITS SC (20:15)
[2024-10-25] MEDS: PAMELOR 75 MG PO (21:45)
[2024-10-25 22:25] LABS: Glucose - Point of Care 214 mg/dl (70-99)
[2024-10-25 23:05] VITALS: BP 142/80
[2024-10-26 06:00] VITALS: BMI 57.8
[2024-10-26 07:15] VITALS: BP 142/75
[2024-10-26 07:39] LABS: Blood Urea Nitrogen 45 mg/dl (7-17); Calcium 8.2 mg/dl (8.4-10.2); Carbon Dioxide 27 mmol/L (22-30); Chloride 102 mmol/L (98-107); Estimated Creatinine Clearance 22 ml/min; Glucose 282 mg/dl (70-99); Potassium 4.7 mmol/L (3.5-5.1); Sodium 142 mmol/L (135-145); eGFR 11.74
[2024-10-26 07:53] LABS: Glucose - Point of Care 288 mg/dl (70-99)
[2024-10-26] MEDS: NOVOLOG FLEXPEN-MODERATE RESISTANCE 5 UNITS SC (08:37)
[2024-10-26] MEDS: PT'S OWN INSULIN PUMP - HumaLOG SC ×3 (08:37→17:50)
[2024-10-26] MEDS: FLOMAX 0.4 MG PO (08:43)
[2024-10-26] MEDS: PROTONIX 40 MG PO (08:43)
[2024-10-26] MEDS: BYSTOLIC 5 MG PO (08:43)
[2024-10-26] MEDS: HEPARIN 5000 UNITS SC ×2 (08:43→22:02)
[2024-10-26] MEDS: CYMBALTA DELAYED RELEASE 60 MG PO ×2 (08:47→22:01)
[2024-10-26] MEDS: PROCARDIA XL (EXTENDED RELEASE) 30 MG PO ×2 (08:47→22:33)
[2024-10-26] MEDS: LYRICA 200 MG PO ×3 (08:47→22:05)
[2024-10-26] MEDS: NSS 1000 IV (08:58)
[2024-10-26] MEDS: LAC HYDRIN, AM LACTIN LOTION 1 APPLIC TOPICAL ×2 (09:01→22:04)
[2024-10-26] MEDS: ANCEF 10 IV ×2 (10:47→22:04)
[2024-10-26 11:50] LABS: Glucose - Point of Care 142 mg/dl (70-99)
--- NOTE | 2024-10-26 11:54 | W.PN.HOSP.TC ---
Today's Communication/Plan
-
cont wang/IVF
cont to renal dose meds
await renal input
Assessment / Plan
Assessment / Plan
pt is a 59 year old female
Recurrent LLE Cellulitis--related to DM type 2--cont ancef and anna-wrap--apprec ID--no DVT on US--MRI LE with severe cellulitis left lower leg, ankle, foot
THAD--likely due to combination of urinary retention, ANNA--wang placed / BUT creat rising up to 4.2--cont flomax--anna/vanco stopped--renal adjusting meds, apprec pharmacy help--c/w IVF
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
Essential HTN--cont Nifedipine, Nebivolol
Morbid obesity due to excess calories
h/o L trimalleolar fracture s/p ORIF 08/15 with subsequent hardware removal 07/16
Restless leg syndrome
DVT proph
code status--DNR
Anticipated Discharge: > 48 hours
Subjective/Interval History
-
Date of Service: October 26, 2024
pt without c/o--says leg is improving
Objective Data
-
Labs:
Laboratory Results
10/26/24
06:18
Sodium 142
Potassium 4.7
Chloride 102
Carbon Dioxide 27
BUN 45 H
Creatinine 4.2 H*
Glucose 282 H
Calcium 8.2 L
Vital Signs:
max temp for 24 hours
10/25/24
23:00
Temp 99.0 F
Vital Signs
Temp Pulse Resp BP Pulse Ox
98.0 F 78 16 142/75 95
10/26/24 07:15 10/26/24 08:43 10/26/24 07:15 10/26/24 08:43 10/26/24 07:15
I&O
10/25/24 10/26/24 10/27/24
06:59 06:59 06:59
Intake Total 480 / 480 2820 / 2820
Output Total 950 / 950 3400 / 3400
Balance -470 / -470 -580 / -580
Review of Systems
-
All other systems: Reviewed and negative
Physical Exam
-
General: Well Developed, Well Nourished, No Apparent Distress and Morbidly Obese
HEENT: Normocephalic and Atraumatic; Negative Oxygen
Respiratory: Clear to Auscultation; Negative Wheezes or Rhonchi
Cardiac: Regular Rhythm and S1/S2; Negative Murmur
GI: Soft, Nontender, Nondistended and Normal Bowel Sounds
Genito-urinary: Wang (clear urine)
Musculoskeletal: No Clubbing and No Cyanosis; Negative No Edema (LE edema bilaterally--left > right--left leg with anna wrap)
Skin: Warm
Neuro: Awake
Psych: Calm
--- NOTE | 2024-10-26 12:28 | PN.DE.MGMTRT ---
Insulin Management
- -
10/26/2024: Diabetes Management Consult
10/19 with LLE cellulitis. recently discharged with same. PMH: HTN, HLD, morbid obesity, Diabetic Neuropathy, Uncontrolled IDDM, trimalleolar fracture s/p repair and revision, chronic ambulatory dysfunction. Prior to admission was using the OmniPod
insulin pump with DexCom G6 CGM with Humalog insulin. Patient states she requires up to 66 units of insulin per day. Current A1C is 8.4%, Cr 4.5, eGFR 10.81
Pt awake, alert, oriented, resting in bed, offers no complaints. Patient states she has had diabetes 30+ years and sees Pamela Diego, endocrinology, at [facility] for the past 2 years. She states she does not count carbs. She was told by her endo to
enter 50 grams of carb for each meal and whatever the blood sugar is. Offered again to teach carb counting with patient, she states not necessary I just do what the endo doctor said, but maybe someday.
Patient reports her pump was removed, had to wait for new supplies. Pump is on now and she is administering bolus. Will d/c corrective insulin. Fasting this AM 282. Will make no changes to pump settings.
Pump settings as follows:
Basal rate 1.1 24 hours
I:CHO ratio 1: 6
Sensitivity 1:34
Active insulin 4 hours.
Discussed with nurse. Pump worksheet to be explained to patient and placed at bedside.
Diabetes History
- -
Type of Diabetes: 2 requiring insulin
Pre-Admission Diabetes Regimen
10/26/24
06:18
Creatinine 4.2 H*
Insulin Pump Settings
IP Diabetes Regimen
10/25/24 10/25/24 10/26/24
17:10 22:23 06:18
Glucose 282 H
POC Glucose 247 H 214 H
10/26/24 10/26/24
07:52 11:48
Glucose
POC Glucose 288 H 142 H
Patient Education
--- NOTE | 2024-10-26 12:31 | W.PN.NEPH.PH ---
Today's Communication / Plan
-
Maintain Wang
Assessment/Plan
-
59 y/o female past medical history of chronic lower extremity, morbid obesity, hypertension, diabetes and recent hospitalization for left lower extremity cellulitis and acute kidney injury who presents with worsen redness of left lower extremity.
Patient reports she was discharged on October 13, but states she was unable to tolerate her oral antibiotics due to vomiting
The patient was recently admitted for similar presentation with lower extremity cellulitis that she developed acute kidney injury multifactorial and was discharged with a creatinine of 2.9.
She presented to the hospital with a creatinine of 1 and has gone up to 1.7 in 48 hours.
Renal consult for acute kidney injury
Impression.
Acute kidney injury appears to be secondary to Lasix which should be given twice a day for lower extremity edema for the last 48 hours while on lisinopril and soft blood pressures.
Cellulitis/osteo = continue antibiotics
Chronic lymphedema
Diabetes
Obesity
Plan.
Hold diuretics
hold lisinopril
Continue antibiotics renally dosed
flomax
maintain wang for another 24 hours
IV fluids
-
-
Date of Service: October 26, 2024
CC / HPI / ROS
-
Chief Complaint:
Lower extremity swelling
History of Present Illness:
THAD/Cr worse to 4.1
on abx for cellulitis
BP stable
Review of Systems:
No chest pain or shortness of breath
Labs
-
Labs:
WBC 6.5 10^3/uL (4.8-10.8) 10/22/24 05:55
RBC 3.51 10^6/uL (4.20-5.40) L 10/22/24 05:55
Hgb 9.3 g/dL (12.0-16.0) L 10/22/24 05:55
Hct 29.8 % (37.0-47.0) L 10/22/24 05:55
Plt Count 308 10^3/uL (130-400) 10/22/24 05:55
Sodium 142 mmol/L (135-145) 10/26/24 06:18
Potassium 4.7 mmol/L (3.5-5.1) 10/26/24 06:18
Chloride 102 mmol/L (98-107) 10/26/24 06:18
Carbon Dioxide 27 mmol/L (22-30) 10/26/24 06:18
BUN 45 mg/dl (7-17) H 10/26/24 06:18
Creatinine 4.2 mg/dL (0.6-1.0) H* 10/26/24 06:18
eGFR 11.74 10/26/24 06:18
Glucose 282 mg/dl (70-99) H 10/26/24 06:18
Calcium 8.2 mg/dl (8.4-10.2) L 10/26/24 06:18
Albumin 3.3 g/dl (3.5-5.0) L 10/22/24 05:55
Physical Exam
-
Vital Signs:
Vital Signs
Temp Pulse Resp BP Pulse Ox
98.0 F 78 16 142/75 95
10/26/24 07:15 10/26/24 08:43 10/26/24 07:15 10/26/24 08:43 10/26/24 07:15
Cardiovascular:: Regular rate and rhythm
Respiratory:: Bilateral: CTA and Bilateral: Coarse
Lung Excursion:: Normal
Abdomen:: Nontender and Soft
Bowel Sounds:: Normal
Extremity Edema:: None: Bilateral:
[2024-10-26] MEDS: NOVOLOG FLEXPEN-MODERATE RESISTANCE SC (12:48)
[2024-10-26 15:30] VITALS: BP 112/62
--- NOTE | 2024-10-26 16:44 | W.PN.ID1 ---
Date of Service
Date of Service: October 26, 2024
Today's Communication
- MRI showed severe cellulitis, possible tenosynovitis, and enhancing granulation tissue which can be either infection or post operative healing; however given her overall history of recurrent fistula, myositis and osseous fragmentation of the
calcaneous without previous treatment, my suspicion for subacute osteomyelitis is high. She seems to be responding well to IV cefazolin
- plan a 6 week course of IV antibiotics
- follow renal function
Assessment / Plan
# Probable osteomyelitis with resolving fistula
# Relapse of LLE cellulitis - resolving
# lymphedema
# hx left ankle ORIF 07/2023, hardware removed 06/2024 due to loosening (at [facility])
- probable fistula over surgical site - now healing
- MRI showed severe cellulitis, possible tenosynovitis, and enhancing granulation tissue which can be either infection or post operative healing; however given her overall history of recurrent fistula, myositis and osseous fragmentation of the
calcaneous without previous treatment, my suspicion for subacute osteomyelitis is high. She seems to be responding well to IV cefazolin
- plan a 6 week course of IV antibiotics
- previous hardwear has been removed
- obtain records from [facility] - still pending
# THAD
- c/w cefazolin - she appears to be improving on this regimen, renally dose
- Continue Sukhdeep-wrap compression.
- Elevate leg above heart level at least 1 hour out of 6.
# DM- uncontrolled
- Recommend tight glucose control
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
Diabetes mellitus
Peripheral neuropathy
Hypertension
TIA/CVA
Class III obesity BMI 57
Restless leg syndrome
Hx of left trimalleolar fracture status post ORIF July 2023 with subsequent hardware removal June 2024
Right elbow surgery
Childhood bladder surgery
Chief Complaint
-: Cellulitis and Other (suspected osteomyelitis)
Subjective / Review of Systems
afebrile
bp stable
Vital Signs / Physical Exam
Vital Signs
Vital Signs
Temp Pulse Resp BP Pulse Ox
97.6 F 71 18 112/62 94
10/26/24 15:30 10/26/24 15:30 10/26/24 15:30 10/26/24 15:30 10/26/24 15:30
Physical Exam
Constitutional: No Acute Distress
Cardiovascular: Regular Rate and S1/S2; Negative Murmur or Rub
Pulmonary: Clear and Symmetric; Negative Wheezes or Rales
Gastrointestinal: Soft, Non Tender, Non Distended and Normal Bowel Sounds
Skin: Warm and Dry; Negative Rash (fistula healed, erythema markedly improved, pain improving) or Jaundice
Objective Data
Lab Data
Lab Results
10/22/24 05:55
10/26/24 06:18
Estimated Creat Clear 22 ml/min 10/26/24 06:18
Lactic Acid 2.1 mmol/L (0.7-2.0) H 10/19/24 20:54
Total Bilirubin 0.5 mg/dl (0.2-1.3) 10/22/24 05:55
AST 18 U/L (14-36) 10/22/24 05:55
ALT 18 U/L (0-35) 10/22/24 05:55
Alkaline Phosphatase 216 U/L (38-126) H 10/22/24 05:55
Most recent labs reviewed.
Micro Results:
10/19/24 22:37 Blood Culture - Final
Blood/Venous No Growth - Final Report
10/19/24 22:08 Blood Culture - Final
Blood/Venous No Growth - Final Report
10/19/24 23:43 Wound Culture - Final
Leg - Left No growth
Gram Stain - Final
10/20/24 Peripheral vasc US: no DVT
[2024-10-26 17:03] LABS: Glucose - Point of Care 100 mg/dl (70-99)
[2024-10-26] MEDS: LIPITOR 40 MG PO (17:23)
[2024-10-26 21:26] LABS: Glucose - Point of Care 124 mg/dl (70-99)
[2024-10-26 22:33] VITALS: BP 145/75
[2024-10-26] MEDS: PAMELOR 75 MG PO (22:33)
[2024-10-26 23:00] VITALS: BP 153/85
[2024-10-26] MEDS: PT'S OWN INSULIN PUMP - HumaLOG 11.65 UNIT SC (23:38)
[2024-10-27 05:59] VITALS: BMI 58.8
[2024-10-27 07:05] VITALS: BP 135/74
[2024-10-27 07:22] LABS: Blood Urea Nitrogen 46 mg/dl (7-17); Calcium 8.3 mg/dl (8.4-10.2); Carbon Dioxide 27 mmol/L (22-30); Chloride 106 mmol/L (98-107); Estimated Creatinine Clearance 22 ml/min; Glucose 172 mg/dl (70-99); Potassium 4.7 mmol/L (3.5-5.1); Sodium 146 mmol/L (135-145); eGFR 11.74
--- NOTE | 2024-10-27 07:27 | PN.DE.MGMTRT ---
Insulin Management
- -
10/27/2024: Diabetes Management Consult
Patient admitted with LLE cellulitis. recently discharged with same. PMH: HTN, HLD, morbid obesity, Diabetic Neuropathy, Uncontrolled IDDM, trimalleolar fracture s/p repair and revision, chronic ambulatory dysfunction. Prior to admission was using
the OmniPod insulin pump with DexCom G6 CGM with Humalog insulin. Patient states she requires up to 66 units of insulin per day. Current A1C is 8.4%, Cr 4.2, eGFR 11.74
Pt awake, alert, oriented, resting in bed, offers no complaints. Patient states she has had diabetes 30+ years and sees Pamela Diego, endocrinology, at [facility] for the past 2 years. She states she does not count carbs. She was told by her endo to
enter 50 grams of carb for each meal and whatever the blood sugar is. Offered again to teach carb counting with patient, she states not necessary I just do what the endo doctor said, but maybe someday.
Patient is able to utilize her pump without difficulty. Glucose range after pump restarted 100 to 142. Will make no change to pump settings.
Pump settings as follows:
Basal rate 1.1 24 hours
I:CHO ratio 1: 6
Sensitivity 1:34
Active insulin 4 hours.
Discussed with nurse. Pump worksheet to be explained to patient and placed at bedside.
Diabetes History
- -
Type of Diabetes: 2 requiring insulin
Pre-Admission Diabetes Regimen
10/26/24 10/27/24
06:18 06:10
Creatinine 4.2 H* 4.2 H*
Insulin Pump Settings
IP Diabetes Regimen
10/26/24 10/26/24 10/26/24
06:18 07:52 11:48
Glucose 282 H
POC Glucose 288 H 142 H
10/26/24 10/26/24 10/27/24
17:01 21:24 06:10
Glucose 172 H
POC Glucose 100 H 124 H
Meal type: Dinner
Amount consumed: 75%
Patient Education
[2024-10-27] MEDS: BYSTOLIC 5 MG PO (07:36)
[2024-10-27] MEDS: PROTONIX 40 MG PO (07:37)
[2024-10-27] MEDS: PROCARDIA XL (EXTENDED RELEASE) 30 MG PO ×2 (07:37→20:38)
[2024-10-27] MEDS: CYMBALTA DELAYED RELEASE 60 MG PO ×2 (07:37→20:37)
[2024-10-27] MEDS: LYRICA 200 MG PO ×3 (07:37→22:53)
[2024-10-27 07:38] LABS: Glucose - Point of Care 224 mg/dl (70-99)
[2024-10-27] MEDS: FLOMAX 0.4 MG PO (07:38)
[2024-10-27] MEDS: PEPCID 20 MG PO (07:38)
[2024-10-27] MEDS: HEPARIN 5000 UNITS SC ×2 (07:38→20:37)
[2024-10-27] MEDS: LAC HYDRIN, AM LACTIN LOTION 1 APPLIC TOPICAL ×2 (07:40→22:51)
[2024-10-27] MEDS: NSS 1000 IV (07:40)
[2024-10-27] MEDS: NSS IV (07:40)
[2024-10-27] MEDS: PT'S OWN INSULIN PUMP - HumaLOG SC ×3 (09:03→23:17)
[2024-10-27] MEDS: ANCEF IV ×2 (10:10→15:45)
[2024-10-27] MEDS: PT'S OWN INSULIN PUMP - HumaLOG 11 UNIT SC (10:25)
--- NOTE | 2024-10-27 11:41 | W.PN.HOSP.TC ---
Today's Communication/Plan
-
await return of renal funstion
renal dose meds
cont ABX
Assessment / Plan
Assessment / Plan
pt is a 59 year old female
Recurrent LLE Cellulitis--related to DM type 2--cont ancef and anna-wrap--apprec ID--no DVT on US--MRI LE with severe cellulitis left lower leg, ankle, foot
THAD--likely due to combination of urinary retention, ANNA--wang placed / BUT creat rising up to 4.2 and holding--cont flomax--anna/vanco stopped--renal adjusting meds, apprec pharmacy help--c/w IVF
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
Essential HTN--cont Nifedipine, Nebivolol
Morbid obesity due to excess calories
h/o L trimalleolar fracture s/p ORIF 08/15 with subsequent hardware removal 07/16
Restless leg syndrome
DVT proph
code status--DNR
Anticipated Discharge: > 48 hours
Subjective/Interval History
-
Date of Service: October 27, 2024
pt without c/o
Objective Data
-
Labs:
Laboratory Results
10/27/24
06:10
Sodium 146 H
Potassium 4.7
Chloride 106
Carbon Dioxide 27
BUN 46 H
Creatinine 4.2 H*
Glucose 172 H
Calcium 8.3 L
Vital Signs:
max temp for 24 hours
10/26/24
23:00
Temp 98.1 F
Vital Signs
Temp Pulse Resp BP Pulse Ox
98.6 F 83 20 135/74 91
10/27/24 07:05 10/27/24 07:05 10/27/24 07:05 10/27/24 07:05 10/27/24 07:05
I&O
10/26/24 10/27/24 10/28/24
06:59 06:59 06:59
Intake Total 2820 / 2820 1560 / 1560
Output Total 3400 / 3400 3650 / 3650
Balance -580 / -580 -2089 / -2089
Review of Systems
-
All other systems: Reviewed and negative
Physical Exam
-
General: Well Developed, Well Nourished, No Apparent Distress and Morbidly Obese
HEENT: Normocephalic and Atraumatic
Respiratory: Clear to Auscultation; Negative Wheezes or Rhonchi
Cardiac: Regular Rhythm and S1/S2; Negative Murmur
GI: Soft, Nontender, Nondistended and Normal Bowel Sounds
Genito-urinary: Wang
Musculoskeletal: No Clubbing and No Cyanosis; Negative No Edema (left leg still edematous with anna wrap in place)
Neuro: Awake and Alert
Psych: Calm
[2024-10-27 11:57] LABS: Glucose - Point of Care 168 mg/dl (70-99)
--- NOTE | 2024-10-27 11:59 | W.PN.NEPH.PH ---
Today's Communication / Plan
-
Remove Wang catheter in the next 24 hours if patient allows
Assessment/Plan
-
59 y/o female past medical history of chronic lower extremity, morbid obesity, hypertension, diabetes and recent hospitalization for left lower extremity cellulitis and acute kidney injury who presents with worsen redness of left lower extremity.
Patient reports she was discharged on October 13, but states she was unable to tolerate her oral antibiotics due to vomiting
The patient was recently admitted for similar presentation with lower extremity cellulitis that she developed acute kidney injury multifactorial and was discharged with a creatinine of 2.9.
She presented to the hospital with a creatinine of 1 and has gone up to 1.7 in 48 hours.
Renal consult for acute kidney injury
Impression.
Acute kidney injury appears to be secondary to Lasix which should be given twice a day for lower extremity edema for the last 48 hours while on lisinopril and soft blood pressures.
Cellulitis/osteo = continue antibiotics
Chronic lymphedema
Diabetes
Obesity
Plan.
Hold diuretics
hold lisinopril
Continue antibiotics renally dosed
flomax
maintain wang although would like it to be removed= consider removing it in the next 24 hours as patient has been on Flomax for 72-hour
IV fluids
-
-
Date of Service: October 27, 2024
CC / HPI / ROS
-
Chief Complaint:
Lower extremity swelling
History of Present Illness:
THAD/Cr worse to 4.1
on abx for cellulitis
BP stable
Review of Systems:
No chest pain or shortness of breath
Labs
-
Labs:
WBC 6.5 10^3/uL (4.8-10.8) 10/22/24 05:55
RBC 3.51 10^6/uL (4.20-5.40) L 10/22/24 05:55
Hgb 9.3 g/dL (12.0-16.0) L 10/22/24 05:55
Hct 29.8 % (37.0-47.0) L 10/22/24 05:55
Plt Count 308 10^3/uL (130-400) 10/22/24 05:55
Sodium 146 mmol/L (135-145) H 10/27/24 06:10
Potassium 4.7 mmol/L (3.5-5.1) 10/27/24 06:10
Chloride 106 mmol/L (98-107) 10/27/24 06:10
Carbon Dioxide 27 mmol/L (22-30) 10/27/24 06:10
BUN 46 mg/dl (7-17) H 10/27/24 06:10
Creatinine 4.2 mg/dL (0.6-1.0) H* 10/27/24 06:10
eGFR 11.74 10/27/24 06:10
Glucose 172 mg/dl (70-99) H 10/27/24 06:10
Calcium 8.3 mg/dl (8.4-10.2) L 10/27/24 06:10
Albumin 3.3 g/dl (3.5-5.0) L 10/22/24 05:55
Physical Exam
-
Vital Signs:
Vital Signs
Temp Pulse Resp BP Pulse Ox
98.6 F 83 20 135/74 91
10/27/24 07:05 10/27/24 07:05 10/27/24 07:05 10/27/24 07:05 10/27/24 07:05
Cardiovascular:: Regular rate and rhythm
Respiratory:: Bilateral: CTA and Bilateral: Coarse
Lung Excursion:: Normal
Abdomen:: Nontender and Soft
Bowel Sounds:: Normal
Extremity Edema:: None: Bilateral:
--- NOTE | 2024-10-27 14:09 | W.PN.UPDATE ---
Update Note
Progress Note Update
pt insisting on wang cath removal. ordered to remove
[2024-10-27 15:05] VITALS: BP 130/64
--- NOTE | 2024-10-27 15:21 | W.PN.ID1 ---
Date of Service
Date of Service: October 27, 2024
Today's Communication
- plan a 6 week course of IV antibiotics - tentatively cefazolin
- PICC placed
- follow renal function
Assessment / Plan
# Probable osteomyelitis with resolving fistula
# Relapse of LLE cellulitis - resolving
# lymphedema
# hx left ankle ORIF 07/2023, hardware removed 06/2024 due to loosening (at [facility])
- probable fistula over surgical site - now healing
- MRI showed severe cellulitis, possible tenosynovitis, myositis and enhancing granulation tissue which can be either infection or post operative healing; however given her overall history of recurrent fistula, myositis and osseous fragmentation
of the calcaneous without previous treatment for osteomyelitis, my suspicion for subacute osteomyelitis is high. She seems to be responding well to IV cefazolin
- plan a 6 week course of IV antibiotics - tentatively cefazolin
- PICC placed
- previous hardwear has been removed
[facility]
# THAD
- c/w cefazolin - renally dose
- Continue Sukhdeep-wrap compression.
- Elevate leg above heart level at least 1 hour out of 6.
# DM- uncontrolled
- Recommend tight glucose control
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
Diabetes mellitus
Peripheral neuropathy
Hypertension
TIA/CVA
Class III obesity BMI 57
Restless leg syndrome
Hx of left trimalleolar fracture status post ORIF July 2023 with subsequent hardware removal June 2024
Right elbow surgery
Childhood bladder surgery
Chief Complaint
-: Cellulitis and Other (suspected osteomyelitis)
Subjective / Review of Systems
afebrile
bp stable
no events overnight
records from [facility] reviewed: only 14 pages were sent
no cultures
no dc summary
note that OR imaging showed some mild fragmentation at that point as well
reports she's been having recurrent cellulitis in that leg for 2 years
Vital Signs / Physical Exam
Vital Signs
Vital Signs
Temp Pulse Resp BP Pulse Ox
98.6 F 83 20 135/74 91
10/27/24 07:05 10/27/24 07:05 10/27/24 07:05 10/27/24 07:05 10/27/24 07:05
Physical Exam
Constitutional: No Acute Distress
Cardiovascular: Regular Rate and S1/S2; Negative Murmur or Rub
Pulmonary: Clear and Symmetric; Negative Wheezes or Rales
Gastrointestinal: Soft, Non Tender, Non Distended and Normal Bowel Sounds
Skin: Warm and Dry; Negative Rash or Jaundice
Objective Data
Lab Data
Lab Results
10/22/24 05:55
10/27/24 06:10
Estimated Creat Clear 22 ml/min 10/27/24 06:10
Lactic Acid 2.1 mmol/L (0.7-2.0) H 10/19/24 20:54
Total Bilirubin 0.5 mg/dl (0.2-1.3) 10/22/24 05:55
AST 18 U/L (14-36) 10/22/24 05:55
ALT 18 U/L (0-35) 10/22/24 05:55
Alkaline Phosphatase 216 U/L (38-126) H 10/22/24 05:55
Most recent labs reviewed.
Micro Results:
10/19/24 22:37 Blood Culture - Final
Blood/Venous No Growth - Final Report
10/19/24 22:08 Blood Culture - Final
Blood/Venous No Growth - Final Report
10/19/24 23:43 Wound Culture - Final
Leg - Left No growth
Gram Stain - Final
10/20/24 Peripheral vasc US: no DVT
[2024-10-27] MEDS: ANCEF 10 IV (16:06)
[2024-10-27 17:01] LABS: Glucose - Point of Care 206 mg/dl (70-99)
[2024-10-27] MEDS: LIPITOR 40 MG PO (17:09)
[2024-10-27 20:38] VITALS: BP 131/82
[2024-10-27 22:08] LABS: Glucose - Point of Care 156 mg/dl (70-99)
[2024-10-27] MEDS: PAMELOR 75 MG PO (22:53)
[2024-10-27 23:18] VITALS: BP 170/90
[2024-10-28] MEDS: ANCEF 10 IV ×2 (03:52→18:09)
[2024-10-28 04:44] LABS: Hemoglobin 8.4 g/dL (12.0-16.0); Mean Corpuscular Hgb 25.8 pg (27.0-31.0); Mean Corpuscular Volume 85.9 fL (81.0-99.0); Mean Platelet Volume 10.4 fL (7.4-10.4); Platelet Count 259 10^3/uL (130-400); Red Blood Cell Count 3.26 10^6/uL (4.20-5.40); Red Cell Dist. Width 16.8 % (11.5-14.5); White Blood Cell Count 3.8 10^3/uL (4.8-10.8)
[2024-10-28 05:07] LABS: Blood Urea Nitrogen 49 mg/dl (7-17); Calcium 8.3 mg/dl (8.4-10.2); Carbon Dioxide 28 mmol/L (22-30); Chloride 107 mmol/L (98-107); Estimated Creatinine Clearance 25 ml/min; Glucose 131 mg/dl (70-99); Potassium 4.9 mmol/L (3.5-5.1); Sodium 145 mmol/L (135-145); eGFR 13.67
[2024-10-28] MEDS: CATHFLO/ACTIVASE 2 MG INTRACATH (05:34)
--- NOTE | 2024-10-28 05:49 | VATNOTE ---
WHITE LUMEN OF 4FRDL R PICC FOUND TO BE COMPLETELY OCCLUDED. UNABLE TO FLUSH OR ASPIRATE. CATHFLO ORDER OBTAINED AND PROTOCOL USING STOPCOCK INITIATED AT 0545 TO RESTORE LUMEN PATENCY. PT AND PCN AWARE OF INTERVENTION AND PLAN OF CARE. VAT TO FOLLOW.
[2024-10-28 06:00] VITALS: BMI 58.7
--- NOTE | 2024-10-28 06:34 | VATNOTE ---
NO CHANGE IN PATENCY OF LUMEN CURRENTLY WITH CATHFLO/STOPCOCK. PCN MADE AWARE.
[2024-10-28 07:05] VITALS: BP 148/80
[2024-10-28] MEDS: NSS IV (07:52)
[2024-10-28] MEDS: PROCARDIA XL (EXTENDED RELEASE) 30 MG PO ×2 (07:55→21:44)
[2024-10-28] MEDS: FLOMAX 0.4 MG PO (07:55)
[2024-10-28] MEDS: BYSTOLIC 5 MG PO (07:55)
[2024-10-28] MEDS: CYMBALTA DELAYED RELEASE 60 MG PO ×2 (07:55→21:33)
[2024-10-28] MEDS: PROTONIX 40 MG PO (07:56)
[2024-10-28] MEDS: HEPARIN 5000 UNITS SC ×2 (07:56→21:31)
[2024-10-28] MEDS: LYRICA 200 MG PO ×3 (07:56→21:28)
[2024-10-28] MEDS: LAC HYDRIN, AM LACTIN LOTION 1 APPLIC TOPICAL ×2 (07:57→21:35)
[2024-10-28 08:13] LABS: Glucose - Point of Care 160 mg/dl (70-99)
--- NOTE | 2024-10-28 08:27 | PN.DE.MGMTRT ---
Insulin Management
- -
10/28/2024: Diabetes Management follow up
Patient admitted with LLE cellulitis. recently discharged with same. PMH: HTN, HLD, morbid obesity, Diabetic Neuropathy, Uncontrolled IDDM, trimalleolar fracture s/p repair and revision, chronic ambulatory dysfunction. Prior to admission was using
the OmniPod insulin pump with DexCom G6 CGM with Humalog insulin. Patient states she requires up to 66 units of insulin per day. Current A1C is 8.4%, Cr 4.2, eGFR 11.74
Patient states she has had diabetes 30+ years and sees Pamela Diego, endocrinology, at [facility] for the past 2 years. She states she does not count carbs. She was told by her endo to enter 50 grams of carb for each meal and whatever the blood sugar
is. Offered again to teach carb counting with patient, she states not necessary I just do what the endo doctor said, but maybe someday.
Pt awake, alert, oriented, sitting up in chair, offers no complaints, able to discuss diabetes care plan.
Glucose stable, premeal yesterday was 168 to 206, HS was 156, FBG 131 V this AM.
Patient is able to utilize her pump without difficulty. Will make no change to pump settings.
Pump settings as follows:
Basal rate 1.1 24 hours
I:CHO ratio 1: 6
Sensitivity 1:34
Active insulin 4 hours.
Discussed with nurse. Pump worksheet to be explained to patient and placed at bedside.
Diabetes History
- -
Type of Diabetes: 2 requiring insulin
Pre-Admission Diabetes Regimen
10/28/24
04:31
Creatinine 3.7 H
Insulin Pump Settings
IP Diabetes Regimen
10/27/24 10/27/24 10/27/24
11:56 17:00 22:06
Glucose
POC Glucose 168 H 206 H 156 H
10/28/24 10/28/24
04:31 08:12
Glucose 131 H
POC Glucose 160 H
Meal type: Lunch
Meal type: Breakfast
Amount consumed: 100%
Amount consumed: 100%
Patient Education
[2024-10-28] MEDS: PT'S OWN INSULIN PUMP - HumaLOG SC ×3 (10:08→22:38)
--- NOTE | 2024-10-28 11:13 | W.PN.HOSP.TC ---
Today's Communication/Plan
-
see A/P
Assessment / Plan
Assessment / Plan
A/P:
# Recurrent LLE cellulitis, possibly related to DM type 2
no DVT on US
MRI LE with severe cellulitis left lower leg, ankle, foot
cont ancef and shahida-wrap
apprec ID
# THAD, likely due to combination of urinary retention (from DM), ACEI
wang placed 10/25, discontinued due to pt request
SCr improved from 4.2 to 3.7, baseline 1.0
c/w gentle IVF
cont flomax
ACEI/vanco stopped, renal adjusting meds, apprec pharmacy help
Renal on board
# DM2
cont insulin pump
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
# Essential HTN
cont Nifedipine, Nebivolol
# Morbid obesity due to excess calories
# h/o L trimalleolar fracture s/p ORIF 08/15 with subsequent hardware removal 07/16
# Restless leg syndrome
DVT proph: HSQ
code status: DNR
Anticipated Discharge: > 48 hours
Subjective/Interval History
-
Date of Service: October 28, 2024
Objective Data
-
Labs:
Laboratory Results
10/28/24
04:31
WBC 3.8 L
Hgb 8.4 L
Hct 28.0 L
Plt Count 259
Sodium 145
Potassium 4.9
Chloride 107
Carbon Dioxide 28
BUN 49 H
Creatinine 3.7 H
Glucose 131 H
Calcium 8.3 L
Vital Signs:
Vital Signs
Temp Pulse Resp BP Pulse Ox
36.3 C 78 20 148/80 94
10/28/24 07:05 10/28/24 07:05 10/28/24 07:05 10/28/24 07:05 10/28/24 07:05
I&O
10/27/24 10/28/24 10/29/24
06:59 06:59 06:59
Intake Total 1560 / 1560 1440 / 1440
Output Total 3650 / 3650 1325 / 1325
Balance -2089 / 115 / 115
Review of Systems
-
All other systems: Reviewed and negative
Physical Exam
-
General: Well Developed, Well Nourished, No Apparent Distress, Comfortable, Conversant and Morbidly Obese (BMI 58)
HEENT: Normocephalic and Atraumatic
Respiratory: Clear to Auscultation and Non Labored Respirations; Negative Accessory Resp Muscle Use
Cardiac: Regular Rhythm and S1/S2; Negative Murmur
GI: Soft, Nontender, Nondistended and Normal Bowel Sounds
Genito-urinary: Wang
Musculoskeletal: No Clubbing, No Cyanosis, Edema, Right Lower Extrem and Edema, Left Lower Extrem
Skin: Lesions (LLE lesion, see wound care note)
Neuro: Awake and Alert
Psych: Calm and Intact Judgement/Insight
Data Reviewed
-
Labs: Labs Reviewed by me
[2024-10-28 11:57] LABS: Glucose - Point of Care 135 mg/dl (70-99)
--- NOTE | 2024-10-28 12:25 | CM ---
CM continues to follow to coordinate discharge plans. Current with A[facility] AREVALO for wound care; Referral in [facility] for resumption of care.
--- NOTE | 2024-10-28 12:43 | W.PN.NEPH.PH ---
Today's Communication / Plan
-
Basic metabolic panel
Assessment/Plan
-
59 y/o female past medical history of chronic lower extremity, morbid obesity, hypertension, diabetes and recent hospitalization for left lower extremity cellulitis and acute kidney injury who presents with worsen redness of left lower extremity.
Patient reports she was discharged on October 13, but states she was unable to tolerate her oral antibiotics due to vomiting
The patient was recently admitted for similar presentation with lower extremity cellulitis that she developed acute kidney injury multifactorial and was discharged with a creatinine of 2.9.
She presented to the hospital with a creatinine of 1 and has gone up to 1.7 in 48 hours.
Renal consult for acute kidney injury
Impression.
Acute kidney injury appears to be secondary to Lasix which should be given twice a day for lower extremity edema for the last 48 hours while on lisinopril and soft blood pressures.
Cellulitis/osteo = continue antibiotics
Chronic lymphedema
Diabetes
Obesity
Plan.
Hold diuretics
hold lisinopril
Continue antibiotics renally dosed
flomax
Koehler catheter removed 10/27
Creatinine improved slightly 3.7
BMP ordered for the morning
-
-
Date of Service: October 28, 2024
CC / HPI / ROS
-
Chief Complaint:
Lower extremity swelling
History of Present Illness:
THAD/Cr improving
on abx for cellulitis
BP stable
Review of Systems:
No chest pain or shortness of breath
Labs
-
Labs:
WBC 3.8 10^3/uL (4.8-10.8) L 10/28/24 04:31
RBC 3.26 10^6/uL (4.20-5.40) L 10/28/24 04:31
Hgb 8.4 g/dL (12.0-16.0) L 10/28/24 04:31
Hct 28.0 % (37.0-47.0) L 10/28/24 04:31
Plt Count 259 10^3/uL (130-400) 10/28/24 04:31
Sodium 145 mmol/L (135-145) 10/28/24 04:31
Potassium 4.9 mmol/L (3.5-5.1) 10/28/24 04:31
Chloride 107 mmol/L (98-107) 10/28/24 04:31
Carbon Dioxide 28 mmol/L (22-30) 10/28/24 04:31
BUN 49 mg/dl (7-17) H 10/28/24 04:31
Creatinine 3.7 mg/dL (0.6-1.0) H 10/28/24 04:31
eGFR 13.67 10/28/24 04:31
Glucose 131 mg/dl (70-99) H 10/28/24 04:31
Calcium 8.3 mg/dl (8.4-10.2) L 10/28/24 04:31
Albumin 3.3 g/dl (3.5-5.0) L 10/22/24 05:55
Physical Exam
-
Vital Signs:
Vital Signs
Temp Pulse Resp BP Pulse Ox
97.4 F 78 20 148/80 94
10/28/24 07:05 10/28/24 07:05 10/28/24 07:05 10/28/24 07:05 10/28/24 07:05
Cardiovascular:: Regular rate and rhythm
Respiratory:: Bilateral: CTA
Lung Excursion:: Normal
Abdomen:: Nontender and Soft
Bowel Sounds:: Normal
Extremity Edema:: +2: Bilateral:
Koehler Catheter: No
--- NOTE | 2024-10-28 12:47 | VATNOTE ---
Cathflo activase to white lumen of PICC line successful at 0850. 5mls Blood and cathflo withdarwn and discarded. White lumen flushed with 10 mls NSS and connected to IV fluids. Primary care RN made aware.
[2024-10-28] MEDS: NSS 1000 IV (14:31)
[2024-10-28 15:05] VITALS: BP 147/82
[2024-10-28 17:14] LABS: Glucose - Point of Care 162 mg/dl (70-99)
--- NOTE | 2024-10-28 17:22 | W.PN.ID1 ---
Date of Service
Date of Service: October 28, 2024
Today's Communication
follow renal function
continue cefazolin
Assessment / Plan
# Probable osteomyelitis with resolving fistula
# Relapse of LLE cellulitis - resolving
# lymphedema
# hx left ankle ORIF 07/2023, hardware removed 06/2024 due to loosening (at [facility])
- probable fistula over surgical site - now healing
- MRI showed severe cellulitis, possible tenosynovitis, myositis and enhancing granulation tissue which can be either infection or post operative healing; however given her overall history of recurrent fistula, myositis and osseous fragmentation
of the calcaneous without previous treatment for osteomyelitis, my suspicion for subacute osteomyelitis is high. She seems to be responding well to IV cefazolin
- plan a 6 week course of IV antibiotics - tentatively cefazolin
- PICC placed
- previous hardwear has been removed
- [facility]
# THAD - improving
- c/w cefazolin - renally dose
- Continue Sukhdeep-wrap compression.
- Elevate leg above heart level at least 1 hour out of 6.
# DM- uncontrolled
- Recommend tight glucose control
# Conditions SKID MAN
Diabetes mellitus
Peripheral neuropathy
Hypertension
TIA/CVA
Class III obesity BMI 57
Restless leg syndrome
Hx of left trimalleolar fracture status post ORIF July 2023 with subsequent hardware removal June 2024
Right elbow surgery
Childhood bladder surgery
Chief Complaint
-: Cellulitis and Other (suspected osteomyelitis)
Subjective / Review of Systems
afebrile bp stable
tolerating current therapies
still with some drainage from the tibial lesion
Vital Signs / Physical Exam
Vital Signs
Vital Signs
Temp Pulse Resp BP Pulse Ox
98.1 F 74 20 147/82 93
10/28/24 15:05 05/09/25 15:05 10/28/24 15:05 10/28/24 15:05 10/28/24 15:05
Physical Exam
Constitutional: No Acute Distress
Cardiovascular: Regular Rate and S1/S2; Negative Murmur or Rub
Pulmonary: Clear and Symmetric; Negative Wheezes or Rales
Gastrointestinal: Soft, Non Tender, Non Distended and Normal Bowel Sounds
Extremities: Other (draining fistula over the medial tibia, resolved erythema)
Skin: Warm and Dry; Negative Rash or Jaundice
Objective Data
Lab Data
Lab Results
10/28/24 04:31
10/28/24 04:31
Estimated Creat Clear 25 ml/min 10/28/24 04:31
Lactic Acid 2.1 mmol/L (0.7-2.0) H 10/19/24 20:54
Total Bilirubin 0.5 mg/dl (0.2-1.3) 10/22/24 05:55
AST 18 U/L (14-36) 10/22/24 05:55
ALT 18 U/L (0-35) 10/22/24 05:55
Alkaline Phosphatase 216 U/L (38-126) H 10/22/24 05:55
Most recent labs reviewed.
Micro Results:
10/19/24 22:37 Blood Culture - Final
Blood/Venous No Growth - Final Report
10/19/24 22:08 Blood Culture - Final
Blood/Venous No Growth - Final Report
10/19/24 23:43 Wound Culture - Final
Leg - Left No growth
Gram Stain - Final
10/20/24 Peripheral vasc US: no DVT
[2024-10-28] MEDS: PT'S OWN INSULIN PUMP - HumaLOG 5 UNIT SC (18:06)
[2024-10-28] MEDS: LIPITOR 40 MG PO (18:09)
--- NOTE | 2024-10-28 20:00 | PTCARENOTE ---
Patient stated she has 'had diarrhea 5 times today'. PROPERTY SITE MANAGER So Sukhjinder Tate notified. This RN observed patient's BM to send sample, stool was formed. PROPERTY SITE MANAGER So Sukhjinder Tate notified. See MAR. Will continue to monitor.
[2024-10-28 21:25] LABS: Glucose - Point of Care 170 mg/dl (70-99)
[2024-10-28] MEDS: PAMELOR 75 MG PO (21:29)
[2024-10-28] MEDS: IMODIUM 2 MG PO (22:13)
[2024-10-28 23:46] VITALS: BP 154/87
[2024-10-29] MEDS: ANCEF 10 IV ×2 (04:18→17:17)
[2024-10-29] MEDS: IMODIUM 2 MG PO (04:25)
--- NOTE | 2024-10-29 05:34 | PTCARENOTE ---
pt refused weight
[2024-10-29 07:42] VITALS: BP 125/63
[2024-10-29 07:47] LABS: Glucose - Point of Care 156 mg/dl (70-99)
--- NOTE | 2024-10-29 07:49 | PTCARENOTE ---
Patient refused daily weight. Patient educated. Will continue to monitor.
[2024-10-29] MEDS: BYSTOLIC 5 MG PO (08:58)
[2024-10-29] MEDS: FLOMAX 0.4 MG PO (08:58)
[2024-10-29] MEDS: PROCARDIA XL (EXTENDED RELEASE) 30 MG PO ×2 (08:58→20:58)
[2024-10-29] MEDS: PROTONIX 40 MG PO (08:58)
[2024-10-29] MEDS: CYMBALTA DELAYED RELEASE 60 MG PO ×2 (08:59→20:54)
[2024-10-29] MEDS: PEPCID 20 MG PO (08:59)
[2024-10-29] MEDS: LYRICA 200 MG PO ×3 (08:59→20:59)
[2024-10-29] MEDS: HEPARIN 5000 UNITS SC ×2 (09:00→20:54)
[2024-10-29 09:11] LABS: Blood Urea Nitrogen 39 mg/dl (7-17); Calcium 8.2 mg/dl (8.4-10.2); Carbon Dioxide 30 mmol/L (22-30); Chloride 106 mmol/L (98-107); Estimated Creatinine Clearance 29 ml/min; Glucose 130 mg/dl (70-99); Potassium 4.5 mmol/L (3.5-5.1); Sodium 145 mmol/L (135-145); eGFR 16.27
[2024-10-29] MEDS: PT'S OWN INSULIN PUMP - HumaLOG SC ×2 (09:20→21:52)
--- NOTE | 2024-10-29 10:06 | W.PN.NEPH.PH ---
Today's Communication / Plan
-
follow BMP
Assessment/Plan
-
59 y/o female past medical history of chronic lower extremity, morbid obesity, hypertension, diabetes and recent hospitalization for left lower extremity cellulitis and acute kidney injury who presents with worsen redness of left lower extremity.
Patient reports she was discharged on October 13, but states she was unable to tolerate her oral antibiotics due to vomiting
The patient was recently admitted for similar presentation with lower extremity cellulitis that she developed acute kidney injury multifactorial and was discharged with a creatinine of 2.9.
She presented to the hospital with a creatinine of 1 and has gone up to 1.7 in 48 hours.
Renal consult for acute kidney injury
Impression.
Acute kidney injury appears to be secondary to Lasix which should be given twice a day for lower extremity edema for the last 48 hours while on lisinopril and soft blood pressures.
Cellulitis/osteo = continue antibiotics
Chronic lymphedema
Diabetes
Obesity
Plan.
Hold diuretics
hold lisinopril
Continue antibiotics renally dosed
flomax should continue indefinitely
follow BMP
recommended to her that she reduce fluid intake to <128oz/d
-
-
Date of Service: October 29, 2024
CC / HPI / ROS
-
Chief Complaint:
Lower extremity swelling
History of Present Illness:
THAD/Cr improving to 3.2
on abx for cellulitis
BP stable
wang out
Review of Systems:
No chest pain or shortness of breath
Labs
-
Labs:
WBC 3.8 10^3/uL (4.8-10.8) L 10/28/24 04:31
RBC 3.26 10^6/uL (4.20-5.40) L 10/28/24 04:31
Hgb 8.4 g/dL (12.0-16.0) L 10/28/24 04:31
Hct 28.0 % (37.0-47.0) L 10/28/24 04:31
Plt Count 259 10^3/uL (130-400) 10/28/24 04:31
Sodium 145 mmol/L (135-145) 10/29/24 08:21
Potassium 4.5 mmol/L (3.5-5.1) 10/29/24 08:21
Chloride 106 mmol/L (98-107) 10/29/24 08:21
Carbon Dioxide 30 mmol/L (22-30) 10/29/24 08:21
BUN 39 mg/dl (7-17) H 10/29/24 08:21
Creatinine 3.2 mg/dL (0.6-1.0) H 10/29/24 08:21
eGFR 16.27 10/29/24 08:21
Glucose 130 mg/dl (70-99) H 10/29/24 08:21
Calcium 8.2 mg/dl (8.4-10.2) L 10/29/24 08:21
Albumin 3.3 g/dl (3.5-5.0) L 10/22/24 05:55
Physical Exam
-
Vital Signs:
Vital Signs
Temp Pulse Resp BP Pulse Ox
97.8 F 79 17 125/63 94
10/29/24 07:42 10/29/24 07:42 10/29/24 07:42 10/29/24 07:42 10/28/24 23:46
Cardiovascular:: Regular rate and rhythm
Respiratory:: Bilateral: Coarse
Lung Excursion:: Normal
Abdomen:: Nontender and Soft
Bowel Sounds:: Normal
Extremity Edema:: +1: Bilateral:
[2024-10-29 12:05] LABS: Glucose - Point of Care 206 mg/dl (70-99)
--- NOTE | 2024-10-29 12:25 | W.PN.HOSP.TC ---
Today's Communication/Plan
-
see A/P
Cont Ancef
family requesting SNF eval, PT OT CS for SNF eval
Assessment / Plan
Assessment / Plan
A/P:
# Recurrent LLE cellulitis, possibly related to DM type 2
# Probable osteomyelitis with resolving fistula per ID
no DVT on US
MRI LE with severe cellulitis left lower leg, ankle, foot
cont ancef, likely 6 week course per ID
cont shahida-wrap
apprec ID
# THAD, likely due to combination of urinary retention (from DM), ACEI
wang placed 10/25, discontinued due to pt request
SCr improved from 4.2 to 3.2 today, baseline 1.0
c/w gentle IVF
cont flomax
ACEI/vanco stopped, renal adjusting meds, apprec pharmacy help
Renal on board
# DM2
cont insulin pump
apprec DM MANAGER ACQUISITION
# Essential HTN
cont Nifedipine, Nebivolol
# Morbid obesity due to excess calories
BMI 58
# h/o L trimalleolar fracture s/p ORIF 08/15 with subsequent hardware removal 07/16
# Restless leg syndrome
DVT proph: HSQ
code status: DNR
Dispo: family requesting SNF eval, PT OT CS for SNF eval
d/w daughters at bedside
Anticipated Discharge: > 48 hours
Subjective/Interval History
-
Date of Service: October 29, 2024
Objective Data
-
Labs:
Laboratory Results
10/29/24
08:21
Sodium 145
Potassium 4.5
Chloride 106
Carbon Dioxide 30
BUN 39 H
Creatinine 3.2 H
Glucose 130 H
Calcium 8.2 L
Vital Signs:
Vital Signs
Temp Pulse Resp BP Pulse Ox
36.6 C 79 17 125/63 94
10/29/24 07:42 10/29/24 07:42 10/29/24 07:42 10/29/24 07:42 10/28/24 23:46
I&O
10/28/24 10/29/24 10/30/24
06:59 06:59 06:59
Intake Total 1440 / 1440 1320 / 1320 1200 / 1200
Output Total 1325 / 1325
Balance 115 / 115 1320 / 1320 1200 / 1200
Review of Systems
-
All other systems: Reviewed and negative
Physical Exam
-
General: Well Developed, Well Nourished, No Apparent Distress, Comfortable, Conversant and Morbidly Obese (BMI 58)
HEENT: Normocephalic and Atraumatic
Respiratory: Clear to Auscultation and Non Labored Respirations; Negative Accessory Resp Muscle Use
Cardiac: Regular Rhythm and S1/S2; Negative Murmur
GI: Soft, Nontender, Nondistended and Normal Bowel Sounds
Genito-urinary: Negative Wang
Musculoskeletal: No Clubbing, No Cyanosis, Edema, Right Lower Extrem and Edema, Left Lower Extrem
Skin: Lesions (LLE lesion, see wound care note)
Neuro: Awake and Alert
Psych: Calm and Intact Judgement/Insight
Data Reviewed
-
Labs: Labs Reviewed by me
[2024-10-29] MEDS: NSS IV (13:00)
[2024-10-29] MEDS: LAC HYDRIN, AM LACTIN LOTION 1 APPLIC TOPICAL ×2 (13:00→20:59)
[2024-10-29] MEDS: PT'S OWN INSULIN PUMP - HumaLOG 3.3 UNIT SC (14:06)
[2024-10-29 15:26] VITALS: BP 147/70
[2024-10-29 16:31] LABS: Glucose - Point of Care 268 mg/dl (70-99)
[2024-10-29] MEDS: LIPITOR 40 MG PO (17:18)
[2024-10-29] MEDS: PT'S OWN INSULIN PUMP - HumaLOG 9.95 UNIT SC (17:36)
[2024-10-29] MEDS: PAMELOR 75 MG PO (21:00)
[2024-10-29] MEDS: NSS 1000 IV (21:09)
[2024-10-29 21:52] LABS: Glucose - Point of Care 127 mg/dl (70-99)
[2024-10-29 23:35] VITALS: BP 118/64
[2024-10-30] MEDS: ANCEF 10 IV ×3 (04:22→21:39)
[2024-10-30 07:32] VITALS: BP 143/80
[2024-10-30] MEDS: CYMBALTA DELAYED RELEASE 60 MG PO ×2 (07:45→21:31)
[2024-10-30] MEDS: PROCARDIA XL (EXTENDED RELEASE) 30 MG PO ×2 (07:45→21:39)
[2024-10-30] MEDS: LYRICA 200 MG PO ×3 (07:46→21:31)
[2024-10-30] MEDS: PROTONIX 40 MG PO (07:46)
[2024-10-30] MEDS: HEPARIN 5000 UNITS SC ×2 (07:46→21:32)
[2024-10-30] MEDS: BYSTOLIC 5 MG PO (07:51)
[2024-10-30] MEDS: FLOMAX 0.4 MG PO (07:54)
[2024-10-30 09:03] LABS: Hematocrit 28.5 % (37.0-47.0); Hemoglobin 8.4 g/dL (12.0-16.0); Mean Corp Hgb Conc. 29.5 g/dL (33.0-37.0); Mean Corpuscular Hgb 25.9 pg (27.0-31.0); Mean Platelet Volume 10.5 fL (7.4-10.4); Platelet Count 245 10^3/uL (130-400); Red Blood Cell Count 3.24 10^6/uL (4.20-5.40); White Blood Cell Count 5.3 10^3/uL (4.8-10.8)
[2024-10-30 09:24] LABS: Blood Urea Nitrogen 38 mg/dl (7-17); Calcium 8.1 mg/dl (8.4-10.2); Carbon Dioxide 29 mmol/L (22-30); Chloride 108 mmol/L (98-107); Estimated Creatinine Clearance 32 ml/min; Glucose 123 mg/dl (70-99); Potassium 4.9 mmol/L (3.5-5.1); Sodium 144 mmol/L (135-145); eGFR 18.31
[2024-10-30] MEDS: LAC HYDRIN, AM LACTIN LOTION 1 APPLIC TOPICAL ×2 (09:46→21:36)
[2024-10-30] MEDS: PT'S OWN INSULIN PUMP - HumaLOG SC ×3 (09:48→21:45)
[2024-10-30 11:38] LABS: Glucose - Point of Care 103 mg/dl (70-99)
--- NOTE | 2024-10-30 12:07 | W.PN.HOSP.TC ---
Today's Communication/Plan
-
see A/P
Assessment / Plan
Assessment / Plan
A/P:
# Recurrent LLE cellulitis, possibly related to DM type 2
# Probable osteomyelitis with resolving fistula per ID
no DVT on US
MRI LE with severe cellulitis left lower leg, ankle, foot
cont ancef, likely 6 week course per ID with home infusion
cont shahida-wrap
apprec ID
# THAD, likely due to combination of urinary retention (from DM), ACEI
wang placed 10/25, discontinued due to pt request
SCr improved from 4.2 to 2.9 today, baseline 1.0
c/w gentle IVF
cont flomax
ACEI/vanco stopped, renal adjusting meds, apprec pharmacy help
Renal on board
# DM2
cont insulin pump
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
# Essential HTN
cont Nifedipine, Nebivolol
# Morbid obesity due to excess calories
BMI 58
# h/o L trimalleolar fracture s/p ORIF 08/15 with subsequent hardware removal 07/16
# Restless leg syndrome
DVT proph: HSQ
code status: DNR
Dispo: family requesting SNF eval, PT OT recc HH
d/w daughters at bedside
Anticipated Discharge: 24 - 48 hours
Subjective/Interval History
-
Date of Service: October 30, 2024
Objective Data
-
Labs:
Laboratory Results
10/30/24
08:44
WBC 5.3
Hgb 8.4 L
Hct 28.5 L
Plt Count 245
Sodium 144
Potassium 4.9
Chloride 108 H
Carbon Dioxide 29
BUN 38 H
Creatinine 2.9 H
Glucose 123 H
Calcium 8.1 L
Vital Signs:
Vital Signs
Temp Pulse Resp BP Pulse Ox
37.3 C 85 19 143/80 95
10/30/24 07:32 10/30/24 07:32 10/30/24 07:32 10/30/24 07:32 10/30/24 07:32
I&O
10/29/24 10/30/24 10/31/24
06:59 06:59 06:59
Intake Total 1320 / 1320 3120 / 3120
Balance 1320 / 1320 3120 / 3120
Review of Systems
-
All other systems: Reviewed and negative
Physical Exam
-
General: Well Developed, Well Nourished, No Apparent Distress, Comfortable, Conversant and Morbidly Obese (BMI 58)
HEENT: Normocephalic and Atraumatic
Respiratory: Clear to Auscultation and Non Labored Respirations; Negative Accessory Resp Muscle Use
Cardiac: Regular Rhythm and S1/S2; Negative Murmur
GI: Soft, Nontender, Nondistended and Normal Bowel Sounds
Genito-urinary: Negative Wang
Musculoskeletal: No Clubbing, No Cyanosis, Edema, Right Lower Extrem and Edema, Left Lower Extrem
Skin: Lesions (LLE lesion, see wound care note)
Neuro: Awake and Alert
Psych: Calm and Intact Judgement/Insight
Data Reviewed
-
Labs: Labs Reviewed by me
--- NOTE | 2024-10-30 12:47 | W.PN.NEPH.PH ---
Today's Communication / Plan
-
Follow BMP
Assessment/Plan
-
59 y/o female past medical history of chronic lower extremity, morbid obesity, hypertension, diabetes and recent hospitalization for left lower extremity cellulitis and acute kidney injury who presents with worsen redness of left lower extremity.
Patient reports she was discharged on October 13, but states she was unable to tolerate her oral antibiotics due to vomiting
The patient was recently admitted for similar presentation with lower extremity cellulitis that she developed acute kidney injury multifactorial and was discharged with a creatinine of 2.9.
She presented to the hospital with a creatinine of 1 and has gone up to 1.7 in 48 hours.
Renal consult for acute kidney injury
Impression.
Acute kidney injury appears to be secondary to Lasix which should be given twice a day for lower extremity edema for the last 48 hours while on lisinopril and soft blood pressures.
Cellulitis/osteo = continue antibiotics
Chronic lymphedema
Diabetes
Obesity
Plan.
Hold diuretics
hold lisinopril
Continue antibiotics renally dosed
flomax should continue indefinitely
follow BMP
She is restricting her fluid intake
-
-
Date of Service: October 30, 2024
CC / HPI / ROS
-
Chief Complaint:
Lower extremity swelling
History of Present Illness:
THAD/Cr improving to 2.9
on abx for cellulitis
BP stable
wang out
Review of Systems:
No chest pain or shortness of breath
No issues with urination
Labs
-
Labs:
WBC 5.3 10^3/uL (4.8-10.8) 10/30/24 08:44
RBC 3.24 10^6/uL (4.20-5.40) L 10/30/24 08:44
Hgb 8.4 g/dL (12.0-16.0) L 10/30/24 08:44
Hct 28.5 % (37.0-47.0) L 10/30/24 08:44
Plt Count 245 10^3/uL (130-400) 10/30/24 08:44
Sodium 144 mmol/L (135-145) 10/30/24 08:44
Potassium 4.9 mmol/L (3.5-5.1) 10/30/24 08:44
Chloride 108 mmol/L (98-107) H 10/30/24 08:44
Carbon Dioxide 29 mmol/L (22-30) 10/30/24 08:44
BUN 38 mg/dl (7-17) H 10/30/24 08:44
Creatinine 2.9 mg/dL (0.6-1.0) H 10/30/24 08:44
eGFR 18.31 10/30/24 08:44
Glucose 123 mg/dl (70-99) H 10/30/24 08:44
Calcium 8.1 mg/dl (8.4-10.2) L 10/30/24 08:44
Albumin 3.3 g/dl (3.5-5.0) L 10/22/24 05:55
Physical Exam
-
Vital Signs:
Vital Signs
Temp Pulse Resp BP Pulse Ox
99.2 F 85 19 143/80 95
10/30/24 07:32 10/30/24 07:32 10/30/24 07:32 10/30/24 07:32 10/30/24 07:32
Cardiovascular:: Regular rate and rhythm
Respiratory:: Bilateral: Coarse
Lung Excursion:: Normal
Abdomen:: Nontender and Soft
Bowel Sounds:: Normal
Extremity Edema:: +2: Bilateral:
--- NOTE | 2024-10-30 13:12 | W.PN.UPDATE ---
Update Note
Progress Note Update
chart reviewed
renal function improving
cefazolin dose adjusted
AW
[2024-10-30 14:52] VITALS: BP 118/69; PULSE 81; PULSE 83; O2SAT 91; O2SAT 93
[2024-10-30 15:35] VITALS: BP 136/68
[2024-10-30] MEDS: NSS 1000 IV (16:02)
[2024-10-30] MEDS: PT'S OWN INSULIN PUMP - HumaLOG 9.3 UNIT SC (16:15)
[2024-10-30 17:01] LABS: Glucose - Point of Care 222 mg/dl (70-99)
[2024-10-30] MEDS: LIPITOR 40 MG PO (17:25)
[2024-10-30] MEDS: PAMELOR 75 MG PO (21:32)
[2024-10-30 21:44] LABS: Glucose - Point of Care 128 mg/dl (70-99)
[2024-10-30 23:18] VITALS: BP 139/73
[2024-10-31 05:22] LABS: Blood Urea Nitrogen 35 mg/dl (7-17); Calcium 8.2 mg/dl (8.4-10.2); Carbon Dioxide 26 mmol/L (22-30); Chloride 109 mmol/L (98-107); Estimated Creatinine Clearance 37 ml/min; Glucose 118 mg/dl (70-99); Potassium 4.7 mmol/L (3.5-5.1); Sodium 144 mmol/L (135-145); eGFR 21.88
[2024-10-31] MEDS: ANCEF 10 IV ×3 (05:55→21:42)
[2024-10-31 06:00] VITALS: BMI 59.7
[2024-10-31 07:05] VITALS: BP 149/80
--- NOTE | 2024-10-31 08:12 | PN.DE.MGMTRT ---
Insulin Management
- -
10/31/2024: Diabetes Management follow up
Patient admitted with LLE cellulitis. recently discharged with same. PMH: HTN, HLD, morbid obesity, Diabetic Neuropathy, Uncontrolled IDDM, trimalleolar fracture s/p repair and revision, chronic ambulatory dysfunction. Prior to admission was using
the OmniPod insulin pump with DexCom G6 CGM with Humalog insulin. Patient states she requires up to 66 units of insulin per day. Current A1C is 8.4%, Cr 4.2, eGFR 11.74
Patient states she has had diabetes 30+ years and sees Pamela Diego, endocrinology, at [facility] for the past 2 years. She states she does not count carbs. She was told by her endo to enter 50 grams of carb for each meal and whatever the blood sugar
is. Offered again to teach carb counting with patient, she states not necessary I just do what the endo doctor said, but maybe someday.
Pt awake, alert, oriented, resting in bed, offers no complaints, able to discuss diabetes care plan.
Glucose stable, premeal yesterday was 103 to 222, HS was 128, FBG 118 V, 107 POC this AM.
Patient is able to utilize her pump without difficulty. Will make no change to pump settings.
Pump settings as follows:
Basal rate 1.1 24 hours
I:CHO ratio 1: 6
Sensitivity 1:34
Active insulin 4 hours.
Discussed with nurse. Pump worksheet to be explained to patient and placed at bedside.
Diabetes History
- -
Type of Diabetes: 2 requiring insulin
Pre-Admission Diabetes Regimen
10/30/24 10/31/24
08:44 04:13
Creatinine 2.9 H 2.5 H
Insulin Pump Settings
IP Diabetes Regimen
10/30/24 10/30/24 10/30/24
08:44 11:36 16:59
Glucose 123 H
POC Glucose 103 H 222 H
05/11/25 05/12/25
21:42 04:13
Glucose 118 H
POC Glucose 128 H
Meal type: Lunch
Meal type: Breakfast
Amount consumed: 100%
Amount consumed: 100%
Patient Education
[2024-10-31 08:23] LABS: Glucose - Point of Care 107 mg/dl (70-99)
[2024-10-31] MEDS: PT'S OWN INSULIN PUMP - HumaLOG SC ×4 (08:39→22:09)
[2024-10-31] MEDS: PROCARDIA XL (EXTENDED RELEASE) 30 MG PO ×2 (08:40→21:46)
[2024-10-31] MEDS: CYMBALTA DELAYED RELEASE 60 MG PO ×2 (08:40→21:46)
[2024-10-31] MEDS: FLOMAX 0.4 MG PO (08:40)
[2024-10-31] MEDS: BYSTOLIC 5 MG PO (08:40)
[2024-10-31] MEDS: PROTONIX 40 MG PO (08:40)
[2024-10-31] MEDS: PEPCID 20 MG PO (08:41)
[2024-10-31] MEDS: LYRICA 200 MG PO ×3 (08:41→21:44)
[2024-10-31] MEDS: HEPARIN 5000 UNITS SC ×2 (08:41→21:46)
[2024-10-31] MEDS: LAC HYDRIN, AM LACTIN LOTION 1 APPLIC TOPICAL ×2 (08:41→21:50)
[2024-10-31] MEDS: PEPCID PO (10:26)
--- NOTE | 2024-10-31 11:06 | W.PN.HOSP.TC ---
Today's Communication/Plan
-
see A/P
Cont Ancef
Cont gentle IVF
Assessment / Plan
Assessment / Plan
A/P:
# Recurrent LLE cellulitis, possibly related to DM type 2
# Probable osteomyelitis with resolving fistula per ID
no DVT on US
MRI LE with severe cellulitis left lower leg, ankle, foot
cont ancef, likely 6 week course per ID with home infusion
cont shahida-wrap
apprec ID
# THAD, likely due to combination of urinary retention (from DM), ACEI
wang placed 10/25, discontinued due to pt request
SCr improved from 4.2 to 2.5 today, baseline 1.0
c/w gentle IVF
cont flomax
ACEI/vanco stopped, renal adjusting meds, apprec pharmacy help
Renal on board
# DM2
cont insulin pump
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
# Essential HTN
cont Nifedipine, Nebivolol
# Morbid obesity due to excess calories
BMI 58
# h/o L trimalleolar fracture s/p ORIF 08/15 with subsequent hardware removal 07/16
# Restless leg syndrome
DVT proph: HSQ
code status: DNR
Dispo: family requesting SNF eval, PT OT recc HH
Anticipated Discharge: 24 - 48 hours
Subjective/Interval History
-
Date of Service: October 31, 2024
Objective Data
-
Labs:
Laboratory Results
10/31/24
04:13
Sodium 144
Potassium 4.7
Chloride 109 H
Carbon Dioxide 26
BUN 35 H
Creatinine 2.5 H
Glucose 118 H
Calcium 8.2 L
Vital Signs:
Vital Signs
Temp Pulse Resp BP Pulse Ox
36.8 C 84 20 149/80 93
10/31/24 07:05 10/31/24 08:40 10/31/24 07:05 10/31/24 08:40 10/31/24 07:05
I&O
10/30/24 10/31/24 11/01/24
06:59 06:59 06:59
Intake Total 3120 / 3120 600 / 600 240 / 240
Balance 3120 / 3120 600 / 600 240 / 240
Review of Systems
-
All other systems: Reviewed and negative
Physical Exam
-
General: Well Developed, Well Nourished, No Apparent Distress, Comfortable, Conversant and Morbidly Obese (BMI 58)
HEENT: Normocephalic and Atraumatic
Respiratory: Clear to Auscultation and Non Labored Respirations; Negative Accessory Resp Muscle Use
Cardiac: Regular Rhythm and S1/S2; Negative Murmur
GI: Soft, Nontender, Nondistended and Normal Bowel Sounds
Genito-urinary: Negative Wang
Musculoskeletal: No Clubbing, No Cyanosis, Edema, Right Lower Extrem and Edema, Left Lower Extrem
Skin: Lesions (LLE lesion, see wound care note)
Neuro: Awake and Alert
Psych: Calm and Intact Judgement/Insight
Data Reviewed
-
Labs: Labs Reviewed by me
--- NOTE | 2024-10-31 11:34 | W.PN.ID1 ---
Date of Service
Date of Service: October 31, 2024
Today's Communication
- Continue cefazolin 2g IV q8h x 6 weeks through 12/01/24
-Home infusion sheet submitted to case management
Assessment / Plan
# Probable osteomyelitis with resolving fistula
# Relapse of LLE cellulitis
# lymphedema
# hx left ankle ORIF 07/2023, hardware removed 06/2024 due to loosening (at [facility])
- probable fistula over surgical site - now healing
- MRI showed severe cellulitis, possible tenosynovitis, myositis and enhancing granulation tissue which can be either infection or post operative healing; however given her overall history of recurrent fistula, myositis and osseous fragmentation
of the calcaneous without previous treatment for osteomyelitis, my suspicion for subacute osteomyelitis is high. She seems to be responding well to IV cefazolin
- Continue cefazolin 2g IV q8h x 6 weeks through 12/01/24
-Home infusion sheet submitted to case management
- PICC in place.
# THAD - improving
- c/w cefazolin - renally dose
- Continue Sukhdeep-wrap compression.
- Elevate leg above heart level at least 1 hour out of 6.
# DM- uncontrolled
- Recommend tight glucose control
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
Diabetes mellitus
Peripheral neuropathy
Hypertension
TIA/CVA
Class III obesity BMI 57
Restless leg syndrome
Hx of left trimalleolar fracture status post ORIF July 2023 with subsequent hardware removal June 2024
Right elbow surgery
Childhood bladder surgery
Chief Complaint
-: Cellulitis and Other (suspected osteomyelitis)
Subjective / Review of Systems
No complains today.
Vital Signs / Physical Exam
Vital Signs
Vital Signs
Temp Pulse Resp BP Pulse Ox
98.2 F 84 20 149/80 93
10/31/24 07:05 10/31/24 08:40 10/31/24 07:05 10/31/24 08:40 10/31/24 07:05
Physical Exam
Constitutional: No Acute Distress and Comfortable
Cardiovascular: Regular Rate and S1/S2
Pulmonary: Clear
Gastrointestinal: Non Tender and Non Distended
Extremities: Other (LLE mild erythema, wound scant drainage)
Neurological: AO x 3
Objective Data
Lab Data
Lab Results
10/30/24 08:44
10/31/24 04:13
Estimated Creat Clear 37 ml/min 10/31/24 04:13
Lactic Acid 2.1 mmol/L (0.7-2.0) H 10/19/24 20:54
Total Bilirubin 0.5 mg/dl (0.2-1.3) 10/22/24 05:55
AST 18 U/L (14-36) 10/22/24 05:55
ALT 18 U/L (0-35) 10/22/24 05:55
Alkaline Phosphatase 216 U/L (38-126) H 10/22/24 05:55
Most recent labs reviewed.
Micro Results:
10/19/24 22:37 Blood Culture - Final
Blood/Venous No Growth - Final Report
10/19/24 22:08 Blood Culture - Final
Blood/Venous No Growth - Final Report
10/19/24 23:43 Wound Culture - Final
Leg - Left No growth
Gram Stain - Final
10/20/24 Peripheral vasc US: no DVT
--- NOTE | 2024-10-31 12:12 | W.PN.NEPH.PH ---
Today's Communication / Plan
-
THAD continues to improve with creatinine down to 2.5
Assessment/Plan
-
59 y/o female past medical history of chronic lower extremity, morbid obesity, hypertension, diabetes and recent hospitalization for left lower extremity cellulitis and acute kidney injury who presents with worsen redness of left lower extremity.
Patient reports she was discharged on October 13, but states she was unable to tolerate her oral antibiotics due to vomiting
The patient was recently admitted for similar presentation with lower extremity cellulitis that she developed acute kidney injury multifactorial and was discharged with a creatinine of 2.9.
She presented to the hospital with a creatinine of 1 and has gone up to 1.7 in 48 hours.
Renal consult for acute kidney injury
Impression.
Acute kidney injury appears to be secondary to Lasix which should be given twice a day for lower extremity edema for the last 48 hours while on lisinopril and soft blood pressures.
Cellulitis/osteo = continue antibiotics
Chronic lymphedema
Diabetes
Obesity
Plan.
Creatinine improving to 2.5
Hold diuretics
hold lisinopril
Continue antibiotics renally dosed
flomax should continue indefinitely
follow BMP
She is restricting her fluid intake
-
-
Date of Service: October 31, 2024
CC / HPI / ROS
-
Chief Complaint:
Lower extremity swelling
History of Present Illness:
THAD/Cr improving to 2.5
on abx for cellulitis
BP stable
wang out
Review of Systems:
No chest pain or shortness of breath
No issues with urination
Labs
-
Labs:
WBC 5.3 10^3/uL (4.8-10.8) 10/30/24 08:44
RBC 3.24 10^6/uL (4.20-5.40) L 10/30/24 08:44
Hgb 8.4 g/dL (12.0-16.0) L 10/30/24 08:44
Hct 28.5 % (37.0-47.0) L 10/30/24 08:44
Plt Count 245 10^3/uL (130-400) 10/30/24 08:44
Sodium 144 mmol/L (135-145) 10/31/24 04:13
Potassium 4.7 mmol/L (3.5-5.1) 10/31/24 04:13
Chloride 109 mmol/L (98-107) H 10/31/24 04:13
Carbon Dioxide 26 mmol/L (22-30) 10/31/24 04:13
BUN 35 mg/dl (7-17) H 10/31/24 04:13
Creatinine 2.5 mg/dL (0.6-1.0) H 10/31/24 04:13
eGFR 21.88 10/31/24 04:13
Glucose 118 mg/dl (70-99) H 10/31/24 04:13
Calcium 8.2 mg/dl (8.4-10.2) L 10/31/24 04:13
Albumin 3.3 g/dl (3.5-5.0) L 10/22/24 05:55
Physical Exam
-
Vital Signs:
Vital Signs
Temp Pulse Resp BP Pulse Ox
98.2 F 84 20 149/80 93
10/31/24 07:05 10/31/24 08:40 10/31/24 07:05 10/31/24 08:40 10/31/24 07:05
Cardiovascular:: Regular rate and rhythm
Respiratory:: Bilateral: Coarse
Lung Excursion:: Normal
Abdomen:: Nontender and Soft
Bowel Sounds:: Normal
Extremity Edema:: +2: Bilateral:
Wang Catheter: No
[2024-10-31 12:46] LABS: Glucose - Point of Care 165 mg/dl (70-99)
[2024-10-31] MEDS: NSS 1000 IV (15:03)
[2024-10-31 15:05] VITALS: BP 128/69
[2024-10-31] MEDS: LIPITOR 40 MG PO (17:03)
[2024-10-31 17:41] LABS: Glucose - Point of Care 174 mg/dl (70-99)
[2024-10-31 21:39] LABS: Glucose - Point of Care 167 mg/dl (70-99)
[2024-10-31] MEDS: PAMELOR 75 MG PO (21:44)
[2024-10-31 23:51] VITALS: BP 136/74
[2024-11-01] MEDS: ANCEF 10 IV ×3 (05:09→21:26)
[2024-11-01 05:26] VITALS: BMI 59.6
[2024-11-01 06:11] LABS: Blood Urea Nitrogen 33 mg/dl (7-17); Calcium 8.5 mg/dl (8.4-10.2); Carbon Dioxide 25 mmol/L (22-30); Chloride 111 mmol/L (98-107); Estimated Creatinine Clearance 41 ml/min; Glucose 194 mg/dl (70-99); Potassium 5.3 mmol/L (3.5-5.1); Sodium 143 mmol/L (135-145); eGFR 24.19
[2024-11-01 07:05] VITALS: BP 147/84
[2024-11-01] MEDS: CYMBALTA DELAYED RELEASE 60 MG PO ×2 (07:43→21:09)
[2024-11-01] MEDS: PROCARDIA XL (EXTENDED RELEASE) 30 MG PO (07:43)
[2024-11-01] MEDS: LYRICA 200 MG PO ×2 (07:44→17:21)
[2024-11-01] MEDS: PT'S OWN INSULIN PUMP - HumaLOG SC ×4 (07:44→22:52)
[2024-11-01] MEDS: PROTONIX 40 MG PO (07:44)
[2024-11-01] MEDS: FLOMAX 0.4 MG PO (07:44)
[2024-11-01] MEDS: LAC HYDRIN, AM LACTIN LOTION 1 APPLIC TOPICAL ×2 (07:44→21:12)
[2024-11-01] MEDS: BYSTOLIC 5 MG PO (07:44)
[2024-11-01] MEDS: PEPCID 20 MG PO (07:44)
[2024-11-01] MEDS: HEPARIN 5000 UNITS SC ×2 (07:45→21:09)
[2024-11-01 07:59] LABS: Glucose - Point of Care 199 mg/dl (70-99)
--- NOTE | 2024-11-01 08:29 | PN.DE.MGMTRT ---
Insulin Management
- -
11/01/2024: Diabetes Management follow up
Patient admitted with LLE cellulitis. recently discharged with same. PMH: HTN, HLD, morbid obesity, Diabetic Neuropathy, Uncontrolled IDDM, trimalleolar fracture s/p repair and revision, chronic ambulatory dysfunction. Prior to admission was using
the OmniPod insulin pump with DexCom G6 CGM with Humalog insulin. Patient states she requires up to 66 units of insulin per day. Current A1C is 8.4%, Cr 4.2, eGFR 11.74
Patient states she has had diabetes 30+ years and sees Pamela Diego, endocrinology, at [facility] for the past 2 years. She states she does not count carbs. She was told by her endo to enter 50 grams of carb for each meal and whatever the blood sugar
is. Offered again to teach carb counting with patient, she states not necessary I just do what the endo doctor said, but maybe someday.
Pt awake, alert, oriented, resting in bed, offers no complaints, able to discuss diabetes care plan.
Glucose stable, premeal yesterday was 107 to 174, HS was 167, FBG 194 V, 199 POC this AM.
Patient is able to utilize her pump without difficulty. Will make no change to pump settings.
Pump settings as follows:
Basal rate 1.1 24 hours
I:CHO ratio 1: 6
Sensitivity 1:34
Active insulin 4 hours.
Discussed with nurse. Pump worksheet to be explained to patient and placed at bedside.
Diabetes History
- -
Type of Diabetes: 2 requiring insulin
Pre-Admission Diabetes Regimen
11/01/24
05:14
Creatinine 2.3 H
Insulin Pump Settings
IP Diabetes Regimen
10/31/24 10/31/24 10/31/24
12:45 17:40 21:37
Glucose
POC Glucose 165 H 174 H 167 H
11/01/24 11/01/24
05:14 07:58
Glucose 194 H
POC Glucose 199 H
Meal type: Lunch
Meal type: Breakfast
Amount consumed: Patient refused
Amount consumed: 75%
Patient Education
[2024-11-01] MEDS: NSS IV ×2 (10:26→18:06)
--- NOTE | 2024-11-01 11:36 | W.PN.HOSP.TC ---
Today's Communication/Plan
-
see A/P
Assessment / Plan
Assessment / Plan
A/P:
# Recurrent LLE cellulitis, possibly related to DM type 2
# Probable osteomyelitis with resolving fistula per ID
no DVT on US
MRI LE with severe cellulitis left lower leg, ankle, foot
cont ancef for 6 week course through 12/01/24 per ID
cont shahida-wrap
apprec ID
# THAD, likely due to combination of urinary retention (from DM), ACEI
wang placed 10/25, discontinued due to pt request
SCr improved from 4.2 to 2.3 today, baseline 1.0
c/w gentle IVF
cont flomax
ACEI/vanco stopped, renal adjusting meds, apprec pharmacy help
Renal on board
# DM2
cont insulin pump
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
# Essential HTN
cont Nifedipine, Nebivolol
# Morbid obesity due to excess calories
BMI 58
# h/o L trimalleolar fracture s/p ORIF 08/15 with subsequent hardware removal 07/16
# Restless leg syndrome
DVT proph: HSQ
code status: DNR
Dispo: family requesting SNF eval, PT OT recc HH
DW CM
Anticipated Discharge: Within 24 hours
Subjective/Interval History
-
Date of Service: November 01, 2024
Objective Data
-
Labs:
Laboratory Results
11/01/24
05:14
Sodium 143
Potassium 5.3 H
Chloride 111 H
Carbon Dioxide 25
BUN 33 H
Creatinine 2.3 H
Glucose 194 H
Calcium 8.5
Vital Signs:
Vital Signs
Temp Pulse Resp BP Pulse Ox
36.9 C 85 20 147/84 91
11/01/24 07:05 11/01/24 07:05 11/01/24 07:05 11/01/24 07:05 11/01/24 07:05
I&O
10/31/24 11/01/24 11/02/24
06:59 06:59 06:59
Intake Total 600 / 600 2180 / 2180
Balance 600 / 600 2180 / 2180
Review of Systems
-
All other systems: Reviewed and negative
Physical Exam
-
General: Well Developed, Well Nourished, No Apparent Distress, Comfortable, Conversant and Morbidly Obese (BMI 58)
HEENT: Normocephalic and Atraumatic
Respiratory: Clear to Auscultation and Non Labored Respirations; Negative Accessory Resp Muscle Use
Cardiac: Regular Rhythm and S1/S2; Negative Murmur
GI: Soft, Nontender, Nondistended and Normal Bowel Sounds
Genito-urinary: Negative Wang
Musculoskeletal: No Clubbing, No Cyanosis, Edema, Right Lower Extrem and Edema, Left Lower Extrem
Skin: Lesions (LLE lesion, see wound care note)
Neuro: Awake and Alert
Psych: Calm and Intact Judgement/Insight
Data Reviewed
-
Labs: Labs Reviewed by me
[2024-11-01 12:20] LABS: Glucose - Point of Care 243 mg/dl (70-99)
[2024-11-01 13:10] VITALS: BP 141/80; PULSE 71; O2SAT 90
--- NOTE | 2024-11-01 13:37 | W.PN.NEPH.PH ---
Today's Communication / Plan
-
Will restart Lasix tomorrow at 40 mg daily
THAD continues to improve
Assessment/Plan
-
59 y/o female past medical history of chronic lower extremity, morbid obesity, hypertension, diabetes and recent hospitalization for left lower extremity cellulitis and acute kidney injury who presents with worsen redness of left lower extremity.
Patient reports she was discharged on October 13, but states she was unable to tolerate her oral antibiotics due to vomiting
The patient was recently admitted for similar presentation with lower extremity cellulitis that she developed acute kidney injury multifactorial and was discharged with a creatinine of 2.9.
She presented to the hospital with a creatinine of 1 and has gone up to 1.7 in 48 hours.
Renal consult for acute kidney injury
Impression.
Acute kidney injury appears to be secondary to Lasix which should be given twice a day for lower extremity edema for the last 48 hours while on lisinopril and soft blood pressures.
Cellulitis/osteo = continue antibiotics
Chronic lymphedema
Diabetes
Obesity
Plan.
Creatinine improving to 2.3
memo restart lasix 40mg po daily tomorrow for edema (patient was on BID prior to admission)
holding lisinopril due to THAD and hyperkalemia
Continue antibiotics renally dosed
flomax should continue indefinitely
follow BMP
She is restricting her fluid intake
-
-
Date of Service: November 01, 2024
CC / HPI / ROS
-
Chief Complaint:
Lower extremity swelling
History of Present Illness:
THAD/Cr improving to 2.3
on abx for cellulitis
BP stable
wang out
Review of Systems:
No chest pain or shortness of breath
No issues with urination
Labs
-
Labs:
WBC 5.3 10^3/uL (4.8-10.8) 10/30/24 08:44
RBC 3.24 10^6/uL (4.20-5.40) L 10/30/24 08:44
Hgb 8.4 g/dL (12.0-16.0) L 10/30/24 08:44
Hct 28.5 % (37.0-47.0) L 10/30/24 08:44
Plt Count 245 10^3/uL (130-400) 10/30/24 08:44
Sodium 143 mmol/L (135-145) 11/01/24 05:14
Potassium 5.3 mmol/L (3.5-5.1) H 11/01/24 05:14
Chloride 111 mmol/L (98-107) H 11/01/24 05:14
Carbon Dioxide 25 mmol/L (22-30) 11/01/24 05:14
BUN 33 mg/dl (7-17) H 11/01/24 05:14
Creatinine 2.3 mg/dL (0.6-1.0) H 11/01/24 05:14
eGFR 24.19 11/01/24 05:14
Glucose 194 mg/dl (70-99) H 11/01/24 05:14
Calcium 8.5 mg/dl (8.4-10.2) 11/01/24 05:14
Albumin 3.3 g/dl (3.5-5.0) L 10/22/24 05:55
Physical Exam
-
Vital Signs:
Vital Signs
Temp Pulse Resp BP Pulse Ox
98.5 F 85 20 147/84 91
11/01/24 07:05 11/01/24 07:05 11/01/24 07:05 11/01/24 07:05 11/01/24 07:05
Cardiovascular:: Regular rate and rhythm
Respiratory:: Bilateral: Coarse
Lung Excursion:: Normal
Abdomen:: Nontender and Soft
Bowel Sounds:: Normal
Extremity Edema:: +2: Bilateral:
Wang Catheter: No
--- NOTE | 2024-11-01 13:58 | W.PN.ID1 ---
Date of Service
Date of Service: November 01, 2024
Today's Communication
Continue cefazolin 2g IV q8h x 6 weeks through 12/01/24
Assessment / Plan
# Probable osteomyelitis with resolving fistula
# Relapse of LLE cellulitis
# lymphedema
# hx left ankle ORIF 07/2023, hardware removed 06/2024 due to loosening (at [facility])
- probable fistula over surgical site - now healing
- MRI showed severe cellulitis, possible tenosynovitis, myositis and enhancing granulation tissue which can be either infection or post operative healing; however given her overall history of recurrent fistula, myositis and osseous fragmentation
of the calcaneous without previous treatment for osteomyelitis, my suspicion for subacute osteomyelitis is high. She seems to be responding well to IV cefazolin
- Continue cefazolin 2g IV q8h x 6 weeks through 12/01/24
-Home infusion sheet submitted to case management
- PICC in place.
- Continue Sukhdeep-wrap compression.
- Elevate leg above heart level at least 1 hour out of 6.
# THAD - improving
# DM- uncontrolled
- Recommend tight glucose control
# Conditions JEWEL WAXER
Diabetes mellitus
Peripheral neuropathy
Hypertension
TIA/CVA
Class III obesity BMI 57
Restless leg syndrome
Hx of left trimalleolar fracture status post ORIF July 2023 with subsequent hardware removal June 2024
Right elbow surgery
Childhood bladder surgery
Chief Complaint
-: Cellulitis and Other (suspected osteomyelitis)
Subjective / Review of Systems
Able to bear weight.
Vital Signs / Physical Exam
Vital Signs
Vital Signs
Temp Pulse Resp BP Pulse Ox
98.5 F 85 20 147/84 91
11/01/24 07:05 11/01/24 07:05 11/01/24 07:05 11/01/24 07:05 11/01/24 07:05
Physical Exam
Constitutional: No Acute Distress and Comfortable
Cardiovascular: Regular Rate and S1/S2
Pulmonary: Clear
Gastrointestinal: Non Tender and Non Distended
Extremities: Other (LLE wound dressing dry)
Neurological: AO x 3
Objective Data
Lab Data
Lab Results
10/30/24 08:44
11/01/24 05:14
Estimated Creat Clear 41 ml/min 11/01/24 05:14
Lactic Acid 2.1 mmol/L (0.7-2.0) H 10/19/24 20:54
Total Bilirubin 0.5 mg/dl (0.2-1.3) 10/22/24 05:55
AST 18 U/L (14-36) 10/22/24 05:55
ALT 18 U/L (0-35) 10/22/24 05:55
Alkaline Phosphatase 216 U/L (38-126) H 10/22/24 05:55
Most recent labs reviewed.
Micro Results:
10/19/24 22:37 Blood Culture - Final
Blood/Venous No Growth - Final Report
10/19/24 22:08 Blood Culture - Final
Blood/Venous No Growth - Final Report
10/19/24 23:43 Wound Culture - Final
Leg - Left No growth
Gram Stain - Final
10/20/24 Peripheral vasc US: no DVT
--- NOTE | 2024-11-01 14:11 | CM ---
CM continues to follow for discharge planning. IV ABX at home are being coordinated. Home Infusion referral sent to [facility]; [facility] also to follow at home.
Plan: Home with [facility]/Home infusion
[2024-11-01 15:05] VITALS: BP 115/77
--- NOTE | 2024-11-01 15:27 | PN.CDI ---
CDI
- -
CDI:
Physician Documentation Request
Admit Date: 10/20/24 00:04
Dear Doctor Beny,
Patient admitted with left lower extremity cellulitis.
11/01 PN, 'Probable osteomyelitis with resolving fistula per ID .....cont Ancef for 6 week course through 12/01/24'
Please clarify which of the following accurately represents the acuity of the documented probable osteomyelitis:
Acute
Acute on chronic
Chronic
Use of terms such as suspected, likely, concern for, or probable (associated with a specific diagnosis that is being evaluated, monitored, or treated as if it exists) are acceptable and can be coded in the inpatient setting, when documented at the
time of discharge.
Thank you,
Kalie HOPPER,RN,CCDS
CDI Specialist
Available via [place] text
Please use your independent medical judgment in providing your response.
[2024-11-01] MEDS: LIPITOR 40 MG PO (17:21)
[2024-11-01] MEDS: PROCARDIA XL (EXTENDED RELEASE) PO (21:10)
[2024-11-01] MEDS: PAMELOR 75 MG PO (21:11)
[2024-11-01 21:53] LABS: Glucose - Point of Care 267 mg/dl (70-99)
--- NOTE | 2024-11-01 22:35 | PTCARENOTE ---
Patient drowsy, often has conversations with herself, stated that she thought her grandchild was laying on her chest when it was a blanket. Patient frequently becomes agitated and uncooperative. Daughters at bedside and report that patient has been
this way 'all week'. Medication reviewed and Lyrica 200mg HS dose held d/t cognition. Vitals WNL. HepzhzDE Lee made aware and in to assess patient and speak to daughters. Will continue to monitor.
[2024-11-01] MEDS: LYRICA PO (23:07)
[2024-11-02] VITALS (10 sets, daily range): BP systolic 111–172; BP diastolic 70–97; PULSE 2–73
--- NOTE | 2024-11-02 05:17 | W.PN.UPDATE ---
Update Note
Progress Note Update
RN reports patient seems more 'groggy' and daughters think she is more 'confused' tonight. This JUNIOR LOAN PROCESSOR spoke with daughter and reports she has been sleeping more and noticed to be more confused this week since been in the hospital and requesting CT of
head. Patient seen and evaluated. Patient seems sleepy but she is awake alert and oriented x4, follows commands, GCS 15, stable VS, aware of the medical condition and the plan. she does admit to not able to sleep full 6-8 hours, also admits to
snoring at night, ? sleep apnea. Heart RRR, Lungs clear, denies chest pain, shortness of breath, +BS 4 quad LBM 2 days ago, denies constipation, Voiding without difficulties. Denies any fall or hitting head recently.
Received nortriptyline and Duloxetine at 9PM, will hold off Lyrica at present. At present patient does not need CT of the head, plan explained to daughter and agrees.
will order UA to rule out any new infection
[2024-11-02 06:06] LABS: Blood Urea Nitrogen 37 mg/dl (7-17); Calcium 8.6 mg/dl (8.4-10.2); Carbon Dioxide 27 mmol/L (22-30); Chloride 106 mmol/L (98-107); Estimated Creatinine Clearance 43 ml/min; Glucose 158 mg/dl (70-99); Potassium 4.9 mmol/L (3.5-5.1); Sodium 143 mmol/L (135-145); eGFR 25.51
[2024-11-02] MEDS: ANCEF 10 IV ×3 (06:10→22:27)
[2024-11-02] MEDS: CYMBALTA DELAYED RELEASE 60 MG PO (07:59)
[2024-11-02] MEDS: LYRICA 200 MG PO (07:59)
[2024-11-02] MEDS: BYSTOLIC 5 MG PO (07:59)
[2024-11-02] MEDS: PROCARDIA XL (EXTENDED RELEASE) 30 MG PO (08:00)
[2024-11-02] MEDS: FLOMAX 0.4 MG PO (08:00)
[2024-11-02] MEDS: HEPARIN 5000 UNITS SC ×2 (08:00→21:36)
[2024-11-02] MEDS: PEPCID 20 MG PO (08:00)
[2024-11-02] MEDS: PROTONIX 40 MG PO (08:00)
[2024-11-02] MEDS: LASIX 40 MG PO (08:00)
[2024-11-02] MEDS: LAC HYDRIN, AM LACTIN LOTION 1 APPLIC TOPICAL ×2 (08:00→22:26)
[2024-11-02 08:25] LABS: Glucose - Point of Care 155 mg/dl (70-99)
--- NOTE | 2024-11-02 08:52 | W.PN.HOSP.TC ---
Addendum entered and electronically signed by Caprice Swan MD 11/02/24 16:00:
# Acute on chronic osteomyelitis
Addendum entered and electronically signed by Caprice Swan MD 11/02/24 09:29:
updated daughter Missy Wilcox [phone]
Decrease Lyrica from 200 TID to 100 BID with holding parameter for confusion
Original Note:
Today's Communication/Plan
-
see A/P
Assessment / Plan
Assessment / Plan
A/P:
# Recurrent LLE cellulitis, possibly related to DM type 2
# Probable osteomyelitis with resolving fistula per ID
no DVT on US
MRI LE with severe cellulitis left lower leg, ankle, foot
cont ancef for 6 week course through 12/01/24 per ID
cont shahida-wrap
apprec ID
# THAD, likely due to combination of urinary retention (from DM), ACEI
wang placed 10/25, discontinued due to pt request
SCr improved from 4.2 to 2.2 today, baseline 1.0
s/p gentle IVF
ACEI/vanco stopped, renal adjusting meds, apprec pharmacy help
cont flomax
Renal on board
resumed PO lasix 40 (BOILING HOUSE HAND 40 BID), additional IV lasix 20 today
# Acute hypoxic respiratory insufficiency
# Acute metabolic encephalopathy 2/2 hypoxia
Suspect due to fluid overload
Off additional IVF, restarted Lasix
Check CXR
Cont O2 support, currently on 4L NC, wean O2 as tolerated. Pt not on home O2
# DM2
cont insulin pump
apprec DM METAL RIVETER
# Essential HTN
cont Nifedipine, Nebivolol
# Morbid obesity due to excess calories
BMI 58
# h/o L trimalleolar fracture s/p ORIF 08/15 with subsequent hardware removal 07/16
# Restless leg syndrome
DVT proph: HSQ
code status: DNR
Dispo: family requesting SNF eval, PT OT recc HH
DW RN
total time 51 min
Anticipated Discharge: 24 - 48 hours
Subjective/Interval History
-
Date of Service: November 02, 2024
Objective Data
-
Labs:
Laboratory Results
11/02/24
05:03
Sodium 143
Potassium 4.9
Chloride 106
Carbon Dioxide 27
BUN 37 H
Creatinine 2.2 H
Glucose 158 H
Calcium 8.6
Vital Signs:
Vital Signs
Temp Pulse Resp BP Pulse Ox
36.9 C 79 22 133/76 92
11/02/24 00:17 11/02/24 08:10 11/02/24 08:10 11/02/24 07:59 11/02/24 08:11
I&O
11/01/24 11/02/24 11/03/24
06:59 06:59 06:59
Intake Total 2180 / 2180 1140 / 1140
Balance 2180 / 2180 1140 / 1140
Review of Systems
-
All other systems: Reviewed and negative
Physical Exam
-
General: Well Developed, Well Nourished, No Apparent Distress, Comfortable, Conversant and Morbidly Obese (BMI 58)
HEENT: Normocephalic, Atraumatic and Oxygen (placed on 4L NC, wean to RA as tolerated )
Respiratory: Clear to Auscultation and Non Labored Respirations; Negative Accessory Resp Muscle Use
Cardiac: Regular Rhythm and S1/S2; Negative Murmur
GI: Soft, Nontender, Nondistended and Normal Bowel Sounds
Genito-urinary: Negative Wang
Musculoskeletal: No Clubbing, No Cyanosis, Edema, Right Lower Extrem and Edema, Left Lower Extrem
Skin: Lesions (LLE lesion, see wound care note)
Neuro: Awake and Alert
Psych: Calm and Intact Judgement/Insight
Data Reviewed
-
Labs: Labs Reviewed by me
[2024-11-02] MEDS: LASIX 20 MG IV (09:15)
--- NOTE | 2024-11-02 09:23 | PTCARENOTE ---
Pt. with increasing confusion this morning and RR of 22. Pt. disoriented and told this RN 'I will have 6 chicken nuggets and a small turner for my grandson'. Pt. thought her grandson was in the room, however no one else was there but this RN. Pt. able
to answer orientation questions correctly, however only able to have very confused conversation otherwise. Pt 86% on RA and requiring 3L nasal cannula, now 92% on the 3L. When oxygen was attempted to be weaned off pt. immediately became lethargic
and disoriented again. Oxygen reapplied and provider updated on pt. condition.
[2024-11-02] MEDS: PT'S OWN INSULIN PUMP - HumaLOG SC ×2 (09:48→12:09)
--- NOTE | 2024-11-02 10:29 | PN.DE.MGMTRT ---
Insulin Management
- -
11/02/2024: Diabetes Management follow up
Patient admitted with LLE cellulitis, she was recently discharged with same. PMH: HTN, HLD, morbid obesity, Diabetic Neuropathy, Uncontrolled IDDM, trimalleolar fracture s/p repair and revision, chronic ambulatory dysfunction. Prior to admission
was using the OmniPod insulin pump with DexCom G6 CGM with Humalog insulin. Patient states she requires up to 66 units of insulin per day. Current A1C is 8.4%, Cr 4.2, eGFR 11.74
Patient states she has had diabetes 30+ years and sees Pamela Diego, endocrinology, at [facility] for the past 2 years. She states she does not count carbs. She was told by her endo to enter 50 grams of carb for each meal and whatever the blood sugar
is. Offered again to teach carb counting with patient, she states not necessary I just do what the endo doctor said, but maybe someday.
Pt is lethargic and somnolent, unable to discuss diabetes care plan. Family (4 dtrs ) at bedside, all appear to be in emotional distress about their mom's condition. They have a multitude of c/o regarding pt's care while she was on the acute care
floor.
Discussed with Nurse, notified pt wound care physician/director credit risk to speak to pt's family.
11/01 premeal glucose was elevated, 199 to 243, HS 267 and FBG 155 this AM. Of note, Pt did not administer any bolus doses at meal times.
Patient is unable to utilize her pump at this time due mental status changes. She is currently NPO.
Will discontinue insulin pump at this time and start basal bolus insulin.
Start low dose Lantus 12 units @ HS. Change to moderate Corrective Q6hrs.
Will follow closely and resume insulin pump when mental status is at baseline and pt is able to manage insulin pump.
Discussed with Nurse and Hospitalist physician. Will cont to monitor
Diabetes History
- -
Type of Diabetes: 2 requiring insulin
Pre-Admission Diabetes Regimen
11/02/24
05:03
Creatinine 2.2 H
Insulin Pump Settings
IP Diabetes Regimen
11/01/24 11/01/24 11/02/24
12:19 21:51 05:03
Glucose 158 H
POC Glucose 243 H 267 H
11/02/24
08:23
Glucose
POC Glucose 155 H
Meal type: Lunch
Meal type: Breakfast
Amount consumed: Patient refused
Amount consumed: 100%
Patient Education
[2024-11-02 11:20] LABS: Glucose - Point of Care 107 mg/dl (70-99)
--- NOTE | 2024-11-02 11:29 | W.PN.NEPH.PH ---
Today's Communication / Plan
-
follow BMP
Assessment/Plan
-
59 y/o female past medical history of chronic lower extremity, morbid obesity, hypertension, diabetes and recent hospitalization for left lower extremity cellulitis and acute kidney injury who presents with worsen redness of left lower extremity.
Patient reports she was discharged on October 13, but states she was unable to tolerate her oral antibiotics due to vomiting
The patient was recently admitted for similar presentation with lower extremity cellulitis that she developed acute kidney injury multifactorial and was discharged with a creatinine of 2.9.
She presented to the hospital with a creatinine of 1 and has gone up to 1.7 in 48 hours.
Renal consult for acute kidney injury
Impression.
Acute kidney injury appears to be secondary to Lasix which should be given twice a day for lower extremity edema for the last 48 hours while on lisinopril and soft blood pressures.
Cellulitis/osteo = continue antibiotics
Chronic lymphedema
Diabetes
Obesity
Plan.
daily lasix only
holding RASI still
follow BMP
-
-
Date of Service: November 02, 2024
CC / HPI / ROS
-
Chief Complaint:
Lower extremity swelling
History of Present Illness:
THAD/Cr improving to 2.2
on abx for cellulitis
BP stable
wang out
now on lasix daily
Review of Systems:
No chest pain or shortness of breath
No issues with urination
Labs
-
Labs:
WBC 5.3 10^3/uL (4.8-10.8) 10/30/24 08:44
RBC 3.24 10^6/uL (4.20-5.40) L 10/30/24 08:44
Hgb 8.4 g/dL (12.0-16.0) L 10/30/24 08:44
Hct 28.5 % (37.0-47.0) L 10/30/24 08:44
Plt Count 245 10^3/uL (130-400) 10/30/24 08:44
Sodium 143 mmol/L (135-145) 11/02/24 05:03
Potassium 4.9 mmol/L (3.5-5.1) 11/02/24 05:03
Chloride 106 mmol/L (98-107) 11/02/24 05:03
Carbon Dioxide 27 mmol/L (22-30) 11/02/24 05:03
BUN 37 mg/dl (7-17) H 11/02/24 05:03
Creatinine 2.2 mg/dL (0.6-1.0) H 11/02/24 05:03
eGFR 25.51 11/02/24 05:03
Glucose 158 mg/dl (70-99) H 11/02/24 05:03
Calcium 8.6 mg/dl (8.4-10.2) 11/02/24 05:03
Albumin 3.3 g/dl (3.5-5.0) L 10/22/24 05:55
Physical Exam
-
Vital Signs:
Vital Signs
Temp Pulse Resp BP Pulse Ox
97.8 F 79 22 133/76 92
11/02/24 08:00 11/02/24 08:10 11/02/24 08:10 11/02/24 07:59 11/02/24 08:11
Cardiovascular:: Regular rate and rhythm
Respiratory:: Bilateral: Coarse
Lung Excursion:: Normal
Abdomen:: Nontender and Soft
Bowel Sounds:: Normal
Extremity Edema:: +2: Bilateral:
--- NOTE | 2024-11-02 11:38 | W.PN.UPDATE ---
Update Note
Progress Note Update
MANUFACTURERS REPRESENTATIVE called for pt for decreased LOC.
Pt has already been put on BIPAP.
CXR from 9 am showed stable mild pulmonary vascular congestion, cardiomegaly.
Pt seen and examined at bedside. She is arousable to sternal rub but remains lethargic.
Cont BIPAP (She is DNR, confirmed with daughter).
Check ABG, VBG (if unable to obtain ABG).
Upgrade to IMU (due to DNR status)
NPO including meds.
Meds change to IV.
Updated daughter on the phone Missy [phone]. She is appreciative of the update.
CC time 40 min
[2024-11-02 11:40] LABS: Venous Blood Gas B.E. 0.5 mmol/L (-4 to +4); Venous Blood Gas O2 Sat % 92.4 %; Venous Blood Gas pCO2 61 mmHg (35-48); Venous Blood Gas pH 7.27 (7.32-7.43); Venous Blood Gas pO2 65 mmHg (30-50)
[2024-11-02 11:49] LABS: % Basophils 1.1 % (0-2); % Immature Granulocytes 3.4 % (0-0.5); % Lymphocytes 23.5 % (20.5-51.1); % Monocytes 7.4 % (1.7-9.3); % Neutrophils 62.6 % (42.2-75.2); Absolute Basophils 0.1 10^3/uL (0-0.2); Absolute Eosinophils 0.1 10^3/uL (0-0.7); Absolute Immature Granulocytes 0.2 10^3/uL (0-0.05); Absolute Lymphocytes 1.1 10^3/uL (1.2-3.4); Absolute Monocytes 0.3 10^3/uL (0.1-0.6); Absolute Neutrophils 2.8 10^3/uL (1.4-6.5); Hematocrit 27.3 % (37.0-47.0); Hemoglobin 8.3 g/dL (12.0-16.0); Mean Corp Hgb Conc. 30.4 g/dL (33.0-37.0); Mean Corpuscular Hgb 25.9 pg (27.0-31.0); Mean Platelet Volume 10.7 fL (7.4-10.4); Nucleated Red Blood Cells % 0.9 %; Platelet Count 248 10^3/uL (130-400); Red Blood Cell Count 3.21 10^6/uL (4.20-5.40); Red Cell Dist. Width 16.9 % (11.5-14.5); White Blood Cell Count 4.5 10^3/uL (4.8-10.8)
[2024-11-02 11:51] LABS: B.E. 0.5 mmol/L; HCO3 27.2 mmol/L (21-28); O2 Saturation % 99.3 % (94-98); PCO2 54 mmHg (32-35); PO2 140 mmHg (83-108); pH 7.31 (7.35-7.45)
[2024-11-02 11:54] LABS: Lactic Acid 0.5 mmol/L (0.7-2.0)
--- NOTE | 2024-11-02 12:00 | RR ---
A Rapid Response was called on this patient, please see Rapid Response form.
Pt. placed on Bipap temporarily due to decreased LOC, confusion, and increased work of breathing even with 4L O2. RT in pt. room to check on pt. after Bipap started and pt. now unresponsive to sternal rub. Rapid response called and pt. transferred
to IMU.
--- NOTE | 2024-11-02 12:01 | PTCARENOTE ---
pt received as transfer from 3rd floor, report received from previous RN. Pt on bipap 15/5 tolerating well. pt drowsy, arouses to voice, able to state name and where she is. disoriented to time. pt falls back to sleep quickly after being awakened.
pt able to follow commands, wiggles toes and squeezed hands to command. SR on telemetry heart rate in 60s. pulses weakly palpable. +2 lower extremity edema. lung sounds diminished. sat 98%. hypoactive bowel sounds. abdomen obese round. right upper
arm PICC intact. Left lower extremity wound with foam intact. see worklist for full nursing assessment and interventions.
[2024-11-02] MEDS: PROTONIX IV 40 MG IV (12:19)
[2024-11-02] MEDS: NSS (PRESERVATIVE FREE) 10 ML IV (12:20)
--- NOTE | 2024-11-02 12:44 | W.PN.ID1 ---
Date of Service
Date of Service: November 02, 2024
Today's Communication
Continue cefazolin.
Assessment / Plan
# Probable osteomyelitis with resolving fistula
# Relapse of LLE cellulitis
# lymphedema
# hx left ankle ORIF 07/2023, hardware removed 06/2024 due to loosening (at [facility])
- probable fistula over surgical site - now healing
- MRI showed severe cellulitis, possible tenosynovitis, myositis and enhancing granulation tissue which can be either infection or post operative healing; however given her overall history of recurrent fistula, myositis and osseous fragmentation
of the calcaneous without previous treatment for osteomyelitis, my suspicion for subacute osteomyelitis is high. She seems to be responding well to IV cefazolin
- Continue cefazolin 2g IV q8h x 6 weeks through 12/01/24
-Home infusion sheet submitted to case management
- PICC in place.
- Continue Sukhdeep-wrap compression.
- Elevate leg above heart level at least 1 hour out of 6.
# Acute change in mental status
- Suspect due to hypercapnic hypoventilation obesity syndrome. BMI 60. pCO2 54
# THAD - improving
# DM- uncontrolled
- Recommend tight glucose control
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
Diabetes mellitus
Peripheral neuropathy
Hypertension
TIA/CVA
Class III obesity BMI 57
Restless leg syndrome
Hx of left trimalleolar fracture status post ORIF July 2023 with subsequent hardware removal June 2024
Right elbow surgery
Childhood bladder surgery
Chief Complaint
-: Cellulitis and Other (suspected osteomyelitis)
Subjective / Review of Systems
Pt transferred to IMU due to decreased mental status, labored breathing, unresponsiveness.
Vital Signs / Physical Exam
Vital Signs
Vital Signs
Temp Pulse Resp BP Pulse Ox
97.8 F 79 22 133/76 92
11/02/24 08:00 11/02/24 08:10 11/02/24 08:10 11/02/24 07:59 11/02/24 08:11
Physical Exam
Constitutional: Acutely Ill
Cardiovascular: Regular Rate and S1/S2
Pulmonary: Clear
Gastrointestinal: Soft, Non Tender, Non Distended and Normal Bowel Sounds
Extremities: Edema and Other (left leg decrease in erythema)
Neurological: Other (Lethargic)
Objective Data
Lab Data
Lab Results
11/02/24 11:30
Estimated Creat Clear 43 ml/min 11/02/24 05:03
Lactic Acid 0.5 mmol/L (0.7-2.0) L 11/02/24 11:30
Total Bilirubin 0.5 mg/dl (0.2-1.3) 10/22/24 05:55
AST 18 U/L (14-36) 10/22/24 05:55
ALT 18 U/L (0-35) 10/22/24 05:55
Alkaline Phosphatase 216 U/L (38-126) H 10/22/24 05:55
Most recent labs reviewed.
Micro Results:
10/19/24 22:37 Blood Culture - Final
Blood/Venous No Growth - Final Report
10/19/24 22:08 Blood Culture - Final
Blood/Venous No Growth - Final Report
10/19/24 23:43 Wound Culture - Final
Leg - Left No growth
Gram Stain - Final
10/20/24 Peripheral vasc US: no DVT
11/02/24 CXR: Stable mild pulmonary vascular congestion. Cardiomegaly.
[2024-11-02 13:39] LABS: ALT (SGPT) < 10 U/L (0-35); AST (SGOT) 31 U/L (14-36); Albumin 3.3 g/dl (3.5-5.0); Alkaline Phosphatase 223 U/L (38-126); Blood Urea Nitrogen 38 mg/dl (7-17); Calcium 8.7 mg/dl (8.4-10.2); Carbon Dioxide 28 mmol/L (22-30); Chloride 108 mmol/L (98-107); Estimated Creatinine Clearance 43 ml/min; Glucose 101 mg/dl (70-99); Potassium 4.8 mmol/L (3.5-5.1); Sodium 144 mmol/L (135-145); Total Bilirubin 0.3 mg/dl (0.2-1.3); Total Protein 6.5 g/dl (6.3-8.2); eGFR 25.51
--- NOTE | 2024-11-02 13:55 | W.PN.UPDATE ---
Update Note
Progress Note Update
Discussed with several daughters at bedside.
Discussed code status and confirmed that pt's prior wish was DNR DNI, which we will respect.
ABG/VBG reviewed, acceptable.
Pt remains lethargic with decreased LOC.
Will check CT head without contrast.
Pulm CS for hypoxia with likely underlying obesity hypoventilation syndrome.
Cont current BIPAP, NPO without meds
Monitor MS closely
--- NOTE | 2024-11-02 14:42 | PTOTSP ---
Reviewed chart and events noted. Pt transferred to IMU. PT order was not continued upon transfer. Will need updated PT order when stable to resume activity.
--- NOTE | 2024-11-02 15:45 | PTCARENOTE ---
pt more awake after CT scan, answering questions, still drowsy but able to answer questions, some confused conversation. bladder scanned for 1457 ml- provider notified, order received for wang catheter. pt originally refused catheter but after
multiple conversations pt agreeable to catheter.
[2024-11-02 15:49] LABS: Urine Albumin 2+ (Neg - Trace); Urine Bilirubin Negative (Negative); Urine Character Clear (Clear); Urine Color Yellow; Urine Glucose 1+ (Negative); Urine Ketone Negative (Negative); Urine Leukocyte 1+ (Negative); Urine Nitrite Negative (Negative); Urine Occult Blood 3+ (Negative); Urine Specific Gravity 1.015 (<1.030); Urine Urobilinogen Negative (Neg - 1+)
[2024-11-02 16:20] LABS: Urine Amorphous Seen; Urine Squamous Cell 21-25 /LPF (Few)
[2024-11-02 16:21] LABS: Urine Bacteria Moderate (Negative); Urine Red Blood Cell 0-2 /HPF (0-2); Urine White Cell 16-20 /HPF (0-5)
[2024-11-02 16:24] LABS: Amphetamines Negative (Negative); Barbiturates Negative (Negative); Benzodiazepines Negative (Negative); Buprenorphine Negative (Negative); Cocaine Negative (Negative); Marijuana Negative (Negative); Methadone Negative (Negative); Methamphetamines Negative (Negative); Opiates Negative (Negative); Phencyclidine Negative (Negative); Tricyclic Antidepressants Positive (Negative)
[2024-11-02 17:40] LABS: Glucose - Point of Care 90 mg/dl (70-99)
[2024-11-02 23:38] LABS: Glucose - Point of Care 82 mg/dl (70-99)
[2024-11-03] VITALS (22 sets, daily range): BP systolic 122–154; BP diastolic 68–111; PULSE 2–91; O2SAT 94–97; BMI 58.8
--- NOTE | 2024-11-03 02:13 | PTCARENOTE ---
Assumed care for patient overnight, received report from dayshift RN. Upon assessment pt is AAOx2 disoriented to time. Pt extremely drowsy and lethargic, falling asleep mid conversation. Pt able to answer simple questions and easy to arouse. Pt
daughters at the bedside. NSR on the monitor. Pt remains on BiPAP. RT bedside and assisted with a boost, pt sitting upright to assist with breathing. RT bedside and assisted with a boost, pt sitting upright to assist with breathing. Due to current
status pt requires turning and repositioning. LLE wound redressed and intact. Applied Lactin to Left lower leg as ordered. Pt remains NPO. Blood sugar 82. DE Landa made aware, and held nighttime standing dose of Lantus. Call pop is within reach.
[2024-11-03 04:55] LABS: Hematocrit 28.1 % (37.0-47.0); Hemoglobin 8.4 g/dL (12.0-16.0); Mean Corp Hgb Conc. 29.9 g/dL (33.0-37.0); Mean Corpuscular Hgb 25.5 pg (27.0-31.0); Mean Corpuscular Volume 85.4 fL (81.0-99.0); Mean Platelet Volume 10.7 fL (7.4-10.4); Platelet Count 247 10^3/uL (130-400); Red Blood Cell Count 3.29 10^6/uL (4.20-5.40); Red Cell Dist. Width 17.3 % (11.5-14.5); White Blood Cell Count 4.5 10^3/uL (4.8-10.8)
[2024-11-03] MEDS: ANCEF 10 IV ×3 (05:01→22:22)
[2024-11-03 05:18] LABS: Glucose - Point of Care 84 mg/dl (70-99)
[2024-11-03 05:19] LABS: Blood Urea Nitrogen 34 mg/dl (7-17); Calcium 8.9 mg/dl (8.4-10.2); Carbon Dioxide 26 mmol/L (22-30); Chloride 112 mmol/L (98-107); Estimated Creatinine Clearance 46 ml/min; Glucose 83 mg/dl (70-99); Potassium 4.8 mmol/L (3.5-5.1); Sodium 147 mmol/L (135-145)
[2024-11-03] MEDS: PEPCID 20 MG PO (07:52)
[2024-11-03] MEDS: NSS (PRESERVATIVE FREE) 10 ML IV (07:53)
[2024-11-03] MEDS: FLOMAX 0.4 MG PO (07:53)
[2024-11-03] MEDS: CYMBALTA DELAYED RELEASE 60 MG PO ×2 (07:53→19:56)
[2024-11-03] MEDS: PROCARDIA XL (EXTENDED RELEASE) 30 MG PO ×2 (07:53→19:58)
[2024-11-03] MEDS: PROTONIX IV 40 MG IV (07:53)
[2024-11-03] MEDS: HEPARIN 5000 UNITS SC ×2 (07:54→15:55)
[2024-11-03] MEDS: BYSTOLIC 5 MG PO (07:54)
[2024-11-03] MEDS: LASIX 40 MG IV (07:55)
[2024-11-03] MEDS: LAC HYDRIN, AM LACTIN LOTION 1 APPLIC TOPICAL ×2 (07:55→19:58)
[2024-11-03] MEDS: LYRICA 100 MG PO ×2 (07:57→19:57)
--- NOTE | 2024-11-03 08:03 | CON.PUL ---
Consultation
Consultation Request
Date/Time Consultation Requested: 11/03/2024-7 AM
Date/Time Consultation Performed: 11/03/2024-7:30 AM
Requesting Provider: Hospitalist
Performing Provider: Dr. Bonner
Reason for Consultation: Shortness of breath
Medical History
-
Chief Complaint: Shortness of breath
History of Present Illness:
59-year-old morbidly obese former smoking female admitted with left lower extremity cellulitis, diabetes and THAD found to be hypoxemic with mental status changes and hypercapnia placed on BiPAP now improved-pulmonary consulted for
hypoxemia/hypercapnia 11/03/2024.. The patient does not remember yesterday. She denies any shortness of breath at rest. She has no chest pain, chest tightness, mucus congestion, productive cough, pleurisy, abdominal pain, increased lower extremity
swelling or focal weakness.
Past Medical History
Past Medical History: None (Morbid obesity-BMI 57. PAL/obesity hypoventilation suspected. Diabetes. Peripheral neuropathy. Left ankle fracture 2023. TIA/CVA. Hypertension. Restless legs. Right elbow surgery. Childhood bladder surgery.)
Social History
Tobacco: Former Smoker (5-pack-year quit many years ago)
Alcohol: None
Drug: None
Occupational Exposures: No known asbestos exposure
Environmental Exposures: no known tuberculosis exposure
Family History
Family History: Reviewed & Not Pertinent
Allergies / Home Medications
Allergies
Allergy/AdvReac Type Severity Reaction Status Date / Time
No Known Allergies Allergy Verified 10/19/24 19:25
Home Medications
�Medication �Instructions �Recorded �Confirmed �Last Taken �Type
glipizide 10 mg tablet 10 mg PO BID Diabetes 02/01/23 10/20/24 04/23/23 21:30 History
nortriptyline 75 mg capsule 75 mg PO HS depression/sleep 02/01/23 10/20/24 04/23/23 22:00 History
pioglitazone 30 mg tablet 30 mg PO DAILY Diabetes 02/01/23 10/20/24 04/24/23 22:00 History
atorvastatin 40 mg tablet (Lipitor) 40 mg PO QPM High Cholesterol 02/02/23 10/20/24 04/23/23 21:30 History
famotidine 20 mg tablet 20 mg PO DAILY Gastrointestinal 10/02/24 10/20/24 Unknown History
Issue
nebivolol 5 mg tablet 5 mg PO DAILY Blood Pressure 10/02/24 10/20/24 Unknown History
omeprazole 40 mg capsule,delayed 40 mg PO DAILY Gastrointestinal 10/02/24 10/20/24 Unknown History
release Issue
nifedipine 30 mg tablet,extended 30 mg PO BID hypertension 30 days 10/13/24 10/20/24 Unknown Rx
release #60 tabs
sodium zirconium cyclosilicate 10 10 g PO DAILY Hyperkalemia #11 ea 10/13/24 10/20/24 Unknown Rx
gram oral powder packet (Lokelma)
lisinopril 20 mg tablet 20 mg PO DAILY Blood Pressure 10/19/24 10/20/24 Unknown History
ondansetron 4 mg disintegrating 4 mg PO Q8HPRN PRN nausea 10/19/24 10/20/24 Unknown History
tablet
pregabalin 200 mg capsule 200 mg PO TID Pain 10/19/24 10/20/24 Unknown History
Patient Own Insulin Pump 1 unit SC .INSULIN LISPRO Diabetes 10/20/24 10/20/24 Unknown History
dapagliflozin propanediol 10 mg 10 mg PO DAILY Diabetes 10/20/24 10/20/24 Unknown History
tablet (Farxiga)
duloxetine 60 mg capsule,delayed 60 mg PO BID 10/20/24 10/20/24 Unknown History
release (Cymbalta) depression/anxiety/pain
furosemide 40 mg tablet (Lasix) 40 mg PO BID Fluid 10/20/24 10/20/24 Unknown History
Retention/Swelling
semaglutide 0.25 mg or 0.5 mg (2 0.5 mg SC SA Diabetes 10/20/24 10/20/24 Unknown History
mg/3 mL) subcutaneous pen injector
(Ozempic)
Review of Systems
-
Unable to Obtain full review of systems at this time due to: Other (Per HPI)
Vitals / Labs / Diagnostic Testing
Vital Signs
Temp Pulse Resp BP Pulse Ox
98.2 F 89 17 138/87 97
11/03/24 02:17 11/03/24 07:55 11/03/24 06:30 11/03/24 07:55 11/03/24 06:30
Lab Data
11/03/24 04:41
11/03/24 04:41
Laboratory Results
11/02/24
11:43
pH 7.31 L
pCO2 54 H
pO2 140 H
HCO3 27.2
O2 Delivery Level
Diagnostic Testing:
Physical Exam
-
Exam:
Well-nourished and well-developed in no apparent distress
HEENT-atraumatic, normocephalic, thick neck
Neck-supple, no JVD, no bruit
Heart-regular rate and rhythm-no murmurs, rubs or gallops
Chest with diminished breath sounds, no wheezes or crackles
Back without CVA tenderness
Abdomen-soft, nontender, nondistended, no hepatosplenomegaly
Extremities-no cyanosis, clubbing, edema and good peripheral pulses
Integument-intact, no rashes, lesions or ecchymosis
Neurology-alert and oriented, nonfocal motor and sensory exam
Assessment
-
59-year-old morbidly obese former smoking female admitted with left lower extremity cellulitis, diabetes and THAD found to be hypoxemic with mental status changes and hypercapnia placed on BiPAP now improved-pulmonary consulted for
hypoxemia/hypercapnia 11/03/2024.
Obesity hypoventilation syndrome suspected
Left lower extremity cellulitis
Osteomyelitis suspected
THAD
Hypercapnic respiratory failure requiring BiPAP-ABG 11/02/2024--50/140/7.31
Toxic metabolic encephalopathy
Diabetes-A1c 8.2
Mild leukopenia
Nliemh-vjxaiessxq-mxymmvrvkq 8.4
Mild hypernatremia
Conditions present prior to admission:
Morbid obesity-BMI 57.
PAL/obesity hypoventilation suspected.
Diabetes.
Peripheral neuropathy.
Left ankle fracture 2023.
TIA/CVA.
Hypertension.
Restless legs.
Right elbow surgery.
Childhood bladder surgery.
Plan
Acute decompensation likely due to acute on top of chronic hypercapnic respiratory failure from underlying obesity hypoventilation syndrome-patient states he never been worked up for obstructive sleep apnea
Supplemental oxygen as needed
BiPAP 15/5 with 3 L oxygen at night and during the daytime as needed
Aspiration precautions
Nebulizers if needed-currently not bronchospastic
Cultures reviewed
Infectious disease following-correspondence reviewed
Continue long course of antibiotics for suspected osteomyelitis-cefazolin
Mild diuresis
Monitor renal function, electrolytes, intake/output, lower extremity edema and weight
Replace electrolytes as needed
Nephrology following-correspondence reviewed
Monitor blood sugar
Insulin supplementation as needed
Follow hemoglobin
Transfuse if needed
DVT prophylaxis-will increase heparin subcutaneous to every 8 hours
Nutrition
Early mobilization
Outpatient pulmonary/sleep disorders [id number], sleep study, probable CPAP/BiPAP
Diagnostic data:
Chest x-ray 10/27/2024-cardiomegaly, lungs clear
Chest x-ray 11/02/2024-mild cardiomegaly, mild pulmonary vascular congestion
CT head 11/02/2024-no acute intracranial abnormalities
Echocardiogram 02/02/2023-EF 60-65%, trace mitral regurgitation
Data Reviewed
-
EKG: Report reviewed by me
Radiology: Report reviewed by me
CT Scan: Report reviewed by me
Ultrasound: Report reviewed by me
Medical Tests (Nuc Med, Echo etc): Image personally visualized and interpreted
Labs: Discussed with Physician
Old Records: Reviewed
Total Time Spent with Patient (in minutes): 75
--- NOTE | 2024-11-03 08:32 | PN.DE.MGMTRT ---
Insulin Management
- -
11/03/2024: Diabetes Management follow up
Patient admitted with LLE cellulitis, she was recently discharged with same. PMH: HTN, HLD, morbid obesity, Diabetic Neuropathy, Uncontrolled IDDM, trimalleolar fracture s/p repair and revision, chronic ambulatory dysfunction. Prior to admission was
using the OmniPod insulin pump with DexCom G6 CGM with Humalog insulin. Patient states she requires up to 66 units of insulin per day. Current A1C is 8.4%, Cr 4.2, eGFR 11.74
Patient states she has had diabetes 30+ years and sees Pamela Diego, endocrinology, at [facility] for the past 2 years. She states she does not count carbs. She was told by her endo to enter 50 grams of carb for each meal and whatever the blood sugar is.
Offered again to teach carb counting with patient, she states not necessary I just do what the endo doctor said, but maybe someday.
Pt is awake, alert, oriented, pleasant, sitting up in bed, able to discuss diabetes care plan. Family (2 dtrs ) at bedside, very supportive
11/02 insulin pump was discontinued due to mental status changes. Pt has been NPO overnight.
Patient states that she is able to use and manage her pump but has run out of insulin and her CGM has . States she also needs a new Sensor.
Glucose stable w/o hypoglycemia in range of 82 to 90. Pt has been started on 1800 boyd diet, states she ate yogurt and fruit this morning.
Will start Lantus 12 units @ HS and low dose AC NovoLog 3 units. Cont moderate corrective Q6hrs.
Discussed with Nurse and Hospitalist physician. Will cont to follow.
Diabetes History
- -
Type of Diabetes: 2 requiring insulin
Pre-Admission Diabetes Regimen
11/02/24 11/03/24
13:14 04:41
Creatinine 2.2 H 2.0 H
Insulin Pump Settings
IP Diabetes Regimen
11/02/24 11/02/24 11/02/24
11:19 13:14 17:29
Glucose 101 H
POC Glucose 107 H 90
11/02/24 11/03/24 11/03/24
23:26 04:41 05:06
Glucose 83
POC Glucose 82 84
Patient Education
--- NOTE | 2024-11-03 09:02 | W.PN.HOSP.TC ---
Addendum entered and electronically signed by Caprice Swan MD 11/03/24 09:32:
Lyrica was held on 11/02 when pt was confused.
With improvement of her MS, OK to cont decreased dose (from DIRECTOR OF ANESTHESIA SERVICES 200 mg TID to 100 mg BID). Would not stop cold turkey to avoid withdrawal effect.
Cont current decreased dose and consider decreasing further to 100 mg HS only to avoid day time sedation- pt informed and agrees.
Original Note:
Today's Communication/Plan
-
see A/P
Assessment / Plan
Assessment / Plan
A/P:
# Recurrent LLE cellulitis, possibly related to DM type 2
# Probable osteomyelitis with resolving fistula per ID
no DVT on US
MRI LE with severe cellulitis left lower leg, ankle, foot
cont ancef for 6 week course through 12/01/24 per ID
cont shahida-wrap
apprec ID
# THAD, likely due to combination of urinary retention (from DM), ACEI
wang placed 10/25, discontinued due to pt request
SCr improved from 4.2 to 2.0 today, baseline 1.0
s/p gentle IVF
started lasix use IV 40 mg daily for mild fluid overload
check daily weight
cont flomax
Renal on board
# Acute hypoxic respiratory failure
# LINE SERVICER 11/02 for Acute metabolic encephalopathy 2/2 hypoxia from fluid overload and likely underlying obesity hypoventilation syndrome
CXR 11/02: Stable mild pulmonary vascular congestion. Cardiomegaly.
IV Lasix as above
ABG and VBG reviewed
Placed on BIPAP, weaned down to 2L NC, cont to wean O2 as tolerated, pt not on home O2
CT head 11/02: No acute intracranial abnormality.
MS improved, OK to resume PO meds and diet
Pt will likely need sleep study outpt- informed pt and daughters
Can check nocturnal pulse Ox for home O2 use while here
# DM2
Carb control diet
cont insulin pump
apprec DM SERVICE CENTER COORDINATOR
# Essential HTN
cont Nifedipine, Nebivolol
# Morbid obesity due to excess calories
BMI 58
# h/o L trimalleolar fracture s/p ORIF 08/15 with subsequent hardware removal 07/16
# Restless leg syndrome
DVT proph: HSQ
code status: DNR
Dispo: family requesting SNF eval, PT OT recc HH
DW RN
DW daughters at bedside
Anticipated Discharge: > 48 hours
Subjective/Interval History
-
Date of Service: November 03, 2024
Objective Data
-
Labs:
Laboratory Results
11/03/24
04:41
WBC 4.5 L
Hgb 8.4 L
Hct 28.1 L
Plt Count 247
Sodium 147 H
Potassium 4.8
Chloride 112 H
Carbon Dioxide 26
BUN 34 H
Creatinine 2.0 H
Glucose 83
Calcium 8.9
Vital Signs:
Vital Signs
Temp Pulse Resp BP Pulse Ox
37.1 C 89 16 144/76 92
11/03/24 07:54 11/03/24 08:00 11/03/24 08:00 11/03/24 08:00 11/03/24 08:00
I&O
11/02/24 11/03/24 11/04/24
06:59 06:59 06:59
Intake Total 1140 / 1140
Output Total 4125 / 4125 1475 / 1475
Balance 1140 / 1140 -4125 / -4125 -1475 / -1475
Review of Systems
-
All other systems: Reviewed and negative
Physical Exam
-
General: Well Developed, Well Nourished, Comfortable, Conversant and Morbidly Obese (BMI 58)
HEENT: Normocephalic, Atraumatic and Oxygen (2L NC)
Respiratory: Clear to Auscultation and Non Labored Respirations; Negative Accessory Resp Muscle Use
Cardiac: Regular Rhythm and S1/S2; Negative Murmur
GI: Soft, Nontender, Nondistended and Normal Bowel Sounds
Genito-urinary: Negative Wang
Musculoskeletal: No Clubbing, No Cyanosis, Edema, Right Lower Extrem and Edema, Left Lower Extrem
Skin: Lesions (LLE lesion, see wound care note)
Neuro: Awake and Alert
Psych: Calm and Intact Judgement/Insight
Data Reviewed
-
Diagnostic Radiology: Image personally visualized and interpreted and Report Reviewed by me
Labs: Labs Reviewed by me
[2024-11-03 09:34] LABS: Glycohemoglobin (HgbA1c) 8.2 % (4.0-5.6)
[2024-11-03 11:20] LABS: Glucose - Point of Care 107 mg/dl (70-99)
--- NOTE | 2024-11-03 11:20 | W.PN.ID1 ---
Date of Service
Date of Service: November 03, 2024
Today's Communication
Continue cefazolin 2g IV q8h x 6 weeks through 12/01/24
Assessment / Plan
# Probable osteomyelitis with resolving fistula
# Relapse of LLE cellulitis, resolving
# lymphedema
# hx left ankle ORIF 07/2023, hardware removed 06/2024 due to loosening (at [facility])
- probable fistula over surgical site - now healing
- MRI showed severe cellulitis, possible tenosynovitis, myositis and enhancing granulation tissue which can be either infection or post operative healing; however given her overall history of recurrent fistula, myositis and osseous fragmentation
of the calcaneous without previous treatment for osteomyelitis, my suspicion for subacute osteomyelitis is high. She seems to be responding well to IV cefazolin
- Continue cefazolin 2g IV q8h x 6 weeks through 12/01/24
-Home infusion sheet submitted to case management
- PICC in place.
- Continue Sukhdeep-wrap compression.
- Elevate leg above heart level at least 1 hour out of 6.
# s/p Acute change in mental status due to hypercapnic hypoventilation obesity syndrome. BMI 60. pCO2 54
# THAD - improving
# DM- uncontrolled
- Recommend tight glucose control
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
Diabetes mellitus
Peripheral neuropathy
Hypertension
TIA/CVA
Class III obesity BMI 57
Restless leg syndrome
Hx of left trimalleolar fracture status post ORIF July 2023 with subsequent hardware removal June 2024
Right elbow surgery
Childhood bladder surgery
Chief Complaint
-: Cellulitis and Other (suspected osteomyelitis)
Subjective / Review of Systems
Pt alert today. She feels better.
Vital Signs / Physical Exam
Vital Signs
Vital Signs
Temp Pulse Resp BP Pulse Ox
98.7 F 89 16 144/76 93
11/03/24 07:54 11/03/24 08:00 11/03/24 08:00 11/03/24 08:00 11/03/24 10:21
Physical Exam
Constitutional: No Acute Distress and Comfortable
Cardiovascular: Regular Rate and S1/S2
Gastrointestinal: Soft, Non Tender, Non Distended and Normal Bowel Sounds
Extremities: Edema
Wound: Other (Left leg dressing dry. Per nurse, wound closed, no drainage. )
Neurological: AO x 3
Lines: PICC
Objective Data
Lab Data
Lab Results
11/03/24 04:41
11/03/24 04:41
Estimated Creat Clear 46 ml/min 11/03/24 04:41
Lactic Acid 0.5 mmol/L (0.7-2.0) L 11/02/24 11:30
Total Bilirubin 0.3 mg/dl (0.2-1.3) 11/02/24 13:14
AST 31 U/L (14-36) 11/02/24 13:14
ALT < 10 U/L (0-35) 11/02/24 13:14
Alkaline Phosphatase 223 U/L (38-126) H 11/02/24 13:14
Most recent labs reviewed.
Micro Results:
11/02/24 15:09 Urine Culture - Pending
Urine
10/19/24 22:37 Blood Culture - Final
Blood/Venous No Growth - Final Report
10/19/24 22:08 Blood Culture - Final
Blood/Venous No Growth - Final Report
10/19/24 23:43 Wound Culture - Final
Leg - Left No growth
Gram Stain - Final
10/20/24 Peripheral vasc US: no DVT
11/02/24 CXR: Stable mild pulmonary vascular congestion. Cardiomegaly.
[2024-11-03] MEDS: PT'S OWN INSULIN PUMP - HumaLOG SC (11:58)
--- NOTE | 2024-11-03 12:42 | W.PN.NEPH.PH ---
Today's Communication / Plan
-
Diuresis
Assessment/Plan
-
59 y/o female past medical history of chronic lower extremity, morbid obesity, hypertension, diabetes and recent hospitalization for left lower extremity cellulitis and acute kidney injury who presents with worsen redness of left lower extremity.
Patient reports she was discharged on October 13, but states she was unable to tolerate her oral antibiotics due to vomiting
The patient was recently admitted for similar presentation with lower extremity cellulitis that she developed acute kidney injury multifactorial and was discharged with a creatinine of 2.9.
She presented to the hospital with a creatinine of 1 and has gone up to 1.7 in 48 hours.
Renal consult for acute kidney injury
Impression.
Acute kidney injury appears to be secondary to Lasix which should be given twice a day for lower extremity edema for the last 48 hours while on lisinopril and soft blood pressures.
Cellulitis/osteo = continue antibiotics
Chronic lymphedema
Diabetes
Obesity
Plan.
daily lasix IV only
holding RASI still
follow BMP
May need to allow liberalization of fluid intake if sodium level rises
-
-
Date of Service: November 03, 2024
CC / HPI / ROS
-
Chief Complaint:
Lower extremity swelling
History of Present Illness:
THAD/Cr improving to 2.0
on abx for cellulitis
BP stable
Koehler back in, excellent response to diuretics
now on lasix
Sodium 147
Review of Systems:
No chest pain or shortness of breath
No issues with urination
Labs
-
Labs:
WBC 4.5 10^3/uL (4.8-10.8) L 11/03/24 04:41
RBC 3.29 10^6/uL (4.20-5.40) L 11/03/24 04:41
Hgb 8.4 g/dL (12.0-16.0) L 11/03/24 04:41
Hct 28.1 % (37.0-47.0) L 11/03/24 04:41
Plt Count 247 10^3/uL (130-400) 11/03/24 04:41
Sodium 147 mmol/L (135-145) H 11/03/24 04:41
Potassium 4.8 mmol/L (3.5-5.1) 11/03/24 04:41
Chloride 112 mmol/L (98-107) H 11/03/24 04:41
Carbon Dioxide 26 mmol/L (22-30) 11/03/24 04:41
BUN 34 mg/dl (7-17) H 11/03/24 04:41
Creatinine 2.0 mg/dL (0.6-1.0) H 11/03/24 04:41
eGFR 28.60 11/03/24 04:41
Glucose 83 mg/dl (70-99) 11/03/24 04:41
Calcium 8.9 mg/dl (8.4-10.2) 11/03/24 04:41
Albumin 3.3 g/dl (3.5-5.0) L 11/02/24 13:14
Physical Exam
-
Vital Signs:
Vital Signs
Temp Pulse Resp BP Pulse Ox
98.7 F 85 18 132/68 93
11/03/24 07:54 11/03/24 12:00 11/03/24 12:00 11/03/24 10:07 11/03/24 12:00
Cardiovascular:: Regular rate and rhythm
Respiratory:: Bilateral: Coarse
Lung Excursion:: Normal
Abdomen:: Nontender and Soft
Bowel Sounds:: Normal
Extremity Edema:: +3: Bilateral:
[2024-11-03 17:03] LABS: Glucose - Point of Care 288 mg/dl (70-99)
[2024-11-03] MEDS: NOVOLOG FLEXPEN 3 UNITS SC (17:07)
[2024-11-03] MEDS: NOVOLOG FLEXPEN-LOW RESISTANCE 3 UNITS SC (17:07)
[2024-11-03] MEDS: LIPITOR 40 MG PO (17:07)
--- NOTE | 2024-11-03 17:42 | CM ---
Patient with Hx DM, obesity with Dx Recurrent LLE cellulitis, Probable osteomyelitis with resolving fistula. Room air. BiPAP HS. Receiving IV cefazolin, IV Lasix. PICC in place. PT/OT recommend HH.
Per Dr Youngblood: Continue cefazolin 2g IV q8h x 6 weeks through 12/01/24
As per prior CM notes, home Infusion referral sent to [facility] (fax [phone]) and [facility] also to follow at home.
Script attached to referral in [facility].
Message from Christy Conner, [facility] in [facility]: Please contact me at [phone] [facility] to discuss d/c planning for this patient.
Plan follow up with [facility] for acceptance.
Plan d/c to home with [facility] & [facility].
[2024-11-03 21:40] LABS: Glucose - Point of Care 285 mg/dl (70-99)
[2024-11-03] MEDS: LANTUS 0.12 UNITS SC (22:23)
--- NOTE | 2024-11-03 22:37 | RESPNOTE ---
nocturnal O2 study started at 22:08 on RA. patient with immediate desaturation to 80-84% on RA. held on RA for 15minutes with no improvements. 1L O2 applied at 22:25, SpO2 only 87-88% on 1L. at 22:30 O2 increased to 2L, recovery to 93% on 2L within
3 min. patient to remain on 2L O2 for remainder of nocturnal trending.
[2024-11-04] VITALS (13 sets, daily range): BP systolic 109–152; BP diastolic 57–93; PULSE 2–76; BMI 57.7
--- NOTE | 2024-11-04 00:39 | PTCARENOTE ---
Patient mentation much improved. AAOx3. Daughters at the bedside. RT bedside to perform nocturnal O2 study. Pt 84% on room air. Placed pt back on 2L NC SpO2 93%. See respiratory note. NSR on the monitor. Pt denies pain in the LL leg. Lactin applied.
IV abx cont. Call pop within reach.
[2024-11-04] MEDS: HEPARIN 5000 UNITS SC ×4 (01:21→22:45)
[2024-11-04] MEDS: VENTOLIN NEBULES 2.5 MG INH (03:05)
[2024-11-04] MEDS: TYLENOL 650 MG PO (04:51)
[2024-11-04 04:56] LABS: Hemoglobin 8.4 g/dL (12.0-16.0); Mean Corp Hgb Conc. 31.1 g/dL (33.0-37.0); Mean Corpuscular Hgb 26.3 pg (27.0-31.0); Mean Corpuscular Volume 84.4 fL (81.0-99.0); Mean Platelet Volume 10.6 fL (7.4-10.4); Platelet Count 236 10^3/uL (130-400); Red Cell Dist. Width 17.2 % (11.5-14.5); White Blood Cell Count 4.6 10^3/uL (4.8-10.8)
[2024-11-04] MEDS: ANCEF 10 IV ×3 (05:00→22:40)
[2024-11-04 05:28] LABS: Blood Urea Nitrogen 30 mg/dl (7-17); Calcium 8.3 mg/dl (8.4-10.2); Carbon Dioxide 34 mmol/L (22-30); Chloride 106 mmol/L (98-107); Estimated Creatinine Clearance 54 ml/min; Glucose 240 mg/dl (70-99); Magnesium 1.4 mg/dl (1.6-2.3); Potassium 4.5 mmol/L (3.5-5.1); Sodium 142 mmol/L (135-145); eGFR 34.76
--- NOTE | 2024-11-04 08:00 | PN.DE.MGMTRT ---
Insulin Management
- -
11/04/2024: Diabetes Management follow up
Patient admitted with LLE cellulitis, she was recently discharged with same. PMH: HTN, HLD, morbid obesity, Diabetic Neuropathy, Uncontrolled IDDM, trimalleolar fracture s/p repair and revision, chronic ambulatory dysfunction. Prior to admission was
using the OmniPod insulin pump with DexCom G6 CGM with Humalog insulin. Patient states she requires up to 66 units of insulin per day. Current A1C is 8.4%, Cr 4.2, eGFR 11.74
Patient states she has had diabetes 30+ years and sees Pamela Diego, endocrinology, at [facility] for the past 2 years. She states she does not count carbs. She was told by her endo to enter 50 grams of carb for each meal and whatever the blood sugar is.
Offered again to teach carb counting with patient, she states not necessary I just do what the endo doctor said, but maybe someday.
Pt is awake, alert, oriented, pleasant, sitting up @ edge of bed, offers no complaints, able to discuss diabetes care plan. No Family at bedside.
11/02 insulin pump was discontinued due to mental status changes.
11/03 Mental status improved, back to baseline. Patient states that she is able to use and manage her pump but is waiting for family to bring in insulin and supplies for her Omnipod insulin pump later this afternoon.
Glucose starting to escalate with meals. pre-dinner glucose was 288, and 285 @ HS, pt received Lantus 10 units, FBG 240 venous.
Pre-breakfast blood sugar is 205, pt received 3 units NovoLog and 3 units corrective insulin.
Will give 1 time extra dose of 3 units NovoLog and a 1 time dose of NPH 15 units NOW while pt waits for her supplies to be delivered this afternoon.
Pt is independent with managing her insulin pump and is capable of restarting without difficulties.
Discussed with Nurse and Hospitalist physician. Will cont to follow.
Diabetes History
- -
Type of Diabetes: 2 requiring insulin
Pre-Admission Diabetes Regimen
11/04/24
04:48
Creatinine 1.7 H
Lab Results
Hemoglobin A1c 8.2 % (4.0-5.6) H 11/03/24 04:41
Insulin Pump Settings
IP Diabetes Regimen
11/03/24 11/03/24 11/03/24
11:09 16:51 21:28
Glucose
POC Glucose 107 H 288 H 285 H
11/04/24
04:48
Glucose 240 H
POC Glucose
Meal type: Dinner
Meal type: Lunch
Meal type: Breakfast
Amount consumed: 45%
Amount consumed: 30%
Amount consumed: 100%
Patient Education
--- NOTE | 2024-11-04 08:20 | W.PN.PUL.V3 ---
Today's Communication / Plan
-
Overnight oximetry summarized-requires 2 L nocturnal oxygen
Outpatient sleep disordered breathing workup
Antibiotics
BiPAP if needed
Outpatient pulmonary follow-up
Pulmonary will sign off-please call with questions
Assessment
-
59-year-old morbidly obese former smoking female admitted with left lower extremity cellulitis, diabetes and THAD found to be hypoxemic with mental status changes and hypercapnia placed on BiPAP now improved-pulmonary consulted for
hypoxemia/hypercapnia 11/03/2024.
Obesity hypoventilation syndrome suspected
Left lower extremity cellulitis
Osteomyelitis suspected
THAD
Hypercapnic respiratory failure requiring BiPAP-ABG 11/02/2024--50/140/7.31
Toxic metabolic encephalopathy
Diabetes-A1c 8.2
Mild leukopenia
Uyqapp-zjjargvpcl-jqtmbvwsaz 8.4
Mild hypernatremia
Conditions present prior to admission:
Morbid obesity-BMI 57.
PAL/obesity hypoventilation suspected.
Diabetes.
Peripheral neuropathy.
Left ankle fracture 2023.
TIA/CVA.
Hypertension.
Restless legs.
Right elbow surgery.
Childhood bladder surgery.
Plan
Acute decompensation likely due to acute on top of chronic hypercapnic respiratory failure from underlying obesity hypoventilation syndrome-patient states he never been worked up for obstructive sleep apnea
Supplemental oxygen as needed-2 L - 94% saturation
BiPAP 03/11 with 3 L oxygen at night and during the daytime as needed
Aspiration precautions
Nebulizers if needed-currently not bronchospastic
Overnight oximetry 11/03/2024-immediate desaturation into the 70s requiring supplemental at 2 L for the remainder of the night which maintain saturations generally above 90% saturation
Cultures reviewed
Infectious disease following-correspondence reviewed
Continue long course of antibiotics for suspected osteomyelitis-cefazolin
Ongoing diuresis
Monitor renal function, electrolytes, intake/output, lower extremity edema and weight
Replace electrolytes as needed
Nephrology following-correspondence reviewed
Monitor blood sugar
Insulin supplementation as needed
Follow hemoglobin
Transfuse if needed
DVT prophylaxis-increased heparin subcutaneous to every 8 hours
Nutrition
Physical therapy
Will require home nocturnal oxygen therapy
Pulmonary will sign off-please call with questions
Outpatient pulmonary/sleep disorders [id number], sleep study, probable CPAP/BiPAP
Diagnostic data:
Chest x-ray 10/27/2024-cardiomegaly, lungs clear
Chest x-ray 11/02/2024-mild cardiomegaly, mild pulmonary vascular congestion
CT head 11/02/2024-no acute intracranial abnormalities
Echocardiogram 02/02/2023-EF 60-65%, trace mitral regurgitation
Subjective Data
-
Date of Service:
Date of Service: November 04, 2024
Chief Complaint: Pulmonary Follow Up, Dyspnea Follow Up and PAL Follow Up
Subjective:
Patient's mental status has improved, no complaints of shortness of breath, chest pain, productive cough or abdominal pain
Review of Systems
General: Other (Per HPI)
Objective Data
Data Reviewed
Vital Signs / I&O:
Vital Signs
Temp Pulse Resp BP Pulse Ox
100.1 F 85 18 147/82 93
11/04/24 02:24 11/04/24 06:00 11/04/24 06:00 11/04/24 06:00 11/04/24 06:00
Intake and Output
11/03/24 11/04/24 11/05/24
06:59 06:59 06:59
Intake Total 2230 / 2230
Output Total 4125 / 4125 6300 / 6300
Balance -4125 / -4125 -4070 / -4070
SaO2: 93
Nasal Cannula flow liters per minute: 2
Physical Exam
General: Respiratory Distress and Comfortable
HEENT: Normocephalic, Anicteric, Moist Mucous Membranes and Other (Thick neck)
Cardiovascular: Regular Rhythm
Respiratory: Wheeze (n), Crackles (Rare basilar), Rhonchi (n), Non-Labored Respirations and Accessory Resp Muscle Use (n)
GI: Soft, Non Distended and Non Tender
Neurology: Awake, Alert and No Motor Deficits
Skin: Warm, Good Color, Cyanosis and Jaundice (n)
Labs/Micro/Reports
Lab Data
11/04/24 04:48
11/04/24 04:48
Microbiology
11/02/24 15:09 Urine Urine Culture - Final
NO GROWTH
[2024-11-04] MEDS: NOVOLOG FLEXPEN-LOW RESISTANCE 3 UNITS SC (08:44)
[2024-11-04] MEDS: NOVOLOG FLEXPEN 3 UNITS SC ×2 (08:44→10:19)
[2024-11-04 08:45] LABS: Glucose - Point of Care 205 mg/dl (70-99)
[2024-11-04] MEDS: BYSTOLIC 5 MG PO (08:45)
[2024-11-04] MEDS: PROCARDIA XL (EXTENDED RELEASE) 30 MG PO ×2 (08:45→20:07)
[2024-11-04] MEDS: CYMBALTA DELAYED RELEASE 60 MG PO ×2 (08:45→20:07)
[2024-11-04] MEDS: FLOMAX 0.4 MG PO (08:46)
[2024-11-04] MEDS: LYRICA 100 MG PO ×2 (08:46→20:06)
[2024-11-04] MEDS: LAC HYDRIN, AM LACTIN LOTION 1 APPLIC TOPICAL ×2 (08:47→22:39)
[2024-11-04] MEDS: LASIX 40 MG IV (08:47)
[2024-11-04] MEDS: NSS (PRESERVATIVE FREE) 10 ML IV (08:48)
[2024-11-04] MEDS: PEPCID 20 MG PO (08:48)
[2024-11-04] MEDS: PROTONIX IV 40 MG IV (08:48)
--- NOTE | 2024-11-04 10:04 | W.PN.ID1 ---
Date of Service
Date of Service: November 04, 2024
Today's Communication
Continue cefazolin.
Assessment / Plan
# Probable osteomyelitis with resolving fistula
# Relapse of LLE cellulitis, resolving
# lymphedema
# hx left ankle ORIF 07/2023, hardware removed 06/2024 due to loosening (at [facility])
- probable fistula over surgical site - now healing
- MRI showed severe cellulitis, possible tenosynovitis, myositis and enhancing granulation tissue which can be either infection or post operative healing; however given her overall history of recurrent fistula, myositis and osseous fragmentation
of the calcaneous without previous treatment for osteomyelitis, suspicion for subacute osteomyelitis is high. Responding well to IV cefazolin
- Continue cefazolin 2g IV q8h x 6 weeks through 12/01/24
-Home infusion sheet submitted to case management
- PICC in place.
- Continue Sukhdeep-wrap compression.
- Elevate leg above heart level at least 1 hour out of 6.
# s/p Acute change in mental status due to hypercapnic hypoventilation obesity syndrome. BMI 60. pCO2 54
# THAD - resolving
# DM- uncontrolled. Recommend tight glucose control
# Conditions BAIL BOND AGENT
Diabetes mellitus
Peripheral neuropathy
Hypertension
TIA/CVA
Class III obesity BMI 57
Restless leg syndrome
Hx of left trimalleolar fracture status post ORIF July 2023 with subsequent hardware removal June 2024
Right elbow surgery
Childhood bladder surgery
Chief Complaint
-: Cellulitis and Other (suspected osteomyelitis)
Subjective / Review of Systems
Feels well. No complaints.
Vital Signs / Physical Exam
Vital Signs
Vital Signs
Temp Pulse Resp BP Pulse Ox
98.5 F 84 18 148/88 93
11/04/24 07:38 11/04/24 08:47 11/04/24 06:00 11/04/24 08:47 11/04/24 08:20
Physical Exam
Constitutional: No Acute Distress and Comfortable
Cardiovascular: Regular Rate and S1/S2
Gastrointestinal: Soft, Non Tender, Non Distended and Normal Bowel Sounds
Extremities: Edema
Wound: Other (Left leg wound dry, closed)
Neurological: AO x 3
Lines: PICC
Objective Data
Lab Data
Lab Results
11/04/24 04:48
11/04/24 04:48
Estimated Creat Clear 54 ml/min 11/04/24 04:48
Lactic Acid 0.5 mmol/L (0.7-2.0) L 11/02/24 11:30
Total Bilirubin 0.3 mg/dl (0.2-1.3) 11/02/24 13:14
AST 31 U/L (14-36) 11/02/24 13:14
ALT < 10 U/L (0-35) 11/02/24 13:14
Alkaline Phosphatase 223 U/L (38-126) H 11/02/24 13:14
Most recent labs reviewed.
Micro Results:
11/02/24 15:09 Urine Culture - Final
Urine NO GROWTH
10/19/24 22:37 Blood Culture - Final
Blood/Venous No Growth - Final Report
10/19/24 22:08 Blood Culture - Final
Blood/Venous No Growth - Final Report
10/19/24 23:43 Wound Culture - Final
Leg - Left No growth
Gram Stain - Final
10/20/24 Peripheral vasc US: no DVT
11/02/24 CXR: Stable mild pulmonary vascular congestion. Cardiomegaly.
[2024-11-04] MEDS: NOVOLIN N vial 0.12 UNITS SC (10:18)
--- NOTE | 2024-11-04 10:18 | W.PN.NEPH.PH ---
Today's Communication / Plan
-
Follow BMP
Observe on IV Lasix 40 mg to
Assessment/Plan
-
59 y/o female past medical history of chronic lower extremity, morbid obesity, hypertension, diabetes and recent hospitalization for left lower extremity cellulitis and acute kidney injury who presents with worsen redness of left lower extremity.
Patient reports she was discharged on October 13, but states she was unable to tolerate her oral antibiotics due to vomiting
The patient was recently admitted for similar presentation with lower extremity cellulitis that she developed acute kidney injury multifactorial and was discharged with a creatinine of 2.9.
She presented to the hospital with a creatinine of 1 and has gone up to 1.7 in 48 hours.
Renal consult for acute kidney injury
Impression.
Acute kidney injury appears to be secondary to Lasix which should be given twice a day for lower extremity edema for the last 48 hours while on lisinopril and soft blood pressures.
Cellulitis/osteo = continue antibiotics
Chronic lymphedema
Diabetes
Obesity
Plan.
daily lasix IV 40mg , grossly nonoliguric at 3 L
Creatinine improved to 1.7
holding RASI still
follow BMP
Sodium stable
-
-
Date of Service: November 04, 2024
CC / HPI / ROS
-
Chief Complaint:
Lower extremity swelling
History of Present Illness:
THAD/Cr improving to 1.7
on abx for cellulitis
BP stable
Koehler back in, excellent response to diuretics
now on lasix
Sodium 142
Review of Systems:
No chest pain or shortness of breath
No issues with urination
Grossly nonoliguric in excess of 3 L
Weights down
Labs
-
Labs:
WBC 4.6 10^3/uL (4.8-10.8) L 11/04/24 04:48
RBC 3.20 10^6/uL (4.20-5.40) L 11/04/24 04:48
Hgb 8.4 g/dL (12.0-16.0) L 11/04/24 04:48
Hct 27.0 % (37.0-47.0) L 11/04/24 04:48
Plt Count 236 10^3/uL (130-400) 11/04/24 04:48
Sodium 142 mmol/L (135-145) 11/04/24 04:48
Potassium 4.5 mmol/L (3.5-5.1) 11/04/24 04:48
Chloride 106 mmol/L (98-107) 11/04/24 04:48
Carbon Dioxide 34 mmol/L (22-30) H 11/04/24 04:48
BUN 30 mg/dl (7-17) H 11/04/24 04:48
Creatinine 1.7 mg/dL (0.6-1.0) H 11/04/24 04:48
eGFR 34.76 11/04/24 04:48
Glucose 240 mg/dl (70-99) H 11/04/24 04:48
Calcium 8.3 mg/dl (8.4-10.2) L 11/04/24 04:48
Albumin 3.3 g/dl (3.5-5.0) L 11/02/24 13:14
Physical Exam
-
Vital Signs:
Vital Signs
Temp Pulse Resp BP Pulse Ox
98.5 F 84 18 148/88 93
11/04/24 07:38 11/04/24 08:47 11/04/24 06:00 11/04/24 08:47 11/04/24 08:20
Cardiovascular:: Regular rate and rhythm
Respiratory:: Bilateral: Coarse
Lung Excursion:: Normal
Abdomen:: Nontender and Soft
Bowel Sounds:: Normal
Extremity Edema:: +3: Bilateral:
Koehler Catheter: No
--- NOTE | 2024-11-04 10:23 | W.PN.HOSP.TC ---
Today's Communication/Plan
-
IV abx teaching
d/c wang with TOV in AM 11/05
d/c planning
Assessment / Plan
Assessment / Plan
pt is a 59 year old female
Recurrent LLE cellulitis, possibly related to DM type 2 along with Probable osteomyelitis with resolving fistula per ID--no DVT on US--MRI LE with severe cellulitis left lower leg, ankle, foot--cont ancef for 6 week course through 12/01/24 per
ID--cont shahida-wrap--apprec ID--PICC line placed
THAD, likely due to combination of urinary retention (from DM), ACEI--wang placed 10/25, discontinued due to pt request --replaced at some later point and supposed to come out tomorrow--cont flomax--creat improved to 1.7 (baseline creat 1.0)--apprec
renal--d/c wang 11/05 and do TOV--daily weights
Acute hypoxic respiratory failure--s/p gentle IVF--started lasix use IV 40 mg daily for mild fluid overload --daily weights
Acute metabolic encephalopathy with rapid response for hypoxia from fluid overload and likely underlying obesity hypoventilation syndrome and meds--lyrica dosing adjusted as well--on 2L--assess for home O2--likely needs PAL--ABG and VBG reviewed
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
Essential HTN--cont Nifedipine, Nebivolol
Morbid obesity due to excess calories--BMI 58
h/o L trimalleolar fracture s/p ORIF 08/15 with subsequent hardware removal 07/16--noted
Restless leg syndrome
DVT proph-- sc heparin
code status-- DNR
Dispo: family requesting SNF eval-- PT OT rec HH --will need training for IV ABX
Anticipated Discharge: 24 - 48 hours
Subjective/Interval History
-
Date of Service: November 04, 2024
pt tells me she has had no teaching on the abx administration form home IV ABX
wang to come out tomorrow as well
Objective Data
-
Labs:
Laboratory Results
11/04/24
04:48
WBC 4.6 L
Hgb 8.4 L
Hct 27.0 L
Plt Count 236
Sodium 142
Potassium 4.5
Chloride 106
Carbon Dioxide 34 H
BUN 30 H
Creatinine 1.7 H
Glucose 240 H
Calcium 8.3 L
Vital Signs:
max temp for 24 hours
11/04/24
02:24
Temp 100.1 F
Vital Signs
Temp Pulse Resp BP Pulse Ox
98.5 F 84 18 148/88 93
11/04/24 07:38 11/04/24 08:47 11/04/24 06:00 11/04/24 08:47 11/04/24 08:20
I&O
11/03/24 11/04/24 11/05/24
06:59 06:59 06:59
Intake Total 2230 / 2230 400 / 400
Output Total 4125 / 4125 6300 / 6300 700 / 700
Balance -4125 / -4125 -4070 / -4070 -300 / -300
Review of Systems
-
All other systems: Reviewed and negative
Physical Exam
-
General: Well Developed, Well Nourished, No Apparent Distress, Morbidly Obese and Other (has PICC line too)
HEENT: Normocephalic, Atraumatic and Oxygen
Respiratory: Clear to Auscultation; Negative Wheezes, Rales or Rhonchi
Cardiac: Regular Rhythm and S1/S2; Negative Murmur
GI: Soft, Nontender, Nondistended and Normal Bowel Sounds
Genito-urinary: Wang
Musculoskeletal: No Clubbing and No Cyanosis; Negative No Edema (chronic lymphedema--left leg much less red)
Neuro: Awake and Alert
Psych: Calm
[2024-11-04 11:53] LABS: Glucose - Point of Care 278 mg/dl (70-99)
[2024-11-04] MEDS: NOVOLOG FLEXPEN SC (13:24)
[2024-11-04] MEDS: NOVOLOG FLEXPEN-LOW RESISTANCE SC ×2 (13:25→13:29)
[2024-11-04] MEDS: NOVOLOG FLEXPEN 6 UNITS SC ×2 (13:29→18:00)
[2024-11-04] MEDS: MAGNESIUM SULFATE 100 IV (14:36)
--- NOTE | 2024-11-04 14:49 | WOUNDNOTE ---
L PLANTAR HEEL WITH FLASH LIGHT
--- NOTE | 2024-11-04 14:50 | WOUNDNOTE ---
L MEDIAL LOWER LEG
--- NOTE | 2024-11-04 14:50 | WOUNDNOTE ---
L MEDIAL LOWER LEG CLOSER VIEW
--- NOTE | 2024-11-04 14:52 | WOUNDNOTE ---
[facility] RN note: Patient admitted with Sepsis and cellulitis of L leg
See H&P for complete history. Lives with family has Aryan AREVALO.
PMH: 59 yo female IDDM, HTN, HLD, Tripped 04/2023, trimalleolar fracture described, 07/2023 had ORIF [facility] Goodwin, [facility]. 06/2024 surgery to remove the hardware due to infection, multiple admissions for cellulitis of L leg.
Wound Location and type/assessment: Patient known to service, last seen 10/03/24. Admitted 10/19 for severe cellulitis of L lower leg per MRI. Asked to see patient today by nursing for concern of open wound to L plantar heel/foot old surgical site.
Reviewed I&D notes regarding lymphedema exacerbation on admission, wound care and compression ordered at that time by Dr. Youngblood. Legs with much less edema, redness and drainage since admission reports nurse. With nurse Bah assisting, assessed L
plantar heel/foot with flashlight. No open wound on assessment, pink scar in tiny divot. Patient has peeling skin surrounding site, suspect residual from edema. Patient reports she ambulates at home and wears Crocks with socks because she can't get
anything else to fit. Getting oob to chair but admits she does not elevate legs enough in recliner chair. Turned self in bed, sacrum is intact. L medial leg with old healed surgical site. Nurse reports there was still a little drainage from site,
residual crusting visible. Dry skin on lower leg, AmLactin lotion already on order and applied. R leg and heel intact per nurse who applied sukhdeep wrap this morning. Patient able to turn self to side, sacrum and buttocks intact.
Appetite: Good.
Pressure redistribution devices in place: On Air mattress. Encouraged patient to elevate legs whenever in recliner chair. Pillow placed under calves.
Plan: L plantar foot applied silicone foam. ABD under Sukhdeep wrap applied knee high. Patient confirmed she has own compression stockings at home and will try them again when home.
Will confirm changes in wound care with hospitalist and updated nurse Bah. Updated care plan and will follow as needed.
Note to case management of equipment requested for discharge: Resume VN
Recommend follow up with I&D .
--- NOTE | 2024-11-04 16:39 | PTCARENOTE ---
Assumed care of pt this am after rounds. She is 94% on 2L nc, lungs decreased throughout. No cough noted. Pt reports a poor night's sleep due to nocturnal pulse ox and her room air sat alarming frequently. Pt has tolerated the 2L with no
desaturations today. NSR in 70-80s. Abd obese, appetite was good for breakfast and then pt refused lunch, pt reports this is a common habit of hers either eating breakfast or lunch but not both. Koehler catheter intact for clear yellow urine. Skin
with scattered bruising noted on abdomen back of arms, legs. Pt has anterior calf cellulitis and mostly healed except small scaley patch with scant amount of lamas drainage noted this am, wound cleansed and redressed. Also noted was thick peeling skin
on bottom of foot and small scab in arch area along healing surgical incision. Wound care order requested and WOC here to assess and order further wound care. Pt has had shahida wraps on throughout the day and instructed to elevate legs when OOB. Pt
refused OOB thus far today as she is waiting for her daughters to arrive. Daughters and patient requesting to talk with pt advocate - risk office notified and goal is to get someone to meet with them today.
--- NOTE | 2024-11-04 16:51 | PTCARENOTE ---
Patient family was to bring in her Insulin pump but when they went to pharmacy to pick it up -pharmacy was unable to distribute. 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 Family plans to follow up with insurance and will report back to staff if
they obtain the insulin pump
[2024-11-04] MEDS: LIPITOR 40 MG PO (17:17)
--- NOTE | 2024-11-04 17:22 | CM ---
Patient with Hx DM, obesity with Dx Recurrent LLE cellulitis, Probable osteomyelitis with resolving fistula. O2 2L. BiPAP HS. Receiving IV cefazolin, IV Lasix. PICC in place. Seen by wound care nurse. PT/OT recommend HH.
Met with patient who agrees to d/c to home with [facility] for [facility]olin, [facility] for [facility] care and PT/OT.
Spoke with Christy Conner, [facility]; they cannot start the patient on home infusion this weekend however could start on Thursday. She has the script that was provided via [facility]. Added PICC line insertion data.
Messages with Dr Antunez with update that [facility] cannot start service until 11/07.
Plan d/c to home with [facility] & [facility].
[2024-11-04 17:56] LABS: Glucose - Point of Care 164 mg/dl (70-99)
[2024-11-04] MEDS: NOVOLOG FLEXPEN-LOW RESISTANCE 1 UNITS SC (18:00)
--- NOTE | 2024-11-04 19:29 | PTCARENOTE ---
lesom speaking with pt's family they report she has had falls at home within the past 3 months
[2024-11-04 22:40] LABS: Glucose - Point of Care 263 mg/dl (70-99)
[2024-11-04] MEDS: FLUSH (NSS) 2 FLUSH IV (22:43)
[2024-11-04] MEDS: LANTUS 0.24 UNITS SC (22:44)
--- NOTE | 2024-11-04 23:49 | PTCARENOTE ---
Pt received at beginning of shift resting in bed. Family members at bedside. Observed eating cheese steak sandwich. Educated on diet. HS accucheck 263. Received Lantus as ordered. VSS. Afebrile. SR on CM. Koehler draining clear yellow urine, to be
removed in am. +3 edema LLE +2 edema RLE. Pt able to ambulate back and forth to bathroom using walker. Continues on 2L NC POX 96%. Currently on HS BIPAP. Pt refused removal of B/L shahida wraps to LE's even after education. Will attempt again at a later
time. Daughters gave pt CHG bath after instruction by maria dolores RN. Oral care completed. Rest of assessment as documented. Pt agrees to use call pop for all assistance oob. Call pop remains within reach. Will continue to monitor.
[2024-11-05] VITALS (17 sets, daily range): BP systolic 75–146; BP diastolic 50–131; PULSE 2–77; BMI 56.7
[2024-11-05 04:24] LABS: Blood Urea Nitrogen 30 mg/dl (7-17); Calcium 8.4 mg/dl (8.4-10.2); Carbon Dioxide 36 mmol/L (22-30); Chloride 103 mmol/L (98-107); Estimated Creatinine Clearance 61 ml/min; Glucose 195 mg/dl (70-99); Potassium 4.6 mmol/L (3.5-5.1); Sodium 145 mmol/L (135-145); eGFR 40.39
[2024-11-05] MEDS: ANCEF 10 IV ×3 (06:06→22:11)
[2024-11-05] MEDS: BYSTOLIC 5 MG PO (07:58)
[2024-11-05] MEDS: CYMBALTA DELAYED RELEASE 60 MG PO ×2 (07:59→19:58)
[2024-11-05] MEDS: FLOMAX 0.4 MG PO (07:59)
[2024-11-05] MEDS: LYRICA 100 MG PO ×2 (08:00→19:58)
[2024-11-05] MEDS: HEPARIN 5000 UNITS SC ×3 (08:00→23:37)
[2024-11-05] MEDS: LAC HYDRIN, AM LACTIN LOTION 1 APPLIC TOPICAL ×2 (08:00→20:03)
[2024-11-05] MEDS: PEPCID 20 MG PO (08:00)
[2024-11-05] MEDS: LASIX 40 MG IV (08:01)
[2024-11-05] MEDS: PROCARDIA XL (EXTENDED RELEASE) 30 MG PO ×2 (08:02→19:57)
[2024-11-05] MEDS: PROTONIX 40 MG PO (08:02)
[2024-11-05 08:04] LABS: Glucose - Point of Care 170 mg/dl (70-99)
[2024-11-05] MEDS: NOVOLOG FLEXPEN-LOW RESISTANCE 1 UNITS SC ×2 (08:08→13:17)
[2024-11-05] MEDS: NOVOLOG FLEXPEN 6 UNITS SC (08:09)
[2024-11-05] MEDS: FLUSH (NSS) 2 FLUSH IV ×2 (08:12→14:23)
--- NOTE | 2024-11-05 08:54 | W.PN.HOSP.TC ---
Today's Communication/Plan
-
PT
trial of voiding
CM for d/c planning--may need SNF
Assessment / Plan
Assessment / Plan
pt is a 59 year old female
Recurrent LLE cellulitis, possibly related to DM type 2 along with Probable osteomyelitis with resolving fistula per ID--no DVT on US--MRI LE with severe cellulitis left lower leg, ankle, foot--cont ancef Q8H for 6 week course through 12/01/24 per
ID, PICC placed--cont shahida-wrap--apprec ID
THDA, likely due to combination of urinary retention (from DM), ACEI--wang placed 10/25, discontinued due to pt request --replaced at some later point and removed today--cont flomax--creat improved to 1.5 (baseline creat 1.0)--apprec renal--daily
weights
Acute hypoxic respiratory failure--suspect obesity hypoventilation syndrome with PAL and chronic hypercapnia--s/p gentle IVF--started lasix use IV 40 mg daily for mild fluid overload --daily weights
Acute metabolic encephalopathy with rapid response for hypoxia from fluid overload and likely underlying obesity hypoventilation syndrome and meds--lyrica dosing adjusted as well--on 2L--assess for home O2--likely needs
PAL--ABG and VBG reviewed --needs outpt sleep study--suspect will need CPAP at minimum and more likely BIPAP
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
Essential HTN--cont Nifedipine, Nebivolol
Morbid obesity due to excess calories--BMI 58--not helping overall clinical situation
h/o L trimalleolar fracture s/p ORIF 08/15 with subsequent hardware removal 07/16--noted
Restless leg syndrome
DVT proph-- sc heparin
code status-- DNR
Dispo: family requesting SNF eval (favor this option myself)--reassess with PT --will need training for IV ABX
Anticipated Discharge: > 48 hours
Subjective/Interval History
-
Date of Service: November 05, 2024
pt had a cheesesteak, says can't walk--only to door--wang out
Objective Data
-
Labs:
Laboratory Results
11/05/24
03:31
Sodium 145
Potassium 4.6
Chloride 103
Carbon Dioxide 36 H
BUN 30 H
Creatinine 1.5 H
Glucose 195 H
Calcium 8.4
Vital Signs:
max temp for 24 hours
11/05/24
03:00
Temp 98.4 F
Vital Signs
Temp Pulse Resp BP Pulse Ox
98.2 F 82 19 135/98 94
11/05/24 07:20 11/05/24 08:02 11/05/24 06:00 11/05/24 08:02 11/05/24 08:10
I&O
11/04/24 11/05/24 11/06/24
06:59 06:59 06:59
Intake Total 2230 / 2230 800 / 800
Output Total 6300 / 6300 4700 / 4700
Balance -4070 / -4070 -3900 / -3900
Review of Systems
-
All other systems: Reviewed and negative
Physical Exam
-
General: Well Developed, Well Nourished, No Apparent Distress and Morbidly Obese
HEENT: Normocephalic, Atraumatic and Oxygen
Respiratory: Clear to Auscultation; Negative Wheezes or Rhonchi
Cardiac: Regular Rhythm and S1/S2; Negative Murmur
GI: Soft, Nontender, Nondistended and Normal Bowel Sounds
Genito-urinary: Negative Wang (removed this AM)
Musculoskeletal: No Clubbing and No Cyanosis; Negative No Edema (lymphedema noted left > right--left leg wrapped)
Skin: Warm
Neuro: Awake
Psych: Calm
--- NOTE | 2024-11-05 10:12 | W.PN.NEPH.PH ---
Today's Communication / Plan
-
Maintain IV Lasix
Assessment/Plan
-
59 y/o female past medical history of chronic lower extremity, morbid obesity, hypertension, diabetes and recent hospitalization for left lower extremity cellulitis and acute kidney injury who presents with worsen redness of left lower extremity.
Patient reports she was discharged on October 13, but states she was unable to tolerate her oral antibiotics due to vomiting
The patient was recently admitted for similar presentation with lower extremity cellulitis that she developed acute kidney injury multifactorial and was discharged with a creatinine of 2.9.
She presented to the hospital with a creatinine of 1 and has gone up to 1.7 in 48 hours.
Renal consult for acute kidney injury
Impression.
Acute kidney injury appears to be secondary to Lasix which should be given twice a day for lower extremity edema for the last 48 hours while on lisinopril and soft blood pressures.
Cellulitis/osteo = continue antibiotics
Chronic lymphedema
Diabetes
Obesity
Plan.
daily lasix IV 40mg , grossly nonoliguric at 4.7 L
weight down to admission weight
Creatinine improved to 1.5
holding RASI still
follow BMP
Sodium rising with diuresis
Maintain aggressive diuresis this patient still requires oxygen and is clinically volume overloaded on exam
Rodo now out watch creatinine level
-
-
Date of Service: November 05, 2024
CC / HPI / ROS
-
Chief Complaint:
Lower extremity swelling
History of Present Illness:
THAD/Cr improving to 1.5
on abx for cellulitis
BP stable
Koehler back in, excellent response to diuretics
now on lasix
Sodium 145
Review of Systems:
No chest pain
Still on oxygen
No issues with urination
Grossly nonoliguric in excess of 4 L
Weights down
Labs
-
Labs:
WBC 4.6 10^3/uL (4.8-10.8) L 11/04/24 04:48
RBC 3.20 10^6/uL (4.20-5.40) L 11/04/24 04:48
Hgb 8.4 g/dL (12.0-16.0) L 11/04/24 04:48
Hct 27.0 % (37.0-47.0) L 11/04/24 04:48
Plt Count 236 10^3/uL (130-400) 11/04/24 04:48
Sodium 145 mmol/L (135-145) 11/05/24 03:31
Potassium 4.6 mmol/L (3.5-5.1) 11/05/24 03:31
Chloride 103 mmol/L (98-107) 11/05/24 03:31
Carbon Dioxide 36 mmol/L (22-30) H 11/05/24 03:31
BUN 30 mg/dl (7-17) H 11/05/24 03:31
Creatinine 1.5 mg/dL (0.6-1.0) H 11/05/24 03:31
eGFR 40.39 11/05/24 03:31
Glucose 195 mg/dl (70-99) H 11/05/24 03:31
Calcium 8.4 mg/dl (8.4-10.2) 11/05/24 03:31
Albumin 3.3 g/dl (3.5-5.0) L 11/02/24 13:14
Physical Exam
-
Vital Signs:
Vital Signs
Temp Pulse Resp BP Pulse Ox
98.2 F 82 19 135/98 94
11/05/24 07:20 11/05/24 08:02 11/05/24 06:00 11/05/24 08:02 11/05/24 08:10
Cardiovascular:: Regular rate and rhythm
Respiratory:: Bilateral: Coarse
Lung Excursion:: Normal
Abdomen:: Nontender and Soft
Bowel Sounds:: Normal
Extremity Edema:: +3: Bilateral:
Koehler Catheter: No
--- NOTE | 2024-11-05 10:25 | W.PN.ID1 ---
Date of Service
Date of Service: November 05, 2024
Today's Communication
Continue cefazolin 2g IV q8h x 6 weeks through 12/01/24
Assessment / Plan
# Probable osteomyelitis with resolving fistula
# Relapse of LLE cellulitis, resolving
# lymphedema
# hx left ankle ORIF 07/2023, hardware removed 06/2024 due to loosening (at [facility])
- probable fistula over surgical site - now healing
- MRI showed severe cellulitis, possible tenosynovitis, myositis and enhancing granulation tissue which can be either infection or post operative healing; however given her overall history of recurrent fistula, myositis and osseous fragmentation
of the calcaneous without previous treatment for osteomyelitis, suspicion for subacute osteomyelitis is high. Responding well to IV cefazolin
- Continue cefazolin 2g IV q8h x 6 weeks through 12/01/24
-Home infusion sheet submitted to case management
- PICC in place.
- Continue Sukhdeep-wrap compression.
- Elevate leg above heart level at least 1 hour out of 6.
# s/p Acute change in mental status due to hypercapnic hypoventilation obesity syndrome. BMI 60. pCO2 54
# THAD - resolving
# DM- uncontrolled. Recommend tight glucose control
# Conditions [employer]ICITING [employer]IGHT [employer]ENT
Diabetes mellitus
Peripheral neuropathy
Hypertension
TIA/CVA
Class III obesity BMI 57
Restless leg syndrome
Hx of left trimalleolar fracture status post ORIF July 2023 with subsequent hardware removal June 2024
Right elbow surgery
Childhood bladder surgery
Chief Complaint
-: Cellulitis and Other (suspected osteomyelitis)
Subjective / Review of Systems
Feels good.
Vital Signs / Physical Exam
Vital Signs
Vital Signs
Temp Pulse Resp BP Pulse Ox
98.2 F 82 19 135/98 94
11/05/24 07:20 11/05/24 08:02 11/05/24 06:00 11/05/24 08:02 11/05/24 08:10
Physical Exam
Constitutional: No Acute Distress and Comfortable
Cardiovascular: Regular Rate and S1/S2
Gastrointestinal: Soft, Non Tender, Non Distended and Normal Bowel Sounds
Extremities: Edema
Wound: Other (Left leg SUKHDEEP -WRAP dry)
Neurological: AO x 3
Lines: PICC
Objective Data
Lab Data
Lab Results
11/04/24 04:48
11/05/24 03:31
Estimated Creat Clear 61 ml/min 11/05/24 03:31
Lactic Acid 0.5 mmol/L (0.7-2.0) L 11/02/24 11:30
Total Bilirubin 0.3 mg/dl (0.2-1.3) 11/02/24 13:14
AST 31 U/L (14-36) 11/02/24 13:14
ALT < 10 U/L (0-35) 11/02/24 13:14
Alkaline Phosphatase 223 U/L (38-126) H 11/02/24 13:14
Most recent labs reviewed.
Micro Results:
11/02/24 15:09 Urine Culture - Final
Urine NO GROWTH
10/19/24 22:37 Blood Culture - Final
Blood/Venous No Growth - Final Report
10/19/24 22:08 Blood Culture - Final
Blood/Venous No Growth - Final Report
10/19/24 23:43 Wound Culture - Final
Leg - Left No growth
Gram Stain - Final
10/20/24 Peripheral vasc US: no DVT
11/02/24 CXR: Stable mild pulmonary vascular congestion. Cardiomegaly.
[2024-11-05 12:40] LABS: Glucose - Point of Care 184 mg/dl (70-99)
[2024-11-05] MEDS: NOVOLOG FLEXPEN 8 UNITS SC ×2 (13:18→17:56)
--- NOTE | 2024-11-05 14:50 | CM ---
CM met with pt at bedside. Oldest daughter on phone via speaker.
Discussed dispo options home with VN vs SNF.
Pt/family agreeable to SNF referrals being sent. Offered choice of facility. Preference is local to [facility]. Reviewed PAC list and left at bedside.
Will send referrals via [facility]. Will need updated therapy notes for auth.
[2024-11-05 16:57] LABS: Glucose - Point of Care 75 mg/dl (70-99)
[2024-11-05] MEDS: NOVOLOG FLEXPEN-LOW RESISTANCE SC (17:56)
[2024-11-05] MEDS: LIPITOR 40 MG PO (17:57)
--- NOTE | 2024-11-05 19:20 | PTCARENOTE ---
Assumed care of pt this am after morning rounds. Pt in good spirits today and without complaints of pain. She is OOB in chair intermittently throughout the day and voiding large quantities, PVR 196ml. Pt and family considering Rehab placement, as
she has some difficulty getting in and out of house with ambulation. Non compliance with diabetic diet as pt is eating a large Jessie hoagie for dinner along with a bag of cheese curls. Discussed importance of monitoring carbs. Pt is jovial and states
she will start a diet when she gets home. Pt encouraged to begin following the hospital prescribed diet. Pt able to ambulate to and from bathroom with steady gait and wheeled walker
[2024-11-05 21:54] LABS: Glucose - Point of Care 198 mg/dl (70-99)
[2024-11-05] MEDS: LANTUS 0.26 UNITS SC (22:11)
[2024-11-06] VITALS (11 sets, daily range): BP systolic 124–196; BP diastolic 66–117; PULSE 85; O2SAT 85–97; BMI 56.1
[2024-11-06 03:50] LABS: Hematocrit 28.8 % (37.0-47.0); Hemoglobin 8.5 g/dL (12.0-16.0); Mean Corp Hgb Conc. 29.5 g/dL (33.0-37.0); Mean Corpuscular Hgb 25.4 pg (27.0-31.0); Mean Platelet Volume 10.6 fL (7.4-10.4); Platelet Count 231 10^3/uL (130-400); Red Blood Cell Count 3.35 10^6/uL (4.20-5.40); Red Cell Dist. Width 17.5 % (11.5-14.5); White Blood Cell Count 4.5 10^3/uL (4.8-10.8)
[2024-11-06 04:17] LABS: ALT (SGPT) < 10 U/L (0-35); AST (SGOT) 18 U/L (14-36); Albumin 3.5 g/dl (3.5-5.0); Alkaline Phosphatase 199 U/L (38-126); Blood Urea Nitrogen 25 mg/dl (7-17); Calcium 8.4 mg/dl (8.4-10.2); Carbon Dioxide 35 mmol/L (22-30); Chloride 103 mmol/L (98-107); Estimated Creatinine Clearance 64 ml/min; Glucose 170 mg/dl (70-99); Magnesium 1.7 mg/dl (1.6-2.3); Sodium 144 mmol/L (135-145); Total Bilirubin 0.5 mg/dl (0.2-1.3); Total Protein 6.8 g/dl (6.3-8.2); eGFR 43.88
--- NOTE | 2024-11-06 05:22 | PTCARENOTE ---
Pt resting well overnight. No c/o pain or discomfort. Attempted to use the nasal mask for BIPAP overnight but issue with BIPAP machine itself and at that time pt decided to not use mask but was transitioned over to NC at 2L. Up most of the night.
Does not sleep well. Ambulating to bathroom with assist of one using rolling walker to void. Voiding adequate amounts. VSS. Afebrile. SR/PVC on CM rate 80's. Rest of assessment unchanged from beginning of shift. Call pop within reach. Will continue
to monitor.
[2024-11-06] MEDS: ANCEF 10 IV ×3 (05:34→21:55)
[2024-11-06] MEDS: FLUSH (NSS) 2 FLUSH IV ×2 (05:34→13:13)
--- NOTE | 2024-11-06 07:15 | PTCARENOTE ---
pox noted to have dropped to 61%. Patient sleeping with oxygen off. Pt aroused easily and oxygen re-applied at 3L nasal canula; encouraged to take deep breaths and pox returned to 92% in less than 1 minute. Continuing to monitor
--- NOTE | 2024-11-06 07:15 | PTCARENOTE ---
While giving day shift RN report pt pox alarming 61%. Upon assessment pt without O2 on. Pt arousable and O2 placed back on with pox back up to 92%.
--- NOTE | 2024-11-06 08:11 | W.PN.HOSP.TC ---
Today's Communication/Plan
-
reorder PT/OT
assess for home O2
d/c planning--SNF if qualifies
Assessment / Plan
Assessment / Plan
pt is a 59 year old female
Recurrent LLE cellulitis, possibly related to DM type 2 along with Probable osteomyelitis with resolving fistula per ID--no DVT on US--MRI LE with severe cellulitis left lower leg, ankle, foot--cont ancef Q8H for 6 week course through 12/01/24 per
ID, PICC placed--cont hsahida-wrap--apprec ID
THAD, likely due to combination of urinary retention (from DM), ACEI--wang placed 10/25, discontinued due to pt request --replaced at some later point and removed today--cont flomax--creat improved to 1.4 (baseline creat 1.0)--apprec renal--daily
weights
Acute hypoxic respiratory failure--suspect obesity hypoventilation syndrome with PAL and chronic hypercapnia--s/p gentle IVF--started lasix use IV 40 mg daily for mild fluid overload --daily weights
Acute metabolic encephalopathy with rapid response for hypoxia from fluid overload and likely underlying obesity hypoventilation syndrome and meds--lyrica dosing adjusted as well--on 2L--assess for home O2--likely needs
PAL--ABG and VBG reviewed --needs outpt sleep study--suspect will need CPAP at minimum and more likely BIPAP if she will even wear it--only wore 1 1/2 hours last night
DM2--Carb control diet (not following, had cheesesteak yesterday)--cont insulin pump--apprec DM [employer]EDOM[employer]ER MECH[employer]IC
Essential HTN--cont Nifedipine, Nebivolol
Morbid obesity due to excess calories--BMI 58--not helping overall clinical situation
h/o L trimalleolar fracture s/p ORIF 08/15 with subsequent hardware removal 07/16--noted
Restless leg syndrome
DVT proph-- sc heparin
code status-- DNR
Dispo: family requesting SNF eval (favor this option myself)--reassess with PT, orders placed--will need training for IV ABX
Anticipated Discharge: 24 - 48 hours
Subjective/Interval History
-
Date of Service: November 06, 2024
pt without c/o--took of O2 last night and pulse ox dropped to 61%
Objective Data
-
Labs:
Laboratory Results
11/06/24
03:08
WBC 4.5 L
Hgb 8.5 L
Hct 28.8 L
Plt Count 231
Sodium 144
Potassium 4.0
Chloride 103
Carbon Dioxide 35 H
BUN 25 H
Creatinine 1.4 H
Glucose 170 H
Calcium 8.4
Total Bilirubin 0.5
AST 18
ALT < 10
Alkaline Phosphatase 199 H
Vital Signs:
max temp for 24 hours
11/05/24
23:00
Temp 99.3 F
Vital Signs
Temp Pulse Resp BP Pulse Ox
98.0 F 89 19 137/73 87
11/06/24 03:09 11/06/24 08:00 11/06/24 08:00 11/06/24 06:00 11/06/24 08:00
I&O
11/05/24 11/06/24 11/07/24
06:59 06:59 06:59
Intake Total 800 / 800 860 / 860
Output Total 4700 / 4700 1650 / 1650
Balance -3900 / -3900 -790 / -790
Review of Systems
-
All other systems: Reviewed and negative
Physical Exam
-
General: Well Developed, Well Nourished, No Apparent Distress and Morbidly Obese
HEENT: Normocephalic, Atraumatic and Oxygen
Respiratory: Clear to Auscultation and Decreased Breath Sounds; Negative Wheezes or Rhonchi
Cardiac: Regular Rhythm and S1/S2; Negative Murmur
GI: Soft, Nontender, Nondistended and Normal Bowel Sounds
Musculoskeletal: No Clubbing and No Cyanosis; Negative No Edema (left leg wrapped--left leg swollen)
Neuro: Awake and Alert
--- NOTE | 2024-11-06 08:56 | W.PN.NEPH.PH ---
Today's Communication / Plan
-
Follow BMP
Creatinine down to 1.4
Maintains on Lasix 40 mg p.o. daily
Koehler has been discontinued
Assessment/Plan
-
59 y/o female past medical history of chronic lower extremity, morbid obesity, hypertension, diabetes and recent hospitalization for left lower extremity cellulitis and acute kidney injury who presents with worsen redness of left lower extremity.
Patient reports she was discharged on October 13, but states she was unable to tolerate her oral antibiotics due to vomiting
The patient was recently admitted for similar presentation with lower extremity cellulitis that she developed acute kidney injury multifactorial and was discharged with a creatinine of 2.9.
She presented to the hospital with a creatinine of 1 and has gone up to 1.7 in 48 hours.
Renal consult for acute kidney injury
Impression.
Acute kidney injury appears to be secondary to Lasix which should be given twice a day for lower extremity edema for the last 48 hours while on lisinopril and soft blood pressures.
Cellulitis/osteo = continue antibiotics
Chronic lymphedema
Diabetes
Obesity
Plan.
daily lasix IV 40mg , grossly nonoliguric at 4.7 L
weight down to admission weight
Creatinine improved to 1.4
holding RASI still
follow BMP
Maintain aggressive diuresis this patient still requires oxygen and is clinically volume overloaded on exam
Koehler now out watch creatinine level,uop only 1650 on 40mg po daily
-
-
Date of Service: November 06, 2024
CC / HPI / ROS
-
Chief Complaint:
Lower extremity swelling
History of Present Illness:
THAD/Cr improving to 1.4
on abx for cellulitis
BP stable
Koehler back in, excellent response to diuretics
now on lasix
Sodium 145
Review of Systems:
No chest pain
Still on oxygen
No issues with urination
Grossly nonoliguric in excess of 4 L
Weights down
Labs
-
Labs:
WBC 4.5 10^3/uL (4.8-10.8) L 11/06/24 03:08
RBC 3.35 10^6/uL (4.20-5.40) L 11/06/24 03:08
Hgb 8.5 g/dL (12.0-16.0) L 11/06/24 03:08
Hct 28.8 % (37.0-47.0) L 11/06/24 03:08
Plt Count 231 10^3/uL (130-400) 11/06/24 03:08
Sodium 144 mmol/L (135-145) 11/06/24 03:08
Potassium 4.0 mmol/L (3.5-5.1) 11/06/24 03:08
Chloride 103 mmol/L (98-107) 11/06/24 03:08
Carbon Dioxide 35 mmol/L (22-30) H 11/06/24 03:08
BUN 25 mg/dl (7-17) H 11/06/24 03:08
Creatinine 1.4 mg/dL (0.6-1.0) H 11/06/24 03:08
eGFR 43.88 11/06/24 03:08
Glucose 170 mg/dl (70-99) H 11/06/24 03:08
Calcium 8.4 mg/dl (8.4-10.2) 11/06/24 03:08
Albumin 3.5 g/dl (3.5-5.0) 11/06/24 03:08
Physical Exam
-
Vital Signs:
Vital Signs
Temp Pulse Resp BP Pulse Ox
98.0 F 89 19 137/73 87
11/06/24 03:09 11/06/24 08:00 11/06/24 08:00 11/06/24 06:00 11/06/24 08:00
Cardiovascular:: Regular rate and rhythm
Respiratory:: Bilateral: Coarse
Lung Excursion:: Normal
Abdomen:: Nontender and Soft
Bowel Sounds:: Normal
Extremity Edema:: +3: Bilateral:
Koehler Catheter: No
[2024-11-06] MEDS: NOVOLOG FLEXPEN-LOW RESISTANCE 3 UNITS SC (09:43)
[2024-11-06] MEDS: NOVOLOG FLEXPEN 8 UNITS SC ×2 (09:43→17:27)
[2024-11-06 09:46] LABS: Glucose - Point of Care 251 mg/dl (70-99)
[2024-11-06] MEDS: FLOMAX 0.4 MG PO (09:46)
[2024-11-06] MEDS: CYMBALTA DELAYED RELEASE 60 MG PO ×2 (09:46→20:02)
[2024-11-06] MEDS: HEPARIN 5000 UNITS SC ×3 (09:47→23:06)
[2024-11-06] MEDS: PROTONIX 40 MG PO (09:47)
[2024-11-06] MEDS: PEPCID 20 MG PO (09:47)
[2024-11-06] MEDS: LYRICA 100 MG PO ×2 (09:47→20:01)
[2024-11-06] MEDS: PROCARDIA XL (EXTENDED RELEASE) PO (09:48)
[2024-11-06] MEDS: LASIX 40 MG IV (09:55)
--- NOTE | 2024-11-06 10:06 | W.PN.ID1 ---
Date of Service
Date of Service: November 06, 2024
Today's Communication
Continue cefazolin.
Assessment / Plan
# Probable osteomyelitis with resolving fistula
# Relapse of LLE cellulitis, resolving
# lymphedema
# hx left ankle ORIF 07/2023, hardware removed 06/2024 due to loosening (at [facility])
- probable fistula over surgical site - now healing
- MRI showed severe cellulitis, possible tenosynovitis, myositis and enhancing granulation tissue which can be either infection or post operative healing; however given her overall history of recurrent fistula, myositis and osseous fragmentation
of the calcaneous without previous treatment for osteomyelitis, suspicion for subacute osteomyelitis is high. Responding well to IV cefazolin
- Continue cefazolin 2g IV q8h x 6 weeks through 12/01/24
-Home infusion sheet submitted to case management
- PICC in place.
- Continue Sukhdeep-wrap compression.
# s/p Acute change in mental status due to hypercapnic hypoventilation obesity syndrome. BMI 60. pCO2 54
# THAD - resolving
# DM- uncontrolled. Recommend tight glucose control
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
Diabetes mellitus
Peripheral neuropathy
Hypertension
TIA/CVA
Class III obesity BMI 57
Restless leg syndrome
Hx of left trimalleolar fracture status post ORIF July 2023 with subsequent hardware removal June 2024
Right elbow surgery
Childhood bladder surgery
Chief Complaint
-: Cellulitis and Other (suspected osteomyelitis)
Subjective / Review of Systems
No complaints.
Vital Signs / Physical Exam
Vital Signs
Vital Signs
Temp Pulse Resp BP Pulse Ox
98.0 F 83 19 102/78 87
11/06/24 03:09 11/06/24 09:55 11/06/24 08:00 11/06/24 09:55 11/06/24 08:00
Physical Exam
Constitutional: No Acute Distress and Comfortable
Cardiovascular: Regular Rate and S1/S2
Gastrointestinal: Soft, Non Tender, Non Distended and Normal Bowel Sounds
Extremities: Edema; Negative Erythema
Wound: Other (Left leg wound closed/dry, surrounding erythema resolved; left plantar shallow wound without drainage)
Neurological: AO x 3
Lines: PICC
Objective Data
Lab Data
Lab Results
11/06/24 03:08
11/06/24 03:08
Estimated Creat Clear 64 ml/min 11/06/24 03:08
Lactic Acid 0.5 mmol/L (0.7-2.0) L 11/02/24 11:30
Total Bilirubin 0.5 mg/dl (0.2-1.3) 11/06/24 03:08
AST 18 U/L (14-36) 11/06/24 03:08
ALT < 10 U/L (0-35) 11/06/24 03:08
Alkaline Phosphatase 199 U/L (38-126) H 11/06/24 03:08
Most recent labs reviewed.
Micro Results:
11/02/24 15:09 Urine Culture - Final
Urine NO GROWTH
10/19/24 22:37 Blood Culture - Final
Blood/Venous No Growth - Final Report
10/19/24 22:08 Blood Culture - Final
Blood/Venous No Growth - Final Report
10/19/24 23:43 Wound Culture - Final
Leg - Left No growth
Gram Stain - Final
10/20/24 Peripheral vasc US: no DVT
11/02/24 CXR: Stable mild pulmonary vascular congestion. Cardiomegaly.
[2024-11-06] MEDS: BYSTOLIC 5 MG PO (11:22)
[2024-11-06] MEDS: LAC HYDRIN, AM LACTIN LOTION 1 APPLIC TOPICAL ×2 (11:23→20:03)
[2024-11-06] MEDS: NOVOLOG FLEXPEN SC (12:42)
[2024-11-06] MEDS: NOVOLOG FLEXPEN-LOW RESISTANCE 2 UNITS SC ×2 (12:43→17:27)
[2024-11-06 12:53] LABS: Glucose - Point of Care 219 mg/dl (70-99)
--- NOTE | 2024-11-06 13:02 | CM ---
Per VERÓNICA Cooley, she spoke to pt's daughter and daughter requested to send a referral to [facility].
A referral to [facility] made. Awaiting for determination.
D/C plan: at this point [facility].
CM will follow to assist pt with discharge to [facility]
--- NOTE | 2024-11-06 13:25 | PTCARENOTE ---
Received pt from IMU, pt ambulated to bed from wheelchair with assistance of 1 person and SPC, AAOx3, BP running high, pt oriented to call pop and room, resting comfortably in bed with family at bedside.
[2024-11-06] MEDS: APRESOLINE 10 MG IV (15:15)
[2024-11-06 17:18] LABS: Glucose - Point of Care 214 mg/dl (70-99)
[2024-11-06] MEDS: LIPITOR 40 MG PO (17:28)
--- NOTE | 2024-11-06 17:44 | PTCARENOTE ---
Pts BP from transfer from IMU was 196/110. After pt was settled, BP was 190/101. PRN hydralazine administered at 1515. BP recheck at 173/89. AM dose of procardia was held today for BP of 102/78, made aware of this, parameters for AM meds adjusted.
[2024-11-06] MEDS: PROCARDIA XL (EXTENDED RELEASE) 30 MG PO (20:02)
[2024-11-06 21:42] LABS: Glucose - Point of Care 196 mg/dl (70-99)
[2024-11-06] MEDS: LANTUS 0.26 UNITS SC (21:55)
[2024-11-07 02:49] VITALS: BP 151/85
[2024-11-07] MEDS: ANCEF 10 IV ×2 (05:38→14:59)
[2024-11-07 06:00] VITALS: BMI 55.0
[2024-11-07 07:13] VITALS: BP 129/63
[2024-11-07 07:13] LABS: Glucose - Point of Care 217 mg/dl (70-99)
[2024-11-07] MEDS: LYRICA 100 MG PO (08:03)
[2024-11-07] MEDS: PROTONIX 40 MG PO (08:03)
[2024-11-07] MEDS: FLOMAX 0.4 MG PO (08:03)
[2024-11-07] MEDS: CYMBALTA DELAYED RELEASE 60 MG PO (08:04)
[2024-11-07] MEDS: PROCARDIA XL (EXTENDED RELEASE) 30 MG PO (08:04)
[2024-11-07] MEDS: PEPCID 20 MG PO (08:04)
[2024-11-07] MEDS: BYSTOLIC 5 MG PO (08:04)
[2024-11-07] MEDS: LASIX 40 MG PO (08:04)
[2024-11-07] MEDS: LAC HYDRIN, AM LACTIN LOTION 1 APPLIC TOPICAL (08:05)
[2024-11-07] MEDS: NOVOLOG FLEXPEN 8 UNITS SC (08:06)
[2024-11-07] MEDS: HEPARIN 5000 UNITS SC (08:06)
[2024-11-07] MEDS: NOVOLOG FLEXPEN-LOW RESISTANCE 2 UNITS SC ×2 (08:07→12:27)
[2024-11-07 08:08] LABS: Hematocrit 30.6 % (37.0-47.0); Mean Corp Hgb Conc. 29.4 g/dL (33.0-37.0); Mean Corpuscular Hgb 25.9 pg (27.0-31.0); Mean Corpuscular Volume 88.2 fL (81.0-99.0); Mean Platelet Volume 11.1 fL (7.4-10.4); Platelet Count 236 10^3/uL (130-400); Red Blood Cell Count 3.47 10^6/uL (4.20-5.40); Red Cell Dist. Width 17.3 % (11.5-14.5); White Blood Cell Count 4.5 10^3/uL (4.8-10.8)
--- NOTE | 2024-11-07 08:19 | PN.DE.MGMTRT ---
Insulin Management
- -
11/07/2024: Diabetes Management follow up
Patient admitted with LLE cellulitis, she was recently discharged with same. PMH: HTN, HLD, morbid obesity, Diabetic Neuropathy, Uncontrolled IDDM, trimalleolar fracture s/p repair and revision, chronic ambulatory dysfunction. Prior to admission was
using the OmniPod insulin pump with DexCom G6 CGM with Humalog insulin. Patient states she requires up to 66 units of insulin per day. Current A1C is 8.4%, Cr 4.2, eGFR 11.74
Patient states she has had diabetes 30+ years and sees Pamela Diego, endocrinology, at [facility] for the past 2 years. She states she does not count carbs. She was told by her endo to enter 50 grams of carb for each meal and whatever the blood sugar is.
Offered again to teach carb counting with patient, she states not necessary I just do what the endo doctor said, but maybe someday.
Pt is awake, alert, oriented, pleasant, sitting up in chair, offers no complaints, able to discuss diabetes care plan. No Family at bedside.
11/02 insulin pump was discontinued due to mental status changes.
11/03 Mental status improved, back to baseline. Pt is able to use and manage her pump but is waiting for a new CGM sensor for her Omnipod insulin pump, states it is supposed to be delivered tomorrow.
Glucose remains elevated, premeal 214 to 251, FBG 226 V,217 POC this AM.
According to nursing staff, pt has been non adherent to diabetic diet, family has been bringing in non diabetes foods like hoagies and carbonated non-diabetes drinks. Discussed and emphasized to pt importance of following a diabetic meal plan, while
in the hospital and at home in order to have optimal glucose control.
Will increase Lantus to 28 units and NovoLog to 10 units AC. Cont moderate corrective insulin with meals.
Will cont to follow. Plan is for discharge home today and resume her insulin pump tomorrow when sensor has been delivered.
Pt states she has enough insulin at home to use for MDI and has declined a scrip to for insulin pens.
Diabetes History
- -
Type of Diabetes: 2 requiring insulin
Pre-Admission Diabetes Regimen
Lab Results
Hemoglobin A1c 8.2 % (4.0-5.6) H 11/03/24 04:41
Insulin Pump Settings
IP Diabetes Regimen
11/06/24 11/06/24 11/06/24
09:35 12:41 17:14
POC Glucose 251 H 219 H 214 H
11/06/24 11/07/24
21:40 07:12
POC Glucose 196 H 217 H
Meal type: Lunch
Amount consumed: Patient refused
Patient Education
[2024-11-07 08:27] LABS: Blood Urea Nitrogen 23 mg/dl (7-17); Calcium 8.5 mg/dl (8.4-10.2); Carbon Dioxide 36 mmol/L (22-30); Chloride 101 mmol/L (98-107); Estimated Creatinine Clearance 74 ml/min; Glucose 226 mg/dl (70-99); Magnesium 1.6 mg/dl (1.6-2.3); Potassium 3.9 mmol/L (3.5-5.1); Sodium 144 mmol/L (135-145)
--- NOTE | 2024-11-07 09:25 | W.PN.HOSP.TC ---
Addendum entered and electronically signed by Angie Antunez MD 11/07/24 14:42:
I saw and evaluated the patient independently. I reviewed the resident�s note and agree with findings and plan as documented by Dr. Mosquera.
GENERAL: well developed, well nourished, morbidly obese female in no apparent distress
HEENT: NC/AT--intermittent need for O2
HEART: regular rate and rhythm, +S1, +S2
LUNGS : clear to auscultation bilaterally
ABDOM: soft, nontender, nondistended, + bowel sounds
EXT: no cyanosis, clubbing, or edema
NEUROLOGIC: grossly intact
Patient is in need of oxygen at 2 liters/minute via nasal cannula continuously due to pulse oximetry of 85% on room air at rest. Oxygen will help to improve hypoxemia. Patient is mobile within the home. DuoNeb therapy has been tried and is
ineffective in treating hypoxemia related symptoms. Oxygen is needed to improve symptoms.
Recurrent LLE cellulitis, possibly related to DM type 2 along with Probable osteomyelitis with resolving fistula per ID--no DVT on US--MRI LE with severe cellulitis left lower leg, ankle, foot--cont ancef Q8H for 6 week course through 12/01/24 per
ID, PICC placed--cont anna-wrap--apprec ID
THAD, likely due to combination of urinary retention (from DM), ANNA I--wang placed 10/25, discontinued due to pt request --replaced at some later point and removed today--cont flomax--creat improved to 1.2 (baseline creat 1.0)--apprec renal--daily
weights
Acute hypoxic respiratory failure--suspect obesity hypoventilation syndrome with PAL and chronic hypercapnia--s/p gentle IVF--started lasix use IV 40 mg daily for mild fluid overload --daily weights
Acute metabolic encephalopathy with rapid response for hypoxia from fluid overload and likely underlying obesity hypoventilation syndrome and meds--lyrica dosing adjusted as well--on 2L--assessed for home O2
PAL--ABG and VBG reviewed --needs outpt sleep study--suspect will need CPAP at minimum and more likely BIPAP if she will even wear it--only wore 1 1/2 hours last night
DM2--Carb control diet (not following, had cheesesteak yesterday)--cont insulin pump--apprec DM [employer]
Essential HTN--cont Nifedipine, Nebivolol
Morbid obesity due to excess calories--BMI 58--not helping overall clinical situation
h/o L trimalleolar fracture s/p ORIF 08/15 with subsequent hardware removal 07/16--noted
Restless leg syndrome
DVT proph-- sc heparin
code status-- DNR
Dispo: home--OK for d/c
Original Note:
Today's Communication/Plan
-
-Discharge planning home with HC/VN
Assessment / Plan
Assessment / Plan
The patient is a 59 year old female presented with Left Leg swelling and redness for which she had a recent hospitalization with a diagnosis of cellulitis but was not able to complete her course of antibiotic at that time.
#Recurrent LLE cellulitis
-Resolving
-Her recurrent infection possibly related to DM type 2
-Infectious disease on board suspicion for a possibility ofosteomyelitis with resolving fistula in addition to her right LE cellulitis
-MRI of left lower extremity :severe cellulitis left lower leg, ankle, foot
-No DVT on US
-Recommended to Continue cefazolin 2g IV q8h x 6 weeks through 12/01/24 per ID, PICC placed--cont anna-wrap--
#THAD
-Improving (baseline creatinine ~1.0)
- Likely due to combination of urinary retention related to her diabetes melitis likely due to combination of urinary retention (from DM) and secondary to Lasix
-Patient was placed Wang on 10/25 and it was discontinued due to patient's request
-Continue Flomax
-Follow-up weights and I/O` s
-ACEI
#Acute hypoxic respiratory failure
- Possibly secondary to obesity hypoventilation syndrome with PAL and chronic hypercapnia
-Cautious with IV fluids
-IV Lasix is 40 mg daily for mild fluid overload
- Needed supplemental oxygen to maintain her saturation
- Patient was assessed for need of home oxygen and saturating at<= 87% at rest and with activity
#Acute metabolic encephalopathy
-Improved
- Likely secondary to hypoxia from fluid overload/obesity hypoventilation syndrome
- Medication might be contributing to situation like Lyrica
# Suspecting PAL
-ABG and VBG reviewed
-Needs outpt sleep study--suspect will need CPAP at minimum and more likely BIPAP
-Pulmonology on board-recommended PAL study at the outpatient setting
#DM2
-Not well controlled
-Carb control diet (not strictly following)
- Continue insulin pump
- Seen by diabetic nurse practitioner with a plan to increase Lantus to 28 units and NovoLog to 10 units AC
#Essential HTN
- Continue Nifedipine and Nebivolol
#Morbid obesity due to excess calories--BMI 58--not helping overall clinical situation
#h/o L trimalleolar fracture s/p ORIF 08/15 with subsequent hardware removal 07/16--noted
#Restless leg syndrome
#DVT proph-- sc heparin
#code status-- DNR
Dispo: PT recommended home and did not consider candidate candidate for SNF. Patient will need IV antibiotics and therefore it was planned to schedule her to home with visiting nurse.
Home oxygen need: The patient is in need of oxygen at 2 liters/minute via nasal cannula continuously due to pulse oximetry of 87% on room air at rest. Oxygen will help to improve hypoxemia. Patient is mobile within the home. DuoNeb therapy has been
tried and is ineffective in treating hypoxemia related symptoms. Oxygen is needed to improve symptoms.
Anticipated Discharge: Today
Subjective/Interval History
-
Date of Service: November 07, 2024
The patient was evaluated for home O2 need. The patient qualifies for home oxygen.
No new complaints
Objective Data
-
Labs:
Laboratory Results
11/07/24
05:34
WBC 4.5 L
Hgb 9.0 L
Hct 30.6 L
Plt Count 236
Sodium 144
Potassium 3.9
Chloride 101
Carbon Dioxide 36 H
BUN 23 H
Creatinine 1.2 H
Glucose 226 H
Calcium 8.5
Vital Signs:
Vital Signs
Temp Pulse Resp BP Pulse Ox
98.4 F 85 16 129/63 96
11/07/24 07:13 11/07/24 08:04 11/07/24 07:13 11/07/24 08:04 11/07/24 07:13
I&O
11/06/24 11/07/24 11/08/24
06:59 06:59 06:59
Intake Total 860 / 860 640 / 640
Output Total 1650 / 1650 650 / 650
Balance -790 / -790 -10 / -10
Review of Systems
-
All other systems: Reviewed and negative
Physical Exam
-
General: Well Developed, Well Nourished, Appears Chronically Ill and Morbidly Obese
HEENT: Normocephalic and Atraumatic
Respiratory: Clear to Auscultation
Cardiac: Regular Rhythm and S1/S2
GI: Soft, Nontender and Nondistended
Musculoskeletal: No Clubbing, No Cyanosis and Other (bilateral lower extremity edema- left ankle and leg wrapped)
Skin: Warm, IV Access / Catheter Site (PICC line ) and Other (mild redness on left leg )
Neuro: Awake, Alert, Oriented, AO x 3 and Nonfocal/Grossly Intact
Psych: Calm
[2024-11-07 11:36] LABS: Glucose - Point of Care 213 mg/dl (70-99)
[2024-11-07 11:45] VITALS: BP 140/81
--- NOTE | 2024-11-07 12:22 | W.DCSUMMARY ---
Addendum entered and electronically signed by Angie Antunez MD 11/07/24 18:00:
Read, reviewed, and agree. See same day progress note for additional details. Time spent coordinating care, DC planning, review of DC plan of care with resident, transition of care, review of records in EMR, med rec, consults, notes, d/w
consultants, nursing, family, and CM = 45 minutes.
Discharge planning for this patient started on Thursday. I contacted case management to set up infusion care for home IV antibiotic therapy based on ID recommendations. Patient stated that she had not had any teaching in that regard as
of yet. Case management aware that patient is for discharge today. After contacting [employer], they indicated that they will be unable to come out to see the patient today as planned and that she would need to stay in the hospital until
tomorrow and be home for 2 PM at which time they will instruct her and her family on how to administer the IV antibiotics. The antibiotics are scheduled through December 01, 2024 per ID.
Not surprisingly, the patient is very upset over the fact that she will need to stay another day. The patient would like to be discharged. I do not feel the need to have the patient signed out AGAINST MEDICAL ADVICE for missing 2 doses of
antibiotic (10 PM tonight and 6 AM tomorrow morning) during the course of a 6-week infusion therapy session.
The infusion company understands that the patient will be missing 2 doses of her antibiotic therapy due to the fact that they are unable to come out today as planned. I am told that the patient will be available and ready and willing to receive the
infusion company at 2 PM tomorrow as planned for her to get teaching regarding administering the rest of the antibiotics needed.
Patient is stable for discharge home at this time. Oxygen therapy has been set up and delivered to the house. She is not consistently below 87% but rather oscillates between 85% on room air which then improves to 91%, which then goes back down to
88%, etc. Patient has been instructed that if her oxygen reading at home (she does have a home pulse oximeter) is 87% or below that she will need to place the oxygen on. She is aware and willing to do this.
If there are any questions regarding this dictation or her hospital stay, please not hesitate to call. Our office number is [phone].
Original Note:
Discharge Summary
Discharge Data
Date of Admission: 10/20/24
Date of Discharge: 11/07/24
-
Pending Results: No
Hospital Course
Disposition : Home with home care
Principal Discharge diagnosis : Recurrent Left Leg cellulitis with Probable osteomyelitis with resolving fistula,Acute kidney injury,Acute hypoxic respiratory failure, Presumed obstructive sleep apnea with chronic hypercapnia
Chronic Discharge diagnosis : Morbid obesity, Restless leg syndrome, Diabetes mellitus type 2, Essential hypertension
Hospital Course :
#Recurrent Left Leg cellulitis with Probable osteomyelitis with resolving fistula: The patient presented to ER on 10/19/24 with worsening left leg swelling and redness. She was recently discharged from the hospital with a left leg cellulitis and was
recommended to continue antibiotics at that time. Unfortunately, the patient reported she did not take any antibiotics following her discharge due to GI side effects and her symptoms got worsen leading her to come ER. Patient was admitted to
hospital with a diagnosis of recurrent left leg cellulitis. Wound and blood cultures were taken and was consulted to Infectious Disease. Her cultures did not growth any microorganism. Based on her physical exam and oozing a from her left leg, she
was started on antibiotic which was followed by ID. The patient was obtained bilateral lower extremity Doppler US due to her swelling which was not remarkable for any thrombus. She was obtained a left leg X ray which noted extensive
postoperative and degenerative changes. She was obtained a lower left extremity MRI with a concern of osteomyelitis which noted ' very severe diffuse subcutaneous edema throughout the right lower leg, ankle, and foot consistent with severe
cellulitis/// No MRI evidence for rim-enhancing enhancing fluid collection in the soft tissues to suggest the presence of an abscess.///No convincing evidence for bone marrow signal abnormality to suggest the presence of acute osteomyelitis'The
patient was recommended to continue cefazolin 2g IV q8h x 6 weeks through 12/01/24 with a diagnosis of probable osteomyelitis complicated with resolving fistula. A PICC line was placed for the patient to complete her IV antibiotic course following
her discharge. She was recommended to see her PCP for follow up.
#Acute kidney injury: The patient was recently admitted for similar presentation with lower extremity cellulitis when she developed acute kidney injury and was discharged with a creatinine of 2.9 at her previous admission. At this time, she
presented to the hospital with a creatinine of 1 and it has gone up to 1.7 in 48 hours. She was seen and followed by nephrology considering her kidney problem is likely secondary to Lasix use and possible urinary retention. Her lasix was hold for a
while and she was started on Tamsulosin. She was also placed a Koehler with improvement of creatinine level and it was removed with patient`s request. Her creatinine level trended down gradually and her Lasix was continued. Her creatinine level
decreased to 1.2 likely to her baseline on 11/07/2024. She was recommended to see her PCP for follow up given she will continue cephazolin and Urinalysis showed subnephrotic proteinuria.
#Acute hypoxic respiratory failure and Presumed obstructive sleep apnea with chronic hypercapnia; :The patient was found to be hypoxemic with mental status changes and hypercapnia on and required to be placed on BiPAP at that time. She
was transferred to IMU for close follow up. She was consulted to Pulmonology for an evaluation of hypoxemia/hypercapnia. The patient considered requiring 2 L nocturnal oxygen by Pulmonology. She was recommended to have a sleep study at
outpatient setting and have follow up with Pulmonology. Despite, patient`s breathing issues gradually some improved, her saturating on room air kept changing between 80s-91s. She was assessed for home oxygen need and was considered qualifies
for home oxygen use.
#Other chronic problems include Morbid obesity, Restless leg syndrome, Diabetes mellitus type 2, Essential hypertension and they were treated as able to. She was seen by Diabetic nurse practitioner to discuss her insulin dose regimen and diet.
Important imaging findings :
10/20/2024 Exams: US Periph Venous LOWER Ext Lan
INDICATION: Edema
PRIOR EXAM: Left lower extremity October 02, 2024
FINDINGS: Real-time grayscale and duplex ultrasound of the deep venous system of both lower extremities demonstrates no evidence of deep venous thrombosis. Normal flow is demonstrated in the posterior tibial, popliteal, superficial femoral and
common femoral veins bilaterally. These vessels are normally compressible and demonstrate normal flow augmentation with compression.
IMPRESSION: No findings to confirm deep venous thrombosis of the lower extremities bilaterally.
Exams: CR Leg Tibia/fibula Left 2 Vw
PROCEDURE: CR Leg Tibia/fibula Left 2 Vw
CLINICAL INDICATION: Swelling. Pain. Prior surgery.
TECHNIQUE: AP and lateral views.
COMPARISON: Left ankle October 02, 2024
FINDINGS: In comparison to prior left ankle radiograph, there is again seen extensive osseous remodeling and periosteal reaction along the distal left tibia and fibula at least a portion of which may be the sequela of prior surgery with old healed
fractures noted. Likely prior surgical osseous fusion about the tibiotalar joint is again suspected. Mild cortical bone loss along the medial aspect of the distal left tibia cannot be excluded. Some osseous degenerative changes are noted. There is
no definitive recent cortical fracture.
IMPRESSION:
Extensive postoperative and degenerative changes again seen.
Cortical bone loss along the medial aspect of the distal left tibia such as osteomyelitis cannot be excluded. Suggest MRI for more complete evaluation.
Electronically signed by Ivan Viveros MD, 10/22/2024 2:47 PM
10/24/24
Exams: MR Ltle No Joint W/o And With
CPT: [id number]
PROCEDURE: MR Ltle No Joint W/o And With
CLINICAL INDICATION: Worsening lower extremity swelling and redness. Left lower extremity cellulitis. Insulin-dependent diabetes mellitus. Wound in the medial basurto with active purulent drainage. Wound on the plantar aspect of the foot. Fistula.
Evaluation for acute osteomyelitis.
TECHNIQUE: An MRI examination of the left foot was performed with and without intravenous contrast on a 3.0 Jacquelin magnet. Sagittal STIR, sagittal T1, sagittal T1 fat-suppressed, axial T2 fat-suppressed, axial T1, axial T1 fat-suppressed, sagittal T1
fat-suppressed, coronal T1, coronal proton density fat-suppressed imaging sequences were obtained prior to the administration of intravenous contrast. Following the intravenous administration of 30 mL Clariscan gadolinium contrast material, axial T1
fat-suppressed, coronal T1, and sagittal T1 fat-suppressed imaging sequences were obtained. Axial, coronal, and sagittal subtraction images were obtained postcontrast.
COMPARISON: Comparison is made with radiographic examinations performed 10/22/2024, 10/02/2024, and 04/25/2023.
FINDINGS:
There is very severe diffuse subcutaneous edema throughout the right lower leg, ankle, and foot consistent with severe cellulitis. There is no MRI evidence for rim-enhancing enhancing fluid collection in the soft tissues to suggest the presence of
an abscess.
There is deformity of the distal tibia and fibula secondary to chronic healed fractures with bone production and chronic periosteal reaction along the distal metaphyses. There is a long tract of low T1 and hyperintense T2 signal extending through
the intramedullary space of the distal tibia, across the tibiotalar joint, through the subtalar joint, and into the calcaneus at the site of a removed intramedullary nail. There is partial osseous fusion across the tibiotalar joint. There is another
tract filled with low T1 and hyperintense T2 and enhancing granulation tissue extending in AP direction extending through the posterior calcaneal tuberosity and into the calcaneal body at the site of a removed male or interlocking screw. There is a
large amount of enhancing granulation tissue in the body of the calcaneus at the intersection of the 2 tracts and around the subtalar, talonavicular, and calcaneocuboid joints. There is osseous fragmentation of the anterior process of the calcaneus.
There is no convincing evidence for bone marrow signal abnormality to suggest the presence of acute osteomyelitis. There is no MRI evidence for acute fracture.
There is severe tendinosis of the posterior tibial tendon surrounded by moderate enhancing tenosynovitis. The flexor digitorum longus tendon appears nearly completely torn distal to the medial malleolus. The flexor hallucis longus tendon appears
intact. The peroneus longus and brevis tendons appear intact. The extensor tendons are intact.
IMPRESSION:
1. SEVERE CELLULITIS throughout the LEFT LOWER LEG, ANKLE, and FOOT.
2. Deformity of the distal tibia and fibula with bone production around the metaphyses.
3. Partial osseous fusion across the tibiotalar joint.
4. Long tract in the intramedullary space of the distal tibia extending across the tibiotalar and subtalar joints at the site of a removed intramedullary nail which is now filled with enhancing granulation tissue.
5. Intramedullary tract extending through the calcaneus at the site of a removed nail or screw.
6. Large amount of enhancing granulation tissue in the calcaneus and around the subtalar, talonavicular, and calcaneocuboid joints.
7. Severe tendinosis of the posterior tibial tendon.
Electronically signed by Marc Christensen MD, 10/25/2024 12:24 AM
Dictated By: Marc Christensen MD.
Dictated Date & Time: 10/24/245
10/27/2024
CR Chest Portable - 1 View
PROCEDURE: CR Chest Portable - 1 View
CLINICAL INDICATION: RT PICC PLACEMENT
TECHNIQUE: Portable frontal semi-erect view of the chest.
COMPARISON: 08/10/2017.
FINDINGS:
Lines and tubes: The new right PICC line catheter is looped upon itself in the right axillary region. The tip is not visualized..
Lungs: The lungs are clear. No pleural effusion or pneumothorax.
Heart: The heart is mildly enlarged.
Osseous structures: Visualized osseous structures are within normal limits.
IMPRESSION:
Right PICC line catheter placement. Looped upon itself. Tip not visualized.
Cardiomegaly.
Electronically signed by Roro Damon DO, 10/27/2024 3:32 PM
10/27/2024 CR Chest Portable - 1 View
CPT: [id number]
PROCEDURE: CR Chest Portable - 1 View
CLINICAL INDICATION: Right upper extremity PICC line redirection. Left lower extremity cellulitis.
A sitting AP portable view of the chest was obtained. Comparison is made with prior radiographic examinations of the chest performed 10/27/2024, , , and 08/01/2014.
FINDINGS:
There has been repositioning of the right upper extremity PICC line with the catheter tip now projecting over the superior vena cava (SVC). The cardiomediastinal silhouette is moderately enlarged. There is mild left to right mediastinal shift. There
are moderately increased vascular interstitial markings throughout both lungs. There is a mild to moderate amount of diffuse ground-glass opacity throughout the lungs. The lung volumes are mildly decreased bilaterally. There is no focal dense
airspace consolidation. There is no pleural effusion or pneumothorax.
There is a large right subacromial enthesophyte. There is mild osteoarthritis of the right glenohumeral and acromioclavicular joints. There is mild multilevel discogenic degenerative disease in the thoracic spine.
IMPRESSION:
1. Right upper extremity PICC line in place with the catheter tip projecting over the SVC.
2. Moderate enlargement of the cardiomediastinal silhouette.
3. Mild interstitial and alveolar cardiogenic pulmonary edema.
Electronically signed by Marc Christensen MD, 10/27/2024 3:49 PM
Procedure findings :
Discharge Plan
-
Patient Disposition: Home with Home Care
Discharge Diagnosis/Procedures: Recurrent Left Leg cellulitis related to DM type 2 along with Probable osteomyelitis with resolving fistula
Acute kidney injury
Acute hypoxic respiratory failure
Presumed obstructive sleep apnea with chronic hypercapnia
Morbid obesity
Restless leg syndrome
Diabetes mellitus type 2
essential hypertension
Condition: Good
Diet: As tolerated, Low Fat, Low Cholesterol, Low Sodium and Diabetic, Carb Controlled
Activity: With assistance and As tolerated
Driving Restrictions: As prior to admission
Bathing Restrictions: None
Blood Work: BMP in 1 week, result to PCP
Other Services: VN, PT and OT
Activity Restrictions/Additional Instructions:
1. cefazolin 2g IV q8h through 12/01/24
2. Weekly CBC, CMP while on cefazolin.
Wound Care Instructions
L leg and foot/heel
clean both legs with soap and water, apply AmLactin daily and prn dry skin.
Place ABD over medial lower leg under shahida wrap prn drainage
L plantar foot/heel: silicone foam change q 3 days and prn soilage to protect
continue shahida wraps knee high daily until can fit into own compression stockings, can remove at bedtime.
Referrals:
Kofi Salgado, [Non-Admitting Privileges] - in less than 1 week (Follow up with your PCP to be checked with CBC and CMP )
Kamlesh Bonner MD [Active] - in one to two weeks
(Dr. Bonner or [facility]
Obstructive sleep apnea suspected)
Ava Youngblood MD [Active] - in three to four weeks
Prescriptions:
New
tamsulosin 0.4 mg Capsule
0.4 mg PO DAILY 30 Days Qty: 30 0RF
cefazolin 10 gram Recon Soln
2 g IV Q8H 42 Days
furosemide 40 mg Tablet
40 mg PO DAILY Qty: 30 0RF
pregabalin 100 mg Capsule
100 mg PO BID Qty: 30 0RF
Continued
glipizide 10 mg Tablet
10 mg PO BID
nortriptyline 75 mg Capsule
75 mg PO HS
pioglitazone 30 mg Tablet
30 mg PO DAILY
atorvastatin [Lipitor] 40 mg Tablet
40 mg PO QPM
omeprazole 40 mg Capsule,Delayed Release(Dr/Ec)
40 mg PO DAILY
famotidine 20 mg Tablet
20 mg PO DAILY
nebivolol 5 mg Tablet
5 mg PO DAILY
nifedipine 30 mg Tablet Extended Release
30 mg PO BID 30 Days Qty: 60 4RF
Lokelma 10 gram powder in packet
10 g PO DAILY Qty: 11 0RF
ondansetron 4 mg Tablet,Disintegrating
4 mg PO Q8HPRN PRN (Reason: nausea)
duloxetine [Cymbalta] 60 mg Capsule,Delayed Release(Dr/Ec)
60 mg PO BID
Patient Own Insulin Pump
1 unit SC .INSULIN LISPRO
dapagliflozin propanediol [Farxiga] 10 mg Tablet
10 mg PO DAILY
Ozempic 0.25 mg or 0.5 mg (2 mg/3 mL) Pen Injector
0.5 mg SC SA
Discontinued
lisinopril 20 mg Tablet
20 mg PO DAILY
pregabalin 200 mg capsule
200 mg PO TID
furosemide [Lasix] 40 mg Tablet
40 mg PO BID
Discharge Orders:
Discharge Patient (As Directed); Ordered 11/07/24
Ordered By: Shanthi Mosquera
Discharge Date and Time
Print Language: PERUVIAN
[2024-11-07] MEDS: NOVOLOG FLEXPEN 10 UNITS SC (12:26)
--- NOTE | 2024-11-07 13:21 | W.PN.ID1 ---
Date of Service
Date of Service: November 07, 2024
Today's Communication
- Continue cefazolin 2g IV q8h x 6 weeks through 12/01/24
Assessment / Plan
# Probable osteomyelitis with resolving fistula
# Relapse of LLE cellulitis, resolving
# lymphedema
# hx left ankle ORIF 07/2023, hardware removed 06/2024 due to loosening (at [facility])
- probable fistula over surgical site - now healing
- MRI showed severe cellulitis, possible tenosynovitis, myositis and enhancing granulation tissue which can be either infection or post operative healing; however given her overall history of recurrent fistula, myositis and osseous fragmentation
of the calcaneous without previous treatment for osteomyelitis, suspicion for subacute osteomyelitis is high. Responding well to IV cefazolin
- Continue cefazolin 2g IV q8h x 6 weeks through 12/01/24
- infusion sheet submitted to case management
- PICC in place.
- Continue Sukhdeep-wrap compression.
- To rehab
# s/p Acute change in mental status due to hypercapnic hypoventilation obesity syndrome. BMI 60. pCO2 54
# THAD - resolving
# DM- uncontrolled. Recommend tight glucose control
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
Diabetes mellitus
Peripheral neuropathy
Hypertension
TIA/CVA
Class III obesity BMI 57
Restless leg syndrome
Hx of left trimalleolar fracture status post ORIF July 2023 with subsequent hardware removal June 2024
Right elbow surgery
Childhood bladder surgery
Chief Complaint
-: Cellulitis and Other (suspected osteomyelitis)
Vital Signs / Physical Exam
Vital Signs
Vital Signs
Temp Pulse Resp BP Pulse Ox
98.0 F 82 18 140/81 95
11/07/24 11:45 11/07/24 11:45 11/07/24 11:45 11/07/24 11:45 11/07/24 11:45
Physical Exam
Constitutional: No Acute Distress and Comfortable
Cardiovascular: Regular Rate and S1/S2
Gastrointestinal: Soft, Non Tender, Non Distended and Normal Bowel Sounds
Extremities: Edema; Negative Erythema
Wound: Other (Left leg wound closed/dry, surrounding erythema resolved; left plantar shallow wound without drainage)
Neurological: AO x 3
Lines: PICC
Objective Data
Lab Data
Lab Results
11/07/24 05:34
11/07/24 05:34
Estimated Creat Clear 74 ml/min 11/07/24 05:34
Lactic Acid 0.5 mmol/L (0.7-2.0) L 11/02/24 11:30
Total Bilirubin 0.5 mg/dl (0.2-1.3) 11/06/24 03:08
AST 18 U/L (14-36) 11/06/24 03:08
ALT < 10 U/L (0-35) 11/06/24 03:08
Alkaline Phosphatase 199 U/L (38-126) H 11/06/24 03:08
Most recent labs reviewed.
Micro Results:
11/02/24 15:09 Urine Culture - Final
Urine NO GROWTH
10/19/24 22:37 Blood Culture - Final
Blood/Venous No Growth - Final Report
10/19/24 22:08 Blood Culture - Final
Blood/Venous No Growth - Final Report
10/19/24 23:43 Wound Culture - Final
Leg - Left No growth
Gram Stain - Final
10/20/24 Peripheral vasc US: no DVT
11/02/24 CXR: Stable mild pulmonary vascular congestion. Cardiomegaly.
--- NOTE | 2024-11-07 14:37 | CM ---
Addendum entered by Ashlyn Christy 11/07/24 18:15:
faxed discharge summary to [facility] at their request
Addendum entered by Ashlyn Christy 11/07/24 16:48:
Patient insisting on discharge home today. Physician aware. Patient for home with [facility] to call her with appointment. ALso to be seen tomorrow at home with [facility]. home O2 delivered and IMM completed. Family to provide
assistance with transportation. CM will continue to follow for discharge planning needs.
Plan; home with [facility]/ [facility] and [facility].
Addendum entered by Ashlyn Christy 11/07/24 15:21:
CM notified that [facility] closed case 11/07 as they did not hear that patient was at home. CM resent updated clinicals and await confirmation of acceptance. CM will continue to follow for discharge planning needs.
Addendum entered by Ashlyn Christy 11/07/24 15:07:
O2 to be delivered today prior to 5pm/ Patient will have concentrator in bedroom and 55feet of cord. Patient will also have tanks for use on first floor if needed. Patient daughter updated and indicated that she would work with patient but stated
that she was concerned about patient going home. Daughter rashida will try to be present for teaching. CM received call from Judith at [facility]. THey will not be able to start care until tomorrow 11/08 at 2pm dose. Awaiting
confirmation of teaching time and home health care. CM will continue to follow for discharge planning needs.
Plan; home with [facility]/ [facility] and [facility] for home O2.
Original Note:
Patient seen at bedside in 2 [place] with physicians. Patient wants to go home and has no interest in SNF placement. CM sent referral to [facility] for home Oxygen. CM called to [facility] and they indicated that they would call CM back. Patient
also for home health for wound care from [facility]. Physician to call patient daughter at patient request with updated plan. Patient confirmed that she has Medicare and IMM completed and placed on chart. Patient very determined to go home. CM
will continue to follow for discharge planning needs.
Plan; home with [facility]; [facility] and [facility]. Home O2 with [facility].
[2024-11-07] MEDS: FLUSH (NSS) 2 FLUSH IV (15:00)
--- NOTE | 2024-11-07 15:44 | W.PN.NEPH.PH ---
Today's Communication / Plan
-
d/c plan per primary
f/u bmp in 3-5days with pcp
Assessment/Plan
-
59 y/o female past medical history of chronic lower extremity, morbid obesity, hypertension, diabetes and recent hospitalization for left lower extremity cellulitis and acute kidney injury who presents with worsen redness of left lower extremity.
Patient reports she was discharged on October 13, but states she was unable to tolerate her oral antibiotics due to vomiting
The patient was recently admitted for similar presentation with lower extremity cellulitis that she developed acute kidney injury multifactorial and was discharged with a creatinine of 2.9.
She presented to the hospital with a creatinine of 1 and has gone up to 1.7 in 48 hours.
Renal consult for acute kidney injury
Impression.
Acute kidney injury appears to be secondary to Lasix which should be given twice a day for lower extremity edema for the last 48 hours while on lisinopril and soft blood pressures.
Cellulitis/osteo = continue antibiotics
Chronic lymphedema
Diabetes
Obesity
Plan.
cr improving to 1.2 close to baseline
UA with subnephrotic proteinuria 2gm/gm of cr in September-need f/u with pcp
wt decreasing on dialy lasix -cotn same
holding RASI still
follow BMP
follow bladder scan off [facility]
noted plan of d/c
f/u with PCP, nephro if needed
d/w pt
-
-
Date of Service: November 07, 2024
CC / HPI / ROS
-
Chief Complaint:
Lower extremity swelling
History of Present Illness:
THAD/Cr improving to 1.2
on abx for cellulitis
BP stable
now on lasix
Sodium 144
Review of Systems:
No chest pain or sob
Off oxygen
Weights down
Labs
-
Labs:
WBC 4.5 10^3/uL (4.8-10.8) L 11/07/24 05:34
RBC 3.47 10^6/uL (4.20-5.40) L 11/07/24 05:34
Hgb 9.0 g/dL (12.0-16.0) L 11/07/24 05:34
Hct 30.6 % (37.0-47.0) L 11/07/24 05:34
Plt Count 236 10^3/uL (130-400) 11/07/24 05:34
Sodium 144 mmol/L (135-145) 11/07/24 05:34
Potassium 3.9 mmol/L (3.5-5.1) 11/07/24 05:34
Chloride 101 mmol/L (98-107) 11/07/24 05:34
Carbon Dioxide 36 mmol/L (22-30) H 11/07/24 05:34
BUN 23 mg/dl (7-17) H 11/07/24 05:34
Creatinine 1.2 mg/dL (0.6-1.0) H 11/07/24 05:34
eGFR 52.80 11/07/24 05:34
Glucose 226 mg/dl (70-99) H 11/07/24 05:34
Calcium 8.5 mg/dl (8.4-10.2) 11/07/24 05:34
Albumin 3.5 g/dl (3.5-5.0) 11/06/24 03:08
Physical Exam
-
Vital Signs:
Vital Signs
Temp Pulse Resp BP Pulse Ox
98.0 F 82 18 140/81 95
11/07/24 11:45 11/07/24 11:45 11/07/24 11:45 11/07/24 11:45 11/07/24 11:45
Cardiovascular:: Regular rate and rhythm
Respiratory:: Bilateral: CTA
Lung Excursion:: Normal
Abdomen:: Nontender and Soft (obese)
Extremity Edema:: +3: Bilateral:
Wang Catheter: No
[2024-11-07 15:55] VITALS: BP 156/90
[2024-11-07] MEDS: HEPARIN SC (16:04)
[2024-11-07] MEDS: NOVOLOG FLEXPEN-LOW RESISTANCE SC (17:20)
[2024-11-07] MEDS: NOVOLOG FLEXPEN SC (17:20)
[2024-11-07] MEDS: LIPITOR 40 MG PO (17:21)
== END 2024-11-07 18:04 | disposition home health service (06) | DRG 637 ==
LOC: 2 NORTH 00:04
PROVIDERS: Internal Medicine; Internal Medicine Infectious Disease; Nurse Practitioner Gerontology; Specialist; Student in an Organized Health Care Education/Training Program; ADMITTING PHYSICIAN Student in an Organized Health Care Education/Training Program; ATTENDING PHYSICIAN Internal Medicine; CONSULT PHYSICIAN Internal Medicine Critical Care Medicine; CONSULT PHYSICIAN Internal Medicine Infectious Disease; CONSULT PHYSICIAN Internal Medicine Nephrology; EMERGENCY PHYSICIAN Student in an Organized Health Care Education/Training Program
DX: E11.628 Type 2 diabetes mellitus with other skin complications (principal); G93.41 Metabolic encephalopathy; J96.01 Acute respiratory failure with hypoxia; L03.116 Cellulitis of left lower limb; M86.9 Osteomyelitis, unspecified; E66.2 Morbid (severe) obesity with alveolar hypoventilation; I50.1 Left ventricular failure, unspecified; Z68.43 Body mass index [BMI] 50.0-59.9, adult; E87.0 Hyperosmolality and hypernatremia; J96.12 Chronic respiratory failure with hypercapnia; N17.9 Acute kidney failure, unspecified; E11.69 Type 2 diabetes mellitus with other specified complication; G25.81 Restless legs syndrome; E11.42 Type 2 diabetes mellitus with diabetic polyneuropathy; I11.0 Hypertensive heart disease with heart failure; Z82.49 Family history of ischemic heart disease and other diseases of the circulatory system; T50.1X5A Adverse effect of loop [high-ceiling] diuretics, initial encounter; Z79.4 Long term (current) use of insulin; M65.90 Unspecified synovitis and tenosynovitis, unspecified site; Z87.891 Personal history of nicotine dependence; E78.00 Pure hypercholesterolemia, unspecified; E87.5 Hyperkalemia; Z66 Do not resuscitate; I89.0 Lymphedema, not elsewhere classified; D64.9 Anemia, unspecified; D72.819 Decreased white blood cell count, unspecified; F32.A Depression, unspecified; F41.9 Anxiety disorder, unspecified; J45.909 Unspecified asthma, uncomplicated; M19.011 Primary osteoarthritis, right shoulder; R93.89 Abnormal findings on diagnostic imaging of other specified body structures; Z79.84 Long term (current) use of oral hypoglycemic drugs; Z79.899 Other long term (current) drug therapy; Z83.3 Family history of diabetes mellitus
CPT/HCPCS: 36600; 70450; 71045; 73590; 73720; 80048; 80053; 80202; 80306; 81003; 81015; 82570; 82805; 82962; 83036; 83605; 83735; 84300; 85025; 85027; 87040; 87070; 87086; 87205; 93005; 93970; 94640; 94660; 94762; 96361; 96374; 96375; 97116; 97162; 97166; 97530; 97535; 99284; A9575; J2997